=== PATIENT | female | born 1955 | race Caucasian/White ===

== ENCOUNTER 2016-08-14 18:26 | Emergency (ER) | payer OTHER ==
[2016-08-14] MEDS ORDERED: ASPIRIN 81 MG CHEW PO STA (19:54)
--- NOTE | 2016-08-14 19:58 | ED ---
General Adult HPI - General Chief complaint: Back Pain/Injury Stated complaint: back rib pain Time Seen by Provider: 08/14/16 19:47 Source: patient Mode of arrival: ambulatory Limitations: no limitations - History of Present Illness Initial comments: This 60-year-old white female presents with a complaint of some pain throughout her anterior and posterior chest as well as her bilateral ribs. She relates that it is been present for the last 2 weeks. It is constantly present but somewhat worse at times with certain movements and with deep inspiration. Seems better when she takes her Flushing. She denies any fevers. She has had occasional cough which is chronic for her. She does relate a history of some coronary artery disease with 50% stenosis on last heart catheterization. She had pneumonia approximately one year ago but this does not seem similar. She states that the pain is fairly severe in nature. She denies any other complaints or modifying factors. - Related Data Home Medications Medication Instructions Recorded Confirmed Aspirin 325 mg PO DAILY 03/31/15 08/14/16 Enalapril Maleate [Vasotec] 10 mg PO HS 03/31/15 08/14/16 Hydrocodone/Acetaminophen [[place] 1 tab PO Q6H PRN 03/31/15 08/14/16 10-325] Isosorbide Mononitrate ER [Imdur] 30 mg PO DAILY 03/31/15 08/14/16 Metoprolol Tartrate [Lopressor] 50 mg PO BID 03/31/15 08/14/16 Omeprazole [PriLOSEC] 20 mg PO BID 03/31/15 08/14/16 Simvastatin [Zocor] 40 mg PO HS 04/01/15 08/14/16 Furosemide [Lasix] 20 mg PO DAILY PRN 08/24/15 08/14/16 Multivitamins, Thera [Multivitamin 1 tab PO DAILY 08/24/15 08/14/16 (formulary)] Stool Softner 1 tab PO DAILY PRN 08/24/15 08/14/16 Allergies Allergy/AdvReac Type Severity Reaction Status Date / Time morphine Allergy Hypotension Verified 08/14/16 19:08 Review of Systems ROS Statement: Those systems with pertinent positive or pertinent negative responses have been documented in the HPI. ROS Other: All systems not noted in ROS Statement are negative. Past Medical History Past Medical History: Coronary Artery Disease (CAD), Cancer, Pneumonia Additional Past Medical History / Comment(s): Bennett [place]; Breast Cancer History of Any Multi-Drug Resistant Organisms: None Reported Past Surgical History: Section, Heart Catheterization Additional Past Surgical History / Comment(s): Lumpectomy, four heart catheterizations Past Anesthesia/Blood Transfusion Reactions: No Reported Reaction Past Psychological History: No Psychological Hx Reported Smoking Status: Former smoker Past Alcohol Use History: None Reported Past Drug Use History: None Reported - Past Family History Mother Family Medical History: Cancer Father Family Medical History: Diabetes Mellitus General Exam - General Exam Comments Initial Comments: GENERAL: The patient is well nourished and well hydrated. VITAL SIGNS: Heart rate, blood pressure, respiratory rate reviewed as recorded in nurse's notes. EYES: Pupils are round and reactive. Extraocular movements are intact. No conjunctival / lid redness or swelling. ENT: No external evidence of injury, swelling, or ecchymosis. Airway is patent. Throat is clear. NECK: Nontender. No swelling or evidence of injury. No subcutaneous emphysema. Trachea is midline. No thyroid mass. HEART: Regular rate and rhythm. Good peripheral pulses. LUNGS/CHEST: Breath sounds clear and equal bilaterally. No rales, rhonchi, or wheezes. No ecchymosis, subcutaneous emphysema. ABDOMEN: Abdomen soft without tenderness. No palpable masses or organomegaly. No peritoneal signs. No abdominal wall swelling or ecchymosis. EXTREMITIES: No extremity tenderness. Normal muscle tone and function. No thoracolumbar tenderness. NEUROLOGIC: Sensation is grossly intact. Cranial nerve exam reveals face is symmetrical, tongue is midline, speech is clear. SKIN: No abrasions or ecchymosis is noted. No induration or masses noted. PSYCHIATRIC: Alert and oriented. Appropriate behavior and judgment. Limitations: no limitations Course Vital Signs 08/14/16 08/14/16 18:32 21:31 Temperature 97.7 F Pulse Rate 69 57 L Respiratory 20 18 Rate Blood Pressure 148/68 154/67 O2 Sat by Pulse 98 98 Oximetry Medical Decision Making - Medical Decision Making The patient is seen and examined. All diagnostics are reviewed. She refuses any pain medications currently. The EKG shows a normal sinus rhythm at a rate of 60. There is no acute ST-T wave changes identified. The [place] interval is 140 , QRS duration is 88, and the QTc interval is 440. The d-dimer came back elevated and therefore computed tomography scan of the thorax was done and this does not show any evidence of pulmonary embolism. The remainder of labs are all essentially within normal limits. The exact cause of her symptomatology is not definitively determined. Is felt as though her symptom complexes less likely cardiac but she still is offered admission to the hospital for further workup and treatment. She refuses. She does see Dr. Ly from cardiology and would prefer to follow up with him closely. The possibility of a rare disorder such as polymyalgia rheumatica certainly would be potentially possible. Risks and benefits of leaving without admission and further workup were discussed in detail and she still refuses to be admitted. She leaves in no identifiable distress. - Lab Data Result diagrams: 08/14/16 20:19 08/14/16 20:19 Lab Results 08/14/16 08/14/16 08/14/16 Range/Units 20:19 20:19 20:19 WBC 8.9 (3.8-10.6) k/uL RBC 5.07 (3.80-5.40) m/uL Hgb 13.9 (11.4-16.0) gm/dL Hct 42.1 (34.0-46.0) % MCV 83.1 (80.0-100.0) fL MCH 27.3 (25.0-35.0) pg MCHC 32.9 (31.0-37.0) g/dL RDW 15.5 (11.5-15.5) % Plt Count 230 (150-450) k/uL Neutrophils % 70 % Lymphocytes % 19 % Monocytes % 6 % Eosinophils % 2 % Basophils % 1 % Neutrophils # 6.2 (1.3-7.7) k/uL Lymphocytes # 1.7 (1.0-4.8) k/uL Monocytes # 0.6 (0-1.0) k/uL Eosinophils # 0.2 (0-0.7) k/uL Basophils # 0.1 (0-0.2) k/uL PT (9.0-12.0) sec INR (<1.1) APTT (22.0-30.0) sec D-Dimer (<0.60) mg/L FEU Sodium 141 (137-145) mmol/L Potassium 4.0 (3.5-5.1) mmol/L Chloride 107 (98-107) mmol/L Carbon Dioxide 23 (22-30) mmol/L Anion Gap 11 mmol/L BUN 20 H (7-17) mg/dL Creatinine 0.69 (0.52-1.04) mg/dL Est GFR (MDRD) Af Amer >60 (>60 ml/min/1.73 sqM) Est GFR (MDRD) Non-Af >60 (>60 ml/min/1.73 sqM) Glucose 95 (74-99) mg/dL Calcium 9.4 (8.4-10.2) mg/dL Magnesium 1.9 (1.6-2.3) mg/dL Total Bilirubin 1.3 (0.2-1.3) mg/dL AST 27 (14-36) U/L ALT 39 (9-52) U/L Alkaline Phosphatase 86 (38-126) U/L Total Creatine Kinase 77 (30-135) U/L CK-MB (CK-2) 0.4 (0.0-2.4) ng/mL CK-MB (CK-2) Rel Index 0.5 Troponin I <0.012 (0.000-0.034) ng/mL NT-Pro-B Natriuret Pep pg/mL Total Protein 7.6 (6.3-8.2) g/dL Albumin 4.1 (3.5-5.0) g/dL Urine Color Urine Appearance (Clear) Urine pH (5.0-8.0) Ur Specific [place] (1.001-1.035) Urine Protein (Negative) Urine Glucose (UA) (Negative) Urine Ketones (Negative) Urine Blood (Negative) Urine Nitrite (Negative) Urine Bilirubin (Negative) Urine Urobilinogen (<2.0) mg/dL Ur Leukocyte Esterase (Negative) Urine RBC (0-5) /hpf Urine WBC (0-5) /hpf Ur Squamous Epith Cells (0-4) /hpf Urine Bacteria (None) /hpf Urine Mucus (None) /hpf 08/14/16 08/14/16 08/14/16 Range/Units 20:19 20:19 20:19 WBC (3.8-10.6) k/uL RBC (3.80-5.40) m/uL Hgb (11.4-16.0) gm/dL Hct (34.0-46.0) % MCV (80.0-100.0) fL MCH (25.0-35.0) pg MCHC (31.0-37.0) g/dL RDW (11.5-15.5) % Plt Count (150-450) k/uL Neutrophils % % Lymphocytes % % Monocytes % % Eosinophils % % Basophils % % Neutrophils # (1.3-7.7) k/uL Lymphocytes # (1.0-4.8) k/uL Monocytes # (0-1.0) k/uL Eosinophils # (0-0.7) k/uL Basophils # (0-0.2) k/uL PT 10.5 (9.0-12.0) sec INR 1.0 (<1.1) APTT 22.6 (22.0-30.0) sec D-Dimer 0.79 H (<0.60) mg/L FEU Sodium (137-145) mmol/L Potassium (3.5-5.1) mmol/L Chloride (98-107) mmol/L Carbon Dioxide (22-30) mmol/L Anion Gap mmol/L BUN (7-17) mg/dL Creatinine (0.52-1.04) mg/dL Est GFR (MDRD) Af Amer (>60 ml/min/1.73 sqM) Est GFR (MDRD) Non-Af (>60 ml/min/1.73 sqM) Glucose (74-99) mg/dL Calcium (8.4-10.2) mg/dL Magnesium (1.6-2.3) mg/dL Total Bilirubin (0.2-1.3) mg/dL AST (14-36) U/L ALT (9-52) U/L Alkaline Phosphatase (38-126) U/L Total Creatine Kinase (30-135) U/L CK-MB (CK-2) (0.0-2.4) ng/mL CK-MB (CK-2) Rel Index Troponin I (0.000-0.034) ng/mL NT-Pro-B Natriuret Pep 192 pg/mL Total Protein (6.3-8.2) g/dL Albumin (3.5-5.0) g/dL Urine Color Yellow Urine Appearance Cloudy H (Clear) Urine pH 6.0 (5.0-8.0) Ur Specific [place] 1.019 (1.001-1.035) Urine Protein Negative (Negative) Urine Glucose (UA) Negative (Negative) Urine Ketones Negative (Negative) Urine Blood Negative (Negative) Urine Nitrite Negative (Negative) Urine Bilirubin Negative (Negative) Urine Urobilinogen 3.0 (<2.0) mg/dL Ur Leukocyte Esterase Moderate H (Negative) Urine RBC 5 (0-5) /hpf Urine WBC 50 H (0-5) /hpf Ur Squamous Epith Cells 2 (0-4) /hpf Urine Bacteria Rare H (None) /hpf Urine Mucus Rare H (None) /hpf Disposition Clinical Impression: Chest pain, Chest wall pain Disposition: HOME SELF-CARE Condition: Good Instructions: Chest Pain (ED), Chest Wall Pain (ED) Additional Instructions: Please take her Flushing if needed for pain. He also may benefit from ibuprofen for pain and inflammation. Referrals: rTever Lindsay MD [Primary Care Provider] - 1-2 days Time of Disposition: 00:09
[2016-08-14 20:34] LABS: Basophils # (A) 0.1 k/uL (0-0.2); Basophils % (A) 1 %; CH 27.7; CHCM 33.5; Eosinophils # (A) 0.2 k/uL (0-0.7); Eosinophils % (A) 2 %; HCT 42.1 % (34.0-46.0); HDW 3.13; HGB 13.9 gm/dL (11.4-16.0); Luc # (Auto) 0.22; Luc % (Auto) 3; Lymphocytes # (A) 1.7 k/uL (1.0-4.8); Lymphocytes % (A) 19 %; MCH 27.3 pg (25.0-35.0); MCHC 32.9 g/dL (31.0-37.0); MCV 83.1 fL (80.0-100.0); Mean Platelet Volume 6.3; Monocytes # (A) 0.6 k/uL (0-1.0); Monocytes % (A) 6 %; Neutrophils # (A) 6.2 k/uL (1.3-7.7); Neutrophils % (A) 70 %; RBC 5.07 m/uL (3.80-5.40); RDW 15.5 % (11.5-15.5); WBC 8.9 k/uL (3.8-10.6); WBC (Perox) 8.77
--- NOTE | 2016-08-14 20:34 | XR ---
EXAMINATION TYPE: XR chest 2V DATE OF EXAM: 08/14/2016 8:24 PM COMPARISON: 04/05/2015 HISTORY: Pain, history of breast carcinoma TECHNIQUE: Frontal and lateral views of the chest are obtained. FINDINGS: EKG leads are noted. The lungs appear clear bilaterally. The pleural spaces are negative. There is no pneumothorax. The cardiac silhouette size is within normal limits. The left breast shadow is reduced in volume when compared to the right. The osseous structures are intact. IMPRESSION: NO ACUTE PROCESS.
[2016-08-14 20:38] LABS: Appearance,Urine Cloudy (Clear); Bacteria,Urine Rare /hpf; Bilirubin,Urine Negative (Negative); Glucose,Urine (UA) Negative (Negative); Ketones,Urine Negative (Negative); Leukocyte Esterase,Urine Moderate (Negative); Mucus,Urine Rare /hpf; Nitrite,Urine Negative (Negative); Particle Count 2017; Protein,Urine Negative (Negative); RBC,Urine 5 /hpf (0-5); Specific Gravity,Urine 1.019 (1.001-1.035); Squamous Epithelial Cell,Urine 2 /hpf (0-4); UA Billing (MACRO vs. MICRO) MICRO; WBC,Urine 50 /hpf (0-5)
[2016-08-14 20:45] LABS: ALT 39 U/L (9-52); AST 27 U/L (14-36); Alkaline Phosphatase 86 U/L (38-126); Anion Gap 11 mmol/L; Blood Urea Nitrogen 20 mg/dL (7-17); Calcium 9.4 mg/dL (8.4-10.2); Carbon Dioxide 23 mmol/L (22-30); Chloride 107 mmol/L (98-107); Glucose 95 mg/dL (74-99); Magnesium 1.9 mg/dL (1.6-2.3); Non-African American GFR(MDRD) >60 (>60 ml/min/1.73 sqM); Sodium 141 mmol/L (137-145); Total Bilirubin 1.3 mg/dL (0.2-1.3); Total Protein 7.6 g/dL (6.3-8.2)
[2016-08-14 20:48] LABS: Creatine Kinase 77 U/L (30-135)
[2016-08-14 20:56] LABS: Partial Thromboplastin Time 22.6 sec (22.0-30.0); Prothrombin Time 10.5 sec (9.0-12.0)
[2016-08-14 21:01] LABS: Creatine Kinase MB 0.4 ng/mL (0.0-2.4); Troponin I <0.012 ng/mL (0.000-0.034)
[2016-08-14 21:33] VITALS: RESP 18
[2016-08-14] MEDS ORDERED: RX INFO: IV CONTRAST WAS GIVEN 1 EACH MISC MISCELLANE PRN (21:59)
--- NOTE | 2016-08-14 23:28 | CT ---
EXAM: CT Angiography Chest With Intravenous Contrast. CLINICAL HISTORY: Reason: Pain TECHNIQUE: Axial computed tomographic angiography images of the chest with intravenous contrast using pulmonary embolism protocol. CTDI is 7.50, 120.20, 21.50 mGy and DLP is 1015.40 mGy-cm This CT exam was performed using one or more of the following dose reduction techniques: automated exposure control, adjustment of the mA and/or kV according to patient size, and/or use of iterative reconstruction technique. MIP reconstructed images were created and reviewed. COMPARISON: No relevant prior studies available. FINDINGS: Limitations: Timing of the IV contrast bolus. Pulmonary arteries: No central pulmonary embolus. Aorta: Atherosclerosis of the thoracic aorta and coronary arteries. No thoracic aortic aneurysm or dissection. Lungs: Unremarkable. No mass. No consolidation. Pleural space: Left pleural thickening. No pneumothorax or pleural effusion. Heart: See above. Bones/joints: Degenerative changes of the spine. No acute fracture. No dislocation. Soft tissues: Unremarkable. Lymph nodes: Unremarkable. No enlarged lymph nodes. Liver: Indeterminate small foci of hypoattenuation in the liver measuring up to 2 cm. Gallbladder and bile ducts: The gallbladder is surgically absent. Other findings: Mild left greater than right subpleural densities are compatible with scar. IMPRESSION: No central pulmonary embolus.
[2016-08-15 00:57] VITALS: BP 156/70; PULSE 67; TEMP 97.5
== END 2016-08-15 00:56 | disposition home or self-care (01) ==
LOC: EC 18:26
DX: R07.89 Other chest pain (principal); I25.10 Atherosclerotic heart disease of native coronary artery without angina pectoris; Z85.3 Personal history of malignant neoplasm of breast; Z88.5 Allergy status to narcotic agent; Z87.891 Personal history of nicotine dependence; Z79.82 Long term (current) use of aspirin; Z79.899 Other long term (current) drug therapy
CPT/HCPCS: 99284; 96365; 36415; 93005; 85379; 83880; 80053; 82550; 82553; 83735; 84484; 85025; 85610; 85730; 81001; 87040; 87086; 71020; 71275; Q9967; J0696; 87077; 87186

== ENCOUNTER → 2016-09-28 | Outpatient (CLI) | payer OTHER ==
--- NOTE | 2016-09-28 08:52 | CT ---
EXAMINATION TYPE: CT sinus wo con DATE OF EXAM: 09/28/2016 COMPARISON: NONE HISTORY: Pilar Granulomatosis CT DLP: 605 mGycm. Automated Exposure Control for Dose Reduction was Utilized. TECHNIQUE: CT scan of the sinuses is performed without contrast, axial images are obtained, coronal r eformatted images are also reviewed. FINDINGS: Patchy dependent suspicious opacification inferior left maxillary sinus is present. Remaind er paranasal sinuses are clear. The ostiomeatal complex is patent bilaterally on the coronal images. Nasal septum is deviated to left of midline. No suspicious polyposis is evident. Visualized portion of mastoid air cells show no abnormal opacification. The globes are intact bilate rally. Visualized portion of brain parenchyma shows age-related cerebral atrophy. Hyperostosis front joanna is seen. IMPRESSION: Acute left maxillary sinus disease.
--- NOTE | 2016-09-28 09:06 | CT ---
EXAMINATION TYPE: CT chest wo con DATE OF EXAM: 09/28/2016 COMPARISON: CTA chest August 14, 2016. HISTORY: Pilar granulomatosis CT DLP: 777 mGycm. Automated Exposure Control for Dose Reduction was Utilized. TECHNIQUE: CT scan of the thorax is performed without IV contrast. FINDINGS: LUNGS: There is persistent reticulation and subpleural fibrosis in the left midlung laterally. Additi onal linear scarring centrally left lower lobe is present. No concerning parenchymal nodule or mass i s seen bilaterally. There is no pleural effusion or pneumothorax seen bilaterally. The tracheobron chial tree is patent. MEDIASTINUM: Lack of IV contrast is noted to limit evaluation for mediastinal and especially hilar ad enopathy. There are no definitive greater than 1 cm hilar or mediastinal lymph nodes. No cardiomega ly or pericardial effusion is seen. Mild biatrial dilatation is redemonstrated. Coronary artery calci fication is present which is noted marker for coronary artery disease. There is mild atherosclerotic change in the thoracic aorta. OTHER: There is stable 1.5 cm low dense lesion posterior right hepatic dome felt to reflect simple c yst. Cholecystectomy clips are redemonstrated. Moderate multilevel spurring in the spine is redemonst rated. IMPRESSION: Some left mid lung scarring redemonstrated. No acute pulmonary process. No significant ch alexandre from prior exam.
== END | disposition home or self-care (01) ==
LOC: RADCTMAIN 07:27
PROVIDERS: ATTEND Internal Medicine Rheumatology
DX: J98.4 Other disorders of lung (principal); J01.00 Acute maxillary sinusitis, unspecified
CPT/HCPCS: 70486; 71250

== ENCOUNTER 2017-02-04 10:00 | Emergency (ER) | payer OTHER ==
[2017-02-04 10:12] VITALS: RESP 18
[2017-02-04] MEDS ORDERED: IPRATROPIUM-ALBUTEROL 3 ML NEB INHALATION STA (10:44)
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
--- NOTE | 2017-02-04 11:13 | XR ---
EXAMINATION TYPE: XR chest 2V DATE OF EXAM: 02/04/2017 HISTORY: cough. REFERENCE: Previous study dated 08/14/2016. FINDINGS: The lungs are overinflated. The heart is mildly prominent. The lungs are clear. Pleural [place] are clear. IMPRESSION: 1. COPD. 2. MILD CARDIOMEGALY.
[2017-02-04] MEDS ORDERED: predniSONE 50 MG TAB PO STA (11:50)
[2017-02-04] MEDS ORDERED: cefTRIAXone 250 MG VIAL IM STA (11:50)
[2017-02-04 12:38] VITALS: BP 143/79; PULSE 81; TEMP 98.2
== END 2017-02-04 12:37 | disposition home or self-care (01) ==
LOC: EC 10:00
DX: J40 Bronchitis, not specified as acute or chronic (principal); I25.10 Atherosclerotic heart disease of native coronary artery without angina pectoris; Z85.3 Personal history of malignant neoplasm of breast; Z87.891 Personal history of nicotine dependence; Z79.82 Long term (current) use of aspirin; Z79.899 Other long term (current) drug therapy; Z88.5 Allergy status to narcotic agent
CPT/HCPCS: 99283 ×2; 96372 ×2; 94640; 71020; J0696; J7512

== ENCOUNTER 2017-06-22 10:32 | Emergency (ER) | payer OTHER ==
--- NOTE | 2017-06-22 11:34 | XR ---
EXAMINATION TYPE: XR chest 2V DATE OF EXAM: 06/22/2017 COMPARISON: 02/04/2017 TECHNIQUE: PA and lateral views submitted. HISTORY: Cough FINDINGS: The lungs are clear and there is no pneumothorax, pleural effusion, or focal pneumonia. Hyperinflat ion suggests COPD. Biapical pleural thickening. No overt failure. Hypertrophic and degenerative gil e of the spine. Atherosclerotic change of the aorta. IMPRESSION: 1. No acute process. Correlate for COPD.
[2017-06-22 12:17] LABS: Basophils # (A) 0.1 k/uL (0-0.2); Basophils % (A) 1 %; Eosinophils # (A) 0.3 k/uL (0-0.7); Eosinophils % (A) 2 %; HCT 44.9 % (34.0-46.0); HGB 14.6 gm/dL (11.4-16.0); Hypochromasia Slight; Lymphocytes # (A) 1.7 k/uL (1.0-4.8); Lymphocytes % (A) 16 %; MCH 26.9 pg (25.0-35.0); MCHC 32.6 g/dL (31.0-37.0); MCV 82.4 fL (80.0-100.0); Mean Platelet Volume 6.5; Monocytes # (A) 0.7 k/uL (0-1.0); Monocytes % (A) 7 %; Neutrophils # (A) 7.7 k/uL (1.3-7.7); Neutrophils % (A) 73 %; Platelet Count 325 k/uL (150-450); RBC 5.45 m/uL (3.80-5.40); RDW 15.9 % (11.5-15.5); WBC 10.6 k/uL (3.8-10.6)
[2017-06-22 12:37] LABS: Anion Gap 9 mmol/L; Blood Urea Nitrogen 21 mg/dL (7-17); Calcium 9.4 mg/dL (8.4-10.2); Carbon Dioxide 27 mmol/L (22-30); Chloride 105 mmol/L (98-107); Glucose 138 mg/dL (74-99); Potassium 4.5 mmol/L (3.5-5.1); Sodium 141 mmol/L (137-145)
[2017-06-22] MEDS ORDERED: IPRATROPIUM-ALBUTEROL 3 ML NEB INHALATION STA (12:44)
[2017-06-22] MEDS ORDERED: methylPREDNISolone SOD SUCCI 125 MG/2 ML VIAL IV STA (12:44)
[2017-06-22] MEDS ORDERED: SODIUM CHLORIDE 0.9% 1,000 ML IV ONE (12:45)
[2017-06-22 13:23] VITALS: RESP 16
[2017-06-22 13:49] LABS: ALT 35 U/L (9-52); AST 28 U/L (14-36); Alkaline Phosphatase 103 U/L (38-126); Anion Gap 11 mmol/L; Blood Urea Nitrogen 22 mg/dL (7-17); Calcium 9.7 mg/dL (8.4-10.2); Carbon Dioxide 25 mmol/L (22-30); Chloride 106 mmol/L (98-107); Glucose 137 mg/dL (74-99); Potassium 4.3 mmol/L (3.5-5.1); Sodium 142 mmol/L (137-145); Total Bilirubin 1.7 mg/dL (0.2-1.3); Total Protein 7.4 g/dL (6.3-8.2)
[2017-06-22 13:58] LABS: Appearance,Urine Cloudy (Clear); Bilirubin,Urine Negative (Negative); Blood,Urine Negative (Negative); Color,Urine Yellow; Glucose,Urine (UA) Negative (Negative); Hyaline Casts,Urine 2 /lpf (0-2); Ketones,Urine Negative (Negative); Leukocyte Esterase,Urine Moderate (Negative); Mucus,Urine Few /hpf; PH, Urine 5.5 (5.0-8.0); Protein,Urine 1+ (Negative); RBC,Urine 6 /hpf (0-5); Specific Gravity,Urine 1.015 (1.001-1.035); Squamous Epithelial Cell,Urine 1 /hpf (0-4); Urobilinogen,Urine <2.0 mg/dL (<2.0); WBC,Urine 112 /hpf (0-5)
[2017-06-22 14:00] LABS: D-Dimer 0.78 mg/L FEU (<0.60)
[2017-06-22 14:04] LABS: INR 1.1 (<1.2); Prothrombin Time 10.3 sec (9.0-12.0)
[2017-06-22] MEDS ORDERED: cefTRIAXone IN SWFI 1,000 MG/10 ML SYRINGE IVP STA (14:21)
[2017-06-22] MEDS ORDERED: RX INFO: IV CONTRAST WAS GIVEN 1 EACH MISC MISCELLANE PRN (14:21)
[2017-06-22] MEDS ORDERED: LEVOFLOXACIN 750MG-D5W PMX 750 MG in DEXTROSE/WATER 1 150ML.BAG IVPB STA (14:22)
--- NOTE | 2017-06-22 14:23 | ED ---
URI HPI - General Chief Complaint: Upper Respiratory Infection Stated Complaint: Cough & chills Time Seen by Provider: 06/22/17 12:13 Source: patient, RN notes reviewed, old records reviewed Mode of arrival: ambulatory Limitations: no limitations - History of Present Illness Initial Comments: This patient is 61-year-old female presents the chief complaint of cough and congestion, sore throat and right-sided back pain. She's been having upper a story symptoms for over a month. She's been on 2 rounds of azithromycin, amoxicillin, and steroids. She was recently started on cefuroxime by her PCP. She reports that yesterday she had an episode of severe frequent C with urination. Denies any abdominal pain but does complain of right-sided back pain. Patient states that she feels like she is wheezing and short of breath more at night. She's had a use inhalers in the past. - Related Data Home Medications Medication Instructions Recorded Confirmed Aspirin 325 mg PO DAILY 03/31/15 06/22/17 Enalapril Maleate [Vasotec] 10 mg PO HS 03/31/15 06/22/17 Hydrocodone/Acetaminophen [[place] 1 tab PO Q6H PRN 03/31/15 06/22/17 10-325] Isosorbide Mononitrate ER [Imdur] 30 mg PO DAILY 03/31/15 06/22/17 Metoprolol Tartrate [Lopressor] 50 mg PO BID 03/31/15 06/22/17 Simvastatin [Zocor] 40 mg PO HS 04/01/15 06/22/17 Furosemide [Lasix] 20 mg PO DAILY PRN 08/24/15 06/22/17 [place] 1 tab PO DAILY PRN 08/24/15 06/22/17 ALPRAZolam [Xanax] 0.5 mg PO BID PRN 06/22/17 06/22/17 Previous Rx's Medication Instructions Recorded Albuterol Inhaler [Ventolin Hfa 1 - 2 puff INHALATION Q6HR PRN #1 06/22/17 Inhaler] inhaler Levofloxacin [Levaquin] 750 mg PO DAILY #7 tab 06/22/17 predniSONE 50 mg PO DAILY #5 tablet 06/22/17 Allergies Allergy/AdvReac Type Severity Reaction Status Date / Time morphine Allergy Hypotension Verified 06/22/17 16:18 Review of Systems ROS Statement: Those systems with pertinent positive or pertinent negative responses have been documented in the HPI. ROS Other: All systems not noted in ROS Statement are negative. Past Medical History Past Medical History: Coronary Artery Disease (CAD), Cancer, Pneumonia Additional Past Medical History / Comment(s): Bennett [place]; Breast Cancer History of Any Multi-Drug Resistant Organisms: None Reported Past Surgical History: Section, Heart Catheterization Additional Past Surgical History / Comment(s): Lumpectomy, four heart catheterizations Past Anesthesia/Blood Transfusion Reactions: No Reported Reaction Past Psychological History: No Psychological Hx Reported Smoking Status: Former smoker Past Alcohol Use History: None Reported Past Drug Use History: None Reported - Past Family History Mother Family Medical History: Cancer Father Family Medical History: Diabetes Mellitus General Exam - General Exam Comments Initial Comments: Pleasant 61 year old female, no acute distress. Limitations: no limitations General appearance: alert, in no apparent distress Head exam: Present: atraumatic, normocephalic, normal inspection Eye exam: Present: normal appearance, PERRL, EOMI. Absent: scleral icterus, conjunctival injection, periorbital swelling ENT exam: Present: normal exam, mucous membranes moist Neck exam: Present: normal inspection. Absent: tenderness, meningismus, lymphadenopathy Respiratory exam: Present: wheezes (minor wheezing ). Absent: normal lung sounds bilaterally, respiratory distress, rales, rhonchi, stridor Cardiovascular Exam: Present: regular rate, normal rhythm, normal heart sounds. Absent: systolic murmur, diastolic murmur, rubs, gallop, clicks GI/Abdominal exam: Present: soft, normal bowel sounds. Absent: distended, tenderness, guarding, rebound, rigid Neurological exam: Present: alert, oriented X3, CN II-XII intact Psychiatric exam: Present: normal affect, normal mood Skin exam: Present: warm, dry, intact, normal color. Absent: rash Course Vital Signs 06/22/17 06/22/17 06/22/17 10:43 12:53 13:20 Temperature 97.5 F L Pulse Rate 77 76 77 Respiratory 18 16 Rate Blood Pressure 122/78 124/64 O2 Sat by Pulse 97 94 L Oximetry 06/22/17 06/22/17 15:29 16:48 Temperature 98 F Pulse Rate 76 70 Respiratory 16 16 Rate Blood Pressure 152/66 130/78 O2 Sat by Pulse 95 98 Oximetry Medical Decision Making - Medical Decision Making This is a 61-year-old female presents emergency department today complaining of upper respiratory congestion and cough and shortness of breath. Patient says exertion evidence of COPD. She also complains of right-sided back pain, progressive urination. Patient's urinalysis positive for infection with over 182 white blood cells. Urine culture be obtained. Started patient on Levaquin. She was on Ceftin earlier for upper respiratory infection by her PCP. Discussed discogenic Ceftin and will switch patient to Levaquin. Also starting her on some steroids for COPD exacerbation and inhalers. Patient is history plan will comply. Return parameters were discussed. - Lab Data Result diagrams: 06/22/17 12:05 06/22/17 13:18 Lab Results 06/22/17 06/22/17 06/22/17 Range/Units 12:05 12:05 13:18 WBC 10.6 (3.8-10.6) k/uL RBC 5.45 H (3.80-5.40) m/uL Hgb 14.6 (11.4-16.0) gm/dL Hct 44.9 (34.0-46.0) % MCV 82.4 (80.0-100.0) fL MCH 26.9 (25.0-35.0) pg MCHC 32.6 (31.0-37.0) g/dL RDW 15.9 H (11.5-15.5) % Plt Count 325 (150-450) k/uL Neutrophils % 73 % Lymphocytes % 16 % Monocytes % 7 % Eosinophils % 2 % Basophils % 1 % Neutrophils # 7.7 (1.3-7.7) k/uL Lymphocytes # 1.7 (1.0-4.8) k/uL Monocytes # 0.7 (0-1.0) k/uL Eosinophils # 0.3 (0-0.7) k/uL Basophils # 0.1 (0-0.2) k/uL Hypochromasia Slight PT (9.0-12.0) sec INR (<1.2) APTT (22.0-30.0) sec D-Dimer (<0.60) mg/L FEU Sodium 141 (137-145) mmol/L Potassium 4.5 (3.5-5.1) mmol/L Chloride 105 (98-107) mmol/L Carbon Dioxide 27 (22-30) mmol/L Anion Gap 9 mmol/L BUN 21 H (7-17) mg/dL Creatinine 0.79 (0.52-1.04) mg/dL Est GFR (CKD-EPI)AfAm >90 (>60 ml/min/1.73 sqM) Est GFR (CKD-EPI)NonAf 81 (>60 ml/min/1.73 sqM) Glucose 138 H (74-99) mg/dL Calcium 9.4 (8.4-10.2) mg/dL Total Bilirubin (0.2-1.3) mg/dL AST (14-36) U/L ALT (9-52) U/L Alkaline Phosphatase (38-126) U/L Troponin I (0.000-0.034) ng/mL Total Protein (6.3-8.2) g/dL Albumin (3.5-5.0) g/dL Urine Color Yellow Urine Appearance Cloudy H (Clear) Urine pH 5.5 (5.0-8.0) Ur Specific [place] 1.015 (1.001-1.035) Urine Protein 1+ H (Negative) Urine Glucose (UA) Negative (Negative) Urine Ketones Negative (Negative) Urine Blood Negative (Negative) Urine Nitrite Negative (Negative) Urine Bilirubin Negative (Negative) Urine Urobilinogen <2.0 (<2.0) mg/dL Ur Leukocyte Esterase Moderate H (Negative) Urine RBC 6 H (0-5) /hpf Urine WBC 112 H (0-5) /hpf Ur Squamous Epith Cells 1 (0-4) /hpf Hyaline Casts 2 (0-2) /lpf Urine Mucus Few H (None) /hpf 06/22/17 06/22/17 06/22/17 Range/Units 13:18 13:18 13:18 WBC (3.8-10.6) k/uL RBC (3.80-5.40) m/uL Hgb (11.4-16.0) gm/dL Hct (34.0-46.0) % MCV (80.0-100.0) fL MCH (25.0-35.0) pg MCHC (31.0-37.0) g/dL RDW (11.5-15.5) % Plt Count (150-450) k/uL Neutrophils % % Lymphocytes % % Monocytes % % Eosinophils % % Basophils % % Neutrophils # (1.3-7.7) k/uL Lymphocytes # (1.0-4.8) k/uL Monocytes # (0-1.0) k/uL Eosinophils # (0-0.7) k/uL Basophils # (0-0.2) k/uL Hypochromasia PT 10.3 (9.0-12.0) sec INR 1.1 (<1.2) APTT 21.0 L (22.0-30.0) sec D-Dimer 0.78 H (<0.60) mg/L FEU Sodium 142 (137-145) mmol/L Potassium 4.3 (3.5-5.1) mmol/L Chloride 106 (98-107) mmol/L Carbon Dioxide 25 (22-30) mmol/L Anion Gap 11 mmol/L BUN 22 H (7-17) mg/dL Creatinine 0.80 (0.52-1.04) mg/dL Est GFR (CKD-EPI)AfAm >90 (>60 ml/min/1.73 sqM) Est GFR (CKD-EPI)NonAf 79 (>60 ml/min/1.73 sqM) Glucose 137 H (74-99) mg/dL Calcium 9.7 (8.4-10.2) mg/dL Total Bilirubin 1.7 H (0.2-1.3) mg/dL AST 28 (14-36) U/L ALT 35 (9-52) U/L Alkaline Phosphatase 103 (38-126) U/L Troponin I <0.012 (0.000-0.034) ng/mL Total Protein 7.4 (6.3-8.2) g/dL Albumin 4.0 (3.5-5.0) g/dL Urine Color Urine Appearance (Clear) Urine pH (5.0-8.0) Ur Specific [place] (1.001-1.035) Urine Protein (Negative) Urine Glucose (UA) (Negative) Urine Ketones (Negative) Urine Blood (Negative) Urine Nitrite (Negative) Urine Bilirubin (Negative) Urine Urobilinogen (<2.0) mg/dL Ur Leukocyte Esterase (Negative) Urine RBC (0-5) /hpf Urine WBC (0-5) /hpf Ur Squamous Epith Cells (0-4) /hpf Hyaline Casts (0-2) /lpf Urine Mucus (None) /hpf 06/22/17 14:22 EKG shows normal sinus rhythm, ventricular rate of 79 bpm. DE interval 140 ms. QRS ration 80 ms. QT QTc is 412/472 ms. - Radiology Data Radiology results: report reviewed Chest x-ray shows evidence of COPD changes. CT ESCOBAR chest shows no evidence of PE. No pneumonias. Disposition Clinical Impression: UTI (urinary tract infection), COPD (chronic obstructive pulmonary disease) Disposition: HOME SELF-CARE Condition: Good Instructions: Urinary Tract Infection in Women (ED), Upper Respiratory Infection (ED) Additional Instructions: Patient advised to follow-up with primary care provider within the next 2-3 days. Patient should return to emergency department if any alarming signs or symptoms occur. Use the new antibiotic and steroid prescription. Patient should also use the inhaler as directed. Discontinue Ceftin. Return to the emergency department if any alarming signs or symptoms occur. Prescriptions: Albuterol Inhaler [Ventolin Hfa Inhaler] 1 - 2 puff INHALATION Q6HR PRN #1 inhaler PRN Reason: Shortness Of Breath Levofloxacin [Levaquin] 750 mg PO DAILY #7 tab predniSONE 50 mg PO DAILY #5 tablet Referrals: Jean Uriarte MD [Primary Care Provider] - 1-2 days Time of Disposition: 16:10
--- NOTE | 2017-06-22 15:37 | CT ---
EXAMINATION TYPE: CT chest angio for PE DATE OF EXAM: 06/22/2017 COMPARISON: 09/28/2016 HISTORY: Difficulty breathing X [address] DLP: 1298 mGycm Automated exposure control for dose reduction was used. CONTRAST: CT Chest for pulmonary embolism performed with with IV Contrast, patient injected with 100 mL of Omni paque 350. FINDINGS: LUNGS: There is persistent reticulation and subpleural fibrosis in the left midlung laterally. Additi onal linear scarring centrally left lower lobe is present. No concerning parenchymal nodule or mass i s seen bilaterally. There is no pleural effusion or pneumothorax seen bilaterally. The tracheobronchi al tree is patent. MEDIASTINUM: There is satisfactory enhancement of the pulmonary artery and its branches, there is no CT evidence for pulmonary embolism. There are no greater than 1 cm hilar or mediastinal lymph nodes. No pericardial effusion is seen. The heart is prominent in size particularly the atrium. Atherosc lerotic change of the aorta. No evidence of aneurysm. Coronary artery calcification noted. OTHER: There is gallbladder surgery seen. Hypodensities in the dome of the liver are indeterminate. Hypertrophic change of the spine noted. IMPRESSION: No CT evidence of pulmonary embolism see above.
[2017-06-22 16:49] VITALS: BP 130/78; PULSE 70; TEMP 98
== END 2017-06-22 16:45 | disposition home or self-care (01) ==
LOC: EC 10:32
DX: J44.9 Chronic obstructive pulmonary disease, unspecified (principal); N39.0 Urinary tract infection, site not specified; I25.10 Atherosclerotic heart disease of native coronary artery without angina pectoris; Z87.891 Personal history of nicotine dependence; Z79.82 Long term (current) use of aspirin; Z79.899 Other long term (current) drug therapy; Z88.5 Allergy status to narcotic agent; Z85.3 Personal history of malignant neoplasm of breast; Z98.890 Other specified postprocedural states
CPT/HCPCS: 36415; 94640; 93005; 85379; 80053; 80048; 84484; 85025; 85610; 85730; 81001; 87040; 87086; 71046; 71275; 99284; 96365; 96375; 96361; J2930; Q9967; J1956

== ENCOUNTER 2018-04-18 02:53 | Observation (INO) | payer OTHER ==
[2018-04-18 03:32] LABS: Basophils % (A) 0 %; Eosinophils # (A) 0.2 k/uL (0-0.7); Eosinophils % (A) 2 %; HCT 42.1 % (34.0-46.0); HGB 13.3 gm/dL (11.4-16.0); Lymphocytes # (A) 1.1 k/uL (1.0-4.8); Lymphocytes % (A) 10 %; MCH 25.8 pg (25.0-35.0); MCHC 31.7 g/dL (31.0-37.0); MCV 81.3 fL (80.0-100.0); Mean Platelet Volume 6.2; Monocytes # (A) 0.4 k/uL (0-1.0); Monocytes % (A) 4 %; Neutrophils # (A) 8.9 k/uL (1.3-7.7); Neutrophils % (A) 82 %; Platelet Count 219 k/uL (150-450); RBC 5.18 m/uL (3.80-5.40); RDW 14.2 % (11.5-15.5); WBC 10.8 k/uL (3.8-10.6)
[2018-04-18] MEDS ORDERED: ASPIRIN 325 MG TAB PO STA (03:39)
[2018-04-18] MEDS ORDERED: SODIUM CHLORIDE 0.9% 1,000 ML IV ONE (03:39)
[2018-04-18 03:42] LABS: INR 0.9 (<1.2); Partial Thromboplastin Time 23.6 sec (22.0-30.0); Prothrombin Time 9.8 sec (9.0-12.0)
--- NOTE | 2018-04-18 03:42 | XR ---
EXAMINATION TYPE: XR chest 2V DATE OF EXAM: 04/18/2018 COMPARISON: 06/22/2017 HISTORY: Chest pain TECHNIQUE: Frontal and lateral views of the chest are obtained. FINDINGS: There is no heart failure nor confluent pneumonic infiltrate. Costophrenic angles are lindsey r. Thoracic aorta is atheromatous. There are chest leads. There is spurring in the thoracic spine. Th ere is left mastectomy. IMPRESSION: No active cardiopulmonary disease. Mild pulmonary fibrosis. No change.
[2018-04-18 03:43] LABS: ALT 31 U/L (9-52); AST 23 U/L (14-36); Albumin 4.1 g/dL (3.5-5.0); Alkaline Phosphatase 94 U/L (38-126); Anion Gap 11 mmol/L; Blood Urea Nitrogen 18 mg/dL (7-17); Calcium 9.3 mg/dL (8.4-10.2); Carbon Dioxide 23 mmol/L (22-30); Chloride 108 mmol/L (98-107); Glucose 148 mg/dL (74-99); Magnesium 1.8 mg/dL (1.6-2.3); Potassium 3.9 mmol/L (3.5-5.1); Sodium 142 mmol/L (137-145); Total Bilirubin 0.9 mg/dL (0.2-1.3); Total Protein 7.7 g/dL (6.3-8.2)
[2018-04-18 03:57] LABS: Creatine Kinase 72 U/L (30-135)
[2018-04-18 04:08] LABS: Creatine Kinase MB 0.4 ng/mL (0.0-2.4); Troponin I <0.012 ng/mL (0.000-0.034)
--- NOTE | 2018-04-18 04:17 | ED ---
Chest Pain HPI - General Source: patient, RN notes reviewed, old records reviewed Mode of arrival: ambulatory Limitations: no limitations <Iqra Miles - Last Filed: 04/18/18 04:38> <Maria Ines Prather - Last Filed: 04/19/18 21:32> - General Chief Complaint: Chest Pain Stated Complaint: chest pain,SOB Time Seen by Provider: 04/18/18 03:02 - History of Present Illness Initial Comments: Patient is a 62-year-old male who presents emergency Department today with complaints of chest pain starting yesterday. She reports that she's also had some episodes of lightheadedness. Patient reports that she sitting on the couch , felt dizzy and lightheaded when she stood up. She reports she is diaphoretic at that time. Patient states he's had a dull aching chest pain since that time. Patient states that she's also had some increased dyspnea on exertion. She's had previous stents in the past. Her shell molding roller blast operator is Dr. Ly. Patient states she didn't have a stress test done at Dr. Ly's office earlier this year. Patient states that she has history of breast cancer and recent mastectomy in January. She denies any associated back pain. (Iqra Miles) - Related Data Home Medications Medication Instructions Recorded Confirmed Enalapril Maleate [Vasotec] 10 mg PO HS 03/31/15 04/18/18 Hydrocodone/Acetaminophen [[place] 1 tab PO Q4H PRN 03/31/15 04/18/18 10-325] Isosorbide Mononitrate ER [Imdur] 30 mg PO DAILY 03/31/15 04/18/18 Metoprolol Tartrate [Lopressor] 50 mg PO BID 03/31/15 04/18/18 Simvastatin [Zocor] 40 mg PO HS 04/01/15 04/18/18 Furosemide [Lasix] 40 mg PO DAILY 08/24/15 04/18/18 ALPRAZolam [Xanax] 0.5 mg PO BID PRN 06/22/17 04/18/18 Anastrozole [Arimidex] 1 mg PO DAILY 04/18/18 04/18/18 Aspirin EC [Ecotrin Low Dose] 81 mg PO DAILY 04/18/18 04/18/18 Omeprazole 20 mg PO DAILY 04/18/18 04/18/18 Allergies Allergy/AdvReac Type Severity Reaction Status Date / Time morphine Allergy Hypotension Verified 04/18/18 07:53 Review of Systems ROS Other: All systems not noted in ROS Statement are negative. <JdIqra - Last Filed: 04/18/18 04:38> ROS Other: All systems not noted in ROS Statement are negative. <Maria Ines Prather - Last Filed: 04/19/18 21:32> ROS Statement: Those systems with pertinent positive or pertinent negative responses have been documented in the HPI. EKG Findings - EKG Comments: EKG Findings:: EKG performed at 312 shows sinus rhythm, incomplete right bundle range block. Borderline EKG. Ventricular rate of 83 bpm. Intervals 150 ms. QS congregational 92 Jolanta's seconds. QT QTc is 380/446 most seconds. <JdIqra - Last Filed: 04/18/18 04:38> Past Medical History Past Medical History: Coronary Artery Disease (CAD), Cancer, Pneumonia Additional Past Medical History / Comment(s): Bennett [place]; Breast Cancer History of Any Multi-Drug Resistant Organisms: None Reported Past Surgical History: Section, Heart Catheterization Additional Past Surgical History / Comment(s): Lumpectomy, four heart catheterizations. left mastectomy. Past Anesthesia/Blood Transfusion Reactions: No Reported Reaction Past Psychological History: No Psychological Hx Reported Smoking Status: Former smoker Past Alcohol Use History: None Reported Past Drug Use History: None Reported - Past Family History Mother Family Medical History: Cancer Father Family Medical History: Diabetes Mellitus <JdIqra - Last Filed: 04/18/18 04:38> General Exam Limitations: no limitations General appearance: alert, in no apparent distress Head exam: Present: atraumatic, normocephalic, normal inspection Eye exam: Present: normal appearance, PERRL, EOMI. Absent: scleral icterus, conjunctival injection, periorbital swelling ENT exam: Present: normal exam, mucous membranes moist Neck exam: Present: normal inspection. Absent: tenderness, meningismus, lymphadenopathy Respiratory exam: Present: normal lung sounds bilaterally. Absent: respiratory distress, wheezes, rales, rhonchi, stridor Cardiovascular Exam: Present: regular rate, normal rhythm, normal heart sounds. Absent: systolic murmur, diastolic murmur, rubs, gallop, clicks GI/Abdominal exam: Present: soft, normal bowel sounds. Absent: distended, tenderness, guarding, rebound, rigid Extremities exam: Present: normal inspection, full ROM, normal capillary refill. Absent: tenderness, pedal edema, joint swelling, calf tenderness Back exam: Present: normal inspection Neurological exam: Present: alert, oriented X3, CN II-XII intact Psychiatric exam: Present: normal affect, normal mood Skin exam: Present: warm, dry, intact, normal color. Absent: rash <Iqra Miles - Last Filed: 04/18/18 04:38> <Maria Ines Prather - Last Filed: 04/19/18 21:32> - General Exam Comments Initial Comments: Pleasant 62-year-old female. Somewhat anxious. (Iqra Miles) Vital Signs 04/18/18 04/18/18 04/18/18 02:54 04:10 04:47 Temperature 98.1 F Pulse Rate 86 73 Pulse Rate [ 87 [place] ] Respiratory 20 19 Rate Blood Pressure 187/94 132/69 O2 Sat by Pulse 97 96 Oximetry 04/18/18 04/18/18 04/18/18 05:57 11:00 13:00 Temperature Pulse Rate 77 73 Pulse Rate [ [place] ] Respiratory 17 22 14 Rate Blood Pressure 132/69 148/72 O2 Sat by Pulse 95 96 Oximetry Chest Pain MDM <Iqra Miles - Last Filed: 04/18/18 04:38> <Maria Ines Prather - Last Filed: 04/19/18 21:32> - MDM 62-year-old female with history of coronary disease, hypertension diabetes presents referred today for the onset of chest pain yesterday. She has multiple concerning aspects of her history including diaphoresis, near syncopal episodes, and dyspnea on exertion. Patient was started on heparin. Patient EKG shows no significant changes at this time. She is given aspirin dose. His this time we will keep the Patient for observation and serial cardiac enzymes. Consult to patient's shell molding roller blast operator Dr. Ly. (Iqra Miles) I personally saw and examined the patient. I reviewed and agree with the mid- level provider findings including all diagnostic interpretations and treatment plans as written unless otherwise stated. I discussed patient care with the admitting team. Admission orders and consult cardiology were placed. (Maria Ines Prather) Disposition Time of Disposition: 04:41 <Iqra Miles - Last Filed: 04/18/18 04:38> <Maria Ines Prather - Last Filed: 04/19/18 21:32> Clinical Impression: Unstable angina, Near syncope Disposition: ADMITTED IP TO THIS HOSP Condition: Good
[2018-04-18] MEDS: SODIUM CHLORIDE 0.9% 1,000 ML IV SCH ×2 (04:29→20:33)
[2018-04-18] MEDS ORDERED: NITROGLYCERIN SL TABS 0.4 MG TAB SUBLINGUAL PRN (04:41)
[2018-04-18] MEDS ORDERED: HEPARIN SODIUM,PORCINE 5,000 UNIT/ML 1 ML VIAL IV ONE (04:41)
[2018-04-18] MEDS: HEPARIN SOD,PORK IN 0.45% NACL 25,000 UNIT in 0.45% NACL 1 250ML.BAG IV SCH ×2 (05:36→13:09)
[2018-04-18 10:21] LABS: Creatine Kinase 63 U/L (30-135)
[2018-04-18 10:34] LABS: Creatine Kinase MB 0.3 ng/mL (0.0-2.4); Troponin I <0.012 ng/mL (0.000-0.034)
--- NOTE | 2018-04-18 11:22 | US ---
EXAMINATION TYPE: US venous Doppler duplex LE DATE OF EXAM: 04/18/2018 11:07 AM COMPARISON: NONE CLINICAL HISTORY: leg swelling shortness of breath. Large body habitus at HT 6'0, WT 300lbs. Patient denies leg pain. SIDE PERFORMED: Bilateral TECHNIQUE: The lower extremity deep venous system is examined utilizing real time linear array sonog chelly with graded compression, Doppler sonography and color-flow sonography. VESSELS IMAGED: Common Femoral Vein Deep Femoral Vein Greater Saphenous Vein * Femoral Vein Popliteal Vein Small Saphenous Vein * Proximal Calf Veins (* superficial vessels) Right Leg: Negative for DVT. Right ankle edema channels are noted. Left Leg: Negative for DVT IMPRESSION: No evidence for DVT at this time.
[2018-04-18] MEDS: ISOSORBIDE MONONITRATE ER 30 MG TAB.ER.24H PO SCH (11:50)
[2018-04-18] MEDS: METOPROLOL TARTRATE 50 MG TAB PO SCH ×2 (11:50→20:26)
[2018-04-18] MEDS: FUROSEMIDE 40 MG TAB PO SCH (11:51)
--- NOTE | 2018-04-18 12:41 | P.CRDCN ---
History of Present Illness History of present illness: This is a pleasant 62-year-old female past medical history significant for coronary artery disease with a known 50% blockage of the circumflex artery as well as a 70% blockage of the diagonal artery which is a small nondominant vessel. She also has hypertension, dyslipidemia and breast cancer status post mastectomy in January 2018. She follows with Dr. Ly in the office. We have been asked to see her in consultation for syncopal episode. She states 2 days ago while she was cleaning she became acutely dizzy and fell backwards into the couch. She believes that she had positive loss of consciousness however this was an unwitnessed event. When she came to she was extremely diaphoretic and short of breath. Since that time she has been increasingly dyspneic on exertion. Yesterday she started feeling a pleuritic pain in her chest every time she tried taking a deep breath. She recently underwent a left mastectomy in January of this year secondary to breast cancer. She states she is not planning to undergo chemotherapy per her oncologist. At the time my exam she is seen resting comfortably in bed in no acute distress. She continues to complain of pleuritic pain every time she takes a deep breath. She also describes mild shortness of breath. She denies any ongoing symptoms of dizziness and she has no palpitations, nausea, vomiting or diaphoresis. EKG reveals sinus mechanism with incomplete right bundle branch block pattern. Chest x-ray reveals mild pulmonary fibrosis with no changes noted from previous study. No acute cardiopulmonary process noted. Costophrenic angles are clear. Laboratory data reviewed, WBC 10.8, hemoglobin 13.3, platelets 219, sodium 142, potassium 3.9, creatinine 0.62, magnesium 1.8, cardiac enzymes negative 2, NT proBNP 157 and d-dimer 1.07. Bilateral venous duplexes were requested and obtained and are negative for DVT bilaterally. Current cardiac medications include enalapril 10 mg daily, Lasix 40 mg daily, Imdur 30 mg daily, aspirin 81 mg daily, Lopressor 50 mg twice a day and simvastatin 40 mg daily. She recently underwent a Lexiscan stress test in the office in December 2017 which was negative for reversible cardiac ischemia. Most recent echocardiogram obtained in the office December 2017 revealed preserved left ventricular systolic function with ejection fraction 55%, mild concentric left ventricular hypertrophy noted. At the time of my exam: CONSTITUTIONAL: Denies fever. Denies chills. EYES: Denies blurred vision. Denies vision changes. Denies eye pain. EARS, NOSE, MOUTH & THROAT: Denies headache. Denies sore throat. Denies ear pain. CARDIOVASCULAR: Complains of pleuritic chest pain. Complains of shortness of breath. Denies orthopnea. Denies PND. Denies palpitations. RESPIRATORY: Denies cough. GASTROINTESTINAL: Denies abdominal pain. Denies diarrhea. Denies constipation. Denies nausea. Denies vomiting. MUSCULOSKELETAL: Denies myalgias. INTEGUMENTARY: Denies pruitis. Denies rash. NEUROLOGIC: Denies numbness. Denies tingling. Denies weakness. PSYCHIATRIC: Denies anxiety. Denies depression. ENDOCRINE: Denies fatigue. Denies weight change. Denies polydipsia. Denies polyurina. GENITOURINARY: Denies burning, hematuria or urgency with micturation. HEMATOLOGIC: Denies history of anemia. Denies bleeding. Blood pressure 132/69 heart rate 73 afebrile maintaining oxygen saturation on nasal cannula GENERAL: This is a 62-year-old female in no apparent distress at the time of my examination. Obese. HEENT: Head is atraumatic, normocephalic. Pupils are equal, round. Sclerae anicteric. Conjunctivae are clear. Mucous membranes of the mouth are moist. Neck is supple. There is no jugular venous distention. No carotid bruit is heard. LUNGS: Clear to auscultation no wheezes, rales or rhonchi. No chest wall tenderness is noted on palpation or with deep breathing. HEART: Regular rate and rhythm without murmurs, rubs or gallops. S1 and S2 heard. ABDOMEN: Soft, nontender. Bowel sounds are heard. No organomegaly noted. EXTREMITIES: Trace bilateral lower extremity edema right greater than left, no calf tenderness noted. VASCULAR: Radial and dorsalis pedis pulses palpated, no evidence of clubbing. NEUROLOGIC: Patient is awake, alert and oriented x3. ASSESSMENT Pleuritic chest pain Exertional shortness of breath History of coronary artery disease on maximum medical therapy Hypertension Dyslipidemia Breast cancer with recent mastectomy January 2018 PLAN D-dimer, NTproBNP and bilateral venous duplexes have been requested and reviewed. Obtain stat computed tomography scan of the chest to rule out pulmonary embolism. Continue to obtain serial cardiac enzymes to rule out an acute coronary event. Further recommendations to follow. Thank you kindly for this consultation. Nurse Practitioner note has been reviewed, I agree with a documented findings and plan of care. Patient was seen and examined. Past Medical History Past Medical History: Coronary Artery Disease (CAD), Cancer, Pneumonia Additional Past Medical History / Comment(s): [place]; Breast Cancer History of Any Multi-Drug Resistant Organisms: None Reported Past Surgical History: Section, Heart Catheterization Additional Past Surgical History / Comment(s): Lumpectomy, four heart catheterizations. left mastectomy. Past Anesthesia/Blood Transfusion Reactions: No Reported Reaction Past Psychological History: No Psychological Hx Reported Smoking Status: Former smoker Past Alcohol Use History: None Reported Past Drug Use History: None Reported - Past Family History Mother Family Medical History: Cancer Father Family Medical History: Diabetes Mellitus Medications and Allergies Home Medications Medication Instructions Recorded Confirmed Type Enalapril Maleate [Vasotec] 10 mg PO HS 03/31/15 04/18/18 History Hydrocodone/Acetaminophen [[place] 1 tab PO Q4H PRN 03/31/15 04/18/18 History 10-325] Isosorbide Mononitrate ER [Imdur] 30 mg PO DAILY 03/31/15 04/18/18 History Metoprolol Tartrate [Lopressor] 50 mg PO BID 03/31/15 04/18/18 History Simvastatin [Zocor] 40 mg PO HS 04/01/15 04/18/18 History Furosemide [Lasix] 40 mg PO DAILY 08/24/15 04/18/18 History ALPRAZolam [Xanax] 0.5 mg PO BID PRN 06/22/17 04/18/18 History Anastrozole [Arimidex] 1 mg PO DAILY 04/18/18 04/18/18 History Aspirin EC [Ecotrin Low Dose] 81 mg PO DAILY 04/18/18 04/18/18 History Omeprazole 20 mg PO DAILY 04/18/18 04/18/18 History Allergies Allergy/AdvReac Type Severity Reaction Status Date / Time morphine Allergy Hypotension Verified 04/18/18 07:53 Physical Exam Vitals: Vital Signs Temp Pulse Pulse Resp BP Pulse Ox 04/18/18 05:57 17 04/18/18 04:47 73 19 132/69 96 04/18/18 04:10 87 04/18/18 02:54 98.1 F 86 20 187/94 97 Intake and Output 04/17/18 04/18/18 04/18/18 22:59 06:59 14:59 Other: Weight 136.078 kg Results 04/18/18 03:22 04/18/18 03:22 Cardiac Enzymes 04/18/18 04/18/18 04/18/18 Range/Units 03:22 03:22 09:22 AST 23 (14-36) U/L CK-MB (CK-2) 0.4 0.3 (0.0-2.4) ng/mL Troponin I <0.012 <0.012 (0.000-0.034) ng/mL Coagulation 04/18/18 Range/Units 03:22 PT 9.8 (9.0-12.0) sec APTT 23.6 (22.0-30.0) sec CBC 04/18/18 Range/Units 03:22 WBC 10.8 H (3.8-10.6) k/uL RBC 5.18 (3.80-5.40) m/uL Hgb 13.3 (11.4-16.0) gm/dL Hct 42.1 (34.0-46.0) % Plt Count 219 (150-450) k/uL Comprehensive Metabolic Panel 04/18/18 Range/Units 03:22 Sodium 142 (137-145) mmol/L Potassium 3.9 (3.5-5.1) mmol/L Chloride 108 H (98-107) mmol/L Carbon Dioxide 23 (22-30) mmol/L BUN 18 H (7-17) mg/dL Creatinine 0.62 (0.52-1.04) mg/dL Glucose 148 H (74-99) mg/dL Calcium 9.3 (8.4-10.2) mg/dL AST 23 (14-36) U/L ALT 31 (9-52) U/L Alkaline Phosphatase 94 (38-126) U/L Total Protein 7.7 (6.3-8.2) g/dL Albumin 4.1 (3.5-5.0) g/dL Current Medications Generic Name Dose Route Start Last Admin Trade Name Freq PRN Reason Stop Dose Admin Aspirin 81 mg 04/19/18 09:00 Aspirin PO DAILY [place] Atorvastatin Calcium 20 mg 04/18/18 21:00 Lipitor PO HS [place] Furosemide 40 mg 04/18/18 10:00 04/18/18 11:51 Lasix PO 40 mg DAILY [place] Administration Sodium Chloride 1,000 mls @ 100 mls/hr 04/18/18 03:45 04/18/18 04:29 Saline 0.9% IV 100 mls/hr .Q10H [place] Administration Heparin Sodium/Sodium Chloride 250 mls @ 9.52 mls/hr 04/18/18 04:45 04/18/18 05:36 25,000 unit/ Sodium Chloride IV 7 units/kg/hr .Q24H [place] 9.52 mls/hr Administration Protocol 7 UNITS/KG/HR Isosorbide Mononitrate 30 mg 04/18/18 10:00 04/18/18 11:50 Imdur PO 30 mg DAILY [place] Administration Metoprolol Tartrate 50 mg 04/18/18 10:00 04/18/18 11:50 Lopressor PO 50 mg BID [place] Administration Nitroglycerin 0.4 mg 04/18/18 04:41 Nitrostat SUBLINGUAL Q5M PRN Chest Pain Intake and Output 04/17/18 04/18/18 04/18/18 22:59 06:59 14:59 Other: Weight 136.078 kg 04/18/18 03:22 04/18/18 03:22
[2018-04-18] MEDS ORDERED: HEPARIN SODIUM,PORCINE 5,000 UNIT/ML 1 ML VIAL IV STA (13:11)
--- NOTE | 2018-04-18 13:12 | CT ---
EXAMINATION TYPE: CT angio chest DATE OF EXAM: 04/18/2018 COMPARISON: 09/28/2016 HISTORY: Difficulty breathing CT DLP: 523.6 mGycm CONTRAST: CT chest with contrast and 3D reconstruction with MIP imaging is performed with IV Contrast, patient injected with 100 mL of Isovue 370. Contrast-enhanced CT of the chest was performed through the course of the pulmonary arteries with rose g and mediastinal window settings submitted. 3D reconstruction with MIP imaging was also performed. PULMONARY ARTERIES: The pulmonary arteries and their major tributaries are patent. I do not see jhoana dence for sizable filling defect to suggest pulmonary embolic process. LUNGS: Scattered groundglass infiltrates noted which may reflect acute inflammatory process. Correlat e clinically. No evidence for atelectasis. No pulmonary nodule or mass is detected. No pleural eff usion. MEDIASTINUM: Thoracic aorta is of normal caliber,however, evaluation is limited given timing of the contrast bolus. If there is concern for thoracic aortic pathology consider ANTONIO. Correlate clinicall y . The heart is not enlarged. No evidence for mediastinal mass. No mediastinal lymph nodes greater than 1cm. HILAR STRUCTURES: No evidence for mass. No hilar lymph nodes greater than 1 cm. UPPER ABDOMEN: No significant abnormality is seen. IMPRESSION: 1. No evidence for Pulmonary embolism at this time.
[2018-04-18 14:00] VITALS: BMI 40.6
[2018-04-18 15:44] LABS: Creatine Kinase 58 U/L (30-135)
[2018-04-18 15:57] LABS: Creatine Kinase MB 0.3 ng/mL (0.0-2.4); Troponin I <0.012 ng/mL (0.000-0.034)
[2018-04-18] MEDS ORDERED: HYDROcodone/APAP 10-325MG 1 EACH TAB PO PRN (16:20)
[2018-04-18] MEDS ORDERED: ALPRAZolam 0.5 MG TAB PO PRN (16:20)
[2018-04-18] MEDS: ACETAMINOPHEN TAB 325 MG TAB PO PRN (20:33)
[2018-04-18] MEDS ORDERED: ATORVASTATIN 20 MG TAB PO SCH (21:00)
[2018-04-18] MEDS ORDERED: ANASTROZOLE 1 MG TAB PO SCH (21:00)
--- NOTE | 2018-04-18 22:05 | P.HPIM ---
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 doppler was negative for DVT. pt currently denies chest pain , no dyspnea, no dizziness. Review of Systems CONSTITUTIONAL: No fever, no malaise, no fatigue. HEENT: No recent visual problems or hearing problems. Denied any sore throat. CARDIOVASCULAR: No orthopnea, PND, no palpitations, no syncope. PULMONARY: No shortness of breath, no cough, no hemoptysis. GASTROINTESTINAL: No diarrhea, no nausea, no vomiting, no abdominal pain. Normoactive bowel sounds. NEUROLOGICAL: No headaches, no weakness, no numbness. HEMATOLOGICAL: Denies any bleeding or petechiae. GENITOURINARY: Denies any burning micturition, frequency, or urgency. MUSCULOSKELETAL/RHEUMATOLOGICAL: Denies any joint pain, swelling, or any muscle pain. ENDOCRINE: Denies any polyuria or polydipsia. Past Medical History Past Medical History: Coronary Artery Disease (CAD), Cancer, Pneumonia Additional Past Medical History / Comment(s): [place]; Breast Cancer History of Any Multi-Drug Resistant Organisms: None Reported Past Surgical History: Section, Heart Catheterization Additional Past Surgical History / Comment(s): left breast Lumpectomy, four heart catheterizations- no stents . left mastectomy. kidney surgery for rivera ureter. Past Anesthesia/Blood Transfusion Reactions: No Reported Reaction Past Psychological History: Anxiety Smoking Status: Former smoker Past Alcohol Use History: None Reported Past Drug Use History: None Reported - Past Family History Mother Family Medical History: Cancer Father Family Medical History: Diabetes Mellitus Medications and Allergies Home Medications Medication Instructions Recorded Confirmed Type RX: Enalapril Maleate [Vasotec] 10 mg PO HS 03/31/15 04/18/18 History RX: Hydrocodone/Acetaminophen 1 tab PO Q4H PRN 03/31/15 04/18/18 History [[employer] 10-325] RX: Isosorbide Mononitrate ER 30 mg PO DAILY 03/31/15 04/18/18 History [Imdur] RX: Metoprolol Tartrate [Lopressor] 50 mg PO BID 03/31/15 04/18/18 History RX: Simvastatin [Zocor] 40 mg PO HS 04/01/15 04/18/18 History RX: Furosemide [Lasix] 40 mg PO DAILY 08/24/15 04/18/18 History ALPRAZolam [Xanax] 0.5 mg PO BID PRN 06/22/17 04/18/18 History Anastrozole [Arimidex] 1 mg PO DAILY 04/18/18 04/18/18 History Aspirin EC [Ecotrin Low Dose] 81 mg PO DAILY 04/18/18 04/18/18 History RX: Omeprazole 20 mg PO DAILY 04/18/18 04/18/18 History Allergies Allergy/AdvReac Type Severity Reaction Status Date / Time morphine Allergy Hypotension Verified 04/18/18 07:53 Physical Exam Vitals: Vital Signs Temp Pulse Pulse Pulse Resp BP BP 04/18/18 20:00 16 04/18/18 19:20 98.2 F 76 16 166/75 04/18/18 16:00 87 69 18 04/18/18 15:49 98.1 F 69 18 133/69 04/18/18 14:10 87 67 18 04/18/18 13:40 98.2 F 67 18 146/77 04/18/18 13:00 73 14 148/72 04/18/18 11:00 77 22 132/69 04/18/18 05:57 17 04/18/18 04:47 73 19 132/69 04/18/18 04:10 87 04/18/18 02:54 98.1 F 86 20 187/94 Pulse Ox 04/18/18 20:00 04/18/18 19:20 96 04/18/18 16:00 04/18/18 15:49 97 04/18/18 14:10 04/18/18 13:40 95 04/18/18 13:00 96 04/18/18 11:00 95 04/18/18 05:57 04/18/18 04:47 96 04/18/18 04:10 04/18/18 02:54 97 Intake and Output 04/18/18 04/18/18 04/18/18 06:59 14:59 22:59 Intake Total 71.876 200 Balance 71.876 200 Intake: Intake, IV Titration 71.876 Amount Heparin Sod,Pork in 0.45% 71.876 NaCl 25,000 unit In 0.45 % NaCl 1 250ml.bag @ 7 UNITS/KG/HR 9.52 mls/hr IV .Q24H [place] Rx#: [id number] Oral 200 Other: Voiding Method Toilet Toilet # Voids 2 Weight 136.078 kg 136.078 kg GENERAL: The patient is alert and oriented x3, not in any acute distress. Well developed, well nourished. HEENT: Pupils are round and equally reacting to light. EOMI. No scleral icterus. No conjunctival pallor. Normocephalic, atraumatic. No pharyngeal erythema. No thyromegaly. CARDIOVASCULAR: S1 and S2 present. No murmurs, rubs, or gallops. PULMONARY: Chest is clear to auscultation, no wheezing or crackles. ABDOMEN: Soft, nontender, nondistended, normoactive bowel sounds. No palpable organomegaly. MUSCULOSKELETAL: No joint swelling or deformity. EXTREMITIES: No cyanosis, clubbing, or pedal edema. NEUROLOGICAL: Gross neurological examination did not reveal any focal deficits. SKIN: No rashes. Results CBC & Chem 7: 04/18/18 03:22 04/18/18 03:22 Labs: Abnormal Lab Results - Last 24 Hours (Table) 04/18/18 04/18/18 04/18/18 Range/Units 03:22 03:22 09:28 WBC 10.8 H (3.8-10.6) k/uL Neutrophils # 8.9 H (1.3-7.7) k/uL D-Dimer 1.07 H (<0.60) mg/L FEU Chloride 108 H (98-107) mmol/L BUN 18 H (7-17) mg/dL Glucose 148 H (74-99) mg/dL Thrombosis Risk Factor Assmnt - Choose All That Apply Any of the Below Risk Factors Present?: Yes Each Factor Represents 1 point: Obesity (BMI >25) Other Risk Factors: Yes Each Risk Factor Represents 2 Points: Age 61-74 years Thrombosis Risk Factor Assessment Total Risk Factor Score: 3 Thrombosis Risk Factor Assessment Level: Moderate Risk Assessment and Plan Assessment: syncope History of coronary artery disease History of breast cancer 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 cardiology consult . continue monitoring Labs and medication were reviewed.. Continue same treatment. Continue with symptomatic treatment. Resume home medication. Monitor lytes and vitals. DVT and GI prophylaxis. Further recommendations of the clinical course of the patient DVT prophylaxis: Subcutaneous heparin GI Prophylaxis: Pepcid PT/OT: Pending Prognosis is guarded
[2018-04-19] MEDS: SODIUM CHLORIDE 0.9% 1,000 ML IV SCH (02:00)
[2018-04-19] MEDS ORDERED: PANTOPRAZOLE 40 MG TABLET PO SCH (07:30)
[2018-04-19 07:42] LABS: Basophils % (A) 1 %; Eosinophils # (A) 0.2 k/uL (0-0.7); Eosinophils % (A) 3 %; HCT 41.2 % (34.0-46.0); HGB 12.9 gm/dL (11.4-16.0); Hypochromasia Slight; Lymphocytes # (A) 1.1 k/uL (1.0-4.8); Lymphocytes % (A) 20 %; MCH 25.9 pg (25.0-35.0); MCHC 31.4 g/dL (31.0-37.0); MCV 82.7 fL (80.0-100.0); Mean Platelet Volume 6.5; Monocytes # (A) 0.3 k/uL (0-1.0); Monocytes % (A) 6 %; Neutrophils % (A) 70 %; Platelet Count 184 k/uL (150-450); RBC 4.99 m/uL (3.80-5.40); RDW 14.5 % (11.5-15.5); WBC 5.7 k/uL (3.8-10.6)
[2018-04-19 07:49] LABS: Cholesterol 92 mg/dL (<200); HDL Cholesterol 42 mg/dL (40-60); LDL Cholesterol,Calculated 40 mg/dL (0-99); Triglycerides 51 mg/dL (<150)
[2018-04-19] MEDS ORDERED: ASPIRIN 325 MG TAB PO SCH (09:00)
[2018-04-19] MEDS ORDERED: ASPIRIN 81 MG PO SCH (09:00)
[2018-04-19] MEDS ORDERED: ANASTROZOLE 1 MG TAB PO SCH (09:00)
[2018-04-19] MEDS: FUROSEMIDE 40 MG TAB PO SCH (11:14)
[2018-04-19] MEDS: METOPROLOL TARTRATE 50 MG TAB PO SCH (11:14)
[2018-04-19] MEDS: ACETAMINOPHEN TAB 325 MG TAB PO PRN (11:14)
[2018-04-19] MEDS: ISOSORBIDE MONONITRATE ER 30 MG TAB.ER.24H PO SCH (11:15)
[2018-04-19 11:42] VITALS: BP 179/79; PULSE 68; RESP 18; TEMP 97.9
[2018-04-19] MEDS ORDERED: LISINOPRIL 10 MG TAB PO SCH (11:45)
--- NOTE | 2018-04-19 11:50 | P.PN ---
Subjective This is a pleasant 62-year-old female past medical history significant for coronary artery disease with a known 50% blockage of the circumflex artery as well as a 70% blockage of the diagonal artery which is a small nondominant vessel. She also has hypertension, dyslipidemia and breast cancer status post mastectomy in January 2018. She follows with Dr. Ly in the office. We have been asked to see her in consultation for syncopal episode. D-dimer was elevated yesterday and CT angio was obtained. No evidence of PE. Bilateral venous duplex negative for DVT. Laboratory data reviewed, WBC 5.7, hgb 12.9, plt 184, cardiac enzymes negative x3, LDL 40, HL 42. She states she has been up and ambulating without dizziness, chest pain or shortness of breath. She states last night while laying in bed she did feel mildly anxious. GENERAL: This is a 62-year-old female in no apparent distress at the time of my examination. Obese. HEENT: Head is atraumatic, normocephalic. Pupils are equal, round. Sclerae anicteric. Conjunctivae are clear. Mucous membranes of the mouth are moist. Neck is supple. There is no jugular venous distention. No carotid bruit is heard. LUNGS: Clear to auscultation no wheezes, rales or rhonchi. No chest wall tenderness is noted on palpation or with deep breathing. HEART: Regular rate and rhythm without murmurs, rubs or gallops. S1 and S2 heard. EXTREMITIES: Trace bilateral lower extremity edema right greater than left, no calf tenderness noted. ASSESSMENT Pleuritic chest pain Exertional shortness of breath History of coronary artery disease on maximum medical therapy Hypertension Dyslipidemia Breast cancer with recent mastectomy January 2018 PLAN Stable from a cardiac perspective. Follow up with Dr. Ly in 2 weeks. Nurse Practitioner note has been reviewed, I agree with a documented findings and plan of care. Patient was seen and examined. Objective - Vital Signs Vital signs: Vital Signs Temp 97.9 F 04/19/18 11:40 Pulse 68 04/19/18 11:40 Resp 18 04/19/18 11:40 BP 179/79 04/19/18 11:40 Pulse Ox 96 04/19/18 11:40 Intake & Output 04/18/18 04/19/18 04/19/18 18:59 06:59 18:59 Intake Total 271.876 400 Balance 271.876 400 Weight 136.078 kg Intake: IV 400 Sodium Chloride 0.9% 1, 400 000 ml @ 100 mls/hr IV . Q10H [place] Rx#:[id number] Intake, IV Titration 71.876 Amount Heparin Sod,Pork in 0.45% 71.876 NaCl 25,000 unit In 0.45 % NaCl 1 250ml.bag @ 7 UNITS/KG/HR 9.52 mls/hr IV .Q24H [place] Rx#: [id number] Oral 200 Other: Voiding Method Toilet Toilet Toilet # Voids 2 1 - Labs CBC & Chem 7: 04/19/18 07:07 04/18/18 03:22
--- NOTE | 2018-04-28 09:40 | P.DS ---
Providers Date of admission: 04/18/18 04:36 Attending physician: Liss Joaquin Consults: 04/18/18 04:41 Consult Physician Urgent Consulting Provider: Ashwini Ly Consult Reason/Comments: unstable angina Do you want consulting provider notified?: Yes, Notify in am [facility] Course: Diagnoses: syncope mild leukocytosis , reactive. resolved. History of coronary artery disease History of breast cancer History of Gullian Geddes syndrome hospital course: this is a pleasant 62 yo F with pmh of coronary artery disease , Gullian Geddes syndrome, breast cancer , who presents with syncope, pt felt some lightheadedness and then passed out for unkown period but pt suspects it was for few seconds, pt woke up and was fully awake as per pt however she felt some chest discomfort , no tongue biting , no urine or bowel incontinance , no post- syncope confusion . on admission vitals were stable , mild leukocytosis at 10.8K came back to normal , mildly elevated DDimer, CT angio of the chest: no pulmonary embolism, no mass or nodule. doppler was negative for DVT. pt currently denies chest pain , no dyspnea, no dizziness. she is been stable while monitored. pt returned to baseline. she is been evaluated and cleared by cardiology for discharge. Pt was instructed about the problems and management plan and Pt verbalized understanding and acceptance Pt is found stable and can be discharged to the community but needs follow up as outpt. pt was instructed to follow up with pcp and manager of human resources and she verbalized understanding and acceptance. Discharge exam Gen.: Patient alert awake and oriented X 3, NOT IN DISTRESS CVS: s1-s2, RRR, no murmur CHEST:bilateral CTA, no wheezing or crepitation Abdomen: Soft, no tenderness, no distention, positive bowel sounds Extremities: No leg edema or induration time spent : more than 35 min Patient Condition at Discharge: Good Plan - Discharge Summary Discharge Rx Participant: No New Discharge Prescriptions: Continue Hydrocodone/Acetaminophen [[place] 10-325] 1 tab PO Q4H PRN PRN Reason: Pain Enalapril Maleate [Vasotec] 10 mg PO HS Metoprolol Tartrate [Lopressor] 50 mg PO BID Isosorbide Mononitrate ER [Imdur] 30 mg PO DAILY Simvastatin [Zocor] 40 mg PO HS ALPRAZolam [Xanax] 0.5 mg PO BID PRN PRN Reason: Anxiety Aspirin EC [Ecotrin Low Dose] 81 mg PO DAILY Anastrozole [Arimidex] 1 mg PO DAILY Omeprazole 20 mg PO DAILY No Action Cefuroxime Axetil [Ceftin] 500 mg PO BID 10 Days #20 tab Discharge Medication List Enalapril Maleate [Vasotec] 10 mg PO HS 03/31/15 [History] Hydrocodone/Acetaminophen [[place] 10-325] 1 tab PO Q4H PRN 03/31/15 [History] Isosorbide Mononitrate ER [Imdur] 30 mg PO DAILY 03/31/15 [History] Metoprolol Tartrate [Lopressor] 50 mg PO BID 03/31/15 [History] Simvastatin [Zocor] 40 mg PO HS 04/01/15 [History] ALPRAZolam [Xanax] 0.5 mg PO BID PRN 06/22/17 [History] Anastrozole [Arimidex] 1 mg PO DAILY 04/18/18 [History] Aspirin EC [Ecotrin Low Dose] 81 mg PO DAILY 04/18/18 [History] Omeprazole 20 mg PO DAILY 04/18/18 [History] Cefuroxime Axetil [Ceftin] 500 mg PO BID 10 Days #20 tab 04/24/18 [Rx] Follow up Appointment(s)/Referral(s): Ashwini Ly MD [STAFF PHYSICIAN] - 2 Weeks Jean Uriarte MD [Primary Care Provider] - 1-2 days Patient Instructions/Handouts: Chest Pain (ED) Activity/Diet/Wound Care/Special Instructions: cardiac diet activity is limited till you see your doctor Discharge Disposition: HOME SELF-CARE
== END 2018-04-19 14:10 | disposition home or self-care (01) ==
LOC: EC 02:53 → 1SOBS 04:36
PROVIDERS: ADMIT Hospitalist; ATTEND Hospitalist
DX: R07.81 Pleurodynia (principal); R55 Syncope and collapse; E66.9 Obesity, unspecified; Z68.41 Body mass index [BMI] 40.0-44.9, adult; I11.9 Hypertensive heart disease without heart failure; J84.10 Pulmonary fibrosis, unspecified; E78.5 Hyperlipidemia, unspecified; G61.0 Guillain-Barre syndrome; F41.9 Anxiety disorder, unspecified; I45.19 Other right bundle-branch block; I25.10 Atherosclerotic heart disease of native coronary artery without angina pectoris; Z88.5 Allergy status to narcotic agent; Z79.811 Long term (current) use of aromatase inhibitors; Z79.82 Long term (current) use of aspirin; Z79.899 Other long term (current) drug therapy; Z83.3 Family history of diabetes mellitus; Z85.3 Personal history of malignant neoplasm of breast; Z87.891 Personal history of nicotine dependence; Z90.12 Acquired absence of left breast and nipple
CPT/HCPCS: 96376; 96361; 96365; 96366; 99285; 36415; 93005; 85379; 83880; 80061; 80053; 82550; 82553; 83735; 84484; 85025 ×2; 85610; 85730; 71046; 93970; 71275; G0378 ×2; J1644 ×2; S0170; Q9967

== ENCOUNTER 2018-04-21 12:58 | Inpatient (IN) | payer OTHER ==
[2018-04-21] MEDS ORDERED: SODIUM CHLORIDE 0.9% 1,000 ML IV STA (13:56)
[2018-04-21] MEDS ORDERED: SODIUM CHLORIDE 0.9% 500 ML 500 ML IV STA (13:56)
[2018-04-21] MEDS ORDERED: IBUPROFEN IV 800 MG in SODIUM CHLORIDE 0.9% 250 ML IV ONE (13:57)
[2018-04-21 14:33] LABS: Basophils % (A) 0 %; Eosinophils # (A) 0.1 k/uL (0-0.7); Eosinophils % (A) 1 %; HCT 42.2 % (34.0-46.0); HGB 13.7 gm/dL (11.4-16.0); Lymphocytes # (A) 0.4 k/uL (1.0-4.8); Lymphocytes % (A) 3 %; MCH 26.1 pg (25.0-35.0); MCHC 32.4 g/dL (31.0-37.0); MCV 80.7 fL (80.0-100.0); Mean Platelet Volume 6.8; Monocytes # (A) 0.6 k/uL (0-1.0); Monocytes % (A) 5 %; Neutrophils # (A) 12.9 k/uL (1.3-7.7); Neutrophils % (A) 91 %; Platelet Count 189 k/uL (150-450); RBC 5.23 m/uL (3.80-5.40); RDW 14.9 % (11.5-15.5); WBC 14.2 k/uL (3.8-10.6)
[2018-04-21 14:38] LABS: Appearance,Urine Turbid (Clear); Bilirubin,Urine Negative (Negative); Blood,Urine Moderate (Negative); Color,Urine Yellow; Glucose,Urine (UA) Negative (Negative); Ketones,Urine 1+ (Negative); Leukocyte Esterase,Urine Large (Negative); Mucus,Urine Rare /hpf; Nitrite,Urine Positive (Negative); PH, Urine 5.5 (5.0-8.0); Protein,Urine 2+ (Negative); RBC,Urine 6 /hpf (0-5); Specific Gravity,Urine 1.014 (1.001-1.035); Squamous Epithelial Cell,Urine 1 /hpf (0-4); Urobilinogen,Urine <2.0 mg/dL (<2.0); WBC,Urine >182 /hpf (0-5)
[2018-04-21 14:44] LABS: ALT 29 U/L (9-52); AST 25 U/L (14-36); Albumin 3.9 g/dL (3.5-5.0); Alkaline Phosphatase 86 U/L (38-126); Anion Gap 13 mmol/L; Blood Urea Nitrogen 20 mg/dL (7-17); Calcium 9.4 mg/dL (8.4-10.2); Carbon Dioxide 21 mmol/L (22-30); Chloride 106 mmol/L (98-107); Glucose 145 mg/dL (74-99); Potassium 3.8 mmol/L (3.5-5.1); Sodium 140 mmol/L (137-145); Total Bilirubin 2.2 mg/dL (0.2-1.3); Total Protein 7.6 g/dL (6.3-8.2)
[2018-04-21] MEDS ORDERED: ONDANSETRON 4 MG/2 ML VIAL IVP STA (14:50)
--- NOTE | 2018-04-21 15:07 | ED ---
Fever HPI - General Chief Complaint: Fever Stated Complaint: vomiting/fever Time Seen by Provider: 04/21/18 13:52 Source: patient, RN notes reviewed Mode of arrival: wheelchair Limitations: no limitations - History of Present Illness Initial Comments: 62-year-old female presents emergency Department chief complaint fever, flank pain, nausea vomiting. Patient states that symptoms started yesterday worsened today. Patient states that she started vomiting today. Patient states she had the chills to the point where she cannot stop shaking. Patient states she was inpatient recently for dizziness and was discharged. Patient states that she has no current chest pain, cough, shortness breath, headache. She states she still has some intermittent dizziness. Patient denies any diarrhea or constipation. She does complain of slight lower abdominal pain. - Related Data Home Medications Medication Instructions Recorded Confirmed Enalapril Maleate [Vasotec] 10 mg PO HS 03/31/15 04/21/18 Hydrocodone/Acetaminophen [[place] 1 tab PO Q4H PRN 03/31/15 04/21/18 10-325] Isosorbide Mononitrate ER [Imdur] 30 mg PO DAILY 03/31/15 04/21/18 Metoprolol Tartrate [Lopressor] 50 mg PO BID 03/31/15 04/21/18 Simvastatin [Zocor] 40 mg PO HS 04/01/15 04/21/18 Furosemide [Lasix] 40 mg PO DAILY 08/24/15 04/21/18 ALPRAZolam [Xanax] 0.5 mg PO BID PRN 06/22/17 04/21/18 Anastrozole [Arimidex] 1 mg PO DAILY 04/18/18 04/21/18 Aspirin EC [Ecotrin Low Dose] 81 mg PO DAILY 04/18/18 04/21/18 Omeprazole 20 mg PO DAILY 04/18/18 04/21/18 Allergies Allergy/AdvReac Type Severity Reaction Status Date / Time morphine Allergy Hypotension Verified 04/21/18 15:07 Review of Systems ROS Statement: Those systems with pertinent positive or pertinent negative responses have been documented in the HPI. ROS Other: All systems not noted in ROS Statement are negative. Past Medical History Past Medical History: Coronary Artery Disease (CAD), Cancer, Pneumonia Additional Past Medical History / Comment(s): [facility] [place]; Breast Cancer History of Any Multi-Drug Resistant Organisms: None Reported Past Surgical History: Section, Heart Catheterization Additional Past Surgical History / Comment(s): left breast Lumpectomy, four heart catheterizations- no stents . left mastectomy. kidney surgery for rivera ureter. Past Anesthesia/Blood Transfusion Reactions: No Reported Reaction Past Psychological History: Anxiety Smoking Status: Former smoker Past Alcohol Use History: None Reported Past Drug Use History: None Reported - Past Family History Mother Family Medical History: Cancer Father Family Medical History: Diabetes Mellitus General Exam Limitations: no limitations General appearance: alert, in no apparent distress Head exam: Present: atraumatic, normocephalic, normal inspection Eye exam: Present: normal appearance, PERRL, EOMI. Absent: scleral icterus, conjunctival injection, periorbital swelling ENT exam: Present: normal exam, normal oropharynx, mucous membranes moist Neck exam: Present: normal inspection. Absent: tenderness, meningismus, lymphadenopathy Respiratory exam: Present: normal lung sounds bilaterally. Absent: respiratory distress, wheezes, rales, rhonchi, stridor Cardiovascular Exam: Present: normal rhythm, tachycardia, normal heart sounds. Absent: systolic murmur, diastolic murmur, rubs, gallop, clicks GI/Abdominal exam: Present: soft, tenderness (Mild suprapubic), normal bowel sounds. Absent: distended, guarding, rebound, rigid Back exam: Present: CVA tenderness (L). Absent: CVA tenderness (R) Neurological exam: Present: alert, oriented X3, CN II-XII intact Skin exam: Present: warm, dry, intact, normal color. Absent: rash Course Vital Signs 04/21/18 13:11 Temperature 101.5 F H Pulse Rate 105 H Respiratory 18 Rate Blood Pressure 144/76 O2 Sat by Pulse 97 Oximetry Medical Decision Making - Medical Decision Making 62-year-old female presented for vomiting, flank pain and fever. Patient's found to have pyelonephritis. She is febrile, lucid and has evidence of urinary tract infection. Patient was started on Rocephin 1 g. Urine culture, blood culture were obtained - Lab Data Result diagrams: 04/21/18 14:15 04/21/18 14:15 Lab Results 04/21/18 04/21/18 04/21/18 Range/Units 14:15 14:15 14:15 WBC 14.2 H (3.8-10.6) k/uL RBC 5.23 (3.80-5.40) m/uL Hgb 13.7 (11.4-16.0) gm/dL Hct 42.2 (34.0-46.0) % MCV 80.7 (80.0-100.0) fL MCH 26.1 (25.0-35.0) pg MCHC 32.4 (31.0-37.0) g/dL RDW 14.9 (11.5-15.5) % Plt Count 189 (150-450) k/uL Neutrophils % 91 % Lymphocytes % 3 % Monocytes % 5 % Eosinophils % 1 % Basophils % 0 % Neutrophils # 12.9 H (1.3-7.7) k/uL Lymphocytes # 0.4 L (1.0-4.8) k/uL Monocytes # 0.6 (0-1.0) k/uL Eosinophils # 0.1 (0-0.7) k/uL Basophils # 0.0 (0-0.2) k/uL Sodium 140 (137-145) mmol/L Potassium 3.8 (3.5-5.1) mmol/L Chloride 106 (98-107) mmol/L Carbon Dioxide 21 L (22-30) mmol/L Anion Gap 13 mmol/L BUN 20 H (7-17) mg/dL Creatinine 0.78 (0.52-1.04) mg/dL Est GFR (CKD-EPI)AfAm >90 (>60 ml/min/1.73 sqM) Est GFR (CKD-EPI)NonAf 81 (>60 ml/min/1.73 sqM) Glucose 145 H (74-99) mg/dL Plasma Lactic Acid [place] 1.0 (0.7-2.0) mmol/L Calcium 9.4 (8.4-10.2) mg/dL Total Bilirubin 2.2 H (0.2-1.3) mg/dL AST 25 (14-36) U/L ALT 29 (9-52) U/L Alkaline Phosphatase 86 (38-126) U/L Total Protein 7.6 (6.3-8.2) g/dL Albumin 3.9 (3.5-5.0) g/dL Urine Color Urine Appearance (Clear) Urine pH (5.0-8.0) Ur Specific [place] (1.001-1.035) Urine Protein (Negative) Urine Glucose (UA) (Negative) Urine Ketones (Negative) Urine Blood (Negative) Urine Nitrite (Negative) Urine Bilirubin (Negative) Urine Urobilinogen (<2.0) mg/dL Ur Leukocyte Esterase (Negative) Urine RBC (0-5) /hpf Urine WBC (0-5) /hpf Urine WBC Clumps (None) /hpf Ur Squamous Epith Cells (0-4) /hpf Urine Mucus (None) /hpf Influenza Type A RNA (Not Detectd) Influenza Type B (PCR) (Not Detectd) 04/21/18 04/21/18 Range/Units 14:15 14:44 WBC (3.8-10.6) k/uL RBC (3.80-5.40) m/uL Hgb (11.4-16.0) gm/dL Hct (34.0-46.0) % MCV (80.0-100.0) fL MCH (25.0-35.0) pg MCHC (31.0-37.0) g/dL RDW (11.5-15.5) % Plt Count (150-450) k/uL Neutrophils % % Lymphocytes % % Monocytes % % Eosinophils % % Basophils % % Neutrophils # (1.3-7.7) k/uL Lymphocytes # (1.0-4.8) k/uL Monocytes # (0-1.0) k/uL Eosinophils # (0-0.7) k/uL Basophils # (0-0.2) k/uL Sodium (137-145) mmol/L Potassium (3.5-5.1) mmol/L Chloride (98-107) mmol/L Carbon Dioxide (22-30) mmol/L Anion Gap mmol/L BUN (7-17) mg/dL Creatinine (0.52-1.04) mg/dL Est GFR (CKD-EPI)AfAm (>60 ml/min/1.73 sqM) Est GFR (CKD-EPI)NonAf (>60 ml/min/1.73 sqM) Glucose (74-99) mg/dL Plasma Lactic Acid [place] (0.7-2.0) mmol/L Calcium (8.4-10.2) mg/dL Total Bilirubin (0.2-1.3) mg/dL AST (14-36) U/L ALT (9-52) U/L Alkaline Phosphatase (38-126) U/L Total Protein (6.3-8.2) g/dL Albumin (3.5-5.0) g/dL Urine Color Yellow Urine Appearance Turbid H (Clear) Urine pH 5.5 (5.0-8.0) Ur Specific [place] 1.014 (1.001-1.035) Urine Protein 2+ H (Negative) Urine Glucose (UA) Negative (Negative) Urine Ketones 1+ H (Negative) Urine Blood Moderate H (Negative) Urine Nitrite Positive H (Negative) Urine Bilirubin Negative (Negative) Urine Urobilinogen <2.0 (<2.0) mg/dL Ur Leukocyte Esterase Large H (Negative) Urine RBC 6 H (0-5) /hpf Urine WBC >182 H (0-5) /hpf Urine WBC Clumps Many H (None) /hpf Ur Squamous Epith Cells 1 (0-4) /hpf Urine Mucus Rare H (None) /hpf Influenza Type A RNA Not Detected (Not Detectd) Influenza Type B (PCR) Not Detected (Not Detectd) Disposition Clinical Impression: Pyelonephritis Disposition: ADMITTED IP TO THIS [facility] Condition: Fair Referrals: Jean Uriarte MD [Primary Care Provider] - 1-2 days
--- NOTE | 2018-04-21 15:16 | XR ---
EXAMINATION TYPE: XR chest 2V DATE OF EXAM: 04/21/2018 COMPARISON: 04/18/2018 HISTORY: Fever and dizziness TECHNIQUE: Frontal and lateral views of the chest are obtained. FINDINGS: Heart is normal. There is slight coarsening of the lung markings. There is no pleural effu alie. There is spurring in the thoracic spine. Lungs are clear of consolidation. IMPRESSION: Minimal pulmonary fibrosis. No acute lung disease. No change.
[2018-04-21] MEDS ORDERED: ONDANSETRON 4 MG/2 ML VIAL IVP PRN (15:42)
[2018-04-21] MEDS ORDERED: HYDROcodone/APAP 5-325MG 1 EACH TAB PO PRN (15:42)
[2018-04-21] MEDS ORDERED: NALOXONE 0.4 MG/ML 1 ML VIAL IV PRN (15:42)
[2018-04-21] MEDS: ACETAMINOPHEN TAB 325 MG TAB PO PRN (16:23)
[2018-04-21] MEDS: PANTOPRAZOLE 40 MG/10 ML VIAL IVP SCH (21:05)
[2018-04-21] MEDS: ALPRAZolam 0.5 MG TAB PO PRN (21:06)
[2018-04-21] MEDS: METOPROLOL TARTRATE 50 MG TAB PO SCH (21:06)
[2018-04-21] MEDS: LISINOPRIL 20 MG TAB PO SCH (21:06)
[2018-04-21] MEDS: ATORVASTATIN 20 MG TAB PO SCH (21:06)
[2018-04-21] MEDS ORDERED: HYDROcodone/APAP 10-325MG 1 EACH TAB PO PRN (22:21)
--- NOTE | 2018-04-21 23:52 | HP ---
HISTORY AND PHYSICAL DATE OF SERVICE: 04/21/2018 CHIEF COMPLAINTS: Fever, vomiting and as well as back flank pain. HISTORY OF PRESENT ILLNESS: This 62-year-old woman with a past medical history of multiple medical problems including history of CAD, history of cancer, pneumonia, breast cancer, history of cardiac catheterization, and lumpectomy, anxiety being followed by Dr. Uriarte in the outpatient setting was complaining of fever for the last few days. Patient also had flank pain which is mostly felt on the right side and also nausea and vomiting also. The patient came to [facility] and admitted further recommendations to follow. The UA showed evidence of UTI. The patient's white count is also elevated. Patient admitted with suspicion of sepsis at this time. There is no history of fever, rigors. No history of headache, loss of consciousness or seizures. PAST MEDICAL HISTORY: History of CAD, history of pneumonia, history of [place], history of breast cancer. MEDICATIONS: Prior to admission home medications are: 1. Zocor 40 mg daily. 2. Omeprazole 20 mg daily. 3. Lopressor 50 mg b.i.d. 4. Imdur 30 mg. 5. Boissevain 10 mg q.4h p.r.n. 6. Lasix 40 mg b.i.d. 7. Vasotec 10 mg q.h.s. 8. Ecotrin 81 mg daily. 9. Arimidex 1 mg daily. 10.Xanax 0.5 mg b.i.d. p.r.n. ALLERGIES: MORPHINE. FAMILY HISTORY: History of cancer in the family. SOCIAL HISTORY: Previous history of smoking. No history of alcohol intake. REVIEW OF SYSTEMS: ENT: No diminished vision. No diminished hearing. CARDIOVASCULAR: No angina or palpitations. RESPIRATORY: As mentioned earlier. GI no nausea or vomiting. no dysuria. CENTRAL NERVOUS SYSTEM: No numbness or weakness. ALLERGY/IMMUNOLOGY: No asthma or hayfever. MUSCULOSKELETAL: As mentioned earlier. HEMATOLOGY/ONCOLOGY: No history of anemia. ENDOCRINE: No history of diabetes or hypothyroidism. CONSTITUTIONAL: As mentioned earlier. Dermatology: Negative. Rheumatology: Negative. Psychiatry: As mentioned earlier. PHYSICAL EXAMINATION: GENERAL: Alert and oriented x3. Pulse is 93. Blood pressure is 120/62, respirations 16, temperature 98.4, T-max 101.5, pulse ox 97% on room air. HEENT: Conjunctivae normal. NECK is no jugular venous distention. CARDIOVASCULAR: S1, S2 muffled. RESPIRATORY: Breath sounds diminished in the bases. No rhonchi. No crackles. ABDOMEN: Soft. Mild diffuse tenderness present. Otherwise, the tenderness in the right lower area also present. LEGS: No edema. No swelling. NERVOUS SYSTEM: Higher functions as mentioned earlier. Moves all four extremities. No focal motor or sensory deficits. Lymphatics: No lymph nodes palpable in the neck, axillae or groin. SKIN: No ulcer, rash, no bleeding. LABS: WBC 14.3, hemoglobin 13.7, sodium 140. Potassium 3.8. UA noted. ASSESSMENT: 1. Acute pyelonephritis with possibly sepsis present on admission. 2. Increased WBC. 3. Acute gastritis. 4. Coronary artery disease. 5. History of pneumonia. 6. History of Guillain [place]. 7. History of breast cancer. 8. History of anxiety. 9. History of nicotine dependence. RECOMMENDATIONS AND DISCUSSION: In this 62-year-old woman who presented with multiple complex medical issues, we will monitor the patient closely. Continue the current medications, management and symptomatic treatment. We will initiate broad-spectrum IV antibiotics. Rocephin has been initiated. I would also recommend cultures. Resume the home medications. DVT prophylaxis. We will follow the patient closely and a copy of dictation being forwarded to Dr. Uriarte who is the primary physician. See orders for details. MMODL / IJN: [id number] / MTDD
[2018-04-22] MEDS: ACETAMINOPHEN TAB 325 MG TAB PO PRN ×4 (01:40→20:59)
[2018-04-22] MEDS: IBUPROFEN 400 MG TAB PO PRN ×3 (03:57→16:50)
[2018-04-22] MEDS: SODIUM CHLORIDE 0.9% 1,000 ML IV SCH ×3 (06:18→16:43)
[2018-04-22] MEDS ORDERED: FUROSEMIDE 40 MG TAB PO SCH (09:00)
[2018-04-22] MEDS ORDERED: NON-FORMULARY DRUG (Omeprazole [Omeprazole] 20 MG) PO SCH (09:00)
--- NOTE | 2018-04-22 09:07 | US ---
EXAMINATION TYPE: US kidneys/renal and bladder DATE OF EXAM: 04/22/2018 COMPARISON: CT 06/04/2013 CLINICAL HISTORY: pyelonephritis. Hx kidney infection. Fever. EXAM MEASUREMENTS: Right Kidney: 12.8 x 6.0 x 5.3 cm Left Kidney: 13.3 x 4.5 x 5.5 cm Right Kidney: Medial anechoic lesion seen at hilum - 3.3 x 1.8 cm Left Kidney: No hydronephrosis or masses seen Bladder: Mildly distended. Wnl as visualized. Bilateral Jets seen not seen There is no evidence for hydronephrosis at this point in time in the left kidney. Prominent extrarena l pelvis right kidney redemonstrated without calyceal dilatation. No nephrolithiasis is seen. No ma sses are identified. The urinary bladder is anechoic. Bilateral ureteral jets are not seen. IMPRESSION: Extrarenal pelvis right kidney redemonstrated. No hydronephrosis is noted bilaterally.
[2018-04-22 09:11] LABS: Basophils % (A) 0 %; Eosinophils # (A) 0.3 k/uL (0-0.7); Eosinophils % (A) 2 %; HCT 39.6 % (34.0-46.0); HGB 12.8 gm/dL (11.4-16.0); Lymphocytes # (A) 1.2 k/uL (1.0-4.8); Lymphocytes % (A) 10 %; MCH 26.1 pg (25.0-35.0); MCHC 32.2 g/dL (31.0-37.0); Mean Platelet Volume 7.2; Monocytes # (A) 0.4 k/uL (0-1.0); Monocytes % (A) 3 %; Neutrophils # (A) 10.6 k/uL (1.3-7.7); Neutrophils % (A) 83 %; Platelet Count 191 k/uL (150-450); RBC 4.89 m/uL (3.80-5.40); RDW 15.1 % (11.5-15.5); WBC 12.7 k/uL (3.8-10.6)
[2018-04-22] MEDS: ASPIRIN 81 MG PO SCH (09:25)
[2018-04-22] MEDS: HEPARIN SODIUM,PORCINE 5,000 UNIT/ML 1 ML VIAL SQ SCH ×2 (09:26→20:57)
[2018-04-22] MEDS: PANTOPRAZOLE 40 MG/10 ML VIAL IVP SCH ×2 (09:26→20:57)
[2018-04-22] MEDS: METOPROLOL TARTRATE 50 MG TAB PO SCH ×2 (09:29→20:59)
[2018-04-22] MEDS: ISOSORBIDE MONONITRATE ER 30 MG TAB.ER.24H PO SCH (09:29)
[2018-04-22] MEDS: ANASTROZOLE 1 MG TAB PO SCH (09:29)
[2018-04-22 09:59] LABS: Calcium 9.1 mg/dL (8.4-10.2)
[2018-04-22 10:12] LABS: Potassium 3.8 mmol/L (3.5-5.1)
[2018-04-22 14:10] VITALS: BMI 40.1
[2018-04-22] MEDS: cefTRIAXone 2,000 MG in SODIUM CHLORIDE 0.9% 100 ML IVPB SCH (14:53)
--- NOTE | 2018-04-22 16:05 | P.PN ---
Subjective 62-year-old pleasant female came in with sepsis and bacteremia secondary to urinary tract infection and pyelonephritis. patient has gram-negative bacilli in the blood. Patient is on Rocephin 2 g which will be continued. Patient was febrile earlier today morning. Patient is bit better today. Still bit lethargic. Constitutional: As mentioned above Cardio vascular: denied any chest pain, palpitations Gastrointestinal denied any nausea vomiting improved flank pain Pulmonary: Denied any shortness of breath cough Neurologic denied any new focal deficits All inpatient medications were reviewed and appropriate changes in these medications as dictated in the interval history and assessment and plan. Objective - Vital Signs Vital signs: Vital Signs Temp 97.7 F 04/22/18 13:22 Pulse 67 04/22/18 13:22 Resp 16 04/22/18 13:22 BP 100/57 04/22/18 13:22 Pulse Ox 98 04/22/18 13:22 Intake & Output 04/21/18 04/22/18 04/22/18 18:59 06:59 18:59 Intake Total 1300 Output Total 850 350 Balance 450 -350 Weight 134.263 kg 134.263 kg Intake: Oral 1300 Output: Urine 850 350 Other: Voiding Method Toilet Toilet Toilet # Voids 2 - Exam PHYSICAL EXAMINATION: GENERAL: The patient is alert and oriented x3, not in any acute distress. Well developed, well nourished. HEENT: Pupils are round and equally reacting to light. EOMI. No scleral icterus. No conjunctival pallor. Normocephalic, atraumatic. No pharyngeal erythema. No thyromegaly. CARDIOVASCULAR: S1 and S2 present. No murmurs, rubs, or gallops. PULMONARY: Chest is clear to auscultation, no wheezing or crackles. ABDOMEN: Soft, nontender, nondistended, normoactive bowel sounds. No palpable organomegaly. MUSCULOSKELETAL: No joint swelling or deformity. EXTREMITIES: No cyanosis, clubbing, or pedal edema. NEUROLOGICAL: Gross neurological examination did not reveal any focal deficits. SKIN: No rashes. - Labs CBC & Chem 7: 04/22/18 08:53 04/22/18 08:53 Labs: Abnormal Lab Results - Last 24 Hours (Table) 04/22/18 04/22/18 Range/Units 08:53 08:53 WBC 12.7 H (3.8-10.6) k/uL Neutrophils # 10.6 H (1.3-7.7) k/uL Chloride 108 H (98-107) mmol/L Carbon Dioxide 20 L (22-30) mmol/L BUN 23 H (7-17) mg/dL Glucose 158 H (74-99) mg/dL Microbiology - Last 24 Hours (Table) 04/21/18 14:15 Blood Culture Gram Stain - Preliminary Blood Blood Culture - Preliminary Gram Neg Bacilli 04/21/18 14:15 Blood Culture - Final Blood 04/21/18 14:15 Urine Culture - Preliminary Urine,Voided Assessment and Plan Plan: -Acute urinary tract infection sepsis secondary to that with along with bacteremia and pyelonephritis: Continue with Rocephin awaiting urine cultures. Repeat blood cultures will be obtained for today and tomorrow morning -Coronary artery disease -History of breast cancer patient is on hormone therapy at this time which will be continued -Anxiety disorder -Nicotine dependence: Counseling was provided -Gastroesophageal reflux disease -Patient will need pharmacologic DVT and GI prophylaxis
[2018-04-22] MEDS ORDERED: SODIUM CHLORIDE 0.9% 1,000 ML IV ONE (16:35)
[2018-04-22] MEDS: ATORVASTATIN 20 MG TAB PO SCH (20:59)
[2018-04-22] MEDS: LISINOPRIL 20 MG TAB PO SCH (20:59)
[2018-04-22] MEDS: ALPRAZolam 0.5 MG TAB PO PRN (21:16)
[2018-04-22] MEDS: TEMAZEPAM 15 MG CAP PO PRN (21:19)
[2018-04-23] MEDS: SODIUM CHLORIDE 0.9% 1,000 ML IV SCH ×3 (03:19→20:52)
[2018-04-23] MEDS: IBUPROFEN 400 MG TAB PO PRN (03:21)
[2018-04-23] MEDS: PANTOPRAZOLE 40 MG/10 ML VIAL IVP SCH (09:14)
[2018-04-23] MEDS: cefTRIAXone 2,000 MG in SODIUM CHLORIDE 0.9% 100 ML IVPB SCH (09:14)
[2018-04-23] MEDS: HEPARIN SODIUM,PORCINE 5,000 UNIT/ML 1 ML VIAL SQ SCH ×2 (09:14→20:43)
[2018-04-23] MEDS: ASPIRIN 81 MG PO SCH (09:15)
[2018-04-23] MEDS: ANASTROZOLE 1 MG TAB PO SCH (09:15)
[2018-04-23] MEDS: ACETAMINOPHEN TAB 325 MG TAB PO PRN ×2 (09:15→20:43)
[2018-04-23] MEDS: ISOSORBIDE MONONITRATE ER 30 MG TAB.ER.24H PO SCH (09:15)
[2018-04-23] MEDS: METOPROLOL TARTRATE 50 MG TAB PO SCH ×2 (09:16→22:59)
[2018-04-23 09:24] LABS: Basophils % (A) 0 %; Eosinophils # (A) 0.1 k/uL (0-0.7); Eosinophils % (A) 4 %; HCT 34.7 % (34.0-46.0); Hypochromasia Slight; Lymphocytes # (A) 0.4 k/uL (1.0-4.8); Lymphocytes % (A) 10 %; MCH 26.3 pg (25.0-35.0); MCHC 31.8 g/dL (31.0-37.0); MCV 82.5 fL (80.0-100.0); Mean Platelet Volume 7.1; Monocytes # (A) 0.2 k/uL (0-1.0); Monocytes % (A) 6 %; Neutrophils % (A) 77 %; Platelet Count 127 k/uL (150-450); RBC 4.21 m/uL (3.80-5.40); RDW 15.1 % (11.5-15.5); WBC 3.9 k/uL (3.8-10.6)
[2018-04-23 09:33] LABS: Anion Gap 6 mmol/L; Blood Urea Nitrogen 17 mg/dL (7-17); Calcium 8.4 mg/dL (8.4-10.2); Carbon Dioxide 21 mmol/L (22-30); Chloride 113 mmol/L (98-107); Glucose 133 mg/dL (74-99); Potassium 3.7 mmol/L (3.5-5.1); Sodium 140 mmol/L (137-145)
--- NOTE | 2018-04-23 17:10 | P.PN ---
Subjective 62-year-old pleasant female came in with sepsis and bacteremia secondary to urinary tract infection and pyelonephritis. patient has gram-negative bacilli in the blood. Patient is on Rocephin 2 g which will be continued. Patient was febrile earlier today morning. Patient is bit better today. Still bit lethargic. 04/23/2018 Patient looks much better there is significant improvement in her leukocytosis patient has a E. coli in the blood cultures and urine cultures also showing gram -negative bacilli E. coli is pansensitive. I'm waiting blood cultures from yesterday but they're negative by tomorrow patient will be discharged on ciprofloxacin for 10 more days comparing total 14 day therapy for bacteremia Constitutional: As mentioned above Cardio vascular: denied any chest pain, palpitations Gastrointestinal denied any nausea vomiting improved flank pain Pulmonary: Denied any shortness of breath cough Neurologic denied any new focal deficits All inpatient medications were reviewed and appropriate changes in these medications as dictated in the interval history and assessment and plan. Objective - Vital Signs Vital signs: Vital Signs Temp 98.4 F 04/23/18 15:21 Pulse 74 04/23/18 15:21 Resp 14 04/23/18 15:21 BP 113/70 04/23/18 15:21 Pulse Ox 96 04/23/18 15:21 Intake & Output 04/22/18 04/23/18 04/23/18 18:59 06:59 18:59 Intake Total 300 Output Total 350 900 Balance -350 -600 Weight 134.263 kg Intake: Oral 300 Output: Urine 350 900 Other: Voiding Method Toilet Toilet # Voids 2 4 - Exam PHYSICAL EXAMINATION: GENERAL: The patient is alert and oriented x3, not in any acute distress. Well developed, well nourished. HEENT: Pupils are round and equally reacting to light. EOMI. No scleral icterus. No conjunctival pallor. Normocephalic, atraumatic. No pharyngeal erythema. No thyromegaly. CARDIOVASCULAR: S1 and S2 present. No murmurs, rubs, or gallops. PULMONARY: Chest is clear to auscultation, no wheezing or crackles. ABDOMEN: Soft, nontender, nondistended, normoactive bowel sounds. No palpable organomegaly. MUSCULOSKELETAL: No joint swelling or deformity. EXTREMITIES: No cyanosis, clubbing, or pedal edema. NEUROLOGICAL: Gross neurological examination did not reveal any focal deficits. SKIN: No rashes. - Labs CBC & Chem 7: 04/23/18 08:48 04/23/18 08:48 Labs: Abnormal Lab Results - Last 24 Hours (Table) 04/23/18 04/23/18 Range/Units 08:48 08:48 Hgb 11.0 L (11.4-16.0) gm/dL Plt Count 127 L (150-450) k/uL Lymphocytes # 0.4 L (1.0-4.8) k/uL Chloride 113 H (98-107) mmol/L Carbon Dioxide 21 L (22-30) mmol/L Glucose 133 H (74-99) mg/dL Microbiology - Last 24 Hours (Table) 04/22/18 14:35 Blood Culture - Preliminary Blood No Growth after 24 hours 04/21/18 14:15 Blood Culture Gram Stain - Final Blood Blood Culture - Final Escherichia coli 04/21/18 14:15 Urine Culture - Preliminary Urine,Voided Gram Neg Bacilli Assessment and Plan Plan: -Acute urinary tract infection sepsis secondary to that with along with bacteremia and pyelonephritis: Continue with Rocephin urine culture showing gram -negative bacilli blood cultures are positive for pansensitive E. coli. Awaiting blood cultures from yesterday with a negative by tomorrow patient will be discharged on oral antibiotics -Coronary artery disease -History of breast cancer patient is on hormone therapy at this time which will be continued -Anxiety disorder -Nicotine dependence: Counseling was provided -Gastroesophageal reflux disease -Patient will need pharmacologic DVT and GI prophylaxis
[2018-04-23] MEDS: PANTOPRAZOLE 40 MG TABLET PO SCH (17:12)
[2018-04-23] MEDS: TEMAZEPAM 15 MG CAP PO PRN (20:43)
[2018-04-23] MEDS: ATORVASTATIN 20 MG TAB PO SCH (20:43)
[2018-04-23] MEDS: LISINOPRIL 20 MG TAB PO SCH (20:43)
[2018-04-24] MEDS ORDERED: ALPRAZolam 0.5 MG TAB ONE (03:40)
[2018-04-24] MEDS: SODIUM CHLORIDE 0.9% 1,000 ML IV SCH (05:18)
[2018-04-24 06:20] LABS: HCT 36.8 % (34.0-46.0); HGB 11.7 gm/dL (11.4-16.0); Hypochromasia Slight; MCH 26.5 pg (25.0-35.0); MCHC 31.8 g/dL (31.0-37.0); MCV 83.3 fL (80.0-100.0); Mean Platelet Volume 6.9; Platelet Count 157 k/uL (150-450); RBC 4.42 m/uL (3.80-5.40); RDW 15.1 % (11.5-15.5)
[2018-04-24] MEDS: PANTOPRAZOLE 40 MG TABLET PO SCH (06:34)
[2018-04-24 06:35] LABS: Anion Gap 7 mmol/L; Blood Urea Nitrogen 12 mg/dL (7-17); Calcium 8.8 mg/dL (8.4-10.2); Carbon Dioxide 24 mmol/L (22-30); Chloride 110 mmol/L (98-107); Glucose 95 mg/dL (74-99); Potassium 3.6 mmol/L (3.5-5.1); Sodium 141 mmol/L (137-145)
[2018-04-24] MEDS: ANASTROZOLE 1 MG TAB PO SCH (08:48)
[2018-04-24] MEDS: ASPIRIN 81 MG PO SCH (08:49)
[2018-04-24] MEDS: cefTRIAXone 2,000 MG in SODIUM CHLORIDE 0.9% 100 ML IVPB SCH (08:49)
[2018-04-24] MEDS: METOPROLOL TARTRATE 50 MG TAB PO SCH (08:49)
[2018-04-24] MEDS: ISOSORBIDE MONONITRATE ER 30 MG TAB.ER.24H PO SCH (08:49)
[2018-04-24] MEDS: HEPARIN SODIUM,PORCINE 5,000 UNIT/ML 1 ML VIAL SQ SCH (08:49)
[2018-04-24 10:07] LABS: Neutrophils % (M) 70 %; Nucleated Red Blood Cells 0 /100 WBC (0-0); Total Cells Counted 100
[2018-04-24 10:08] LABS: Poikilocytosis (M) Present
[2018-04-24 14:12] LABS: HCT 32.2 % (34.0-46.0); HGB 10.4 gm/dL (11.4-16.0); MCH 26.4 pg (25.0-35.0); MCHC 32.3 g/dL (31.0-37.0); MCV 81.7 fL (80.0-100.0); Mean Platelet Volume 6.9; Platelet Count 169 k/uL (150-450); RBC 3.95 m/uL (3.80-5.40); RDW 14.8 % (11.5-15.5); WBC 4.7 k/uL (3.8-10.6)
[2018-04-24 14:56] LABS: Eosinophils # (M) 0.09 k/uL (0-0.7); Lymphocytes # (M) 0.82 k/uL (1.0-4.8); Monocytes # (M) 0.39 k/uL (0-1.0); Neutrophils # (M) 3.01 k/uL (1.3-7.7); WBC 4.3 k/uL (3.8-10.6)
--- NOTE | 2018-04-24 16:31 | P.DS ---
Providers Date of admission: 04/21/18 15:39 Attending physician: Liss Joaquin Consults: 04/24/18 13:18 Consult Physician Routine Consulting Provider: Steve Adkins Reason/Comments: uti bacteremia Do you want consulting provider notified?: Yes [facility] Course: 62-year-old pleasant female came in with sepsis and bacteremia secondary to urinary tract infection and pyelonephritis. patient has gram-negative bacilli in the blood. Patient is on Rocephin 2 g which will be continued. Patient was febrile earlier today morning. Patient is bit better today. Still bit lethargic. 04/23/2018 Patient looks much better there is significant improvement in her leukocytosis patient has a E. coli in the blood cultures and urine cultures also showing gram -negative bacilli E. coli is pansensitive. I'm waiting blood cultures from yesterday but they're negative by tomorrow patient will be discharged on ciprofloxacin for 10 more days comparing total 14 day therapy for bacteremia 04/24/2017 Patient repeat blood cultures are negative and patient is clinically doing well patient will be discharged on 10 more days of Ceftin as she didn't tolerate ciprofloxacin very well in the past. Patient has pansensitive E. coli patient will follow with the primary care physician about a week. Patient received 4 days of antibiotic here. PHYSICAL EXAMINATION: GENERAL: The patient is alert and oriented x3, not in any acute distress. Well developed, well nourished. HEENT: Pupils are round and equally reacting to light. EOMI. No scleral icterus. No conjunctival pallor. Normocephalic, atraumatic. No pharyngeal erythema. No thyromegaly. CARDIOVASCULAR: S1 and S2 present. No murmurs, rubs, or gallops. PULMONARY: Chest is clear to auscultation, no wheezing or crackles. ABDOMEN: Soft, nontender, nondistended, normoactive bowel sounds. No palpable organomegaly. MUSCULOSKELETAL: No joint swelling or deformity. EXTREMITIES: No cyanosis, clubbing, or pedal edema. NEUROLOGICAL: Gross neurological examination did not reveal any focal deficits. SKIN: No rashes. Assessment and Plan Plan: -Acute urinary tract infection sepsis secondary to that with along with bacteremia and pyelonephritis: -Coronary artery disease -History of breast cancer patient is on hormone therapy at this time which will be continued -Anxiety disorder -Nicotine dependence: Counseling was provided -Gastroesophageal reflux disease Patient Condition at Discharge: Fair Plan - Discharge Summary New Discharge Prescriptions: New Cefuroxime Axetil [Ceftin] 500 mg PO BID 10 Days #20 tab Continue Hydrocodone/Acetaminophen [[place] 10-325] 1 tab PO Q4H PRN PRN Reason: Pain Enalapril Maleate [Vasotec] 10 mg PO HS Metoprolol Tartrate [Lopressor] 50 mg PO BID Isosorbide Mononitrate ER [Imdur] 30 mg PO DAILY Simvastatin [Zocor] 40 mg PO HS ALPRAZolam [Xanax] 0.5 mg PO BID PRN PRN Reason: Anxiety Aspirin EC [Ecotrin Low Dose] 81 mg PO DAILY Anastrozole [Arimidex] 1 mg PO DAILY Omeprazole 20 mg PO DAILY Discontinued Furosemide [Lasix] 40 mg PO DAILY Discharge Medication List Enalapril Maleate [Vasotec] 10 mg PO HS 03/31/15 [History] Hydrocodone/Acetaminophen [[place] 10-325] 1 tab PO Q4H PRN 03/31/15 [History] Isosorbide Mononitrate ER [Imdur] 30 mg PO DAILY 03/31/15 [History] Metoprolol Tartrate [Lopressor] 50 mg PO BID 03/31/15 [History] Simvastatin [Zocor] 40 mg PO HS 04/01/15 [History] ALPRAZolam [Xanax] 0.5 mg PO BID PRN 06/22/17 [History] Anastrozole [Arimidex] 1 mg PO DAILY 04/18/18 [History] Aspirin EC [Ecotrin Low Dose] 81 mg PO DAILY 04/18/18 [History] Omeprazole 20 mg PO DAILY 04/18/18 [History] Cefuroxime Axetil [Ceftin] 500 mg PO BID 10 Days #20 tab 04/24/18 [Rx] Follow up Appointment(s)/Referral(s): Jean Uriarte MD [Primary Care Provider] - 3 Days Discharge Disposition: HOME SELF-CARE
[2018-04-24 16:49] VITALS: BP 136/76; PULSE 73; RESP 18; TEMP 98.1
== END 2018-04-24 17:04 | disposition home or self-care (01) | DRG 872 ==
LOC: EC 12:58 → 6PED 15:39
PROVIDERS: ADMIT Hospitalist; ATTEND Hospitalist
DX: A41.51 Sepsis due to Escherichia coli [E. coli] (principal); N10 Acute pyelonephritis; Z71.6 Tobacco abuse counseling; F17.210 Nicotine dependence, cigarettes, uncomplicated; F41.9 Anxiety disorder, unspecified; I25.10 Atherosclerotic heart disease of native coronary artery without angina pectoris; K21.9 Gastro-esophageal reflux disease without esophagitis; K29.00 Acute gastritis without bleeding; Z79.82 Long term (current) use of aspirin; Z80.9 Family history of malignant neoplasm, unspecified; Z83.3 Family history of diabetes mellitus; Z85.3 Personal history of malignant neoplasm of breast; Z87.01 Personal history of pneumonia (recurrent); Z79.890 Hormone replacement therapy; Z79.899 Other long term (current) drug therapy; Z86.69 Personal history of other diseases of the nervous system and sense organs
CPT/HCPCS: 36415; 71046; 76770; 80048; 80053; 81001; 83605; 85025; 85027; 87040; 87077; 87086; 87186; 87502; 96365; 96367; 96375; 99284

== ENCOUNTER → 2019-07-25 | Outpatient (CLI) | payer MEDICARE, OTHER ==
--- NOTE | 2019-07-25 10:35 | US ---
EXAMINATION TYPE: US venous doppler duplex UE LT DATE OF EXAM: 07/25/2019 COMPARISON: NONE CLINICAL HISTORY: M79.622 pain in LT upper limb, R22.32 swelling. SIDE PERFORMED: Left Arm: Negative for DVT Left forearm edema. Grayscale, color doppler, spectral doppler imaging performed of the deep veins of the left upper extr emity. There is normal flow, compressibility and vascular waveforms. IMPRESSION: No ultrasound evidence for acute deep or superficial venous thrombosis in the left upper extremity. Fairly severe diffuse subcutaneous edema noted left forearm level towards end of study. Preliminary results given to Maryanne at 10:22 immediately following exam.
== END | disposition home or self-care (01) ==
LOC: RADUSWWP 09:37
PROVIDERS: ATTEND Internal Medicine Hematology & Oncology
DX: R60.0 Localized edema (principal); M79.622 Pain in left upper arm; Z88.5 Allergy status to narcotic agent

== ENCOUNTER 2021-09-15 20:15 | Emergency (ER) | payer MEDICARE, OTHER ==
[2021-09-15 20:21] VITALS: RESP 18; TEMP 97.7
[2021-09-15] MEDS ORDERED: ORPHENADRINE 30 MG/ML 2 ML VIAL IM STA (22:32)
[2021-09-15] MEDS ORDERED: KETOROLAC 15 MG/ML 1 ML VIAL IM STA (22:33)
--- NOTE | 2021-09-15 23:05 | XR ---
EXAMINATION TYPE: XR lumbar spine 2 or 3V DATE OF EXAM: 09/15/2021 COMPARISON: NONE HISTORY: Back pain TECHNIQUE: 3 views FINDINGS: Lumbar vertebrae have normal alignment. Posterior elements are intact. Disc spaces are fair ly normal. No compression fracture. Abdominal aorta is atheromatous. There is mild spurring of the en dplates. IMPRESSION: Negative lumbar spine exam. No fracture.
--- NOTE | 2021-09-15 23:36 | ED ---
General Adult HPI - General Chief complaint: Abdominal Pain Stated complaint: Back pain Time Seen by Provider: 09/15/21 22:15 Source: patient Mode of arrival: ambulatory Limitations: no limitations - History of Present Illness -: days(s) Location: back Radiation: non-radiation Quality: aching Consistency: constant Improves with: none Worsens with: movement Associated Symptoms: denies other symptoms - Related Data Home Medications Medication Instructions Recorded Confirmed Enalapril Maleate [Vasotec] 10 mg PO HS 03/31/15 04/21/18 Hydrocodone/Acetaminophen [[place] 1 tab PO Q4H PRN 03/31/15 04/21/18 10-325] Isosorbide Mononitrate ER [Imdur] 30 mg PO DAILY 03/31/15 04/21/18 Metoprolol Tartrate [Lopressor] 50 mg PO BID 03/31/15 04/21/18 Simvastatin [Zocor] 40 mg PO HS 04/01/15 04/21/18 ALPRAZolam [Xanax] 0.5 mg PO BID PRN 06/22/17 04/21/18 Anastrozole [Arimidex] 1 mg PO DAILY 04/18/18 04/21/18 Aspirin EC [Ecotrin Low Dose] 81 mg PO DAILY 04/18/18 04/21/18 Omeprazole 20 mg PO DAILY 04/18/18 04/21/18 Previous Rx's Medication Instructions Recorded cefUROXime axetiL [Ceftin] 500 mg PO BID 10 Days #20 tab 04/24/18 methocarbamoL [Robaxin-750] 750 mg PO TID PRN #30 tablet 09/15/21 HYDROcodone/APAP 5-325MG [[place] 1 tab PO Q4HR PRN 3 Days #18 tab 09/16/21 5-325] Sulfamethox-Tmp 800-160Mg [Bactrim 1 each PO Q12HR #6 tab 09/16/21 Ds] Allergies Allergy/AdvReac Type Severity Reaction Status Date / Time morphine Allergy Hypotension Verified 04/21/18 17:02 Review of Systems ROS Statement: Those systems with pertinent positive or pertinent negative responses have been documented in the HPI. ROS Other: All systems not noted in ROS Statement are negative. Constitutional: Denies: fever, chills, weakness Respiratory: Denies: cough, dyspnea Cardiovascular: Denies: chest pain, palpitations, edema Gastrointestinal: Denies: abdominal pain, nausea, vomiting, diarrhea Genitourinary: Denies: dysuria, hematuria Musculoskeletal: Reports: back pain Skin: Denies: rash Neurological: Denies: headache, weakness, numbness, paresthesias Past Medical History Past Medical History: Coronary Artery Disease (CAD), Cancer, Pneumonia Additional Past Medical History / Comment(s): [place]; Breast Cancer History of Any Multi-Drug Resistant Organisms: None Reported Past Surgical History: Section, Heart Catheterization Additional Past Surgical History / Comment(s): left breast Lumpectomy, four heart catheterizations- no stents . left mastectomy. kidney surgery for rivera ureter. Past Anesthesia/Blood Transfusion Reactions: No Reported Reaction Past Psychological History: Anxiety Smoking Status: Never smoker Past Alcohol Use History: None Reported Past Drug Use History: None Reported - Past Family History Mother Family Medical History: Cancer Father Family Medical History: Diabetes Mellitus General Exam Limitations: no limitations General appearance: alert, in no apparent distress Head exam: Present: atraumatic, normocephalic Eye exam: Present: normal appearance. Absent: scleral icterus, conjunctival injection ENT exam: Present: normal oropharynx Neck exam: Present: normal inspection, full ROM. Absent: meningismus Respiratory exam: Present: normal lung sounds bilaterally. Absent: respiratory distress, wheezes, rales, rhonchi, stridor Cardiovascular Exam: Present: regular rate, normal rhythm, normal heart sounds. Absent: systolic murmur, diastolic murmur, rubs, gallop GI/Abdominal exam: Present: soft. Absent: distended, tenderness, guarding, rebound, rigid, mass Extremities exam: Present: normal inspection, normal capillary refill. Absent: pedal edema, calf tenderness Back exam: Present: normal inspection, muscle spasm, paraspinal tenderness. Absent: CVA tenderness (R), CVA tenderness (L), vertebral tenderness Neurological exam: Present: alert Skin exam: Present: warm, dry, intact, normal color. Absent: rash Course Vital Signs 09/15/21 09/16/21 20:19 02:36 Temperature 97.7 F Pulse Rate 70 61 Respiratory 18 18 Rate Blood Pressure 160/68 121/57 O2 Sat by Pulse 98 95 Oximetry Medical Decision Making - Lab Data Result diagrams: 09/15/21 23:56 09/15/21 23:56 Lab Results 09/15/21 09/15/21 09/16/21 Range/Units 23:56 23:56 00:49 WBC 7.6 (3.8-10.6) k/uL RBC 4.92 (3.80-5.40) m/uL Hgb 13.5 (11.4-16.0) gm/dL Hct 42.3 (34.0-46.0) % MCV 86.0 (80.0-100.0) fL MCH 27.4 (25.0-35.0) pg MCHC 31.8 (31.0-37.0) g/dL RDW 15.3 (11.5-15.5) % Plt Count 187 (150-450) k/uL MPV 7.1 Neutrophils % 64 % Lymphocytes % 25 % Monocytes % 6 % Eosinophils % 2 % Basophils % 1 % Neutrophils # 4.9 (1.3-7.7) k/uL Lymphocytes # 1.9 (1.0-4.8) k/uL Monocytes # 0.4 (0-1.0) k/uL Eosinophils # 0.2 (0-0.7) k/uL Basophils # 0.1 (0-0.2) k/uL Sodium 137 (137-145) mmol/L Potassium 3.9 (3.5-5.1) mmol/L Chloride 104 (98-107) mmol/L Carbon Dioxide 27 (22-30) mmol/L Anion Gap 6 mmol/L BUN 23 H (7-17) mg/dL Creatinine 0.93 (0.52-1.04) mg/dL Est GFR (CKD-EPI)AfAm 74 (>60 ml/min/1.73 sqM) Est GFR (CKD-EPI)NonAf 64 (>60 ml/min/1.73 sqM) Glucose 183 H (74-99) mg/dL Calcium 9.3 (8.4-10.2) mg/dL Total Bilirubin 1.7 H (0.2-1.3) mg/dL AST 26 (14-36) U/L ALT 25 (4-34) U/L Alkaline Phosphatase 105 (38-126) U/L Total Protein 7.0 (6.3-8.2) g/dL Albumin 3.9 (3.5-5.0) g/dL Amylase 64 (30-110) U/L Lipase 204 (23-300) U/L Urine Color Yellow Urine Appearance Cloudy H (Clear) Urine pH 5.5 (5.0-8.0) Ur Specific [place] 1.030 (1.001-1.035) Urine Protein 1+ H (Negative) Urine Glucose (UA) 1+ H (Negative) Urine Ketones Negative (Negative) Urine Blood Negative (Negative) Urine Nitrite Negative (Negative) Urine Bilirubin 1+ H (Negative) Urine Urobilinogen 4.0 (<2.0) mg/dL Ur Leukocyte Esterase Large H (Negative) Urine RBC 2 (0-5) /hpf Urine WBC 27 H (0-5) /hpf Ur Squamous Epith Cells 4 (0-4) /hpf Urine Bacteria Many H (None) /hpf Hyaline Casts 2 (0-2) /lpf Urine Mucus Many H (None) /hpf Disposition Clinical Impression: Back pain Disposition: HOME SELF-CARE Condition: Good Instructions (If sedation given, give patient instructions): Low Back Strain (ED) Prescriptions: Sulfamethox-Tmp 800-160Mg [Bactrim Ds] 1 each PO Q12HR #6 tab HYDROcodone/APAP 5-325MG [[place] 5-325] 1 tab PO Q4HR PRN 3 Days #18 tab PRN Reason: Pain methocarbamoL [Robaxin-750] 750 mg PO TID PRN #30 tablet PRN Reason: pain Is patient prescribed a controlled substance at d/c from ED?: No Referrals: Jean Uriarte MD [Primary Care Provider] - 1-2 days
[2021-09-15] MEDS ORDERED: HYDROcodone/APAP 5-325MG 1 EACH TAB PO STA (23:44)
[2021-09-16 00:05] LABS: Basophils # (A) 0.1 k/uL (0-0.2); Basophils % (A) 1 %; Eosinophils # (A) 0.2 k/uL (0-0.7); Eosinophils % (A) 2 %; HCT 42.3 % (34.0-46.0); HGB 13.5 gm/dL (11.4-16.0); Lymphocytes # (A) 1.9 k/uL (1.0-4.8); Lymphocytes % (A) 25 %; MCH 27.4 pg (25.0-35.0); MCHC 31.8 g/dL (31.0-37.0); Mean Platelet Volume 7.1; Monocytes # (A) 0.4 k/uL (0-1.0); Monocytes % (A) 6 %; Neutrophils # (A) 4.9 k/uL (1.3-7.7); Neutrophils % (A) 64 %; Platelet Count 187 k/uL (150-450); RBC 4.92 m/uL (3.80-5.40); RDW 15.3 % (11.5-15.5); WBC 7.6 k/uL (3.8-10.6)
[2021-09-16 00:33] LABS: Albumin 3.9 g/dL (3.5-5.0); Calcium 9.3 mg/dL (8.4-10.2); Potassium 3.9 mmol/L (3.5-5.1); Total Bilirubin 1.7 mg/dL (0.2-1.3)
--- NOTE | 2021-09-16 00:46 | CT ---
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 worsening lower abdominal pain also . prior on PACS CT DLP: 1835.9 mGycm Automated exposure control for dose reduction was used. there is subsegmental atelectasis at the lung bases. Heart size is normal. No pericardial effusion. There are small cysts in the superior right lobe of the liver. No pleural effusion. Spleen is intact. Stomach is intact. There is no pancreatic mass. There are clips from cholecystectomy. The bile ducts are not dilated. There is no adrenal mass. Kidneys have normal size. No hydronephrosis. Ureters are not dilated. Bladd er distends smoothly. There is no inguinal hernia. No free fluid in the pelvis. Uterus is anteverted. Appendix not seen. The lumbar vertebrae have normal alignment. There is T12 depression of the superior endplate 15%. Abd ominal aorta is atheromatous. The bony pelvis appears intact. There is severe narrowing of the right hip joint space with spur formation. There is mild osteoarthritis in the left hip. There is no mesenteric edema. No ascites or free air. No bowel obstruction. Appendix not clearly seen . No sign of thickened appendix. IMPRESSION: There is T12 compression fracture which could be an acute fracture and is unchanged compared to old e xam. There is clearing of the bilateral hydronephrosis compared to old exam. There is moderately severe osteoarthritis in the right hip joint that has progressed compared to old exam.
[2021-09-16 01:27] LABS: Appearance,Urine Cloudy (Clear); Bacteria,Urine Many /hpf; Bilirubin,Urine 1+ (Negative); Blood,Urine Negative (Negative); Color,Urine Yellow; Glucose,Urine (UA) 1+ (Negative); Hyaline Casts,Urine 2 /lpf (0-2); Ketones,Urine Negative (Negative); Leukocyte Esterase,Urine Large (Negative); Mucus,Urine Many /hpf; Nitrite,Urine Negative (Negative); PH, Urine 5.5 (5.0-8.0); Protein,Urine 1+ (Negative); RBC,Urine 2 /hpf (0-5); Squamous Epithelial Cell,Urine 4 /hpf (0-4); WBC,Urine 27 /hpf (0-5)
[2021-09-16] MEDS ORDERED: SULFAMETHOX-TMP 800-160MG 1 EACH TAB PO STA (01:58)
[2021-09-16] MEDS ORDERED: HYDROmorphone 0.5 MG/0.5 ML SYRINGE IVP STA (02:12)
[2021-09-16 02:38] VITALS: BP 121/57; PULSE 61
== END 2021-09-16 02:56 | disposition home or self-care (01) ==
LOC: EC 20:15
DX: M54.9 Dorsalgia, unspecified (principal); I25.10 Atherosclerotic heart disease of native coronary artery without angina pectoris; F41.9 Anxiety disorder, unspecified; Z79.82 Long term (current) use of aspirin; Z79.899 Other long term (current) drug therapy
CPT/HCPCS: 36415; 80053; 82150; 83690; 85025; 81001; 87086; 87077; 87186; 72100; 74176; 99284; 96374; 96372 ×2; J2360; J1885; J1170

== ENCOUNTER 2021-11-21 18:07 | Emergency (ER) | payer MEDICARE, OTHER ==
[2021-11-21 18:16] VITALS: BP 155/86; PULSE 91; RESP 20; TEMP 98.1
--- NOTE | 2021-11-21 20:57 | ED ---
Abdominal Pain HPI - General Chief Complaint: Abdominal Pain Stated Complaint: rt side pain Time Seen by Provider: 11/21/21 20:51 Source: patient, RN notes reviewed Mode of arrival: ambulatory Limitations: no limitations - History of Present Illness Initial Comments: This is a pleasant 66-year-old female who presents to emergency department with right-sided abdominal pain which is present for over 2 months. Patient has been evaluated several times for this. Patient getting a sharp pain which seems to come around the right side and is located in the right mid abdomen. Patient recently saw her regular physician and has outpatient x-rays ordered. Patient has had other workups ordered, to include here. Patient already has had a computed tomography scan. She actually states that she fractured her back about the same time of the abdominal pain starting. Patient states the pain has been there since. Patient saw her regular physician. There was discussion of ordering an MRI. Patient has no changes to diet. No vomiting. No changes in bowel movements. No fever. No respiratory symptoms. No headache, no fever or chills, no changes in vision or hearing, no sore throat or difficulty with speech, no neck pain, no chest pain or shortness of breath, no nausea or vomiting, no changes in urination or bowel movements, no numbness or tingling, no extremity pain, no skin rashes or lesions. Past medical, surgical, social, and family history reviewed. - Related Data Home Medications Medication Instructions Recorded Confirmed Enalapril Maleate [Vasotec] 10 mg PO HS 03/31/15 04/21/18 Hydrocodone/Acetaminophen [[place] 1 tab PO Q4H PRN 03/31/15 04/21/18 10-325] Isosorbide Mononitrate ER [Imdur] 30 mg PO DAILY 03/31/15 04/21/18 Metoprolol Tartrate [Lopressor] 50 mg PO BID 03/31/15 04/21/18 Simvastatin [Zocor] 40 mg PO HS 04/01/15 04/21/18 ALPRAZolam [Xanax] 0.5 mg PO BID PRN 06/22/17 04/21/18 Anastrozole [Arimidex] 1 mg PO DAILY 04/18/18 04/21/18 Aspirin EC [Ecotrin Low Dose] 81 mg PO DAILY 04/18/18 04/21/18 Omeprazole 20 mg PO DAILY 04/18/18 04/21/18 Previous Rx's Medication Instructions Recorded cefUROXime axetiL [Ceftin] 500 mg PO BID 10 Days #20 tab 04/24/18 methocarbamoL [Robaxin-750] 750 mg PO TID PRN #30 tablet 09/15/21 HYDROcodone/APAP 5-325MG [[place] 1 tab PO Q4HR PRN 3 Days #18 tab 09/16/21 5-325] Sulfamethox-Tmp 800-160Mg [Bactrim 1 each PO Q12HR #6 tab 09/16/21 Ds] Cefdinir [Omnicef] 300 mg PO BID #14 capsule 11/21/21 Lidocaine 5% Patch [Lidoderm] 1 patch TOPICAL DAILY #9 patch 11/21/21 Allergies Allergy/AdvReac Type Severity Reaction Status Date / Time morphine Allergy Hypotension Verified 11/21/21 18:16 Review of Systems ROS Statement: Those systems with pertinent positive or pertinent negative responses have been documented in the HPI. ROS Other: All systems not noted in ROS Statement are negative. Past Medical History Past Medical History: Coronary Artery Disease (CAD), Cancer, Pneumonia Additional Past Medical History / Comment(s): Bennett [place]; Breast Cancer History of Any Multi-Drug Resistant Organisms: None Reported Date of last positivie culture/infection: 09/16/21 ESBL E.coli MDRO Source:: Urine Past Surgical History: Section, Heart Catheterization Additional Past Surgical History / Comment(s): left breast Lumpectomy, four heart catheterizations- no stents . left mastectomy. kidney surgery for rivera ureter. Past Anesthesia/Blood Transfusion Reactions: No Reported Reaction Past Psychological History: Anxiety Smoking Status: Never smoker Past Alcohol Use History: None Reported Past Drug Use History: None Reported - Past Family History Mother Family Medical History: Cancer Father Family Medical History: Diabetes Mellitus General Exam - General Exam Comments Initial Comments: And does not appear to be ill or toxic. Vital signs reviewed. Cranial nerves I I through XII grossly intact Limitations: no limitations General appearance: alert, in no apparent distress Head exam: Present: atraumatic, normocephalic, normal inspection Eye exam: Present: normal appearance, PERRL, EOMI. Absent: scleral icterus, conjunctival injection, periorbital swelling ENT exam: Present: normal exam, mucous membranes moist Neck exam: Present: normal inspection. Absent: tenderness, meningismus, lymphadenopathy Respiratory exam: Present: normal lung sounds bilaterally. Absent: respiratory distress, wheezes, rales, rhonchi, stridor Cardiovascular Exam: Present: regular rate, normal rhythm, normal heart sounds. Absent: systolic murmur, diastolic murmur, rubs, gallop, clicks GI/Abdominal exam: Present: soft, normal bowel sounds. Absent: distended, tenderness, guarding, rebound, rigid Extremities exam: Present: normal inspection, full ROM, normal capillary refill. Absent: tenderness, pedal edema, joint swelling, calf tenderness Back exam: Present: normal inspection Neurological exam: Present: alert, oriented X3, CN II-XII intact Psychiatric exam: Present: normal affect, normal mood Skin exam: Present: warm, dry, intact, normal color. Absent: rash Course Vital Signs 11/21/21 18:14 Temperature 98.1 F Pulse Rate 91 Respiratory 20 Rate Blood Pressure 155/86 O2 Sat by Pulse 96 Oximetry Medical Decision Making - Medical Decision Making Patient presents with what is starting to be chronic abdominal pain. Over 2 months. Has had several workups. Does not appear to be consistent with any other acute pathology. patient has no chest pain or shortness of breath. 6 with cardiopulmonary disease. Patient does have evidence of a urinary tract infection with white blood cell count of 27 in the urine, 2 red cells, many bacteria. We'll treat with antibiotics. I'm going to obtain a computed tomography scan, noncontrast to ensure that there is no renal stone involvement. Omnicef ordered. Evidence of renal stone or acute pathology on CT scan. We'll treat the patient's urinary tract infection. Other imaging was nondiagnostic for the patient's pain as well. I suspect the patient has thoracic radiculopathy related to the previous compression fracture. Patient can follow up with her regular physician. All questions answered. Treatment plan discussed. Patient was told to return to the ER for any signs or symptoms worsen. Told to return immediately if any other problems arise. All questions answered. Treatment plan discussed. Patient in agreement Every effort has been made to ensure accuracy of this dictation. However, due to the limitations of electronic medical records and dictation devices, errors in charting still occur. Reading Interventionist Dr. Dumont - Radiology Data Radiology results: report reviewed, image reviewed Patient did have a T12 compression fracture noted on the computed tomography scan from 09/16/2021. No acute findings on imaging today. Disposition Clinical Impression: Urinary tract infection, Right flank pain Narrative: Essentially chronic right flank pain Disposition: HOME SELF-CARE Condition: Good Instructions (If sedation given, give patient instructions): Urinary Tract Infection in Women (ED), Flank Pain (ED) Additional Instructions: Take antibiotics as directed. Follow-up with your regular physician. Follow-up with your regular physician as directed. Return to the ER immediately if any symptoms worsen, new symptoms arise, or any other problems develop. Prescriptions: Lidocaine 5% Patch [Lidoderm] 1 patch TOPICAL DAILY #9 patch Cefdinir [Omnicef] 300 mg PO BID #14 capsule Is patient prescribed a controlled substance at d/c from ED?: No Referrals: Jean Uriarte MD [Primary Care Provider] - 1-2 days Time of Disposition: 23:27
--- NOTE | 2021-11-21 21:46 | XR ---
EXAMINATION TYPE: XR thoracic spine 2V DATE OF EXAM: 11/21/2021 9:34 PM INDICATION: Patient age:Female; 66 years old; Reason for study: Right back and right flank pain; COMPARISON: None TECHNIQUE: 3 views of the thoracic spine in Frontal, lateral, swimmer's projections. FINDINGS: No evidence of acute fracture. Vertebral body heights are maintained. Multilevel degenerative changes of visualized spine with disc space narrowing, endplate sclerosis, and osteophytosis. There is chiki l alignment of the thoracic vertebral bodies. Atherosclerotic calcification of the aorta. Cholecystec axel clips in the right upper quadrant. IMPRESSION: No acute osseous pathology. [id number] degenerative disc disease.
--- NOTE | 2021-11-21 21:50 | XR ---
EXAMINATION TYPE: XR lumbar spine 2 or 3V DATE OF EXAM: 11/21/2021 CLINICAL HISTORY: pain TECHNIQUE: Three views of the lumbar spine are submitted. COMPARISON: CT abdomen pelvis 09/16/2021, lumbar spine radiograph 09/15/2021. FINDINGS: There are 5 lumbar type vertebral bodies identified. The lumbar spine shows satisfactory alignment w ithout evidence of acute fracture or dislocation. Vertebral body heights are within normal limits. Mi ld spurring of the endplates. The overlying soft tissue appears unremarkable. Vascular sclerosis. Cho lecystectomy clips right upper quadrant. IMPRESSION: No acute fracture or dislocation is seen in the lumbar spine.
--- NOTE | 2021-11-21 21:53 | XR ---
EXAMINATION TYPE: XR abdomen acute w cxr DATE OF EXAM: 11/21/2021 9:34 PM INDICATION: Patient age:Female; 66 years old; Reason for study: Right-sided abdominal pain; COMPARISON: Chest radiograph 04/21/2018, CT abdomen pelvis 09/16/2021. TECHNIQUE: Two radiographic views of the abdomen and an a chest radiograph were obtained. FINDINGS CHEST: Lungs/Pleura: The lungs are clear. There is no evidence of pleural effusion, focal consolidation or p neumothorax. Hyperinflation with flattening of the diaphragms. Mediastinum: Unremarkable. Vasculature: Atherosclerotic calcification of the aorta. Heart: Normal in size. Musculoskeletal: The osseous structures are intact. Other findings: No significant. FINDINGS ABDOMEN: Bowel gas pattern: Normal without dilated loops of small or large bowel. Fecal material and gas are d emonstrated throughout the colon and rectum. Musculoskeletal: Moderate osteoarthritic changes of both hips. Other: Cholecystectomy clips right upper quadrant. No abnormal calcifications. IMPRESSION: 1. No radiographic evidence for acute abdominal process. 2. No acute cardiopulmonary process. 3. COPD changes.
--- NOTE | 2021-11-21 22:36 | CT ---
EXAMINATION TYPE: CT abdomen pelvis wo con DATE OF EXAM: 11/21/2021 COMPARISON: 09/16/2021 HISTORY: RT SIDE/ FLANK PAIN CT DLP: 1783.4 mGycm Automated exposure control for dose reduction was used. Images obtained from the diaphragm to the floor the pelvis with no contrast. The lung bases are clear of infiltrate. No pleural effusion. There is minimal scarring and subsegment al atelectasis at the lung bases. There are clips from cholecystectomy. Heart size is normal. No gifty cardial effusion. Liver spleen and stomach pancreas appear intact. The bile ducts are not dilated. There is no adrenal mass. Kidneys have normal size and contour. No hydronephrosis. Ureters are not dilated. There is no r etroperitoneal adenopathy. Bladder distends smoothly. There is no inguinal hernia. No free fluid in the pelvis. Uterus is anteve rted. No evidence of a pelvic mass. The lumbar vertebrae appear intact. There is T12 mild compression deformity 15% that appears old. The bony pelvis is intact. The hip joints are intact. There is hypertrophic osteoarthritis in both hip j oints. There is no evidence of thickened appendix. There is no mesenteric edema. No ascites or free a ir. No bowel obstruction. IMPRESSION: No acute abnormality in the abdomen and pelvis. No significant change compared to old exam. No eviden ce of right-sided renal stone or obstruction.
[2021-11-21] MEDS ORDERED: CEFDINIR 300 MG CAP PO STA (23:20)
[2021-11-21] MEDS ORDERED: HYDROcodone/APAP 5-325MG 1 EACH TAB PO STA (23:28)
[2021-11-21 23:37] LABS: Basophils # (A) 0.1 k/uL (0-0.2); Basophils % (A) 1 %; Eosinophils # (A) 0.2 k/uL (0-0.7); Eosinophils % (A) 2 %; HCT 44.8 % (34.0-46.0); HGB 14.9 gm/dL (11.4-16.0); Lymphocytes # (A) 2.2 k/uL (1.0-4.8); Lymphocytes % (A) 24 %; MCH 29.3 pg (25.0-35.0); MCHC 33.2 g/dL (31.0-37.0); MCV 88.1 fL (80.0-100.0); Mean Platelet Volume 6.8; Monocytes # (A) 0.6 k/uL (0-1.0); Monocytes % (A) 7 %; Neutrophils # (A) 6.1 k/uL (1.3-7.7); Neutrophils % (A) 65 %; Platelet Count 248 k/uL (150-450); RBC 5.08 m/uL (3.80-5.40); RDW 14.7 % (11.5-15.5); WBC 9.4 k/uL (3.8-10.6)
[2021-11-21 23:47] LABS: Albumin 4.5 g/dL (3.5-5.0); Calcium 10.2 mg/dL (8.4-10.2); Potassium 3.8 mmol/L (3.5-5.1); Total Bilirubin 1.7 mg/dL (0.2-1.3); Total Protein 8.4 g/dL (6.3-8.2)
== END 2021-11-21 23:32 | disposition home or self-care (01) ==
LOC: EC 18:07
DX: N39.0 Urinary tract infection, site not specified (principal); I25.10 Atherosclerotic heart disease of native coronary artery without angina pectoris; Z88.5 Allergy status to narcotic agent; Z79.82 Long term (current) use of aspirin; Z79.899 Other long term (current) drug therapy
CPT/HCPCS: 36415; 72070; 72100; 74022; 74176; 80053; 85025; 99284

== ENCOUNTER → 2021-11-24 | Outpatient (CLI) | payer MEDICARE, OTHER ==
--- NOTE | 2021-11-25 00:37 | MR ---
EXAMINATION TYPE: MR thoracic spine wo/w con DATE OF EXAM: 11/24/2021 COMPARISON: HISTORY: Breast cancer, mid and right side back pain. CONTRAST: Standard multiplanar, multisequence MRI departmental protocol images were obtained without contrast a nd with 13 mL intravenous Gadavist gadolinium contrast. The thoracic vertebra have normal alignment. Disc spaces are fairly normal. There is slight anterior wedging of T7. There is mild loss of height of T10. There is depression of the superior endplate of T 12 vertebra up to 25%. No significant edema. No pathologic enhancement. There is no thoracic paraspin al mass. Thoracic spinal cord has normal signal pattern. No edema. No evidence of thoracic spinal gian nosis. The posterior elements appear intact. IMPRESSION: There is some mild loss of height of T7 and T10 of 5%. There is more noticeable compression deformity of T12 vertebra 25% without edema and likely an old compression fracture. No evidence of metastatic disease. No spinal stenosis.
== END | disposition home or self-care (01) ==
LOC: RADMRIMAIN 13:21
PROVIDERS: ATTEND Internal Medicine Hematology & Oncology
DX: C50.812 Malignant neoplasm of overlapping sites of left female breast (principal)
CPT/HCPCS: 72157; A9585

== ENCOUNTER 2022-01-01 20:52 | Inpatient (IN) | payer MEDICARE, OTHER ==
[2022-01-01] MEDS ORDERED: SODIUM CHLORIDE 0.9% 1,000 ML IV STA (21:16)
[2022-01-01] MEDS ORDERED: DILTIAZEM DRIP BOLUS FROM BAG 1 MG SOLN IV ONE (21:21)
[2022-01-01] MEDS ORDERED: DILTIAZEM 5 MG/ML 5 ML VIAL IVP STA ×2 (21:29→23:15)
[2022-01-01] MEDS ORDERED: niCARdipine 20 MG in SODIUM CHLORIDE 0.9% 192 ML IV SCH (21:45)
[2022-01-01 22:08] LABS: Basophils % (A) 1 %; Eosinophils # (A) 0.2 k/uL (0-0.7); Eosinophils % (A) 2 %; HCT 45.9 % (34.0-46.0); Lymphocytes # (A) 1.4 k/uL (1.0-4.8); Lymphocytes % (A) 19 %; MCH 29.1 pg (25.0-35.0); MCHC 32.6 g/dL (31.0-37.0); MCV 89.3 fL (80.0-100.0); Mean Platelet Volume 7.1; Monocytes # (A) 0.5 k/uL (0-1.0); Monocytes % (A) 7 %; Neutrophils # (A) 5.2 k/uL (1.3-7.7); Neutrophils % (A) 69 %; Platelet Count 238 k/uL (150-450); RBC 5.14 m/uL (3.80-5.40); RDW 14.6 % (11.5-15.5); WBC 7.5 k/uL (3.8-10.6)
[2022-01-01 22:13] LABS: Partial Thromboplastin Time 24.6 sec (22.0-30.0); Prothrombin Time 10.9 sec (9.0-12.0)
[2022-01-01 22:20] LABS: Albumin 4.4 g/dL (3.5-5.0); Calcium 9.8 mg/dL (8.4-10.2); Magnesium 1.5 mg/dL (1.6-2.3); Potassium 4.1 mmol/L (3.5-5.1); Total Bilirubin 1.3 mg/dL (0.2-1.3); Total Protein 7.8 g/dL (6.3-8.2)
--- NOTE | 2022-01-01 22:33 | XR ---
EXAMINATION TYPE: XR chest 2V DATE OF EXAM: 01/01/2022 COMPARISON: 04/21/2018 HISTORY: Difficulty breathing TECHNIQUE: 2 views FINDINGS: Heart is normal. Lungs are clear of infiltrate. No heart failure. There are no hilar masses . Thoracic aorta is atheromatous. There are chest leads. Bony thorax is intact. IMPRESSION: No active cardiopulmonary disease. Normal heart. No change
--- NOTE | 2022-01-02 00:17 | ED ---
Chest Pain HPI - General Chief Complaint: Chest Pain Stated Complaint: chest pain, sob Time Seen by Provider: 01/01/22 21:03 Source: patient Mode of arrival: ambulatory Limitations: no limitations - History of Present Illness Initial Comments: Patient is a 66-year-old female presenting with chief complaint of shortness of breath. Symptoms started yesterday, this is also accompanied by intermittent sharp left-sided chest pain. Patient notes palpitations, she feels like her heart rate is racing and jumping around. Patient had one episode of atrial f ibrillation less than 2 months ago while hospitalized at [facility], her plush brusher started her on eliquis, and to her knowledge she has not had any other episodes of A. fib. Patient states she has not taken her metoprolol the last 3 days because she ran out. She denies any fever, chills, nausea, vomiting, abdominal pain, diarrhea, hematochezia, melena, dysuria, hematuria, urgency, frequency. - Related Data Home Medications Medication Instructions Recorded Confirmed Enalapril Maleate [Vasotec] 10 mg PO HS 03/31/15 04/21/18 Hydrocodone/Acetaminophen [[place] 1 tab PO Q4H PRN 03/31/15 04/21/18 10-325] Isosorbide Mononitrate ER [Imdur] 30 mg PO DAILY 03/31/15 04/21/18 Metoprolol Tartrate [Lopressor] 50 mg PO BID 03/31/15 04/21/18 Simvastatin [Zocor] 40 mg PO HS 04/01/15 04/21/18 ALPRAZolam [Xanax] 0.5 mg PO BID PRN 06/22/17 04/21/18 Anastrozole [Arimidex] 1 mg PO DAILY 04/18/18 04/21/18 Aspirin EC [Ecotrin Low Dose] 81 mg PO DAILY 04/18/18 04/21/18 Omeprazole 20 mg PO DAILY 04/18/18 04/21/18 Previous Rx's Medication Instructions Recorded cefUROXime axetiL [Ceftin] 500 mg PO BID 10 Days #20 tab 04/24/18 methocarbamoL [Robaxin-750] 750 mg PO TID PRN #30 tablet 09/15/21 HYDROcodone/APAP 5-325MG [[place] 1 tab PO Q4HR PRN 3 Days #18 tab 09/16/21 5-325] Sulfamethox-Tmp 800-160Mg [Bactrim 1 each PO Q12HR #6 tab 09/16/21 Ds] Cefdinir [Omnicef] 300 mg PO BID #14 capsule 11/21/21 Lidocaine 5% Patch [Lidoderm] 1 patch TOPICAL DAILY #9 patch 11/21/21 Allergies Allergy/AdvReac Type Severity Reaction Status Date / Time morphine Allergy Hypotension Verified 01/01/22 21:01 Review of Systems ROS Statement: Those systems with pertinent positive or pertinent negative responses have been documented in the HPI. ROS Other: All systems not noted in ROS Statement are negative. EKG Findings - EKG Comments: EKG Findings:: A. fib with RVR rate of 163. QRS duration 93. QT/QTc to 75/365. Past Medical History Past Medical History: Coronary Artery Disease (CAD), Cancer, Pneumonia Additional Past Medical History / Comment(s): [facility] [place]; Breast Cancer History of Any Multi-Drug Resistant Organisms: None Reported Date of last positivie culture/infection: 09/16/21 ESBL E.coli MDRO Source:: Urine Past Surgical History: Section, Heart Catheterization Additional Past Surgical History / Comment(s): left breast Lumpectomy, four heart catheterizations- no stents . left mastectomy. kidney surgery for rivera ureter. Past Anesthesia/Blood Transfusion Reactions: No Reported Reaction Past Psychological History: Anxiety Smoking Status: Never smoker Past Alcohol Use History: None Reported Past Drug Use History: None Reported - Past Family History Mother Family Medical History: Cancer Father Family Medical History: Diabetes Mellitus General Exam Limitations: no limitations General appearance: alert, in no apparent distress Head exam: Present: atraumatic, normocephalic, normal inspection Eye exam: Present: normal appearance, EOMI. Absent: scleral icterus, periorbital swelling Neck exam: Present: normal inspection Respiratory exam: Present: normal lung sounds bilaterally. Absent: respiratory distress, wheezes, rales, rhonchi, stridor Cardiovascular Exam: Present: tachycardia, irregular rhythm, normal heart sounds. Absent: systolic murmur, diastolic murmur, rubs, gallop, clicks Neurological exam: Present: alert, oriented X3, CN II-XII intact Psychiatric exam: Present: normal affect, normal mood Skin exam: Present: warm, dry, intact, normal color. Absent: rash Course Vital Signs 01/01/22 01/01/22 20:58 23:45 Temperature 98.4 F Pulse Rate 96 146 H Respiratory 20 18 Rate Blood Pressure 148/83 149/59 O2 Sat by Pulse 98 96 Oximetry Chest Pain MDM - MDM Patient is a 66-year-old female presenting with chief complaint of shortness of breath or chest pain. She admits to palpitations, this is has been ongoing for the last day. Examination patient is tachycardic and heart rate sounds are regular on auscultation. EKG shows A. fib with RVR rate of 163. Patient is given 20 mg Cardizem bolus and Cardizem drip started at 5 mg per hour, this was then increased to 10 mg per hour. CBC shows no leukocytosis or anemia. Lactic acid is 2.9, likely related to hydration status. Magnesium is 1.5. Troponin is less than 0.012. BNP 138. Chest x-ray shows no acute process. Patient is given another 20 mg Cardizem bolus. Rate is sustained in the 70s and blood pressure remained stable. I spoke with Dr. Waddell who agreed to admit the patient. I discussed these findings and the plan with the patient, she was agreeable. I discussed this case with my attending Dr. Mcnulty. Urine and Covid/flu tests are pending at this time. Critical Care Time Critical Care Time: Yes Total Critical Care Time: 35 Disposition Clinical Impression: Atrial fibrillation with RVR Disposition: ADMITTED IP TO THIS HOSP Condition: Serious Referrals: Jean Uriarte MD [Primary Care Provider] - 1-2 days Time of Disposition: 00:47
[2022-01-02] MEDS: DILTIAZEM 125 MG in SODIUM CHLORIDE 0.9% 100 ML IV SCH ×3 (00:37→23:01)
[2022-01-02] MEDS ORDERED: NALOXONE 0.4 MG/ML 1 ML VIAL IV PRN (00:47)
[2022-01-02] MEDS: SODIUM CHLORIDE 0.9% 1,000 ML IV SCH ×3 (03:00→17:13)
[2022-01-02] MEDS ORDERED: Magnesium Replacement Protocol 1 EACH MISC MISCELLANE PRN (08:01)
[2022-01-02 09:11] LABS: Appearance,Urine Clear (Clear); Bacteria,Urine Many /hpf; Bilirubin,Urine Negative (Negative); Blood,Urine Negative (Negative); Color,Urine Yellow; Glucose,Urine (UA) 2+ (Negative); Ketones,Urine Trace (Negative); Leukocyte Esterase,Urine Small (Negative); Mucus,Urine Rare /hpf; Nitrite,Urine Positive (Negative); Protein,Urine Negative (Negative); RBC,Urine 1 /hpf (0-5); Specific Gravity,Urine 1.011 (1.001-1.035); Squamous Epithelial Cell,Urine <1 /hpf (0-4); Urobilinogen,Urine <2.0 mg/dL (<2.0); WBC,Urine 9 /hpf (0-5)
[2022-01-02] MEDS: MAGNESIUM SULFATE-D5W PMX 1 GM in DEXTROSE/WATER 1 100ML.BAG IVPB SCH ×2 (10:19→12:45)
[2022-01-02] MEDS: METOPROLOL TARTRATE 50 MG TAB PO SCH ×2 (10:19→21:56)
[2022-01-02] MEDS: APIXABAN 5 MG TAB PO SCH ×2 (10:19→21:56)
[2022-01-02] MEDS: ISOSORBIDE MONONITRATE ER 30 MG TAB.ER.24H PO SCH (10:19)
[2022-01-02 11:54] LABS: Glucose,Whole Blood 190 mg/dL (70-110)
[2022-01-02] MEDS ORDERED: CYCLOBENZAPRINE 5 MG TAB PO STA (12:02)
--- NOTE | 2022-01-02 12:06 | P.HPIM ---
History of Present Illness 66-year-old the female came in with compensative shortness of breath and left- sided chest pain palpitations. Patient is found to be in atrial fibrillation with rapid ventricular rate. Patient missed 3 doses of metoprolol. Patient anti-coagulation. Patient denied any history of congestive heart failure. Patient will urine showed some matted but doesn't have any symptoms of UTI patient does have chronic low back pain with the some parasternal stiffness which is not pyelonephritis. Patient still on Cardizem with heart rate of 129 in atrial fibrillation. REVIEW OF SYSTEMS: CONSTITUTIONAL: No fever, no malaise, no fatigue. HEENT: No recent visual problems or hearing problems. Denied any sore throat. CARDIOVASCULAR: no syncope. PULMONARY: No shortness of breath, no cough, no hemoptysis. GASTROINTESTINAL: No diarrhea, no nausea, no vomiting, no abdominal pain. NEUROLOGICAL: No headaches, no weakness, no numbness. HEMATOLOGICAL: Denies any bleeding or petechiae. GENITOURINARY: Denies any burning micturition, frequency, or urgency. MUSCULOSKELETAL/RHEUMATOLOGICAL: Denies any joint pain, swelling, or any muscle pain. ENDOCRINE: Denies any polyuria or polydipsia. The rest of the 14-point review of systems is negative. PHYSICAL EXAMINATION: GENERAL: The patient is alert and oriented x3, not in any acute distress. Well developed, well nourished. HEENT: Pupils are round and equally reacting to light. EOMI. No scleral icterus. No conjunctival pallor. Normocephalic, atraumatic. No pharyngeal erythema. No thyromegaly. CARDIOVASCULAR: S1 and S2 present. No murmurs, rubs, or gallops tachycardic ir regularly irregular rhythm. PULMONARY: Chest is clear to auscultation, no wheezing or crackles. ABDOMEN: Soft, nontender, nondistended, normoactive bowel sounds. No palpable organomegaly. MUSCULOSKELETAL: No joint swelling or deformity. EXTREMITIES: No cyanosis, clubbing, or pedal edema. NEUROLOGICAL: Gross neurological examination did not reveal any focal deficits. SKIN: No rashes. Assessment and plan -Atrial fibrillation with rapid ventricular rate secondary to Mr. metoprolol doses patient will resumed on metoprolol and been off Cardizem. Patient is on a course which will be continued -Asymptomatic bacteriuria will not require any antibiotics -Lactic acidosis: Secondary to intravascular depletion patient received IV fluids with with resolution of lactic acidosis -hypomagnesemia magnesium was replaced we'll repeat magnesium tomorrow -Coronary artery disease -Obesity chronic low back pain -Diabetes mellitus -depression -hyperlipidemia DVT prophylaxis: On anti-correlation as mentioned above Past Medical History Past Medical History: Atrial Fibrillation, Coronary Artery Disease (CAD), Cancer, Pneumonia Additional Past Medical History / Comment(s): [facility] [place]; Breast Cancer History of Any Multi-Drug Resistant Organisms: None Reported Date of last positivie culture/infection: 09/16/21 ESBL E.coli MDRO Source:: Urine Past Surgical History: Section, Heart Catheterization Additional Past Surgical History / Comment(s): left breast Lumpectomy, four heart catheterizations- no stents . left mastectomy. kidney surgery for rivera ureter. Past Anesthesia/Blood Transfusion Reactions: No Reported Reaction Past Psychological History: Anxiety Smoking Status: Never smoker Past Alcohol Use History: None Reported Past Drug Use History: None Reported Additional Drug Use History / Comment(s): QUIT SMOKING 10 TO 12 YEARS AGO - Past Family History Mother Family Medical History: Cancer Father Family Medical History: Diabetes Mellitus Medications and Allergies Home Medications Medication Instructions Recorded Confirmed Type Enalapril Maleate [Vasotec] 10 mg PO HS 03/31/15 01/02/22 History Hydrocodone/Acetaminophen [[place] 1 tab PO Q4H PRN 03/31/15 01/02/22 History 10-325] Isosorbide Mononitrate ER [Imdur] 30 mg PO DAILY 03/31/15 01/02/22 History Metoprolol Tartrate [Lopressor] 50 mg PO BID 03/31/15 01/02/22 History Simvastatin [Zocor] 40 mg PO HS 04/01/15 01/02/22 History ALPRAZolam [Xanax] 0.5 mg PO BID PRN 06/22/17 01/02/22 History Anastrozole [Arimidex] 1 mg PO DAILY 04/18/18 01/02/22 History Aspirin EC [Ecotrin Low Dose] 81 mg PO DAILY 04/18/18 01/02/22 History Omeprazole 20 mg PO DAILY 04/18/18 01/02/22 History Apixaban [Eliquis] 5 mg PO BID 01/02/22 01/02/22 History Cholecalciferol [Vitamin D3 (25 50 mcg PO DAILY 01/02/22 01/02/22 History Mcg = 1000 Iu)] Cyclobenzaprine [Flexeril] 5 mg PO TID 01/02/22 01/02/22 History DULoxetine HCL [Cymbalta] 30 mg PO DAILY 01/02/22 01/02/22 History DULoxetine HCL [Cymbalta] 60 mg PO DAILY 01/02/22 01/02/22 History Fluticasone Nasal [place] [Flonase 1 - 2 spray EA NOSTRIL DAILY PRN 01/02/2201/02 History Nasal [place]] Latanoprost/Pf [Latanoprost 0.005% 1 drop RIGHT EYE HS 01/02/22 01/02/22 History Eye Drop] Meloxicam [Mobic] 15 mg PO DAILY 01/02/22 01/02/22 History glipiZIDE [glipiZIDE ER] 2.5 mg PO DAILY 01/02/22 01/02/22 History Allergies Allergy/AdvReac Type Severity Reaction Status Date / Time morphine AdvReac Hypotension Verified 01/02/22 07:38 Physical Exam Vitals: Vital Signs Temp Pulse Pulse Resp BP BP Pulse Ox 01/02/22 08:00 98.0 F 129 H 18 142/66 95 01/02/22 02:48 98 F 84 18 138/76 95 01/02/22 02:26 89 15 157/100 98 01/02/22 02:00 18 01/02/22 01:09 88 15 124/86 98 01/01/22 23:45 146 H 18 149/59 96 01/01/22 20:58 98.4 F 96 20 148/83 98 Intake and Output 01/01/22 01/02/22 01/02/22 22:59 06:59 14:59 Intake Total 60 Output Total 300 Balance 60 -300 Intake: Intake, IV Titration 60 Amount niCARdipine 20 mg In 60 Sodium Chloride 0.9% 192 ml @ 10 MG/HR 100 mls/hr IV .Q2H REPLACED BY [facility] Rx#:[id number] Output: Urine 300 Other: Voiding Method Toilet Toilet # Voids 2 1 Weight 138.346 kg 138.346 kg Results CBC & Chem 7: 01/01/22 21:46 01/01/22 21:46 Labs: Abnormal Lab Results - Last 24 Hours (Table) 01/01/22 01/01/22 01/01/22 Range/Units 08:51 21:46 21:46 Carbon Dioxide 18 L (22-30) mmol/L Glucose 213 H (74-99) mg/dL POC Glucose (mg/dL) (70-110) mg/dL Plasma Lactic Acid [place] 2.9 H* (0.7-2.0) mmol/L Magnesium 1.5 L (1.6-2.3) mg/dL Alkaline Phosphatase 139 H (38-126) U/L Urine Glucose (UA) 2+ H (Negative) Urine Ketones Trace H (Negative) Urine Nitrite Positive H (Negative) Ur Leukocyte Esterase Small H (Negative) Urine WBC 9 H (0-5) /hpf Urine Bacteria Many H (None) /hpf Urine Mucus Rare H (None) /hpf 01/02/22 01/02/22 01/02/22 Range/Units 00:44 04:32 07:13 Carbon Dioxide (22-30) mmol/L Glucose (74-99) mg/dL POC Glucose (mg/dL) (70-110) mg/dL Plasma Lactic Acid [place] 2.3 H* 3.6 H* 2.8 H* (0.7-2.0) mmol/L Magnesium (1.6-2.3) mg/dL Alkaline Phosphatase (38-126) U/L Urine Glucose (UA) (Negative) Urine Ketones (Negative) Urine Nitrite (Negative) Ur Leukocyte Esterase (Negative) Urine WBC (0-5) /hpf Urine Bacteria (None) /hpf Urine Mucus (None) /hpf 01/02/22 Range/Units 11:53 Carbon Dioxide (22-30) mmol/L Glucose (74-99) mg/dL POC Glucose (mg/dL) 190 H (70-110) mg/dL Plasma Lactic Acid [place] (0.7-2.0) mmol/L Magnesium (1.6-2.3) mg/dL Alkaline Phosphatase (38-126) U/L Urine Glucose (UA) (Negative) Urine Ketones (Negative) Urine Nitrite (Negative) Ur Leukocyte Esterase (Negative) Urine WBC (0-5) /hpf Urine Bacteria (None) /hpf Urine Mucus (None) /hpf Thrombosis Risk Factor Assmnt - Choose All That Apply Any of the Below Risk Factors Present?: Yes Each Risk Factor Represents 2 Points: Age 61-74 years Thrombosis Risk Factor Assessment Total Risk Factor Score: 2 Thrombosis Risk Factor Assessment Level: Low Risk
[2022-01-02] MEDS ORDERED: DEXTROSE 50% SYRINGE 50 ML IVP PRN ×2 (12:40)
[2022-01-02] MEDS ORDERED: ALPRAZolam 0.5 MG TAB PO PRN (12:43)
[2022-01-02] MEDS ORDERED: FLUTICASONE 50MCG/SPRAY NASAL 16GM EA NOSTRIL PRN (12:43)
[2022-01-02] MEDS: INSULIN ASPART (NovoLOG) 100 UNIT/ML VIAL SQ SCH ×3 (12:45→21:50)
--- NOTE | 2022-01-02 13:19 | P.CRDCN ---
History of Present Illness Consult date: 01/02/22 History of present illness: HISTORY OF PRESENT ILLNESS: This is a 66-year-old female with a past medical history significant for non- critical coronary artery disease, hypertension, hyperlipidemia, and paroxysmal atrial fibrillation. Patient follows in the office with Dr. Ly. We have been asked to see the patient in consultation for atrial fibrillation with RVR. Patient examined at the bedside. Patient states over the past 2 days she has b een feeling generally unwell. She reports having shortness of breath, diarrhea, nausea, palpitations, and diaphoresis. The patient presented to the hospital for further evaluation. The patient was found to be in A. fib with RVR. The patient reports that she was recently admitted to [facility] and was diagnosed with atrial fibrillation at that time. Patient reports she has been compliant with her anticoagulation. She does report that she has not been taking her metoprolol for the past 3-4 days. The patient is currently on a Cardizem drip at 10 mg an hour. Telemetry reveals atrial fibrillation with heart rate between 120 and 140. * EKG reveals A. fib with RVR * Chest xray no active pulmonary disease. Normal heart. * Laboratory data: WBC 7.5. Hemoglobin 15.0. Platelet count 238. Sodium 138. Potassium 4.1. BUN 17. Creatinine 0.87. Troponin negative 3. ProBNP 138. * Current home cardiac medications include Eliquis 5mg BID, Vasotec 10 mg a night, Imdur 30 mg daily, aspirin 81 mg daily, metoprolol tartrate 50 mg twice a day, Zocor 40 mg at night REVIEW OF SYSTEMS: At the time of my exam: CONSTITUTIONAL: Denies fever or chills. HEENT: Denies blurred vision, vision changes, or eye pain. Denies hemoptysis CARDIOVASCULAR: Denies chest pain. Denies orthopnea. Denies PND. Denies palpitations RESPIRATORY: Denies shortness of breath. GASTROINTESTINAL: Denies abdominal pain. Denies nausea or vomiting. HEMATOLOGIC: Denies bleeding disorders. GENITOURINARY: Denies any blood in urine. SKIN: Denies pruitis. Denies rash. PHYSICAL EXAM: VITAL SIGNS: Reviewed. GENERAL: Well-developed in no acute distress. HEENT: Head is normocephalic. Pupils are equal, round. Sclerae anicteric. Mucous membranes of the mouth are moist. Neck supple. No JVD or thyromegaly LUNGS: Respirations even and unlabored. Lungs essentially clear to auscultation bilaterally. HEART: Tachycardic. Irregular rate and rhythm. S1 and S2 heard. ABDOMEN: Soft. Nondistended. Nontender. EXTREMITIES: Normal range of motion. No clubbing or cyanosis. Peripheral pulses intact. No lower extremity edema NEUROLOGIC: Awake and alert. Oriented x 3. ASSESSMENT: Paroxysmal atrial fibrillation with RVR Noncritical coronary artery disease Hypertension Hyperlipidemia Diabetes PLAN: Obtain records from [facility] including recent echocardiogram Resume home cardiac medications Continue IV Cardizem. Wean as heart rate able to tolerate Continue telemetry monitoring Consider outpatient ablation Further recommendations pending patient course Nurse practitioner note has been reviewed by physician. Signing provider agrees with the documented findings, assessment, and plan of care. Past Medical History Past Medical History: Atrial Fibrillation, Coronary Artery Disease (CAD), Cancer, Pneumonia Additional Past Medical History / Comment(s): Bennett Brimley; Breast Cancer History of Any Multi-Drug Resistant Organisms: None Reported Date of last positivie culture/infection: 09/16/21 ESBL E.coli MDRO Source:: Urine Past Surgical History: Section, Heart Catheterization Additional Past Surgical History / Comment(s): left breast Lumpectomy, four heart catheterizations- no stents . left mastectomy. kidney surgery for rivera ureter. Past Anesthesia/Blood Transfusion Reactions: No Reported Reaction Past Psychological History: Anxiety Smoking Status: Never smoker Past Alcohol Use History: None Reported Past Drug Use History: None Reported Additional Drug Use History / Comment(s): QUIT SMOKING 10 TO 12 YEARS AGO - Past Family History Mother Family Medical History: Cancer Father Family Medical History: Diabetes Mellitus Medications and Allergies Home Medications Medication Instructions Recorded Confirmed Type Enalapril Maleate [Vasotec] 10 mg PO HS 03/31/15 01/02/22 History Hydrocodone/Acetaminophen [[place] 1 tab PO Q4H PRN 03/31/15 01/02/22 History 10-325] Isosorbide Mononitrate ER [Imdur] 30 mg PO DAILY 03/31/15 01/02/22 History Metoprolol Tartrate [Lopressor] 50 mg PO BID 03/31/15 01/02/22 History Simvastatin [Zocor] 40 mg PO HS 04/01/15 01/02/22 History ALPRAZolam [Xanax] 0.5 mg PO BID PRN 06/22/17 01/02/22 History Anastrozole [Arimidex] 1 mg PO DAILY 04/18/18 01/02/22 History Aspirin EC [Ecotrin Low Dose] 81 mg PO DAILY 04/18/18 01/02/22 History Omeprazole 20 mg PO DAILY 04/18/18 01/02/22 History Apixaban [Eliquis] 5 mg PO BID 01/02/22 01/02/22 History Cholecalciferol [Vitamin D3 (25 50 mcg PO DAILY 01/02/22 01/02/22 History Mcg = 1000 Iu)] Cyclobenzaprine [Flexeril] 5 mg PO TID 01/02/22 01/02/22 History DULoxetine HCL [Cymbalta] 30 mg PO DAILY 01/02/22 01/02/22 History DULoxetine HCL [Cymbalta] 60 mg PO DAILY 01/02/22 01/02/22 History Fluticasone Nasal [place] [Flonase 1 - 2 spray EA NOSTRIL DAILY PRN 01/02/22 01/02/22 History Nasal [place]] Latanoprost/Pf [Latanoprost 0.005% 1 drop RIGHT EYE HS 01/02/22 01/02/22 History Eye Drop] Meloxicam [Mobic] 15 mg PO DAILY 01/02/22 01/02/22 History glipiZIDE [glipiZIDE ER] 2.5 mg PO DAILY 01/02/22 01/02/22 History Allergies Allergy/AdvReac Type Severity Reaction Status Date / Time morphine AdvReac Hypotension Verified 01/02/22 07:38 Physical Exam Vitals: Vital Signs Temp Pulse Pulse Resp BP BP Pulse Ox 01/02/22 08:00 98.0 F 129 H 18 142/66 95 01/02/22 02:48 98 F 84 18 138/76 95 01/02/22 02:26 89 15 157/100 98 01/02/22 02:00 18 01/02/22 01:09 88 15 124/86 98 01/01/22 23:45 146 H 18 149/59 96 01/01/22 20:58 98.4 F 96 20 148/83 98 Intake and Output 0901/02/22 01/02/22 22:59 06:59 14:59 Intake Total 60 Output Total 300 Balance 60 -300 Intake: Intake, IV Titration 60 Amount niCARdipine 20 mg In 60 Sodium Chloride 0.9% 192 ml @ 10 MG/HR 100 mls/hr IV .Q2H [facility] Rx#:[id number] Output: Urine 300 Other: Voiding Method Toilet Toilet # Voids 2 1 Weight 138.346 kg 138.346 kg Results 01/01/22 21:46 01/01/22 21:46 Cardiac Enzymes 01/01/22 01/01/22 01/02/22 Range/Units 21:46 21:46 04:32 AST 34 (14-36) U/L Troponin I <0.012 <0.012 (0.000-0.034) ng/mL 01/02/22 Range/Units 07:08 AST (14-36) U/L Troponin I 0.013 (0.000-0.034) ng/mL Coagulation 01/01/22 Range/Units 21:46 PT 10.9 (9.0-12.0) sec APTT 24.6 (22.0-30.0) sec CBC 01/01/22 Range/Units 21:46 WBC 7.5 (3.8-10.6) k/uL RBC 5.14 (3.80-5.40) m/uL Hgb 15.0 (11.4-16.0) gm/dL Hct 45.9 (34.0-46.0) % Plt Count 238 (150-450) k/uL Comprehensive Metabolic Panel 01/01/22 Range/Units 21:46 Sodium 138 (137-145) mmol/L Potassium 4.1 (3.5-5.1) mmol/L Chloride 104 (98-107) mmol/L Carbon Dioxide 18 L (22-30) mmol/L BUN 17 (7-17) mg/dL Creatinine 0.87 (0.52-1.04) mg/dL Glucose 213 H (74-99) mg/dL Calcium 9.8 (8.4-10.2) mg/dL AST 34 (14-36) U/L ALT 32 (4-34) U/L Alkaline Phosphatase 139 H (38-126) U/L Total Protein 7.8 (6.3-8.2) g/dL Albumin 4.4 (3.5-5.0) g/dL Current Medications Generic Name Dose Route Start Last Admin Trade Name Freq PRN Reason Stop Dose Admin Hydrocodone Bitart/Acetaminophen 1 each 01/02/22 12:43 Hydrocodone/Apap 10-325mg 1 Each Tab PO Q4H PRN Pain Alprazolam 0.5 mg 01/02/22 12:43 Alprazolam 0.5 Mg Tab PO BID PRN Anxiety Anastrozole 1 mg 01/03/22 09:00 Anastrozole 1 Mg Tab PO DAILY [facility] Apixaban 5 mg 01/02/22 09:30 01/02/22 10:19 Apixaban 5 Mg Tab PO 5 mg BID [facility] Administration Protocol Aspirin 81 mg 01/03/22 09:00 Aspirin 81 Mg PO DAILY [facility] Atorvastatin Calcium 20 mg 01/02/22 21:00 Atorvastatin 20 Mg Tab PO HS [facility] Cyclobenzaprine HCl 5 mg 01/02/22 16:00 Cyclobenzaprine 5 Mg Tab PO TID [facility] Dextrose/Water 25 ml 01/02/22 12:40 Dextrose 50% Syringe 50 Ml IVP PER PROTOCOL PRN Hypoglycemia Protocol Dextrose/Water 50 ml 01/02/22 12:40 Dextrose 50% Syringe 50 Ml IVP PER PROTOCOL PRN Hypoglycemia Protocol Duloxetine HCl 30 mg 01/03/22 09:00 Duloxetine Hcl 30 Mg Capsule. PO DAILY [facility] Duloxetine HCl 60 mg 01/03/22 09:00 Duloxetine Hcl 60 Mg Capsule. PO DAILY [facility] Fluticasone Propionate 1 spray 01/02/22 12:43 Fluticasone 50mcg/[place] Nasal 16gm EA NOSTRIL DAILY PRN Congestion Diltiazem HCl 125 mg/ Sodium 125 mls @ 10 mls/hr 01/01/22 23:30 01/02/22 12:31 Chloride IV Not Given .[id number] [place] 10 MG/HR Sodium Chloride 1,000 mls @ 130 mls/hr 01/02/22 01:00 01/02/22 11:11 Saline 0.9% IV Not Given .[id number] [facility] Insulin Aspart 0 unit 01/02/22 12:40 01/02/22 12:45 Insulin Aspart (Novolog) 100 Unit/Ml Vial SQ 2 unit ACHS [facility] Administration Protocol Insulin Aspart 0 unit 01/02/22 17:30 Insulin Aspart (Novolog) 100 Unit/Ml Vial SQ ACHS [facility] Protocol Isosorbide Mononitrate 30 mg 01/02/22 09:30 01/02/22 10:19 Isosorbide Mononitrate Er 30 Mg Tab.Er.24h PO 30 mg DAILY [place] Administration Latanoprost 1 drops 01/02/22 21:00 Latanoprost 0.005% Ophth Drops 2.5 Ml Btl RIGHT EYE HS [place] Lisinopril 20 mg 01/02/22 21:00 Lisinopril 20 Mg Tab PO HS [place] Meloxicam 15 mg 01/03/22 09:00 Meloxicam 7.5 Mg Tab PO DAILY [place] Metoprolol Tartrate 50 mg 01/02/22 09:30 01/02/22 10:19 Metoprolol Tartrate 50 Mg Tab PO 50 mg BID [place] Administration Miscellaneous Information 1 each 01/02/22 08:01 Magnesium Replacement Protocol 1 Each Misc MISCELLANE DAILY PRN Per Protocol Protocol Naloxone HCl 0.2 mg 01/02/22 00:47 Naloxone 0.4 Mg/Ml 1 Ml Vial IV Q2M PRN Opioid Reversal Pantoprazole Sodium 40 mg 01/02/22 12:45 Pantoprazole 40 Mg Tablet PO DAILY [facility] Intake and Output 01/01/22 01/02/22 01/02/22 22:59 06:59 14:59 Intake Total 60 Output Total 300 Balance 60 -300 Intake: Intake, IV Titration 60 Amount niCARdipine 20 mg In 60 Sodium Chloride 0.9% 192 ml @ 10 MG/HR 100 mls/hr IV .Q2H [facility] Rx#:[id number] Output: Urine 300 Other: Voiding Method Toilet Toilet # Voids 2 1 Weight 138.346 kg 138.346 kg 01/01/22 21:46 01/01/22 21:46
[2022-01-02] MEDS: CYCLOBENZAPRINE 5 MG TAB PO SCH ×2 (15:05→21:57)
[2022-01-02] MEDS: HYDROcodone/APAP 10-325MG 1 EACH TAB PO PRN (15:13)
[2022-01-02] MEDS: PANTOPRAZOLE 40 MG TABLET PO SCH (15:14)
[2022-01-02 16:50] LABS: Glucose,Whole Blood 159 mg/dL (70-110)
[2022-01-02] MEDS ORDERED: INSULIN ASPART (NovoLOG) 100 UNIT/ML VIAL SQ SCH (17:30)
[2022-01-02 20:16] LABS: Glucose,Whole Blood 145 mg/dL (70-110)
[2022-01-02] MEDS ORDERED: LATANOPROST 0.005% OPHTH DROPS 2.5 ML BTL RIGHT EYE SCH (21:00)
[2022-01-02] MEDS ORDERED: lisinopriL 20 MG TAB PO SCH (21:00)
[2022-01-02] MEDS ORDERED: ATORVASTATIN 20 MG TAB PO SCH (21:00)
[2022-01-03] MEDS: SODIUM CHLORIDE 0.9% 1,000 ML IV SCH (03:35)
[2022-01-03 06:43] LABS: Glucose,Whole Blood 166 mg/dL (70-110)
[2022-01-03] MEDS: INSULIN ASPART (NovoLOG) 100 UNIT/ML VIAL SQ SCH ×2 (07:00→12:08)
[2022-01-03] MEDS ORDERED: DULoxetine HCL 30 MG CAPSULE.DR PO SCH (09:00)
[2022-01-03] MEDS ORDERED: ANASTROZOLE 1 MG TAB PO SCH (09:00)
[2022-01-03] MEDS ORDERED: DULoxetine HCL 60 MG CAPSULE.DR PO SCH (09:00)
[2022-01-03] MEDS ORDERED: MELOXICAM 7.5 MG TAB PO SCH (09:00)
[2022-01-03] MEDS ORDERED: ASPIRIN 81 MG PO SCH (09:00)
[2022-01-03] MEDS: APIXABAN 5 MG TAB PO SCH (09:06)
[2022-01-03] MEDS: CYCLOBENZAPRINE 5 MG TAB PO SCH (09:06)
[2022-01-03] MEDS: METOPROLOL TARTRATE 50 MG TAB PO SCH (09:06)
[2022-01-03] MEDS: ISOSORBIDE MONONITRATE ER 30 MG TAB.ER.24H PO SCH (09:06)
[2022-01-03] MEDS: PANTOPRAZOLE 40 MG TABLET PO SCH (09:06)
[2022-01-03] MEDS: HYDROcodone/APAP 10-325MG 1 EACH TAB PO PRN (09:08)
[2022-01-03 09:22] LABS: Basophils % (A) 0 %; Eosinophils # (A) 0.1 k/uL (0-0.7); Eosinophils % (A) 3 %; HCT 39.7 % (34.0-46.0); HGB 12.4 gm/dL (11.4-16.0); Hypochromasia Slight; Lymphocytes # (A) 1.5 k/uL (1.0-4.8); Lymphocytes % (A) 30 %; MCHC 31.3 g/dL (31.0-37.0); MCV 89.5 fL (80.0-100.0); Mean Platelet Volume 7.2; Monocytes # (A) 0.3 k/uL (0-1.0); Monocytes % (A) 6 %; Neutrophils # (A) 2.9 k/uL (1.3-7.7); Neutrophils % (A) 59 %; Platelet Count 191 k/uL (150-450); RBC 4.44 m/uL (3.80-5.40); RDW 14.4 % (11.5-15.5); WBC 4.9 k/uL (3.8-10.6)
[2022-01-03 09:34] LABS: ALT 27 U/L (4-34); AST 33 U/L (14-36); African American GFR (CKD) >90 (>60 ml/min/1.73 sqM); Albumin 3.4 g/dL (3.5-5.0); Alkaline Phosphatase 103 U/L (38-126); Anion Gap 8 mmol/L; Blood Urea Nitrogen 12 mg/dL (7-17); Calcium 7.9 mg/dL (8.4-10.2); Carbon Dioxide 24 mmol/L (22-30); Chloride 108 mmol/L (98-107); Glucose 155 mg/dL (74-99); Magnesium 1.8 mg/dL (1.6-2.3); Non-African American GFR(CKD) >90 (>60 ml/min/1.73 sqM); Potassium 4.3 mmol/L (3.5-5.1); Sodium 140 mmol/L (137-145); Total Bilirubin 1.1 mg/dL (0.2-1.3); Total Protein 6.3 g/dL (6.3-8.2)
[2022-01-03 11:28] VITALS: BP 136/80; PULSE 74; RESP 19; TEMP 97.8
[2022-01-03 11:50] LABS: Glucose,Whole Blood 157 mg/dL (70-110)
[2022-01-03] MEDS: MAGNESIUM SULFATE-D5W PMX 1 GM in DEXTROSE/WATER 1 100ML.BAG IVPB SCH (12:04)
--- NOTE | 2022-01-03 12:36 | P.PN ---
Subjective Progress Note Date: 01/03/22 HISTORY OF PRESENT ILLNESS: This is a 66-year-old female with a past medical history significant for non- critical coronary artery disease, hypertension, hyperlipidemia, and paroxysmal atrial fibrillation. Patient follows in the office with Dr. Ly. We have been asked to see the patient in consultation for atrial fibrillation with RVR. Patient examined at the bedside. Patient states over the past 2 days she has been feeling generally unwell. She reports having shortness of breath, diarrhea, nausea, palpitations, and diaphoresis. The patient presented to the hospital for further evaluation. The patient was found to be in A. fib with RVR. The patient reports that she was recently admitted to [facility] and was diagnosed with atrial fibrillation at that time. Patient reports she has been compliant with her anticoagulation. She does report that she has not been taking her metoprolol for the past 3-4 days. The patient is currently on a Cardizem drip at 10 mg an hour. Telemetry reveals atrial fibrillation with heart rate between 120 and 140. * EKG reveals A. fib with RVR * Chest xray no active pulmonary disease. Normal heart. * Laboratory data: WBC 7.5. Hemoglobin 15.0. Platelet count 238. Sodium 138. Potassium 4.1. BUN 17. Creatinine 0.87. Troponin negative 3. ProBNP 138. * Current home cardiac medications include Eliquis 5mg BID, Vasotec 10 mg a night, Imdur 30 mg daily, aspirin 81 mg daily, metoprolol tartrate 50 mg twice a day, Zocor 40 mg at night 01/03/2022 Patient examined this morning at the bedside. Patient denies chest pain or pressure. She denies shortness of breath. Patient converted to sinus mechanism yesterday and is maintaining sinus mechanism this morning. Patient's vital signs are stable. Records obtained from [facility] revealed that the patient had an echocardiogram completed in October 2021 revealing normal LV systolic function. PHYSICAL EXAM: VITAL SIGNS: Reviewed. GENERAL: Well-developed in no acute distress. HEENT: Head is normocephalic. Pupils are equal, round. Sclerae anicteric. Mucous membranes of the mouth are moist. Neck supple. No JVD or thyromegaly LUNGS: Respirations even and unlabored. Lungs essentially clear to auscultation bilaterally. HEART: Regular rate and rhythm. S1 and S2 heard. ABDOMEN: Soft. Nondistended. Nontender. EXTREMITIES: Normal range of motion. No clubbing or cyanosis. Peripheral pulses intact. No lower extremity edema NEUROLOGIC: Awake and alert. Oriented x 3. ASSESSMENT: Paroxysmal atrial fibrillation with RVR Noncritical coronary artery disease Hypertension Hyperlipidemia Diabetes PLAN: Continue current cardiac medications Consider outpatient ablation Patient is currently stable for discharge from a cardiac standpoint Further recommendations pending patient course Nurse practitioner note has been reviewed by physician. Signing provider agrees with the documented findings, assessment, and plan of care. Objective - Vital Signs Vital signs: Vital Signs Temp 97.8 F 01/03/22 11:27 Pulse 74 01/03/22 11:27 Resp 19 01/03/22 11:27 BP 136/80 01/03/22 11:27 Pulse Ox 95 01/03/22 11:27 FiO2 Intake & Output 01/02/22 01/03/22 01/03/22 18:59 06:59 18:59 Intake Total 665 0 Output Total 300 Balance 365 0 Intake: Intake, IV Titration 125 0 Amount Diltiazem 125 mg In 125 Sodium Chloride 0.9% 100 ml @ 10 MG/HR 10 mls/hr IV .[id number] [place] Rx#: [id number] Sodium Chloride 0.9% 1, 0 000 ml @ 75 mls/hr IV . [id number] [place] Rx#:[id number] Oral 540 Output: Urine 300 Other: Voiding Method Toilet Toilet Toilet # Voids 1 - Labs CBC & Chem 7: 01/03/22 07:52 01/03/22 07:52 Labs: Abnormal Lab Results - Last 24 Hours (Table) 01/02/22 01/02/22 01/03/22 Range/Units 16:48 20:15 06:42 Chloride (98-107) mmol/L Glucose (74-99) mg/dL POC Glucose (mg/dL) 159 H 145 H 166 H (70-110) mg/dL Calcium (8.4-10.2) mg/dL Albumin (3.5-5.0) g/dL 01/03/22 01/03/22 Range/Units 07:52 11:48 Chloride 108 H (98-107) mmol/L Glucose 155 H (74-99) mg/dL POC Glucose (mg/dL) 157 H (70-110) mg/dL Calcium 7.9 L (8.4-10.2) mg/dL Albumin 3.4 L (3.5-5.0) g/dL
--- NOTE | 2022-01-05 09:42 | P.DS ---
Providers Date of admission: 01/01/22 23:25 Attending physician: Rosenda Penaloza Consults: 01/02/22 00:47 Consult Physician Urgent Consulting Provider: [facility] Consult Reason/Comments: a fib rvr Do you want consulting provider notified?: Yes Primary care physician: Jean Uriarte [facility] Course: Diagnosis Paroxysmal atrial fibrillation with RVR Noncritical coronary artery disease Hypertension Hyperlipidemia Diabetes History breast cancer with left mastectomy History recent ESBL UTI in September 2021 Discharge Disposition Patient is stable for discharge. Converted to sinus rhythm rate controlled. Resumed on home metoprolol and eliquis. Cardiology has cleared patient. Hospital Course 66-year-old the female came in with compensative shortness of breath and left- sided chest pain palpitations. Patient is found to be in atrial fibrillation with rapid ventricular rate. Patient missed 3 doses of metoprolol. Patient is on anti-coagulation with eliquis. Patient denied any history of congestive heart failure. Patient will urine showed some nitrates but doesn't have any symptoms of UTI patient does have chronic low back pain with the some parasternal stiffness which is not pyelonephritis. Patients heart rate was in the 120s and she was started on IV cardizem and cardiology was consulted. Chest xray negative, troponin negative, covid/influenza negative. Patient was monitored on cardizem gtt and had converted to sinus rhythm resumed on home medications and cleared for discharge by cardiology. 01/03/2022 Patient is evaluated today sitting up at bedside. No acute events overnight. No chest pain no shortness of breath. No dizziness or lightheadedness. Denies dysuria, no urgency no frequency, no suprapubic pain or pressure. Maintaining sinus mechanism. Her lungs are clear S1 S2 auscultated regular rate and rhythm. Cleared by cardiology today. Blood pressure 136/80, afebrile, heart rate 95. Blood count unremarkable. Sodium 140, potassium 4.3, BUN 12, creatinine 0.63, blood glucose 150, magnesium 1.8. Alk phos 103. Follow up with Dr IMANI Ly as previously scheduled. Please see medication reconciliation for a list of current medication. Thank you for allowing us to participate in the care of this patient. The impression and plan of care has been dictated by Yasmeen Tejada, Nurse Practitioner as directed. Dr. Ca MD I have performed a history and physical examination and medical decision making of this patient, discussed the same with the dictator, and agree with the dictators assessment and plan as written, documented as a scribe. Based on total visit time, I have performed more than 50% of this visit. Patient Condition at Discharge: Stable Plan - Discharge Summary New Discharge Prescriptions: New Aspirin 81 mg PO DAILY tab Continue Hydrocodone/Acetaminophen [[place] 10-325] 1 tab PO Q4H PRN PRN Reason: Pain Enalapril Maleate [Vasotec] 10 mg PO HS Metoprolol Tartrate [Lopressor] 50 mg PO BID Isosorbide Mononitrate ER [Imdur] 30 mg PO DAILY Simvastatin [Zocor] 40 mg PO HS ALPRAZolam [Xanax] 0.5 mg PO BID PRN PRN Reason: Anxiety Anastrozole [Arimidex] 1 mg PO DAILY Omeprazole 20 mg PO DAILY glipiZIDE [glipiZIDE ER] 2.5 mg PO DAILY Meloxicam [Mobic] 15 mg PO DAILY Cholecalciferol [Vitamin D3 (25 Mcg = 1000 Iu)] 50 mcg PO DAILY DULoxetine HCL [Cymbalta] 60 mg PO DAILY DULoxetine HCL [Cymbalta] 30 mg PO DAILY Cyclobenzaprine [Flexeril] 5 mg PO TID Latanoprost/Pf [Latanoprost 0.005% Eye Drop] 1 drop RIGHT EYE HS Fluticasone Nasal [place] [Flonase Nasal [place]] 1 - 2 spray EA NOSTRIL DAILY PRN PRN Reason: Congestion Apixaban [Eliquis] 5 mg PO BID Discontinued Aspirin EC [Ecotrin Low Dose] 81 mg PO DAILY Discharge Medication List Enalapril Maleate [Vasotec] 10 mg PO HS 03/31/15 [History] Hydrocodone/Acetaminophen [[place] 10-325] 1 tab PO Q4H PRN 03/31/15 [History] Isosorbide Mononitrate ER [Imdur] 30 mg PO DAILY 03/31/15 [History] Metoprolol Tartrate [Lopressor] 50 mg PO BID 03/31/15 [History] Simvastatin [Zocor] 40 mg PO HS 04/01/15 [History] ALPRAZolam [Xanax] 0.5 mg PO BID PRN 06/22/17 [History] Anastrozole [Arimidex] 1 mg PO DAILY 04/18/18 [History] Omeprazole 20 mg PO DAILY 04/18/18 [History] Apixaban [Eliquis] 5 mg PO BID 01/02/22 [History] Cholecalciferol [Vitamin D3 (25 Mcg = 1000 Iu)] 50 mcg PO DAILY 01/02/22 [History] Cyclobenzaprine [Flexeril] 5 mg PO TID 01/02/22 [History] DULoxetine HCL [Cymbalta] 30 mg PO DAILY 01/02/22 [History] DULoxetine HCL [Cymbalta] 60 mg PO DAILY 01/02/22 [History] Fluticasone Nasal [place] [Flonase Nasal [place]] 1 - 2 spray EA NOSTRIL DAILY PRN 01/02/22 [History] Latanoprost/Pf [Latanoprost 0.005% Eye Drop] 1 drop RIGHT EYE HS 01/02/22 [History] Meloxicam [Mobic] 15 mg PO DAILY 01/02/22 [History] glipiZIDE [glipiZIDE ER] 2.5 mg PO DAILY 01/02/22 [History] Aspirin 81 mg PO DAILY tab 01/03/22 [Rx] Follow up Appointment(s)/Referral(s): Ashwini Ly MD [STAFF PHYSICIAN] - 1 Week (Appt 01/05 2:45pm) Jean Uriarte MD [Primary Care Provider] - 1-2 days (Office closed) Activity/Diet/Wound Care/Special Instructions: Follow up with cardiology as previously scheduled Continue taking metoprolol as prescribed Discharge Disposition: HOME SELF-CARE
== END 2022-01-03 13:12 | disposition home or self-care (01) | DRG 309 ==
LOC: EC 20:52 → 3SCARD 23:25
PROVIDERS: ADMIT Internal Medicine; ATTEND Internal Medicine
DX: I48.0 Paroxysmal atrial fibrillation (principal); E87.2 Acidosis; Z68.41 Body mass index [BMI] 40.0-44.9, adult; E11.9 Type 2 diabetes mellitus without complications; Z20.822 Contact with and (suspected) exposure to COVID-19; Z28.310 Unvaccinated for COVID-19; E83.42 Hypomagnesemia; E66.9 Obesity, unspecified; I25.10 Atherosclerotic heart disease of native coronary artery without angina pectoris; I10 Essential (primary) hypertension; E78.5 Hyperlipidemia, unspecified; E86.9 Volume depletion, unspecified; G89.29 Other chronic pain; M54.50 Low back pain, unspecified; F41.9 Anxiety disorder, unspecified; F32.A Depression, unspecified; R82.71 Bacteriuria; Z79.811 Long term (current) use of aromatase inhibitors; Z79.01 Long term (current) use of anticoagulants; Z79.82 Long term (current) use of aspirin; Z79.84 Long term (current) use of oral hypoglycemic drugs; Z79.1 Long term (current) use of non-steroidal anti-inflammatories (NSAID); Z87.891 Personal history of nicotine dependence; Z79.899 Other long term (current) drug therapy; Z85.3 Personal history of malignant neoplasm of breast; Z87.440 Personal history of urinary (tract) infections; Z88.5 Allergy status to narcotic agent
CPT/HCPCS: 36415; 71046; 80053; 81001; 83605; 83735; 83880; 84484; 85025; 85610; 85730; 87502; 87635; 93005; 96365; 96366; 96367; 96375; 99291

== ENCOUNTER 2022-02-28 06:08 | Day surgery (SDC) | payer MEDICARE, OTHER ==
[2022-02-23 11:22] VITALS: BMI 39.5
[~2022-02-28 06:08] MED LIST: LACTATED RINGERS 1,000 ML IV SCH
[2022-02-28 07:05] VITALS: TEMP 97
[2022-02-28 07:12] LABS: Glucose,Whole Blood 189 mg/dL (70-110)
[2022-02-28] MEDS ORDERED: methylPREDNISolone ACETATE 40 MG/ML 1 ML VIAL ONE ×2 (07:14→07:34)
[2022-02-28] MEDS ORDERED: IOPAMIDOL M200 10 ML VIAL ONE (07:14)
--- NOTE | 2022-02-28 07:27 | P.PCN ---
Date of Procedure: 02/28/22 Description of Procedure: PREOPERATIVE DIAGNOSIS: Thoracic compression fracture POSTOPERATIVE DIAGNOSIS: Same PROCEDURE 1. Thoracic epidural steroid injection under fluoroscopic guidance at the T12- L1 level. Imaging: Fluoroscopy was used, images where saved to the medical record ANESTHESIA: Medication Administered by: Nurse Sedation Type: Moderate sedation Sedation Supervision start time: 715 Sedation Supervision end time: 726 EBL: Minimal PROCEDURE INDICATION: Patient has low back pain and mid back pain that has been resistant to conservative treatment. PROCEDURE DESCRIPTION / TECHNIQUE: The patient was seen and identified in the preoperative area. Risks, benefits, complications including but not limited to infections ,bleeding ,allergic reaction to the medications, nerve damage and incomplete pain relief , as well as alternatives to the procedure were discussed with the patient. The patient agreed to proceed with the procedure and signed the consent. IV was started, and vital signs were stable. Patient was taken to the OR and time out was completed. The patient was placed in the prone position on procedure table and a pillow was placed under the abdomen to reduce lumbar lordosis. The 6 area was prepped and draped in the usual sterile fashion. Vitals were closely monitored during the procedure. Using anterior-posterior fluoroscopy, the T12-L1 interlaminar space was identified and the skin over this site was marked and then infiltrated with 1% lidocaine subcutaneously. Subsequently, a 20-gauge Tuohy epidural needle was inserted and advanced toward the epidural space using the Loss of resistance technique and guided by AP and lateral fluoroscopy. The correct needle position in the epidural space was verified with the injection of 1 mL of Omnipaque 180 contrast to observe an acceptable epidurogram, after negative aspiration for blood and CSF and in the absence of paresthesias. Again after negative aspiration, a 3 ml mixture containing 40mg of depomedrol and 2 ml of preservative free Normal Saline was injected and a washout of epidurogram was seen. Needle was withdrawn intact, skin was cleansed, and bandages were applied. COMPLICATIONS: None DISPOSITION / PLANS: The patient was placed in a supine position and transferred to the recovery area in a stable condition for observation. There was no evidence of lower extremity motor or sensory deficit after the procedure. Patient was discharged from the recovery room after meeting discharge criteria. Home discharge instructions were given to the patient by the staff. The patient was reexamined prior to discharge. The patient will follow up as directed.
[2022-02-28] MEDS ORDERED: IV FLUID CONTINUATION 1,000 ML IV ONE (07:28)
[2022-02-28 07:31] VITALS: RESP 16
[2022-02-28] MEDS ORDERED: MIDAZOLAM 2 MG/2 ML VIAL ONE (07:34)
[2022-02-28] MEDS ORDERED: ROPIVACAINE 5 MG/ML 20 ML AMPULE ONE (07:34)
[2022-02-28] MEDS ORDERED: fentaNYL (PF) 50 MCG/ML 2 ML AMP ONE (07:34)
[2022-02-28 07:49] VITALS: BP 127/60; PULSE 73
--- NOTE | 2022-02-28 08:42 | FL ---
EXAMINATION TYPE: FL guided pain mgmt statistic DATE OF EXAM: 02/28/2022 CLINICAL HISTORY: Mid back pain. TECHNIQUE: Fluoroscopy. COMPARISON: None. FINDINGS: Fluoroscopic guidance was provided during pain relief procedure performed by Dr. Mera . A total of 4 seconds of fluoroscopic time was utilized during the procedure and 1 spot images are a cquired. Single image acquired shows needle localization at unknown level in the thoracic spine. IMPRESSION: As Above.
== END 2022-02-28 07:55 | disposition home or self-care (01) ==
LOC: ORPAIN 06:08
PROVIDERS: ATTEND Hospitalist
DX: M48.54XA Collapsed vertebra, not elsewhere classified, thoracic region, initial encounter for fracture (principal); Z88.5 Allergy status to narcotic agent
CPT/HCPCS: 62321; 99152; J2250; J1030; J3010; Q9966; J2795

== ENCOUNTER → 2022-03-22 | Outpatient (CLI) | payer MEDICARE, OTHER ==
[2022-03-22 10:40] VITALS: BP 129/62; PULSE 75; RESP 18; TEMP 98.4
--- NOTE | 2022-03-22 14:25 | P.PAINPG ---
Objective - Vital Signs Vital signs: Vital Signs Temp 98.4 F 03/22/22 10:37 Pulse 75 03/22/22 10:37 Resp 18 03/22/22 10:37 BP 129/62 03/22/22 10:37 Pulse Ox 94 L 03/22/22 10:37 FiO2 PQRS Measure Charge Sheet Mode of Arrival: Ambulatory Comment: A 66 yr old female with a brother at side with a history of severe and chronic low back pain secondary to lumbar DDD and spondylosis with facet arthropathy without myelopathy presents today for evaluation s/p SONNY T12-L1. Pt states she experienced 50 % pain relief x 3 days s/p procedure. Pain level is currently at 7/10 in intensity, constant, localized in the R lumbar spine, stab/ burn in character w shooting towards R ribs. Pain is provoked by weight bearing activity. Pain is alleviated with chiropractic treatments in September 2021, home exercise, heat, medications ([place], Flexeril), topicals, repositioning and rest. Interventional pain procedures completed include SONNY T12-L1 x1 Patient is currently on [place], Flexeril from Dr Uriarte Patient denies any side effects of the medication(s), denies excessive drowsiness or sleepiness, denies suicidal ideation and reports that the current pain medication is helping to control the pain and improve activities of daily living. Patient denies any motor or sensory deficits. Patient denies any fever or night sweats, denies any change in the bowel movements or urination. Physical Examination: -Constitutional: Cooperative. Not in acute distress . - Neurologic: Cranial nerve II to XII intact. No focal neurological deficits. - Psychatric: Alert & oriented x 3. Matching mood & appropriate affect. Judgment and insight intact. - Musculoskeletal: Cervical spine: Muscle bulk/ tone/ strength in the bilateral upper extremities normal Vertebral body tenderness to palpation over Spurling test positive Distraction test positive Facet loading test positive Thoracic spine Muscle bulk / tone/ strength in the bilateral paraspinal muscles normal Vertebral body tender to palpation over Facet loading test positive Lumbar spine: Motor bulk/ tone/ strength lower extremities , thigh and legs : 5/5 Deep tendon reflexes : Normal Knee Jerk. Normal Ankle Jerk . Vertebral body tenderness to palpation over Lumbar Facet Loading Test positive TTP over R L1-L2, L2-L3 facets Straight Leg Raise: positive at 30 degrees right side/ left side Gaenslen's Test positive Sacral spine : Severe tenderness over the Sacroiliac joint: right side / left side Range of motion: Flexion of the lumbar spine <60 degrees Range of motion: Extension of the lumbar spine <20 degrees Gaenslen's Test positive Erum test: positive right side / left side Thigh Thrust Test Sacral Thrust Test Assessment and plan: Chronic low back pain secondary to lumbar degenerative disc disease, spondylosis with facet arthropathy without myelopathy Recommendation of R facet block of the medial branches L1-L2, L2-L3 #1. May need a series of injections, up until RFA, for optimal pain relief. Risks, benefits of procedure discussed and pt verbalized understanding. Admits to anticoagulant use or medical history of diabetes. Protocol for discontinuation/ continuation of medications gifty procedure discussed. Fill for diclofenac gel BID prn pain Disp 1 tube w 1 RF. Use, side effects and adverse reaction discussed and patient acknowledged understanding. All patient questions answered I have spent less than 30 minutes on patient care today. Dr Chung was available by phone for the evaluation of this patient. The time was used to review the medical records including relevant urine studies and Prescription history (MAPs), review of the available imaging, evaluation and examination of the patient, coordination of care with the medical staff and if applicable referring physicians, as well as creation of the medical record - Pain Location Back Non-Pharmacological Interventions: Chiropractic Treatment, Heat, Home Exercise, Inactivity, Position/Reposition, Stretching Pharmacological Interventions: Epidural, PRN Medication, Topical Medication PQRS Narrative: Smoking Status Former smoker Blood Pressure 129/62 Pain Intensity [Back] 7 Scale Used Numeric (1 - 10) Hx Alcohol Use (MH) No Home Medications: Ambulatory Orders Enalapril Maleate [Vasotec] 10 mg PO HS 03/31/15 Hydrocodone/Acetaminophen [[place] 10-325] 1 tab PO Q4H PRN 03/31/15 Isosorbide Mononitrate ER [Imdur] 30 mg PO DAILY 03/31/15 Metoprolol Tartrate [Lopressor] 50 mg PO BID 03/31/15 Simvastatin [Zocor] 40 mg PO HS 04/01/15 ALPRAZolam [Xanax] 0.5 mg PO BID PRN 06/22/17 Anastrozole [Arimidex] 1 mg PO DAILY 04/18/18 Omeprazole 20 mg PO DAILY 04/18/18 Apixaban [Eliquis] 5 mg PO BID 01/02/22 Cholecalciferol [Vitamin D3 (25 Mcg = 1000 Iu)] 50 mcg PO DAILY 01/02/22 DULoxetine HCL [Cymbalta] 30 mg PO DAILY 01/02/22 DULoxetine HCL [Cymbalta] 60 mg PO DAILY 01/02/22 Fluticasone Nasal [place] [Flonase Nasal [place]] 1 - 2 spray EA NOSTRIL DAILY PRN 01/02/22 Latanoprost/Pf [Latanoprost 0.005% Eye Drop] 1 drop RIGHT EYE HS 01/02/22 glipiZIDE [glipiZIDE ER] 2.5 mg PO DAILY 01/02/22 Diclofenac Sodium Gel [Voltaren Gel] 100 gm TOPICAL BID PRN 30 Days #1 kit 03/22/22 Controlled Substance Measures - Controlled Substance Measures Is patient prescribed a controlled substance at discharge?: No
== END ==
LOC: PNWHC3 10:22
PROVIDERS: ATTEND Specialist
DX: M47.816 Spondylosis without myelopathy or radiculopathy, lumbar region (principal); M51.36 Other intervertebral disc degeneration, lumbar region; G89.29 Other chronic pain; E11.9 Type 2 diabetes mellitus without complications; Z79.84 Long term (current) use of oral hypoglycemic drugs; Z88.5 Allergy status to narcotic agent; Z87.891 Personal history of nicotine dependence
CPT/HCPCS: 99211

== ENCOUNTER 2022-04-09 08:52 | Inpatient (IN) | payer MEDICARE, OTHER ==
[2022-04-09] MEDS ORDERED: SODIUM CHLORIDE 0.9% 500 ML 500 ML IV ONE (09:23)
[2022-04-09] MEDS ORDERED: SODIUM CHLORIDE 0.9% 500 ML 500 ML IV STA (09:23)
[2022-04-09] MEDS ORDERED: DILTIAZEM 125 MG in SODIUM CHLORIDE 0.9% 100 ML IV SCH (09:30)
--- NOTE | 2022-04-09 09:30 | ED ---
General Adult HPI - General Chief complaint: Arrhythmia/Palpitations Stated complaint: AFib Time Seen by Provider: 04/09/22 09:10 Source: patient, RN notes reviewed, old records reviewed Mode of arrival: ambulatory Limitations: no limitations - History of Present Illness Initial comments: This a 66-year-old female presents emergency Department stating she has a history of atrial fibrillation and she is on eliquis. Patient comes in today stating that last 3 days she hasn't felt good and yesterday she had diarrhea. Patient states she woke up this morning felt extremely nauseated but didn't vomit and then felt her heart racing. At this point time he felt like atrial fibrillation she decided come to the hospital. Patient denies any chest pain. Patient denies shortness of breath or difficulty breathing. Patient denies any fever chills or cough. Patient denies abdominal pain. Patient denies headache patient denies lightheadedness or dizziness. Patient denies any swelling to legs or calf tenderness. - Related Data Home Medications Medication Instructions Recorded Confirmed Enalapril Maleate [Vasotec] 10 mg PO HS 03/31/15 03/22/22 Hydrocodone/Acetaminophen [[place] 1 tab PO Q4H PRN 03/31/15 03/22/22 10-325] Isosorbide Mononitrate ER [Imdur] 30 mg PO DAILY 03/31/15 03/22/22 Metoprolol Tartrate [Lopressor] 50 mg PO BID 03/31/15 03/22/22 Simvastatin [Zocor] 40 mg PO HS 04/01/15 03/22/22 ALPRAZolam [Xanax] 0.5 mg PO BID PRN 06/22/17 03/22/22 Anastrozole [Arimidex] 1 mg PO DAILY 04/18/18 03/22/22 Omeprazole 20 mg PO DAILY 04/18/18 03/22/22 Apixaban [Eliquis] 5 mg PO BID 01/02/22 03/22/22 Cholecalciferol [Vitamin D3 (25 50 mcg PO DAILY 01/02/22 03/22/22 Mcg = 1000 Iu)] DULoxetine HCL [Cymbalta] 30 mg PO DAILY 01/02/22 03/22/22 DULoxetine HCL [Cymbalta] 60 mg PO DAILY 01/02/22 03/22/22 Fluticasone Nasal [place] [Flonase 1 - 2 spray EA NOSTRIL DAILY PRN 01/02/2211/04 Nasal [place]] Latanoprost/Pf [Latanoprost 0.005% 1 drop RIGHT EYE HS 01/02/22 03/22/22 Eye Drop] Previous Rx's Medication Instructions Recorded Diclofenac Sodium Gel [Voltaren 100 gm TOPICAL BID PRN 30 Days #1 03/22/22 Gel] kit Allergies Allergy/AdvReac Type Severity Reaction Status Date / Time morphine AdvReac Hypotension Verified 04/09/22 09:11 Review of Systems ROS Statement: Those systems with pertinent positive or pertinent negative responses have been documented in the HPI. ROS Other: All systems not noted in ROS Statement are negative. Past Medical History Past Medical History: Atrial Fibrillation, Coronary Artery Disease (CAD), Cancer, Diabetes Mellitus, GERD/Reflux, Hyperlipidemia, Hypertension, Osteoarthritis (OA), Pneumonia, Sleep Apnea/CPAP/BIPAP Additional Past Medical History / Comment(s): [facility] [place]; Breast Cancer, hx migraines, no cpap used, "fx back 4 months ago" History of Any Multi-Drug Resistant Organisms: None Reported Date of last positivie culture/infection: 09/16/21 ESBL E.coli MDRO Source:: Urine Past Surgical History: Breast Surgery, Section, Cholecystectomy, Heart Catheterization Additional Past Surgical History / Comment(s): left breast Lumpectomy, four heart catheterizations- no stents . left mastectomy. kidney surgery for blocked ureter. thien cataracts Past Anesthesia/Blood Transfusion Reactions: No Reported Reaction Past Psychological History: Anxiety, Depression Smoking Status: Former smoker Past Alcohol Use History: None Reported Past Drug Use History: None Reported - Past Family History Mother Family Medical History: Cancer Father Family Medical History: Diabetes Mellitus General Exam - General Exam Comments Initial Comments: GENERAL: Patient is well-developed and well-nourished. Patient is nontoxic and well- hydrated and is in mild distress. ENT: Neck is soft and supple. No significant lymphadenopathy is noted. Oropharynx is clear. Moist mucous membranes. Neck has full range of motion without eliciting any pain. EYES: The sclera were anicteric and conjunctiva were pink and moist. Extraocular movements were intact and pupils were equal round and reactive to light. Eyelids were unremarkable. PULMONARY: Unlabored respirations. Good breath sounds bilaterally. No audible rales rhon chi or wheezing was noted. CARDIOVASCULAR: There is a regular rate and rhythm without any murmurs gallops or rubs. ABDOMEN: Soft and nontender with normal bowel sounds. SKIN: Skin is clear with no lesions or rashes and otherwise unremarkable. NEUROLOGIC: Patient is alert and oriented x3. Cranial nerves II through XII are grossly intact. Motor and sensory are also intact. Normal speech, volume and content. Symmetrical smile. MUSCULOSKELETAL: Normal extremities with adequate strength and full range of motion. LYMPHATICS: No significant lymphadenopathy is noted PSYCHIATRIC: Normal psychiatric evaluation. Limitations: no limitations Course Vital Signs 04/09/22 04/09/22 04/09/22 09:09 10:00 10:30 Temperature 98.7 F Pulse Rate 122 H 130 H 132 H Respiratory 22 18 18 Rate Blood Pressure 93/64 104/93 101/69 O2 Sat by Pulse 96 95 Oximetry 04/09/22 04/09/22 11:00 11:30 Temperature Pulse Rate 140 H 99 Respiratory 18 19 Rate Blood Pressure 145/89 140/81 O2 Sat by Pulse 96 99 Oximetry Medical Decision Making - Medical Decision Making EKG was interpreted by me. EKG showed atrial fibrillation with rapid ventricular response at 140 bpm QRS is 92 QT interval 284 QTC is 366 per patient's EKG shows no ST segment elevation. Was pt. sent in by a medical professional or institution? @ -None Did you speak to anyone other than the patient for history? @ -EMS Did you review nursing and triage notes? @ -Agreed with the nursing notes and triage notes Were old charts reviewed? @ -I reviewed old EKGs on this patient. Differential Diagnosis? @ -Differential Dyspnea: Coronary syndrome, arrhythmia, tamponade, asthma, COPD, pulmonary embolism, pneumonia, pneumothorax, pulmonary effusion, anaphylaxis, diabetic ketoacidosis, flailed chest, pulmonary contusion, diaphragmatic rupture, anemia, neuromuscular, this is not meant to be an all-inclusive list. EKG interpreted by me (3pts min.)? @ -As above X-rays interpreted by me (1pt min.)? @ -Chest x-ray showed no acute abnormality CT interpreted by me (1pt min.)? @ -None U/S interpreted by me (1pt. min.)? @ -None What testing was considered but not performed? (CT, X-rays, U/S, labs)? Why? @Considered CAT scan of the chest but since the patient had a reason for the rapid heart rate at this time it was not done. What meds were considered but not given? Why? @ -Consider d-dimer but again patient had atrial fibrillation and that was thought to be the cause of the shortness of breath. Did you discuss the management of the patient with other professionals? @ -I discussed this patient with the [facility] hospitalist and they agreed to admit the patient. Did you reconcile home meds? @ -None Was smoking cessation discussed for >3mins.? @ -None Was critical care preformed (if so, how long)? @ -None Were there social determinants of health that impacted care today? How? (Homelessness, low income, unemployed, alcoholism, drug addiction, transportati on, low edu. Level, literacy, decrease access to med. care, long-term, rehab)? @ -None Was there de-escalation of care discussed even if they declined? (Discuss DNR or withdrawal of care, Hospice)? @ -None What co-morbidities impacted this encounter? (DM, HTN, Smoking, COPD, CAD, Cancer, CVA, Hep., AIDS, mental health diagnosis, sleep apnea, morbid obesity)? @ -Hypertension patient was on high blood pressure medications which lowered the patient's blood pressure which made giving Cardizem a little more risky because of the potential of hypotension. Was patient admitted / discharged? @ -Patient was admitted Undiagnosed new problem with uncertain prognosis? @ -None Drug Therapy requiring intensive monitoring for toxicity (Heparin, Nitro, Insulin, Cardizem)? @ -Cardizem concerned about hypotension Were any procedures done? @ -None Diagnosis/symptom? @ -A. fib with rapid ventricular response Acute, or Chronic, or Acute on Chronic? @ -Acute Uncomplicated (without systemic symptoms) or Complicated (systemic symptoms)? @ -Complicated Side effects of treatment? @ -Hypotension secondary to Cardizem Exacerbation, Progression, or Severe Exacerbation] @ -Progression Poses a threat to life or bodily function? @ -But does pose a threat to life which is poor cardiac output which affects all organ systems. Critical care was done on this patient patient was started on Cardizem patient is oriented was no blood thinners need to be given. Diagnosis/symptom? @ -New onset diabetes Acute, or Chronic, or Acute on Chronic? @ -Acute Uncomplicated (without systemic symptoms) or Complicated (systemic symptoms)? @ -Compensated Side effects of treatment? @ -Hypoglycemia secondary to insulin Exacerbation, Progression, or Severe Exacerbation] @ -No Poses a threat to life or bodily function? @ -Yes hyperglycemic in lead 2 diabetic ketoacidosis which can lead to severe dehydration and progressed to . - Lab Data Result diagrams: 04/09/22 09:24 04/09/22 09:24 Lab Results 04/09/22 04/09/22 04/09/22 Range/Units 09:24 09:24 09:24 WBC 7.2 (3.8-10.6) k/uL RBC 5.02 (3.80-5.40) m/uL Hgb 13.5 (11.4-16.0) gm/dL Hct 43.0 (34.0-46.0) % MCV 85.5 (80.0-100.0) fL MCH 26.8 (25.0-35.0) pg MCHC 31.4 (31.0-37.0) g/dL RDW 14.2 (11.5-15.5) % Plt Count 239 (150-450) k/uL MPV 7.8 Neutrophils % 74 % Lymphocytes % 15 % Monocytes % 6 % Eosinophils % 3 % Basophils % 1 % Neutrophils # 5.3 (1.3-7.7) k/uL Lymphocytes # 1.1 (1.0-4.8) k/uL Monocytes # 0.4 (0-1.0) k/uL Eosinophils # 0.2 (0-0.7) k/uL Basophils # 0.1 (0-0.2) k/uL Hypochromasia Moderate PT 10.8 (9.0-12.0) sec INR 1.0 (<1.2) APTT 23.9 (22.0-30.0) sec Sodium 135 L (137-145) mmol/L Potassium 4.2 (3.5-5.1) mmol/L Chloride 103 (98-107) mmol/L Carbon Dioxide 22 (22-30) mmol/L Anion Gap 10 mmol/L BUN 17 (7-17) mg/dL Creatinine 0.76 (0.52-1.04) mg/dL Est GFR (CKD-EPI)AfAm >90 (>60 ml/min/1.73 sqM) Est GFR (CKD-EPI)NonAf 81 (>60 ml/min/1.73 sqM) Glucose 529 H* (74-99) mg/dL Calcium 9.4 (8.4-10.2) mg/dL Magnesium 1.6 (1.6-2.3) mg/dL Total Bilirubin 1.2 (0.2-1.3) mg/dL AST 36 (14-36) U/L ALT 36 H (4-34) U/L Alkaline Phosphatase 88 (38-126) U/L Troponin I (0.000-0.034) ng/mL Total Protein 7.3 (6.3-8.2) g/dL Albumin 3.9 (3.5-5.0) g/dL TSH 5.100 H (0.465-4.680) mIU/L Acetone, Qual (Negative) 04/09/22 04/09/22 Range/Units 09:24 09:24 WBC (3.8-10.6) k/uL RBC (3.80-5.40) m/uL Hgb (11.4-16.0) gm/dL Hct (34.0-46.0) % MCV (80.0-100.0) fL MCH (25.0-35.0) pg MCHC (31.0-37.0) g/dL RDW (11.5-15.5) % Plt Count (150-450) k/uL MPV Neutrophils % % Lymphocytes % % Monocytes % % Eosinophils % % Basophils % % Neutrophils # (1.3-7.7) k/uL Lymphocytes # (1.0-4.8) k/uL Monocytes # (0-1.0) k/uL Eosinophils # (0-0.7) k/uL Basophils # (0-0.2) k/uL Hypochromasia PT (9.0-12.0) sec INR (<1.2) APTT (22.0-30.0) sec Sodium (137-145) mmol/L Potassium (3.5-5.1) mmol/L Chloride (98-107) mmol/L Carbon Dioxide (22-30) mmol/L Anion Gap mmol/L BUN (7-17) mg/dL Creatinine (0.52-1.04) mg/dL Est GFR (CKD-EPI)AfAm (>60 ml/min/1.73 sqM) Est GFR (CKD-EPI)NonAf (>60 ml/min/1.73 sqM) Glucose (74-99) mg/dL Calcium (8.4-10.2) mg/dL Magnesium (1.6-2.3) mg/dL Total Bilirubin (0.2-1.3) mg/dL AST (14-36) U/L ALT (4-34) U/L Alkaline Phosphatase (38-126) U/L Troponin I <0.012 (0.000-0.034) ng/mL Total Protein (6.3-8.2) g/dL Albumin (3.5-5.0) g/dL TSH (0.465-4.680) mIU/L Acetone, Qual Negative (Negative) Critical Care Time Critical Care Time: Yes Total Critical Care Time: 35 Disposition Clinical Impression: Atrial fibrillation with rapid ventricular response, New onset type 2 diabetes mellitus Disposition: ADMITTED IP TO THIS HOSP Referrals: Jean Uriarte MD [Primary Care Provider] - 1-2 days Time of Disposition: 11:34
[2022-04-09 09:42] LABS: Basophils # (A) 0.1 k/uL (0-0.2); Basophils % (A) 1 %; Eosinophils # (A) 0.2 k/uL (0-0.7); Eosinophils % (A) 3 %; HGB 13.5 gm/dL (11.4-16.0); Hypochromasia Moderate; Lymphocytes # (A) 1.1 k/uL (1.0-4.8); Lymphocytes % (A) 15 %; MCH 26.8 pg (25.0-35.0); MCHC 31.4 g/dL (31.0-37.0); MCV 85.5 fL (80.0-100.0); Mean Platelet Volume 7.8; Monocytes # (A) 0.4 k/uL (0-1.0); Monocytes % (A) 6 %; Neutrophils # (A) 5.3 k/uL (1.3-7.7); Neutrophils % (A) 74 %; Platelet Count 239 k/uL (150-450); RBC 5.02 m/uL (3.80-5.40); RDW 14.2 % (11.5-15.5); WBC 7.2 k/uL (3.8-10.6)
[2022-04-09 09:52] LABS: Partial Thromboplastin Time 23.9 sec (22.0-30.0); Prothrombin Time 10.8 sec (9.0-12.0)
--- NOTE | 2022-04-09 09:56 | XR ---
EXAMINATION TYPE: XR chest 2V DATE OF EXAM: 04/09/2022 COMPARISON: 01/02/2020 60 HISTORY: 66-year-old female dysrhythmia TECHNIQUE: AP and lateral views FINDINGS: The heart is upper limits of normal in size. Hyperinflation. Similar interstitial prominence. The scl erotic arch calcifications. Limited by portable technique and large body habitus casting hazy periphe ral lower lung densities. No laney consolidation or pleural effusion seen. IMPRESSION: COPD and chronic changes. Limited by portable technique and large body habitus. No definite acute pro cess.
[2022-04-09 09:57] LABS: ALT 36 U/L (4-34); AST 36 U/L (14-36); African American GFR (CKD) >90 (>60 ml/min/1.73 sqM); Albumin 3.9 g/dL (3.5-5.0); Alkaline Phosphatase 88 U/L (38-126); Anion Gap 10 mmol/L; Blood Urea Nitrogen 17 mg/dL (7-17); Calcium 9.4 mg/dL (8.4-10.2); Carbon Dioxide 22 mmol/L (22-30); Chloride 103 mmol/L (98-107); Magnesium 1.6 mg/dL (1.6-2.3); Non-African American GFR(CKD) 81 (>60 ml/min/1.73 sqM); Potassium 4.2 mmol/L (3.5-5.1); Sodium 135 mmol/L (137-145); Total Bilirubin 1.2 mg/dL (0.2-1.3); Total Protein 7.3 g/dL (6.3-8.2)
[2022-04-09 10:11] LABS: Glucose 529 mg/dL (74-99)
[2022-04-09] MEDS ORDERED: NITROGLYCERIN SL TABS 0.4 MG TAB SUBLINGUAL PRN (11:34)
[2022-04-09] MEDS ORDERED: DEXTROSE 50% SYRINGE 50 ML IVP PRN ×2 (11:41)
[2022-04-09 13:47] LABS: Glucose,Whole Blood 332 mg/dL (70-110)
[2022-04-09] MEDS ORDERED: ALPRAZolam 0.5 MG TAB PO PRN (13:57)
[2022-04-09] MEDS ORDERED: FLUTICASONE 50MCG/SPRAY NASAL 16GM EA NOSTRIL PRN (13:57)
[2022-04-09] MEDS ORDERED: HYDROcodone/APAP 10-325MG 1 EACH TAB PO PRN (13:57)
[2022-04-09] MEDS ORDERED: FUROSEMIDE 40 MG TAB PO PRN (13:57)
[2022-04-09] MEDS: INSULIN ASPART (NovoLOG) 100 UNIT/ML VIAL SQ SCH ×5 (13:58→20:31)
[2022-04-09] MEDS: APIXABAN 5 MG TAB PO SCH ×2 (13:58→20:06)
[2022-04-09] MEDS: FLECAINIDE 50 MG TAB PO SCH ×2 (13:58→20:06)
[2022-04-09 14:51] LABS: Glucose,Whole Blood 319 mg/dL (70-110)
[2022-04-09 17:42] LABS: Glucose,Whole Blood 141 mg/dL (70-110)
[2022-04-09] MEDS: LATANOPROST 0.005% OPHTH DROPS 2.5 ML BTL RIGHT EYE SCH (20:10)
[2022-04-09] MEDS: ATORVASTATIN 20 MG TAB PO SCH (20:10)
[2022-04-09 20:21] LABS: Glucose,Whole Blood 242 mg/dL (70-110)
[2022-04-09] MEDS ORDERED: METOPROLOL TARTRATE 50 MG TAB PO SCH (21:00)
[2022-04-09] MEDS ORDERED: ENALAPRIL MALEATE 10 MG PO SCH (21:00)
--- NOTE | 2022-04-09 23:13 | CONS ---
CONSULTATION CHIEF COMPLAINT: Palpitations. HISTORY OF PRESENT ILLNESS: Suzi is a 66-year-old lady with history of paroxysmal atrial fibrillation, who follows with Dr. Denise Ly in my office, has had 3 episodes of atrial fibrillation this year, has mild nonobstructive coronary artery disease and apparently has normal LV function. She does not have any history of congestive heart failure or coronary artery disease. She developed sustained palpitations this morning, made her feel uncomfortable, came to the ER, where she was found to be in atrial fibrillation with rapid ventricular rate. The symptoms have been going on and off for the last 3 days, and she has had episodes of diarrhea. She is currently on intravenous Cardizem, whose dose of being increased to better control the heart rate and she is also on Eliquis at home at 5 mg b.i.d. I am going to try her on flecainide to see if we can keep her in sinus rhythm. I will obtain a 2D echo on her tomorrow to evaluate LV function. PAST MEDICAL HISTORY: Significant for paroxysmal atrial fibrillation, dyslipidemia, hypertension. MEDICATIONS: Medications at home included, 1. Vasotec. 2. Cymbalta. 3. Eliquis. 4. Arimidex. 5. Xanax. 6. Omeprazole. 7. Lopressor. 8. Zocor. ALLERGIES: To morphine. FAMILY HISTORY: Negative for premature coronary artery disease. SOCIAL HISTORY: Negative for smoking, EtOH abuse or drug abuse. REVIEW OF SYSTEMS: HEENT: Unremarkable. CARDIAC: As described above. RESPIRATORY: As described above. GI: Negative. GENITOURINARY: Negative. ALLERGY/IMMUNOLOGY: Negative. SKIN: Negative. MUSCULOSKELETAL: Negative. ENDOCRINE: Negative. HEMATOLOGICAL: Negative. PHYSICAL EXAMINATION: GENERAL: She is comfortable at rest. VITAL SIGNS: Stable. There is no jugular venous distention. Carotid upstroke is normal. There is no bruit. CHEST: Exam reveals good air entry bilaterally. HEART: Exam reveals first and second heart sounds. No gallop. Irregular rhythm. No murmur. ABDOMEN: Soft. EXTREMITIES: Examination of the extremities did not reveal any edema. Peripheral pulses are felt. LABORATORY DATA: Labs showed a hemoglobin of 15.5, platelet count is 230. Blood sugar is elevated. Troponins are negative. TSH is 5.1. ASSESSMENT: Paroxysmal atrial fibrillation with rapid ventricular rate. PLAN: Please continue the Eliquis, start her on Cardizem, start her on flecainide and check an echocardiogram in the morning. MMODL / IJN: [id number] /
--- NOTE | 2022-04-09 23:21 | P.HPIM ---
History of Present Illness H&P Date: 04/09/22 Chief Complaint: heart racing Ms. Mora is a 66-year-old female with a past medical history of atrial fibrillation, coronary artery disease, type 2 diabetes mellitus, GERD, hypertension, hyperlipidemia, sleep apnea, breast cancer status post left mastectomy coming into the hospital with a chief complaint of palpitations. Patient states that for the past couple of days she has been having a feeling that her heart rate is high on and off but last night she felt that her heart was racing which made her come to the hospital. Patient denied having any chest pain or difficulty in breathing. She mentions that she has been having lower abdominal discomfort with increased frequency of urination along with burning sensation. She also mentions about being recently diagnosed with diabetes and that she was started on glipizide. Patient denied having any fevers chills or rigors. She denied having any abdominal pain nausea vomiting or diarrhea. There was no loss of consciousness blurring of vision or weakness in her extremities. She also mentions that she has history of atrial fibrillation and she is on anticoagulation with Eliquis. Patient denies having any recent travel or lower extremity swelling. At the time of admission patient's vital signs temperature of 98.7 heart rate 122 respiratory 22 blood pressure 93/64 saturating at 96% on room air. Her labs showed white count of 7.2 hemoglobin 13.5 platelets of 239. Sodium 135 potassium 4.2 chloride 103 bicarb 22 BUN 17 creatinine 0.76. Patient's blood sugar was 529. Troponin less than 0.012 TSH 5.1. Patient had a chest x-ray showing COPD changes. She also had an EKG showing atrial fibrillation with rate around 120s. Patient is admitted for further management Review of Systems REVIEW OF SYSTEMS: PSYCH: No anxiety or depression NEURO:No c/o weakness of the extremties, No facial droop, No speech abnormalities. HEMATOLOGIC: No history of easy bleeding and bruising . No recent infections . RESPIRATORY: No cough, No SOB, No chest discomfort. IMMUNE: No infections INTEGUMENT: no rashes OPHTHALMOLOGIC: No blurry vision and no eye discharge : as per HPI CARDIAC: No chest pain or shortness of breath MUSCULOSKELETAL : No Aches or pains in the joints or muscles. GI: No abdominal pain, Nausea or vomiting. No constipation or diarrhea. Past Medical History Past Medical History: Atrial Fibrillation, Coronary Artery Disease (CAD), Cancer, Diabetes Mellitus, GERD/Reflux, Hyperlipidemia, Hypertension, Osteoarthritis (OA), Pneumonia, Sleep Apnea/CPAP/BIPAP Additional Past Medical History / Comment(s): [facility] [place]; Breast Cancer, hx migraines, no cpap used, "fx back 4 months ago" History of Any Multi-Drug Resistant Organisms: None Reported Date of last positivie culture/infection: 09/16/21 ESBL E.coli MDRO Source:: Urine Past Surgical History: Breast Surgery, Section, Cholecystectomy, Heart Catheterization Additional Past Surgical History / Comment(s): left breast Lumpectomy, four heart catheterizations- no stents . left mastectomy. kidney surgery for blocked ureter. thien cataracts Past Anesthesia/Blood Transfusion Reactions: No Reported Reaction Past Psychological History: Anxiety, Depression Smoking Status: Former smoker Past Alcohol Use History: None Reported Past Drug Use History: None Reported - Past Family History Mother Family Medical History: Cancer Father Family Medical History: Diabetes Mellitus Medications and Allergies Home Medications Medication Instructions Recorded Confirmed Type Enalapril Maleate [Vasotec] 10 mg PO HS 03/31/15 04/09/22 History Hydrocodone/Acetaminophen [[place] 1 tab PO Q4H PRN 03/31/15 04/09/22 History 10-325] Isosorbide Mononitrate ER [Imdur] 30 mg PO DAILY 03/31/15 04/09/22 History Metoprolol Tartrate [Lopressor] 50 mg PO BID 03/31/15 04/09/22 History Simvastatin [Zocor] 40 mg PO HS 04/01/15 04/09/22 History ALPRAZolam [Xanax] 0.5 mg PO BID PRN 06/22/17 04/09/22 History Anastrozole [Arimidex] 1 mg PO DAILY 04/18/18 04/09/22 History Omeprazole 20 mg PO DAILY 04/18/18 04/09/22 History Apixaban [Eliquis] 5 mg PO BID 01/02/22 04/09/22 History Cholecalciferol [Vitamin D3 (25 50 mcg PO DAILY 01/02/22 04/09/22 History Mcg = 1000 Iu)] DULoxetine HCL [Cymbalta] 60 mg PO DAILY 01/02/22 04/09/22 History Fluticasone Nasal [place] [Flonase 1 spray EA NOSTRIL DAILY PRN 01/02/22 04/09/22 History Nasal [place]] Latanoprost/Pf [Latanoprost 0.005% 1 drop RIGHT EYE HS 01/02/22 04/09/22 History Eye Drop] Diclofenac Sodium Gel [Voltaren 100 gm TOPICAL BID PRN 30 Days #1 03/22/22 Rx Gel] kit Furosemide [Lasix] 40 mg PO DAILY PRN 04/09/22 04/09/22 History Meloxicam [Mobic] 15 mg PO DAILY 04/09/22 04/09/22 History Allergies Allergy/AdvReac Type Severity Reaction Status Date / Time morphine AdvReac Hypotension Verified 04/09/22 12:57 Physical Exam Vitals: Vital Signs Temp Pulse Resp BP Pulse Ox 04/09/22 13:00 124 H 19 117/74 04/09/22 12:30 142 H 18 96 04/09/22 12:00 130 H 16 124/91 04/09/22 11:30 99 19 140/81 99 04/09/22 11:00 140 H 18 145/89 96 04/09/22 10:30 132 H 18 101/69 04/09/22 10:00 130 H 18 104/93 95 04/09/22 09:09 98.7 F 122 H 22 93/64 96 Intake and Output 04/08/22 04/09/22 04/09/22 22:59 06:59 14:59 Intake Total 9.667 Balance 9.667 Intake: Intake, IV Titration 9.667 Amount Diltiazem 125 mg In 9.667 Sodium Chloride 0.9% 100 ml @ 5 MG/HR 5 mls/hr IV .Q24H [facility] Rx#:[id number] Other: Weight 138.346 kg PHYSICAL EXAM GEN. APPEARANCE: alert, in no apparent distress HEAD EXAM: atraumatic, normocephalic, normal inspection EYE EXAM: normal appearance, PERRL, EOMI. ENT EXAM: normal exam, mucous membranes moist RESPIRATORY EXAM: normal lung sounds bilaterally. No wheeze or crackles Left mastectomy CARDIOVASCULAR EXAM: Heart sounds s1 and s2 heard GI/ABDOMINAL EXAM: soft, normal bowel sounds. Mild tenderness in the supra pubic area EXTREMITIES EXAM: No edema NEUROLOGICAL EXAM: alert, oriented X3, PSYCHIATRIC EXAM: normal affect, normal mood Results CBC & Chem 7: 04/09/22 09:24 04/09/22 09:24 Labs: Abnormal Lab Results - Last 24 Hours (Table) 04/09/22 04/09/22 Range/Units 09:24 13:45 Sodium 135 L (137-145) mmol/L Glucose 529 H* (74-99) mg/dL POC Glucose (mg/dL) 332 H (70-110) mg/dL ALT 36 H (4-34) U/L TSH 5.100 H (0.465-4.680) mIU/L Assessment and Plan Assessment: ASSESSMENT A. fib with RVR Hyperglycemia in the setting of newly diagnosed diabetes mellitus Pseudohyponatremia History of atrial fibrillation on anticoagulation with Eliquis GERD Hypertension Hyperlipidemia Obstructive sleep apnea History of breast cancer status post left mastectomy Morbid obesity with BMI 41.4 Former smoker History of anxiety with depression PLAN: Patient has history of atrial fibrillation and is on anticoagulation with Eliquis which will be continued. As her rate is poorly controlled she has been started on flecainide by cardiology Dr. Noe. Patient has been restarted on home medications. As the patient complains of UTI-like symptoms urine analysis is ordered. As the patient has hyperglycemia in the setting of newly diagnosed diabetes, we will start her on insulin and titrate depending upon her blood g lucose levels. Further recommendations depending on the progress of the patient. The treatment plan was discussed in detail with the patient at bedside
[2022-04-10 06:11] LABS: Glucose,Whole Blood 250 mg/dL (70-110)
[2022-04-10 06:27] LABS: Basophils % (A) 1 %; Eosinophils # (A) 0.2 k/uL (0-0.7); Eosinophils % (A) 4 %; HCT 36.2 % (34.0-46.0); HGB 11.6 gm/dL (11.4-16.0); Hypochromasia Moderate; Lymphocytes # (A) 1.5 k/uL (1.0-4.8); Lymphocytes % (A) 33 %; MCH 27.4 pg (25.0-35.0); MCHC 31.9 g/dL (31.0-37.0); MCV 85.8 fL (80.0-100.0); Mean Platelet Volume 7.7; Monocytes # (A) 0.4 k/uL (0-1.0); Monocytes % (A) 8 %; Neutrophils # (A) 2.4 k/uL (1.3-7.7); Neutrophils % (A) 52 %; Platelet Count 150 k/uL (150-450); RBC 4.22 m/uL (3.80-5.40); RDW 14.3 % (11.5-15.5); WBC 4.5 k/uL (3.8-10.6)
[2022-04-10 07:13] LABS: African American GFR (CKD) >90 (>60 ml/min/1.73 sqM); Anion Gap 8 mmol/L; Blood Urea Nitrogen 19 mg/dL (7-17); Calcium 8.7 mg/dL (8.4-10.2); Carbon Dioxide 21 mmol/L (22-30); Chloride 106 mmol/L (98-107); Glucose 265 mg/dL (74-99); Non-African American GFR(CKD) >90 (>60 ml/min/1.73 sqM); Potassium 3.3 mmol/L (3.5-5.1); Sodium 135 mmol/L (137-145)
[2022-04-10] MEDS ORDERED: ISOSORBIDE MONONITRATE ER 30 MG TAB.ER.24H PO SCH (09:00)
[2022-04-10] MEDS ORDERED: APIXABAN 5 MG TAB PO SCH (09:00)
[2022-04-10] MEDS: PANTOPRAZOLE 40 MG TABLET PO SCH (09:09)
[2022-04-10] MEDS: FLECAINIDE 50 MG TAB PO SCH ×2 (09:09→20:43)
[2022-04-10] MEDS: ANASTROZOLE 1 MG TAB PO SCH (09:09)
[2022-04-10] MEDS: DULoxetine HCL 60 MG CAPSULE.DR PO SCH (09:09)
[2022-04-10] MEDS: APIXABAN 5 MG TAB PO SCH ×2 (09:09→20:43)
[2022-04-10] MEDS: INSULIN ASPART (NovoLOG) 100 UNIT/ML VIAL SQ SCH ×7 (09:09→20:42)
[2022-04-10] MEDS: ASPIRIN 325 MG TAB PO SCH (09:10)
[2022-04-10 11:50] LABS: Glucose,Whole Blood 231 mg/dL (70-110)
[2022-04-10] MEDS ORDERED: POTASSIUM CHLORIDE ER 20 MEQ TAB.ER PO STA (12:02)
--- NOTE | 2022-04-10 12:03 | P.PN ---
Subjective Progress Note Date: 04/10/22 HISTORY OF PRESENT ILLNESS This is a 66-year-old female with past history of paroxysmal atrial fibrillation follows with Dr. Ly in the office. Patient has had 3 episodes of atrial fibrillation this year, history of mild nonobstructive coronary artery disease with normal LV function. No history of heart failure. Patient developed palpitations that made her feel uncomfortable and came into the ER to be evaluated found to be in atrial fibrillation with RVR. Symptoms have been going on and off for the past 3 days. She also had episode of diarrhea. She was started on a Cardizem drip in the emergency center which was increased for better rate control. Patient is normally on eliquis 5 mg twice daily at home. 04/10 Patient was started on flecainide 50 mg twice daily yesterday and she has sub sequently converted to a sinus rhythm. Rate is in the 80s, blood pressure 139/67. She denies having any palpitations but felt a little lightheadedness when she got up to the bathroom. No chest pain or shortness of breath. Sodium 135, potassium 3.3, BUN 19 and creatinine 0.64. Echocardiogram is pending. PHYSICAL EXAMINATION Gen: This is a morbidly obese 66-year-old female. She is resting in bed and appears to be comfortable and in no acute distress. VS: reviewed HEENT: Head is atraumatic, normocephalic. Pupils equal, round. Sclerae is anicteric. NECK: Supple. No JVD. No lymphadenopathy. No thyromegaly. LUNGS: Clear to auscultation. No wheezes or rhonchi. No intercostal r etractions. HEART: Regular rate and rhythm. No murmur. ABDOMEN: Soft. Bowel sounds are present. No masses. No tenderness. EXTREMITIES: No pedal edema. No calf tenderness. NEUROLOGICAL: Patient is awake, alert and oriented x3. ASSESSMENT Paroxysmal atrial fibrillation presenting with RVR, converted to sinus rhythm Mild obstructive coronary artery disease PLAN Continue patient on flecainide 50 mg twice daily Resume Lopressor 50 mg twice daily Continue patient on eliquis 5 mg twice daily Obtain 2-D echocardiogram and Doppler study to assess cardiac structure and function Further recommendations to follow based upon clinical course Nurse practitioner note has been reviewed, I agree with documented findings and plan of care. Patient was seen and examined. Objective - Vital Signs Vital signs: Vital Signs Temp 98.1 F 04/09/22 20:00 Pulse 83 04/10/22 04:00 Resp 16 04/10/22 04:00 BP 139/67 04/10/22 04:00 Pulse Ox 93 L 04/10/22 04:00 FiO2 Intake & Output 04/09/22 04/10/22 04/10/22 18:59 06:59 18:59 Intake Total 9.667 1345 Balance 9.667 1345 Weight 138.346 kg 138.346 kg Intake: Intake, IV Titration 9.667 Amount Diltiazem 125 mg In 9.667 Sodium Chloride 0.9% 100 ml @ 5 MG/HR 5 mls/hr IV .Q24H [facility] Rx#:[id number] Oral 1345 Other: Voiding Method Toilet # Voids 1 - Labs CBC & Chem 7: 04/10/22 05:55 04/10/22 05:55 Labs: Abnormal Lab Results - Last 24 Hours (Table) 04/09/22 04/09/22 04/09/22 Range/Units 09:24 13:45 14:49 Sodium 135 L (137-145) mmol/L Potassium (3.5-5.1) mmol/L Carbon Dioxide (22-30) mmol/L BUN (7-17) mg/dL Glucose 529 H* (74-99) mg/dL POC Glucose (mg/dL) 332 H 319 H (70-110) mg/dL ALT 36 H (4-34) U/L TSH 5.100 H (0.465-4.680) mIU/L 04/09/22 04/09/22 04/10/22 Range/Units 17:41 20:19 05:55 Sodium 135 L (137-145) mmol/L Potassium 3.3 L (3.5-5.1) mmol/L Carbon Dioxide 21 L (22-30) mmol/L BUN 19 H (7-17) mg/dL Glucose 265 H (74-99) mg/dL POC Glucose (mg/dL) 141 H 242 H (70-110) mg/dL ALT (4-34) U/L TSH (0.465-4.680) mIU/L 04/10/22 Range/Units 06:10 Sodium (137-145) mmol/L Potassium (3.5-5.1) mmol/L Carbon Dioxide (22-30) mmol/L BUN (7-17) mg/dL Glucose (74-99) mg/dL POC Glucose (mg/dL) 250 H (70-110) mg/dL ALT (4-34) U/L TSH (0.465-4.680) mIU/L
[2022-04-10] MEDS: METOPROLOL TARTRATE 50 MG TAB PO SCH ×2 (12:30→20:43)
[2022-04-10] MEDS ORDERED: INSULIN DETEMIR (LEVEMIR) 100 UNIT/ML SYR SQ SCH ×2 (13:00→21:00)
[2022-04-10 14:07] LABS: Chol/HDL Ratio 2.13 Ratio; LDL Cholesterol,Calculated 23.9 mg/dL (0.0-131.0); VLDL Calculation 15.68 mg/dL (5.00-40.00)
[2022-04-10 14:34] LABS: Glucose,Whole Blood 63 mg/dL (70-110)
[2022-04-10 15:03] LABS: Glucose,Whole Blood 89 mg/dL (70-110)
[2022-04-10 16:25] LABS: Glucose,Whole Blood 175 mg/dL (70-110)
--- NOTE | 2022-04-10 20:01 | P.PN ---
Subjective Progress Note Date: 04/10/22 Principal diagnosis: A fib with RVR Ms. Mora is a 66-year-old female with a past medical history of atrial fibrillation, coronary artery disease, type 2 diabetes mellitus, GERD, hypertension, hyperlipidemia, sleep apnea, breast cancer status post left mastectomy coming into the hospital with a chief complaint of palpitations. She is currently being treated for A. fib with RVR and also for hyperglycemia in the setting of newly diagnosed diabetes mellitus. Today the patient is lying comfortably in bed appears to be no acute distress. She states that her lower abdominal pain improved a lot compared to yesterday. She denies having any burning sensation while urinating. Patient denies having any chest pain or palpitations. She denied having any cough or difficulty in breathing. No abdominal pain nausea vomiting or diarrhea. Patient's vitals reviewed from this morning temperature of 97.9 heart rate 83 respiratory rate 18 blood pressure 127/72 saturating at 97% on room air. Patient's labs have been reviewed white count of 4.5 hemoglobin 11.6 platelets of 150. Sodium 135, potassium 3.3, chloride 106, bicarb 21, BUN 19, creatinine 0.64.Patient's blood sugars have been running on the higher side between 300s to 400s. Objective - Vital Signs Vital signs: Vital Signs Temp 97.9 F 04/10/22 08:00 Pulse 83 04/10/22 08:00 Resp 18 04/10/22 08:00 BP 127/72 04/10/22 08:00 Pulse Ox 97 04/10/22 08:00 FiO2 Intake & Output 04/09/22 04/10/22 04/10/22 18:59 06:59 18:59 Intake Total 9.667 1345 Balance 9.667 1345 Weight 138.346 kg 138.346 kg Intake: Intake, IV Titration 9.667 Amount Diltiazem 125 mg In 9.667 Sodium Chloride 0.9% 100 ml @ 5 MG/HR 5 mls/hr IV .Q24H [facility] Rx#:[id number] Oral 1345 Other: Voiding Method Toilet # Voids 1 - Exam PHYSICAL EXAM GEN. APPEARANCE: alert, in no apparent distress EYE EXAM: normal appearance, PERRL, EOMI. ENT EXAM: normal exam, mucous membranes moist RESPIRATORY EXAM: normal lung sounds bilaterally. No wheeze or crackles Left mastectomy CARDIOVASCULAR EXAM: Heart sounds s1 and s2 heard GI/ABDOMINAL EXAM: soft, normal bowel sounds. NOn - tender and non -distended EXTREMITIES EXAM: No edema NEUROLOGICAL EXAM: alert, oriented X3, PSYCHIATRIC EXAM: normal affect, normal mood - Labs CBC & Chem 7: 04/10/22 05:55 04/10/22 05:55 Labs: Abnormal Lab Results - Last 24 Hours (Table) 04/09/22 04/09/22 04/09/22 Range/Units 13:45 14:49 15:16 Sodium (137-145) mmol/L Potassium (3.5-5.1) mmol/L Carbon Dioxide (22-30) mmol/L BUN (7-17) mg/dL Glucose (74-99) mg/dL POC Glucose (mg/dL) 332 H 319 H (70-110) mg/dL Hemoglobin A1c 10.7 H (0.0-6.0) % 04/09/22 04/09/22 04/10/22 Range/Units 17:41 20:19 05:55 Sodium 135 L (137-145) mmol/L Potassium 3.3 L (3.5-5.1) mmol/L Carbon Dioxide 21 L (22-30) mmol/L BUN 19 H (7-17) mg/dL Glucose 265 H (74-99) mg/dL POC Glucose (mg/dL) 141 H 242 H (70-110) mg/dL Hemoglobin A1c (0.0-6.0) % 04/10/22 04/10/22 Range/Units 06:10 11:49 Sodium (137-145) mmol/L Potassium (3.5-5.1) mmol/L Carbon Dioxide (22-30) mmol/L BUN (7-17) mg/dL Glucose (74-99) mg/dL POC Glucose (mg/dL) 250 H 231 H (70-110) mg/dL Hemoglobin A1c (0.0-6.0) % Assessment and Plan Assessment: ASSESSMENT A. fib with RVR - converted to Sinus rhythm Hyperglycemia in the setting of newly diagnosed diabetes mellitus Pseudohyponatremia - resolved History of atrial fibrillation on anticoagulation with Eliquis GERD Hypertension Hyperlipidemia Obstructive sleep apnea History of breast cancer status post left mastectomy Morbid obesity with BMI 41.4 Former smoker History of anxiety with depression PLAN: Patient's paroxysmal atrial fibrillation converted to sinus rhythm -to be cont inued on flecainide and Lopressor has been restarted Continue anticoagulation with Eliquis Patient's hemoglobin A1c came back at 10.7 As patient's blood sugars have been running high we will start the patient on 15 units of Lantus along with sliding scale of insulin along with blood glucose monitoring every 8 hours 2D echo pending Patient's son and [id number] at bedside-discussed the treatment plan in detail with them Further recommendations depending on the progress of the patient
[2022-04-10 20:04] LABS: Glucose,Whole Blood 243 mg/dL (70-110)
[2022-04-10] MEDS: ATORVASTATIN 20 MG TAB PO SCH (20:43)
[2022-04-10] MEDS: LATANOPROST 0.005% OPHTH DROPS 2.5 ML BTL RIGHT EYE SCH (22:38)
[2022-04-11 06:00] LABS: Glucose,Whole Blood 204 mg/dL (70-110)
[2022-04-11] MEDS: PANTOPRAZOLE 40 MG TABLET PO SCH (06:41)
[2022-04-11] MEDS: INSULIN ASPART (NovoLOG) 100 UNIT/ML VIAL SQ SCH ×4 (06:41→12:25)
[2022-04-11 07:07] LABS: Basophils % (A) 1 %; Eosinophils # (A) 0.2 k/uL (0-0.7); Eosinophils % (A) 3 %; HCT 39.8 % (34.0-46.0); HGB 12.5 gm/dL (11.4-16.0); Hypochromasia Moderate; Lymphocytes # (A) 1.3 k/uL (1.0-4.8); Lymphocytes % (A) 25 %; MCH 26.8 pg (25.0-35.0); MCHC 31.4 g/dL (31.0-37.0); MCV 85.4 fL (80.0-100.0); Mean Platelet Volume 7.8; Monocytes # (A) 0.3 k/uL (0-1.0); Monocytes % (A) 6 %; Neutrophils # (A) 3.2 k/uL (1.3-7.7); Neutrophils % (A) 62 %; Platelet Count 181 k/uL (150-450); RBC 4.66 m/uL (3.80-5.40); RDW 14.3 % (11.5-15.5); WBC 5.2 k/uL (3.8-10.6)
[2022-04-11 07:27] LABS: African American GFR (CKD) >90 (>60 ml/min/1.73 sqM); Anion Gap 8 mmol/L; Blood Urea Nitrogen 15 mg/dL (7-17); Calcium 8.9 mg/dL (8.4-10.2); Carbon Dioxide 25 mmol/L (22-30); Chloride 105 mmol/L (98-107); Glucose 225 mg/dL (74-99); Non-African American GFR(CKD) >90 (>60 ml/min/1.73 sqM); Potassium 4.1 mmol/L (3.5-5.1); Sodium 138 mmol/L (137-145)
[2022-04-11] MEDS: DULoxetine HCL 60 MG CAPSULE.DR PO SCH (09:17)
[2022-04-11] MEDS: ASPIRIN 325 MG TAB PO SCH (09:18)
[2022-04-11] MEDS: FLECAINIDE 50 MG TAB PO SCH (09:18)
[2022-04-11] MEDS: ANASTROZOLE 1 MG TAB PO SCH (09:18)
[2022-04-11] MEDS: METOPROLOL TARTRATE 50 MG TAB PO SCH (09:18)
[2022-04-11] MEDS: APIXABAN 5 MG TAB PO SCH (09:18)
[2022-04-11 11:19] VITALS: BMI 41.3
--- NOTE | 2022-04-11 11:21 | CA ---
Transthoracic Echo Report Name: Suzi Mora Age: 66 Gender: F : 1955 Exam Date: 04/11/2022 09:33 Exam Location: [place] [facility] Ht (in): 72 Wt (lb): 105 Ordering Physician: Bobby Roldan MD ([id number]) Attending/Referring Phys: Yuli PATRICIO Mail Order Clerk Jeanette Mckeon RDCS Procedure CPT: Indications: a fib Cardiac Hx: Technical Quality: Fair Contrast 1: Total Dose (mL): Contrast 2: Total Dose (mL): MEASUREMENTS (Male / Female) Normal Values 2D ECHO LV Diastolic Diameter PLAX 5.0 cm 4.2 - 5.9 / 3.9 - 5.3 cm LV Systolic Diameter PLAX 2.8 cm IVS Diastolic Thickness 1.2 cm 0.6 - 1.0 / 0.6 - 0.9 cm LVPW Diastolic Thickness 1.0 cm 0.6 - 1.0 / 0.6 - 0.9 cm LV Relative Wall Thickness 0.4 RV Internal Dim ED PLAX 4.1 cm LA Volume 69.7 cm??? 18 - 58 / 22 - 52 cm??? M-MODE Aortic Root Diameter MM 3.0 cm LA Systolic Diameter MM 4.9 cm LA Ao Ratio MM 1.7 AV Cusp Separation MM 2.0 cm DOPPLER AV Peak Velocity 157.6 cm/s AV Peak Gradient 9.9 mmHg LVOT Peak Velocity 128.2 cm/s LVOT Peak Gradient 6.6 mmHg MV Area PHT 3.6 cm??? Mitral E Point Velocity 67.5 cm/s Mitral A Point Velocity 89.1 cm/s Mitral E to A Ratio 0.8 MV Deceleration Time 209.2 ms MV E' Velocity 6.4 cm/s Mitral E to MV E' Ratio 10.6 TR Peak Velocity 307.0 cm/s TR Peak Gradient 37.7 mmHg Right Ventricular Systolic Press 42.7 mmHg FINDINGS Left Ventricle Normal left ventricular systolic function with no obvious regional wall motion abnormalities. Left ventricular ejection fraction is estimated at 55- 60 %. Mild LVH Right Ventricle Mild right ventricular dilatation. Mild pulmonary hypertension. Right Atrium Mild right atrial dilatation.prominent chiari network in the right atrium (normal variant). Left Atrium Moderately increased left atrial volume. Mildly increased left atrial area. Mitral Valve Structurally normal mitral valve. Mild mitral regurgitation. Aortic Valve No aortic valve stenosis or regurgitation. Tricuspid Valve Mild tricuspid regurgitation.structurally normal tricuspid valve. Pulmonic Valve Structurally normal pulmonic valve. Pericardium No pericardial effusion. Aorta Normal size aortic root and proximal ascending aorta. CONCLUSIONS 1. Normal size and systolic function 2. Mild mitral and tricuspid regurgitation with mild pulmonary hypertension Previewed by: Dr. Gabriela Payton MD (Electronically Signed) Final Date: 11 April 2022 11:20
[2022-04-11 12:12] VITALS: BP 130/64; PULSE 61; RESP 19; TEMP 98.2
[2022-04-11 12:12] LABS: Glucose,Whole Blood 247 mg/dL (70-110)
--- NOTE | 2022-04-12 05:25 | PN ---
PROGRESS NOTE SUBJECTIVE: Mrs. Suzi Mora is a lady with a history of breast cancer. She has noncritical CAD, also recent onset atrial fibrillation for which she is on a beta-rivera and anticoagulation with Eliquis. However, she came to the hospital this time with elevated blood sugar. Her blood sugar control has been optimized. She is in sinus rhythm. I am recommending that we continue the flecainide that was already initiated by Dr. Roldan, flecainide and beta-rivera, discharged today, we will see her in the office in a couple of weeks. PHYSICAL EXAMINATION: VITALS: Stable. NECK: No JVD. HEART: S1, S2 heard normally, distantly, regular. No significant murmurs. LUNGS: Clear. ABDOMEN: Soft, nontender. LOWER EXTREMITIES: Reveal diminished pulses. CENTRAL NERVOUS SYSTEM: Grossly within normal limits. Plan for discharge today. MMODL / IJN: [id number] /
--- NOTE | 2022-04-13 14:05 | P.DS ---
Providers Date of admission: 04/09/22 11:34 Expected date of discharge: 04/11/22 Attending physician: Aleks Tineo Consults: 04/09/22 11:34 Consult Physician Urgent Consulting Provider: [facility] Consult Reason/Comments: A. fib with rapid ventricular response Do you want consulting provider notified?: Yes Primary care physician: [facility] Course: HPI - Ms. Mora is a 66-year-old female with a past medical history of atrial fibrillation, coronary artery disease, type 2 diabetes mellitus, GERD, hypertension, hyperlipidemia, sleep apnea, breast cancer status post left mastectomy coming into the hospital with a chief complaint of palpitations. Patient states that for the past couple of days she has been having a feeling that her heart rate is high on and off but last night she felt that her heart was racing which made her come to the hospital. Patient denied having any chest pain or difficulty in breathing. She mentions that she has been having lower abdominal discomfort with increased frequency of urination along with burning sensation. She also mentions about being recently diagnosed with diabetes and that she was started on glipizide. Patient denied having any fevers chills or rigors. She denied having any abdominal pain nausea vomiting or diarrhea. There was no loss of consciousness blurring of vision or weakness in her extremities. She also mentions that she has history of atrial fibrillation and she is on anticoagulation with Eliquis. Patient denies having any recent travel or lower extremity swelling. At the time of admission patient's vital signs temperature of 98.7 heart rate 122 respiratory 22 blood pressure 93/64 saturating at 96% on room air. Her labs showed white count of 7.2 hemoglobin 13.5 platelets of 239. Sodium 135 potassium 4.2 chloride 103 bicarb 22 BUN 17 creatinine 0.76. Patient's blood sugar was 529. Troponin less than 0.012 TSH 5.1. Patient had a chest x-ray showing COPD changes. She also had an EKG showing atrial fibrillation with rate around 120s. Patient is admitted for further management. Hospital course -during the hospital stay patient had antiarrhythmics changed by cardiology. She was started on flecainide by Dr. Noe and her heart rate was converted to sinus rhythm. Patient was also started on insulin due to hyperglycemia. Her blood sugars were under much better control with initiation of insulin. Patient also had an echocardiogram done during the hospital stay which showed ejection fraction of 55 to 60% with mildly increased left atrial area with mild pulmonary hypertension. Patient condition is back to her baseline and she is cleared by cardiology for discharge. So the patient is being discharged home in a stable condition. Patient's vitals at the time of discharge temperature 98.2, heart rate 60 in sinus rhythm, blood pressure 130 x 64 and saturating at 97% on room air. PHYSICAL EXAM GEN. APPEARANCE: alert, in no apparent distress EYE EXAM: normal appearance, PERRL, EOMI. ENT EXAM: normal exam, mucous membranes moist RESPIRATORY EXAM: normal lung sounds bilaterally. No wheeze or crackles Left mastectomy CARDIOVASCULAR EXAM: Heart sounds s1 and s2 heard GI/ABDOMINAL EXAM: soft, normal bowel sounds. NOn - tender and non -distended EXTREMITIES EXAM: No edema NEUROLOGICAL EXAM: alert, oriented X3, PSYCHIATRIC EXAM: normal affect, normal mood DISCHARGE DIAGNOSES A. fib with RVR - converted to Sinus rhythm Hyperglycemia in the setting of newly diagnosed diabetes mellitus Pseudohyponatremia - resolved History of atrial fibrillation on anticoagulation with Eliquis GERD Hypertension Hyperlipidemia Obstructive sleep apnea History of breast cancer status post left mastectomy Morbid obesity with BMI 41.4 Former smoker History of anxiety with depression. PLAN: Discussed with patient about the new antiarrhythmic she is on flecainide. Also she was given diabetic education by the nursing staff on taking her insulin and monitoring her blood sugars. Diabetic supplies have been sent to pharmacy. Patient is advised to follow-up with her primary care physician within 1 week. More than 35 minutes spent towards the discharge of the patient with more than 50% of the time taken to provide counseling to the patient. Plan - Discharge Summary Discharge Rx Participant: Yes New Discharge Prescriptions: New Flecainide [Tambocor] 50 mg PO Q12HR #60 tab INSULIN ASPART (NovoLOG) [NovoLOG (formulary)] 7 unit SQ AC-TID 30 Days #1 each INSULIN ASPART (NovoLOG) [NovoLOG (formulary)] See Protocol SQ ACHS 30 Days #1 each Insulin Detemir (Levemir) [Levemir] 21 unit SQ HS 30 Days #1 kit Continue Hydrocodone/Acetaminophen [[place] 10-325] 1 tab PO Q4H PRN PRN Reason: Pain Enalapril Maleate [Vasotec] 10 mg PO HS Metoprolol Tartrate [Lopressor] 50 mg PO BID Isosorbide Mononitrate ER [Imdur] 30 mg PO DAILY Simvastatin [Zocor] 40 mg PO HS ALPRAZolam [Xanax] 0.5 mg PO BID PRN PRN Reason: Anxiety Anastrozole [Arimidex] 1 mg PO DAILY Omeprazole 20 mg PO DAILY Cholecalciferol [Vitamin D3 (25 Mcg = 1000 Iu)] 50 mcg PO DAILY DULoxetine HCL [Cymbalta] 60 mg PO DAILY Diclofenac Sodium Gel [Voltaren Gel] 100 gm TOPICAL BID PRN 30 Days #1 kit PRN Reason: Pain Furosemide [Lasix] 40 mg PO DAILY PRN PRN Reason: Edema Latanoprost/Pf [Latanoprost 0.005% Eye Drop] 1 drop RIGHT EYE HS Fluticasone Nasal [place] [Flonase Nasal [place]] 1 spray EA NOSTRIL DAILY PRN PRN Reason: Congestion Apixaban [Eliquis] 5 mg PO BID Discontinued Meloxicam [Mobic] 15 mg PO DAILY Discharge Medication List Enalapril Maleate [Vasotec] 10 mg PO HS 03/31/15 [History] Hydrocodone/Acetaminophen [[place] 10-325] 1 tab PO Q4H PRN 03/31/15 [History] Isosorbide Mononitrate ER [Imdur] 30 mg PO DAILY 03/31/15 [History] Metoprolol Tartrate [Lopressor] 50 mg PO BID 03/31/15 [History] Simvastatin [Zocor] 40 mg PO HS 04/01/15 [History] ALPRAZolam [Xanax] 0.5 mg PO BID PRN 06/22/17 [History] Anastrozole [Arimidex] 1 mg PO DAILY 04/18/18 [History] Omeprazole 20 mg PO DAILY 04/18/18 [History] Apixaban [Eliquis] 5 mg PO BID 01/02/22 [History] Cholecalciferol [Vitamin D3 (25 Mcg = 1000 Iu)] 50 mcg PO DAILY 01/02/22 [History] DULoxetine HCL [Cymbalta] 60 mg PO DAILY 01/02/22 [History] Fluticasone Nasal [place] [Flonase Nasal [place]] 1 spray EA NOSTRIL DAILY PRN 01/02/22 [History] Latanoprost/Pf [Latanoprost 0.005% Eye Drop] 1 drop RIGHT EYE HS 01/02/22 [History] Diclofenac Sodium Gel [Voltaren Gel] 100 gm TOPICAL BID PRN 30 Days #1 kit 03/22/22 [Rx] Furosemide [Lasix] 40 mg PO DAILY PRN 04/09/22 [History] Flecainide [Tambocor] 50 mg PO Q12HR #60 tab 04/11/22 [Rx] INSULIN ASPART (NovoLOG) [NovoLOG (formulary)] 7 unit SQ AC-TID 30 Days #1 each 04/11/22 [Rx] INSULIN ASPART (NovoLOG) [NovoLOG (formulary)] See Protocol SQ ACHS 30 Days #1 each 04/11/22 [Rx] Insulin Detemir (Levemir) [Levemir] 21 unit SQ HS 30 Days #1 kit 04/11/22 [Rx] Follow up Appointment(s)/Referral(s): Jean Uriarte MD [Primary Care Provider] - 1-2 days (PLEASE CALL AND SCHEDULE AN APPOINTMENT.) Patient Instructions/Handouts: Flecainide (By mouth), Insulin Aspart, Recombinant (By injection), Insulin Detemir (By injection), Type 2 Diabetes in Adults: New Diagnosis (IP), How to Give an Insulin Injection (DC), Basic Carbohydrate Counting (DC) Activity/Diet/Wound Care/Special Instructions: Patient needs a glucometer at discharge to monitor her blood sugar due to insulin dependent diabetes mellitus. Needs to check her blood sugar before meals and at bedtime. Novolog dosing scale: Blood glucose 70- 150 : take 0 151- 200: take 2 units 201-250: take 4 units 251- 300: take 6 units 301-350: take 8 units 351-400: take 10 units Greater than 401: take 12 units and call your primary care provider Discharge Disposition: HOME SELF-CARE
== END 2022-04-11 15:00 | disposition home or self-care (01) | DRG 309 ==
LOC: EC 08:52 → 3SCARD 11:34
PROVIDERS: ADMIT Internal Medicine; ATTEND Internal Medicine
DX: I48.0 Paroxysmal atrial fibrillation (principal); G61.0 Guillain-Barre syndrome; Z68.41 Body mass index [BMI] 40.0-44.9, adult; E66.01 Morbid (severe) obesity due to excess calories; E78.5 Hyperlipidemia, unspecified; F32.A Depression, unspecified; F41.9 Anxiety disorder, unspecified; G47.33 Obstructive sleep apnea (adult) (pediatric); I10 Essential (primary) hypertension; I25.10 Atherosclerotic heart disease of native coronary artery without angina pectoris; J44.9 Chronic obstructive pulmonary disease, unspecified; M19.90 Unspecified osteoarthritis, unspecified site; E11.65 Type 2 diabetes mellitus with hyperglycemia; Z87.01 Personal history of pneumonia (recurrent); Z86.19 Personal history of other infectious and parasitic diseases; Z79.01 Long term (current) use of anticoagulants; Z79.1 Long term (current) use of non-steroidal anti-inflammatories (NSAID); Z79.811 Long term (current) use of aromatase inhibitors; Z79.899 Other long term (current) drug therapy; Z85.3 Personal history of malignant neoplasm of breast; Z90.12 Acquired absence of left breast and nipple; Z87.891 Personal history of nicotine dependence; Z88.6 Allergy status to analgesic agent
CPT/HCPCS: 36415; 71046; 80048; 80053; 80061; 82009; 83036; 83735; 84443; 84484; 85025; 85610; 85730; 93005; 93306; 96365; 96366; 99291

== ENCOUNTER → 2022-05-12 | Day surgery (SDC) | payer MEDICARE, OTHER ==
[2022-04-26 09:56] VITALS: BMI 41.2
[~2022-05-12] MED LIST changes: +IV FLUID CONTINUATION 500 ML IV ONE; +LIDOCAINE 1% (10MG/ML) FOR IV START INTRADERMA PRN; +MIDAZOLAM 2 MG/2 ML VIAL ONE; +ROPIVACAINE 5 MG/ML 20 ML AMPULE ONE; +fentaNYL (PF) 50 MCG/ML 2 ML AMP ONE; +methylPREDNISolone ACETATE 40 MG/ML 1 ML VIAL ONE
[2022-05-12 10:24] LABS: Glucose,Whole Blood 213 mg/dL (70-110)
[2022-05-12 10:25] VITALS: RESP 16; TEMP 97.3
--- NOTE | 2022-05-12 11:10 | P.PCN ---
Date of Procedure: 05/12/22 Procedure(s) Performed: PREOPERATIVE DIAGNOSIS : 1- Lumbar spondylosis with Facet Arthropathy without myelopathy . 2- Lumber degenerative disc disease POSTOPERATIVE DIAGNOSIS: 1- Lumbar spondylosis with Facet Arthropathy without myelopathy . 2- Lumber degenerative disc disease PROCEDURE: Diagnostic bilateral T12 , L1 , L2 medial branch block under fluoroscopy guidance(fluoroscopy images available in the radiology Department ) ( To target the facet joint between Bilateral L1-2 , L2-3 ) ANESTHESIA:, Monitored anesthesia care as per anesthesia department. EBL: Minimal COMPLICATION: None PROCEDURE INDICATION: Chronic low back pain secondary to Facet arthropathy unresponsive to conservative treatment. PROCEDURE DESCRIPTION: the patient was seen and identified in the preop holding area , risks and benefits and possible complications of the procedure and alternative were discussed with the patient, and the patient agreed to proceed with the procedure and signed the consent and vital signs monitored during the procedure and fluoroscopy was used to maximize the benefit and accuracy of the needle placement, and sedation was given to decrease patient anxiety, patient was taken to the procedure room and placed in prone position vital signs monitored in the back prepped with chlorhexidine X3 then under strict sterile technique using a right oblique fluoroscopy ,the junction of the transverse process and the superior articulating process of the right T12, L1 , and L2 vertebra which corresponding to the fluoroscopy image of the eye of the Paul dog on the block side for the medial branches and subsequently , after local infiltration of skin and subcu tissuies with Ropivacaine 0.5 % , one mL at each level ,then 22-gauge Quincke-type needles , 3 needle was used , each one of them placed at the junction of the base of the transverse process and the superior articular process at the appropriate level, and the needle was advanced until the periosteum contacted, needle placement confirmed with AP oblique and lateral view and after appropriate needle placement confirmed, and after negative aspiration for heme and CSF and there was no paresthesia 1-1/2 mL of Ropivacaine 0.5% mixed with 20 mg Depo-Medrol , then half mL injected at each level after negative aspiration the needle subsequently removed and the same procedure repeated for the left side at left side at T12, ,L1 and L2 levels. At the end of the procedure and the needles removed and a bandage applied after the skin was cleaned the cleaning solution patient taken to recovery room in stable condition and monitors in the recovery room for 20-30 minutes and discharged home in stable condition after discharge criteria met and patient will follow up with the pain clinic in 2-4 weeks note= she was scheduled to have diagnostic facet block at L1-2 or L2-3 on the right side only , in the preop holding area patient reported that her pain mostly on the right side and its radiated to the left side also for this reason it would be more beneficial to do the diagnostic block Bilaterally , the patient will follow up in the pain clinic in a few weeks for reevaluation
--- NOTE | 2022-05-12 11:32 | FL ---
EXAMINATION TYPE: FL guided pain mgmt statistic DATE OF EXAM: 05/12/2022 CLINICAL HISTORY: Facet block TECHNIQUE: Fluoroscopy. COMPARISON: None. FINDINGS: Fluoroscopic guidance was provided during procedure performed by Dr. Chung. A total of 24 seconds of fluoroscopic time was utilized during the procedure and 4 spot images was acquired. Pl ease see separate report for procedural details. IMPRESSION: As Above.
[2022-05-12 11:47] VITALS: BP 149/83; PULSE 68
== END ==
LOC: ORPAIN 09:51
PROVIDERS: ATTEND Specialist
DX: M47.816 Spondylosis without myelopathy or radiculopathy, lumbar region (principal); M51.36 Other intervertebral disc degeneration, lumbar region; G89.29 Other chronic pain; I25.10 Atherosclerotic heart disease of native coronary artery without angina pectoris; Z88.6 Allergy status to analgesic agent; I10 Essential (primary) hypertension; E78.5 Hyperlipidemia, unspecified; I48.91 Unspecified atrial fibrillation; G47.33 Obstructive sleep apnea (adult) (pediatric); E11.9 Type 2 diabetes mellitus without complications; Z79.4 Long term (current) use of insulin; Z79.84 Long term (current) use of oral hypoglycemic drugs; Z79.01 Long term (current) use of anticoagulants; Z79.891 Long term (current) use of opiate analgesic; Z79.899 Other long term (current) drug therapy; Z79.811 Long term (current) use of aromatase inhibitors
CPT/HCPCS: 64493; 64494 ×2; J2250; J1030; J3010; J2795

== ENCOUNTER 2022-07-14 09:34 | Day surgery (SDC) | payer MEDICARE, OTHER ==
[2022-06-19 16:21] VITALS: BMI 40.0
[~2022-07-14 09:34] MED LIST changes: -IV FLUID CONTINUATION 500 ML IV ONE; -LACTATED RINGERS 1,000 ML IV SCH; -MIDAZOLAM 2 MG/2 ML VIAL ONE; -ROPIVACAINE 5 MG/ML 20 ML AMPULE ONE; -fentaNYL (PF) 50 MCG/ML 2 ML AMP ONE; -methylPREDNISolone ACETATE 40 MG/ML 1 ML VIAL ONE
[2022-07-14 10:12] VITALS: TEMP 97.5
[2022-07-14] MEDS: LACTATED RINGERS 1,000 ML IV SCH ×2 (10:25→10:28)
[2022-07-14 10:26] LABS: Glucose,Whole Blood 150 mg/dL (70-110)
[2022-07-14] MEDS ORDERED: MIDAZOLAM 2 MG/2 ML VIAL ONE (10:30)
[2022-07-14] MEDS ORDERED: fentaNYL (PF) 50 MCG/ML 2 ML AMP ONE (10:30)
[2022-07-14] MEDS ORDERED: methylPREDNISolone ACETATE 40 MG/ML 1 ML VIAL ONE (10:50)
[2022-07-14] MEDS ORDERED: ROPIVACAINE 5 MG/ML 20 ML AMPULE ONE (10:50)
--- NOTE | 2022-07-14 10:50 | P.PCN ---
Date of Procedure: 07/14/22 Procedure(s) Performed: PREOPERATIVE DIAGNOSIS : 1- Lumbar spondylosis with Facet Arthropathy without myelopathy . 2- Lumber degenerative disc disease POSTOPERATIVE DIAGNOSIS: 1- Lumbar spondylosis with Facet Arthropathy without myelopathy . 2- Lumber degenerative disc disease PROCEDURE: Diagnostic bilateral T12 , L1 , L2 medial branch block under fluoroscopy guidance(fluoroscopy images available in the radiology Department ) ( To target the facet joint between Bilateral L1-2 , L2-3 )# 2nd ANESTHESIA:, Monitored anesthesia care as per anesthesia department. EBL: Minimal COMPLICATION: None PROCEDURE INDICATION: Chronic low back pain secondary to Facet arthropathy unresponsive to conservative treatment. PROCEDURE DESCRIPTION: the patient was seen and identified in the preop holding area , risks and benefits and possible complications of the procedure and alternative were discussed with the patient, and the patient agreed to proceed with the procedure and signed the consent and vital signs monitored during the procedure and fluoroscopy was used to maximize the benefit and accuracy of the needle placement, and sedation was given to decrease patient anxiety, patient was taken to the procedure room and placed in prone position vital signs monitored in the back prepped with chlorhexidine X3 then under strict sterile technique using a right oblique fluoroscopy ,the junction of the transverse process and the superior articulating process of the right T12, L1 , and L2 vertebra which corresponding to the fluoroscopy image of the eye of the Paul dog on the block side for the medial branches and subsequently , after local infiltration of skin and subcu tissuies with Ropivacaine 0.5 % , one mL at each level ,then 22-gauge 5 inches long Quincke-type needles , 3 needle was used , each one of them placed at the junction of the base of the transverse process and the superior articular process at the appropriate level, and the needle was advanced until the periosteum contacted, needle placement confirmed with AP oblique and lateral view and after appropriate needle placement confirmed, and after negative aspiration for heme and CSF and there was no paresthesia 1-1/2 mL of Ropivacaine 0.5% mixed with 20 mg Depo-Medrol , then half mL injected at each level after negative aspiration the needle subsequently removed and the same procedure repeated for the left side at left side at T12, ,L1 and L2 levels. At the end of the procedure and the needles removed and a bandage applied after the skin was cleaned the cleaning solution patient taken to recovery room in stable condition and monitors in the recovery room for 20-30 minutes and discharged home in stable condition after discharge criteria met and patient will follow up with the pain clinic in 2-4 weeks
[2022-07-14 10:58] VITALS: PULSE 71; RESP 14
[2022-07-14] MEDS ORDERED: IV FLUID CONTINUATION 1,000 ML IV ONE (11:03)
[2022-07-14 11:21] VITALS: BP 107/59
--- NOTE | 2022-07-14 12:04 | FL ---
Fluoroscopy History: Suhas Lumbar Facet suhas lumbar facet. dr. carroll. 27 sec fluoro time. 0.03632 DAP.
== END 2022-07-14 11:50 | disposition home or self-care (01) ==
LOC: ORPAIN 09:34
PROVIDERS: ATTEND Specialist
DX: M51.36 Other intervertebral disc degeneration, lumbar region (principal); M47.816 Spondylosis without myelopathy or radiculopathy, lumbar region; G89.29 Other chronic pain; I10 Essential (primary) hypertension; E78.5 Hyperlipidemia, unspecified; I25.10 Atherosclerotic heart disease of native coronary artery without angina pectoris; I49.9 Cardiac arrhythmia, unspecified; I48.91 Unspecified atrial fibrillation; G47.33 Obstructive sleep apnea (adult) (pediatric); E11.9 Type 2 diabetes mellitus without complications; Z88.6 Allergy status to analgesic agent; K21.9 Gastro-esophageal reflux disease without esophagitis; Z79.891 Long term (current) use of opiate analgesic; Z79.01 Long term (current) use of anticoagulants; Z79.899 Other long term (current) drug therapy
CPT/HCPCS: 64493; 64494 ×2; J2250; J1030; J3010; J2795

== ENCOUNTER → 2022-08-03 | Outpatient (CLI) | payer MEDICARE, OTHER ==
[2022-08-03 11:59] VITALS: BP 119/71; PULSE 65; RESP 20; TEMP 97.9
--- NOTE | 2022-08-03 14:31 | P.PAINPG ---
PQRS Measure Charge Sheet Comment: A 66 yr old female w at side with a history of severe and chronic LBP secondary to lumbar DDD and spondylosis with facet arthropathy without myelopathy presents today for evaluations/p BL facet block of hte medial branches L1-L2, L2-L3 #2. Pt states she experienced 80 % pain relief x 2 2ks s/p procedure. Pain level is provoked at 6/10 in intensity, constant, localized in the lumbar spine, stabbing in character w/o shooting pain. Pain is provoked by standing/ walking for periods of 20 min or more. Pain is alleviated with topicals, injections, heat, repositioning and rest. Interventional pain procedures completed include LESI, BL MBB L1-L3 x2 Patient is currently on topicals Patient denies any side effects of the medication(s), denies excessive drowsiness or sleepiness, denies suicidal ideation and reports that the current pain medication is helping to control the pain and improve activities of daily living. Patient denies any motor or sensory deficits. Patient denies any fever or night sweats, denies any change in the bowel movements or urination. Physical Examination: -Constitutional: Cooperative. Not in acute distress . - Neurologic: Cranial nerve II to XII intact. No focal neurological deficits. - Psychatric: Alert & oriented x 3. Matching mood & appropriate affect. Judgmen t and insight intact. - Musculoskeletal: Cervical spine: Muscle bulk/ tone/ strength in the bilateral upper extremities normal Vertebral body tenderness to palpation over Spurling test positive Distraction test positive Facet loading test positive TTP Thoracic spine Muscle bulk / tone/ strength in the bilateral paraspinal muscles normal Vertebral body tender to palpation over Facet loading test positive TTP Lumbar spine: Motor bulk/ tone/ strength lower extremities , thigh and legs : 5/5 Deep tendon reflexes : Normal Knee Jerk. Normal Ankle Jerk . Vertebral body tenderness to palpation over Lumbar Facet Loading Test positive TTP over BL L1-L2, L2-L3 facets Straight Leg Raise: positive at 30 degrees right side/ left side Gaenslen's Test positive Sacral spine : Severe tenderness over the Sacroiliac joint: right side / left side Range of motion: Flexion of the lumbar spine <60 degrees Range of motion: Extension of the lumbar spine <20 degrees Gaenslen's Test positive right side / left side Erum test: positive right side / left side Thigh Thrust Test positive right side / left side Sacral Thrust Test positive right side / left side Assessment and plan: Chronic LBP secondary to lumbar DDD, spondylosis with facet arthropathy without myelopathy Recommendation of BL RFA L1-L2, L2-L3. Pt experienced satisfactory pain relief w prior facet blocks of the medial branches. Risks, benefits of procedure discussed and pt verbalized understanding. Admits to anticoagulant use or medical history of diabetes. Protocol for discontinuation/ continuation of medications gifty procedure discussed. All questions answered. I have spent less than 30 minutes on patient care today. Dr Chung was available by phone for the evaluation of this patient. The time was used to review the medical records including relevant urine studies and Prescription history (MAPs), review of the available imaging, evaluation and examination of the patient, coordination of care with the medical staff and if applicable referring physicians, as well as creation of the medical record PQRS Narrative: Smoking Status Former smoker Hx Alcohol Use (MH) No Home Medications: Ambulatory Orders Enalapril Maleate [Vasotec] 10 mg PO HS 03/31/15 Hydrocodone/Acetaminophen [[place] 10-325] 1 tab PO Q4H PRN 03/31/15 Isosorbide Mononitrate ER [Imdur] 30 mg PO DAILY 03/31/15 Metoprolol Tartrate [Lopressor] 50 mg PO BID 03/31/15 Simvastatin [Zocor] 40 mg PO HS 04/01/15 ALPRAZolam [Xanax] 0.5 mg PO BID PRN 06/22/17 Anastrozole [Arimidex] 1 mg PO DAILY 04/18/18 Omeprazole 20 mg PO DAILY 04/18/18 Apixaban [Eliquis] 5 mg PO BID 01/02/22 Cholecalciferol [Vitamin D3 (25 Mcg = 1000 Iu)] 50 mcg PO DAILY 01/02/22 DULoxetine HCL [Cymbalta] 60 mg PO DAILY 01/02/22 Fluticasone Nasal [place] [Flonase Nasal [place]] 1 spray EA NOSTRIL DAILY PRN 01/02/22 Latanoprost/Pf [Latanoprost 0.005% Eye Drop] 1 drop RIGHT EYE HS 01/02/22 Diclofenac Sodium Gel [Voltaren Gel] 100 gm TOPICAL BID PRN 30 Days #1 kit 03/22/22 Furosemide [Lasix] 40 mg PO DAILY PRN 04/09/22 Flecainide [Tambocor] 50 mg PO Q12HR #60 tab 04/11/22 INSULIN ASPART (NovoLOG) [NovoLOG (formulary)] 7 unit SQ AC-TID 30 Days #1 each 04/11/22 INSULIN ASPART (NovoLOG) [NovoLOG (formulary)] See Protocol SQ ACHS 30 Days #1 each 04/11/22 Insulin Detemir (Levemir) [Levemir] 16 unit SQ HS 07/14/22 Controlled Substance Measures - Controlled Substance Measures Is patient prescribed a controlled substance at discharge?: No
== END ==
LOC: PNWHC3 10:41
PROVIDERS: ATTEND Specialist
DX: M51.36 Other intervertebral disc degeneration, lumbar region (principal); M47.816 Spondylosis without myelopathy or radiculopathy, lumbar region; G89.29 Other chronic pain; Z87.891 Personal history of nicotine dependence; Z88.5 Allergy status to narcotic agent
CPT/HCPCS: 99211

== ENCOUNTER 2022-09-08 06:48 | Day surgery (SDC) | payer MEDICARE, OTHER ==
[2022-09-06 15:47] VITALS: BMI 39.3
[2022-09-08] MEDS ORDERED: LACTATED RINGERS 1,000 ML IV SCH (07:10)
[2022-09-08] MEDS ORDERED: LIDOCAINE 1% (10MG/ML) FOR IV START INTRADERMA PRN (07:10)
[2022-09-08 07:43] VITALS: TEMP 97
[2022-09-08 07:43] LABS: Glucose,Whole Blood 145 mg/dL (70-110)
[2022-09-08] MEDS ORDERED: methylPREDNISolone ACETATE 40 MG/ML 1 ML VIAL ONE (08:17)
[2022-09-08] MEDS ORDERED: ROPIVACAINE 5 MG/ML 20 ML AMPULE ONE (08:17)
[2022-09-08] MEDS ORDERED: fentaNYL (PF) 50 MCG/ML 2 ML AMP ONE (08:17)
[2022-09-08] MEDS ORDERED: MIDAZOLAM 2 MG/2 ML VIAL ONE (08:17)
--- NOTE | 2022-09-08 08:51 | P.PCN ---
Date of Procedure: 09/08/22 Procedure(s) Performed: PREOPERATIVE DIAGNOSIS: 1-Lumbar Spondylosis with Facet Arthropathy without myelopathy. 2- Lumber degenerative disc disease. POSTOPERATIVE DIAGNOSIS: 1- Lumbar Spondylosis with Facet Arthropathy without myelopathy. 2- Lumber degenerative disc disease. PROCEDURES : Bilateral Radiofrequency thermocoagulation, L1 , L2 , and L3 medial branch, with fluoroscopic guidance (fluoroscopy images available in the radiology department) ( to denervate the facet joint at bilateral L1-2 ,and L2- 3 levels ). ANESTHESIA: Monitored anesthesia care as per anesthesia department . EBL: Minimal PROCEDURE INDICATION: The patient with low back pain secondary to lumbar facet arthropathy who had more than 50% relief of her pain with previous diagnostic lumbar medial branch block with bupivacaine. PROCEDURE DESCRIPTION / TECHNIQUE: The patient was seen and identified in the preoperative area. Risks, benefits, complications, including but not limited to risk of infection ,bleeding , allergic reactions to the medications and no complete pain releife , and alternatives were discussed with the patient, the patient agreed to proceed with the procedure and signed the consent. IV was started. Vital signs remained stable throughout the procedure. Patient was taken to the OR and time out was completed. The patient was placed in the prone position on the procedure table. The lumber area was prepped and draped in the usual sterile fashion. . Vital signs were closely monitored during the procedure .IV sedation was used during the procedure to decrease patients anxiety. Using AP and then oblique fluoroscopy, the ``eye of the Paul dog corresponding to the connection between the superior and transverse articular processes of right L1, L2, and L3 were identified, marked, and localized with 1% lidocaine. Subsequently, a [id number] radiofrequency cannula with a 10- mm active tip was advanced guided by fluoroscopy to each of the``eyes of the Paul dog at right L1, L2, and L3. Each site then underwent sensory testing at 50 Hz and 0 to 1 volt and motor testing at 2.5 Hz and 0 to 3 volt with local stimulation, but no radicular symptoms down the legs. Thereafter each sites underwent radiofrequency thermocoagulation at 80 degrees celsius for 90 seconds after injecting 0.5 ml of PF Ropivacaine 1ml, then after the thermocoagulation done , 1 ml of the block solution containing Depo-Medrol 20 mg and 3 ml of Ropivacaine 0.5% was injected at the right L1 , L2 , and L3 , levels after negative aspiration of CSF and blood and with no paresthesias. Cannulas were retracted while injecting lidocaine 1% until the needle is out. The same procedure was repeated at the level of Left L3, L4, and L5 levels. At the end of the procedure, the skin was cleansed and bandages were applied. COMPLICATIONS: No acute complications. DISPOSITION / PLANS: The patient was placed in a supine position and transferred to the recovery area in a stable condition for observation and was discharged from the recovery room after meeting discharge criteria. Home discharge instructions given to the patient by the staff. The patient was reexamined prior to discharge. The patient will schedule a follow up in the clin ic in 2-4 weeks.
[2022-09-08] MEDS ORDERED: IV FLUID CONTINUATION 750 ML IV ONE (08:52)
--- NOTE | 2022-09-08 08:55 | FL ---
EXAMINATION TYPE: FL guided pain mgmt statistic DATE OF EXAM: 09/08/2022 CLINICAL HISTORY: Low back pain. TECHNIQUE: Fluoroscopy. COMPARISON: None. FINDINGS: Fluoroscopic guidance was provided during pain relief procedure performed by Dr. Chung . A total of 28.0 seconds of fluoroscopic time was utilized during the procedure and 8 spot images a re acquired. Images acquired shows needle localization at multiple levels in the lumbar spine. IMPRESSION: As Above. Total DAP = 0.33484 mGy x m2
[2022-09-08 09:21] VITALS: BP 144/86; PULSE 77; RESP 20
== END 2022-09-08 09:21 | disposition home or self-care (01) ==
LOC: ORPAIN 06:48
PROVIDERS: ATTEND Specialist
DX: M51.36 Other intervertebral disc degeneration, lumbar region (principal); M47.816 Spondylosis without myelopathy or radiculopathy, lumbar region; I48.91 Unspecified atrial fibrillation; I10 Essential (primary) hypertension; I25.10 Atherosclerotic heart disease of native coronary artery without angina pectoris; E78.5 Hyperlipidemia, unspecified; F12.90 Cannabis use, unspecified, uncomplicated; Z79.01 Long term (current) use of anticoagulants; Z88.6 Allergy status to analgesic agent; Z87.891 Personal history of nicotine dependence; Z98.890 Other specified postprocedural states; Z79.899 Other long term (current) drug therapy
CPT/HCPCS: 64635; 64636 ×2; J2250; J1030; J3010; J2795

== ENCOUNTER 2022-10-16 09:58 | Inpatient (IN) | payer MEDICARE, OTHER ==
--- NOTE | 2022-10-16 10:45 | ED ---
General Adult HPI - General Source: patient, RN notes reviewed Mode of arrival: wheelchair Limitations: no limitations <Francia Whitman - Last Filed: 10/16/22 19:45> <Clotilde Foley - Last Filed: 10/18/22 08:57> - General Chief complaint: Dizziness Stated complaint: leg pain/weakness Time Seen by Provider: 10/16/22 10:14 - History of Present Illness Initial comments: 67-year-old female with past medical history significant for atrial fibrillation, hypertension, hyperlipidemia and obesity presents the emergency department with a chief complaint of generalized weaknes x a week and a half. She reports that both of her legs have had increased weakness. She describes accompanied symptoms of dizziness with change of position with a room is spinning. She has been taking her medications as prescribed. She does admit to taking Eliquis. She does admit to having some shortness of breath however she describes this is chronic in nature. (Francia Whitman) - Related Data Home Medications Medication Instructions Recorded Confirmed Enalapril Maleate [Vasotec] 10 mg PO HS 03/31/15 10/16/22 Hydrocodone/Acetaminophen [[place] 1 tab PO Q6H PRN 03/31/15 10/16/22 10-325] Isosorbide Mononitrate ER [Imdur] 30 mg PO DAILY 03/31/15 10/16/22 Metoprolol Tartrate [Lopressor] 50 mg PO BID 03/31/15 10/16/22 Simvastatin [Zocor] 40 mg PO HS 04/01/15 10/16/22 ALPRAZolam [Xanax] 0.5 mg PO BID PRN 06/22/17 10/16/22 Anastrozole [Arimidex] 1 mg PO DAILY 04/18/18 10/16/22 Omeprazole 20 mg PO DAILY 04/18/18 10/16/22 Apixaban [Eliquis] 5 mg PO BID 01/02/22 10/16/22 Cholecalciferol [Vitamin D3 (25 50 mcg PO DAILY 01/02/22 10/16/22 Mcg = 1000 Iu)] DULoxetine HCL [Cymbalta] 60 mg PO DAILY 01/02/22 10/16/22 Fluticasone Nasal [place] [Flonase 1 spr EA NOSTRIL DAILY PRN 01/02/22 10/16/22 Nasal [place]] Latanoprost/Pf [Latanoprost 0.005% 1 drop RIGHT EYE HS 01/02/22 10/16/22 Eye Drop] Furosemide [Lasix] 40 mg PO DAILY PRN 04/09/22 10/16/22 Insulin Detemir (Levemir) [Levemir] 21 unit SQ HS 07/14/22 10/16/22 Diclofenac Sodium Gel [Voltaren 1 applic TOPICAL BID PRN 09/06/22 10/16/22 Gel] Previous Rx's Medication Instructions Recorded Flecainide [Tambocor] 50 mg PO Q12HR #60 tab 04/11/22 Allergies Allergy/AdvReac Type Severity Reaction Status Date / Time morphine AdvReac Hypotension Verified 10/16/22 10:00 Review of Systems ROS Other: All systems not noted in ROS Statement are negative. <Francia Whitman - Last Filed: 10/16/22 19:45> ROS Other: All systems not noted in ROS Statement are negative. <Clotilde Foley - Last Filed: 10/18/22 08:57> ROS Statement: Those systems with pertinent positive or pertinent negative responses have been documented in the HPI. Past Medical History Past Medical History: Atrial Fibrillation, Coronary Artery Disease (CAD), Cancer, Diabetes Mellitus, GERD/Reflux, Hearing Disorder / Deafness, Hyperlipidemia, Hypertension, Osteoarthritis (OA), Pneumonia, Sleep Apnea/CPAP/BIPAP Additional Past Medical History / Comment(s): Bennett Cantrall; Breast Cancer, hx migraines, no cpap used, "fx back- SEPTEMBER 2021. Lower back pain, HARD OF HEARING, kidney stones History of Any Multi-Drug Resistant Organisms: None Reported Date of last positivie culture/infection: 09/16/21 ESBL E.coli MDRO Source:: Urine Past Surgical History: Breast Surgery, Section, Cholecystectomy, Heart Catheterization Additional Past Surgical History / Comment(s): left breast Lumpectomy, four heart catheterizations- no stents . left mastectomy. kidney surgery for blocked ureter. thien cataracts, PAIN CLINIC PROCEDURES Past Anesthesia/Blood Transfusion Reactions: No Reported Reaction Past Psychological History: Anxiety, Depression Smoking Status: Former smoker Past Alcohol Use History: None Reported Past Drug Use History: None Reported - Past Family History Mother Family Medical History: Cancer Father Family Medical History: Diabetes Mellitus <Francia Whitman - Last Filed: 10/16/22 19:45> General Exam Limitations: no limitations <Francia Whitman - Last Filed: 10/16/22 19:45> - General Exam Comments Initial Comments: General: Alert, in no acute distress Head: atraumatic normocephalic. Eyes PERRL, EOMI intact, mucous membranes moist Respiratory: Lungs clear to auscultation bilaterally Cardiovascular: Rate regular rate and rhythm Abdominal: Soft without guarding or rebound Extremities: Normal inspection with full range of motion and normal capillary refill Neuroogic: alert and oriented 3, CN II-XII intact, able to ambulate with steady gait Skin: warm dry and intact with normal color (Francia Whitman) Course <Francia Whitman - Last Filed: 10/16/22 19:45> Vital Signs 10/16/22 10/16/22 10/16/22 10:00 10:18 10:30 Temperature 98.9 F Pulse Rate 76 74 Respiratory 16 20 Rate Blood Pressure 95/63 125/63 125/63 O2 Sat by Pulse 94 L 92 L 94 L Oximetry 10/16/22 10/16/22 10/16/22 11:00 11:30 13:49 Temperature 99.1 F Pulse Rate 75 70 Respiratory 13 18 Rate Blood Pressure 96/80 117/78 100/57 O2 Sat by Pulse 94 L 93 L Oximetry 10/16/22 10/16/22 10/16/22 14:00 15:06 17:31 Temperature 98.9 F Pulse Rate 72 75 85 Respiratory 22 20 Rate Blood Pressure 100/57 117/76 123/65 O2 Sat by Pulse 91 L 93 L 94 L Oximetry - Reevaluation(s) Reevaluation #1: 10/16/22 12:[address] Guzman who agrees and accepts the patient for admission (Francia Whitman) EKG Findings - EKG Comments: EKG Findings:: I interpreted the following: EKG performed 10:44 rate 73 bpm normal sinus rhythm LA interval 170, QRS duration 113, QT/QTc 423/449 <Francia Whitman - Last Filed: 10/16/22 19:45> Medical Decision Making - Lab Data Result diagrams: 10/16/22 10:49 10/16/22 10:49 <Francia Whitman - Last Filed: 10/16/22 19:45> - Lab Data Result diagrams: 10/17/22 06:37 10/17/22 06:37 <AlainaClotilde Kaur - Last Filed: 10/18/22 08:57> - Medical Decision Making Was pt. sent in by a medical professional or institution (, [facility], [facility], urgent care, hospital, or residential...) When possible be specific @ -[No] Did you speak to anyone other than the patient for history (EMS, parent, family, police, friend...)? What history was obtained from this source @ -[No] Did you review nursing and triage notes (agree or disagree)? Why? @ -[I reviewed and agree with nursing and triage notes] Were old charts reviewed (outside hosp., previous admission, EMS record, old E KG, old radiological studies, urgent care reports/EKG's, residential records)? Report findings @ -[No old charts were reviewed] Differential Diagnosis (chest pain, altered mental status, abdominal pain women, abdominal pain men, vaginal bleeding, weakness, fever, dyspnea, syncope, headache, dizziness, GI bleed, back pain, seizure, CVA, palpatations, mental h ealth, musculoskeletal)? @ -[not applicable] EKG interpreted by me (3pts min.). @ -[As above] X-rays interpreted by me (1pt min.). @ -[None done] CT interpreted by me (1pt min.). @ -[None done] U/S interpreted by me (1pt. min.). @ -[None done] What testing was considered but not performed or refused? (CT, X-rays, U/S, labs)? Why? @ -[None] What meds were considered but not given or refused? Why? @ -[None] Did you discuss the management of the patient with other professionals (professionals i.e. DENIZ Paez, [facility], lab, RT, psych nurse, social work program coordinator, globe cleaner, teacher, systems support officer, spring encaser)? Give summary @ -[No] Was smoking cessation discussed for >3mins.? @ -[No] Was critical care preformed (if so, how long)? @ -[No] Were there social determinants of health that impacted care today? How? (Homelessness, low income, unemployed, alcoholism, drug addiction, transportation, low edu. Level, literacy, decrease access to med. care, [facility], rehab)? @ -[No] Was there de-escalation of care discussed even if they declined (Discuss DNR or withdrawal of care, Hospice)? DNR status @ -[No] What co-morbidities impacted this encounter? (DM, HTN, Smoking, COPD, CAD, Cancer, CVA, ARF, Chemo, Hep., AIDS, mental health diagnosis, sleep apnea, morb id obesity)? @ -[None] Was patient admitted / discharged? Hospital course, mention meds given and route, prescriptions, significant lab abnormalities, going to OR and other pertinent info. @ -Admission. This is a 67-year-old female who presents to the emergency department with generalized weakness. Patient had a thorough history and physical exam performed on the ED. Heart rate regular, lungs diminished in all cristina. Patient is hypoxic with oxygen saturation 92-94%. He should had lab work and imaging performed which revealed WBC 7.1, hemoglobin 12.6 sodium 133, potassium 2.9 UN 19, creatinine 0.90 initial troponin 0.012, BNP 2530 Covid influenza and RSV were negative. Chest x-ray reveals right upper lobe by basilar pneumonia. I discussed the results in detail with the patient verbalized understanding all questions were addressed. She is agreeable with the plan for admission. She'll be started on azithromycin and ceftriaxone. Case discussed with Dr. Guzman, who agrees and accepts the patient for admission. He said discussed with Dr. Foley, [facility] who agrees with plan of care Undiagnosed new problem with uncertain prognosis? @ -[No] Drug Therapy requiring intensive monitoring for toxicity (Heparin, Nitro, Insulin, Cardizem)? @ -[No] Were any procedures done? @ -[No] Diagnosis/symptom? @ -Generalized weakness - Community-acquired pneumonia - Hypoxia Acute, or Chronic, or Acute on Chronic? @ -Acute Uncomplicated (without systemic symptoms) or Complicated (systemic symptoms)? @ -Complicated Side effects of treatment? @ -[No] Exacerbation, Progression, or Severe Exacerbation? @ -[No] Poses a threat to life or bodily function? How? (Chest pain, [place], [place], pneumonia, PE, COPD, DKA, ARF, appy, cholecystitis, CVA, Diverticulitis, Homicidal, Suicidal, threat to staff... and all critical care pts) @ -high likelihood (Francia Whitman) - Lab Data Lab Results 10/16/22 10/16/22 10/16/22 Range/Units 10:49 10:49 10:49 WBC 7.1 (3.8-10.6) k/uL RBC 4.66 (3.80-5.40) m/uL Hgb 12.6 (11.4-16.0) gm/dL Hct 39.2 (34.0-46.0) % MCV 84.1 (80.0-100.0) fL MCH 27.1 (25.0-35.0) pg MCHC 32.2 (31.0-37.0) g/dL RDW 15.6 H (11.5-15.5) % Plt Count 186 (150-450) k/uL MPV 7.4 Neutrophils % 82 % Lymphocytes % 8 % Monocytes % 7 % Eosinophils % 1 % Basophils % 0 % Neutrophils # 5.9 (1.3-7.7) k/uL Lymphocytes # 0.6 L (1.0-4.8) k/uL Monocytes # 0.5 (0-1.0) k/uL Eosinophils # 0.1 (0-0.7) k/uL Basophils # 0.0 (0-0.2) k/uL PT 11.5 (9.0-12.0) sec INR 1.1 (<1.2) APTT 25.9 (22.0-30.0) sec Sodium (137-145) mmol/L Potassium (3.5-5.1) mmol/L Chloride (98-107) mmol/L Carbon Dioxide (22-30) mmol/L Anion Gap mmol/L BUN (7-17) mg/dL Creatinine (0.52-1.04) mg/dL Est GFR (CKD-EPI)AfAm (>60 ml/min/1.73 sqM) Est GFR (CKD-EPI)NonAf (>60 ml/min/1.73 sqM) Glucose (74-99) mg/dL Calcium (8.4-10.2) mg/dL Total Bilirubin (0.2-1.3) mg/dL AST (14-36) U/L ALT (4-34) U/L Alkaline Phosphatase (38-126) U/L Troponin I (0.000-0.034) ng/mL NT-Pro-B Natriuret Pep pg/mL Total Protein (6.3-8.2) g/dL Albumin (3.5-5.0) g/dL Urine Color Yellow Urine Appearance Cloudy H (Clear) Urine pH 5.5 (5.0-8.0) Ur Specific [place] 1.024 (1.001-1.035) Urine Protein 1+ H (Negative) Urine Glucose (UA) Negative (Negative) Urine Ketones Trace H (Negative) Urine Blood Trace H (Negative) Urine Nitrite Negative (Negative) Urine Bilirubin Negative (Negative) Urine Urobilinogen 3.0 (<2.0) mg/dL Ur Leukocyte Esterase Trace H (Negative) Urine RBC 3 (0-5) /hpf Urine WBC 5 (0-5) /hpf Ur Squamous Epith Cells 9 H (0-4) /hpf Urine Bacteria Rare H (None) /hpf Hyaline Casts 35 H (0-2) /lpf Urine Mucus Many H (None) /hpf Influenza Type A (PCR) (Not Detectd) Influenza Type B (PCR) (Not Detectd) Urine Legionella Ag (Negative) RSV (PCR) (Not Detectd) SARS-CoV-2 (PCR) (Not Detectd) 10/16/22 10/16/22 10/16/22 Range/Units 10:49 10:49 10:49 WBC (3.8-10.6) k/uL RBC (3.80-5.40) m/uL Hgb (11.4-16.0) gm/dL Hct (34.0-46.0) % MCV (80.0-100.0) fL MCH (25.0-35.0) pg MCHC (31.0-37.0) g/dL RDW (11.5-15.5) % Plt Count (150-450) k/uL MPV Neutrophils % % Lymphocytes % % Monocytes % % Eosinophils % % Basophils % % Neutrophils # (1.3-7.7) k/uL Lymphocytes # (1.0-4.8) k/uL Monocytes # (0-1.0) k/uL Eosinophils # (0-0.7) k/uL Basophils # (0-0.2) k/uL PT (9.0-12.0) sec INR (<1.2) APTT (22.0-30.0) sec Sodium 133 L (137-145) mmol/L Potassium 3.9 (3.5-5.1) mmol/L Chloride 98 (98-107) mmol/L Carbon Dioxide 25 (22-30) mmol/L Anion Gap 10 mmol/L BUN 19 H (7-17) mg/dL Creatinine 0.90 (0.52-1.04) mg/dL Est GFR (CKD-EPI)AfAm 76 (>60 ml/min/1.73 sqM) Est GFR (CKD-EPI)NonAf 66 (>60 ml/min/1.73 sqM) Glucose 171 H (74-99) mg/dL Calcium 8.8 (8.4-10.2) mg/dL Total Bilirubin 2.1 H (0.2-1.3) mg/dL AST 30 (14-36) U/L ALT 21 (4-34) U/L Alkaline Phosphatase 66 (38-126) U/L Troponin I <0.012 (0.000-0.034) ng/mL NT-Pro-B Natriuret Pep 2530 pg/mL Total Protein 7.1 (6.3-8.2) g/dL Albumin 3.7 (3.5-5.0) g/dL Urine Color Urine Appearance (Clear) Urine pH (5.0-8.0) Ur Specific [place] (1.001-1.035) Urine Protein (Negative) Urine Glucose (UA) (Negative) Urine Ketones (Negative) Urine Blood (Negative) Urine Nitrite (Negative) Urine Bilirubin (Negative) Urine Urobilinogen (<2.0) mg/dL Ur Leukocyte Esterase (Negative) Urine RBC (0-5) /hpf Urine WBC (0-5) /hpf Ur Squamous Epith Cells (0-4) /hpf Urine Bacteria (None) /hpf Hyaline Casts (0-2) /lpf Urine Mucus (None) /hpf Influenza Type A (PCR) Not Detected (Not Detectd) Influenza Type B (PCR) Not Detected (Not Detectd) Urine Legionella Ag (Negative) RSV (PCR) Not Detected (Not Detectd) SARS-CoV-2 (PCR) Not Detected (Not Detectd) 10/16/22 Range/Units 10:49 WBC (3.8-10.6) k/uL RBC (3.80-5.40) m/uL Hgb (11.4-16.0) gm/dL Hct (34.0-46.0) % MCV (80.0-100.0) fL MCH (25.0-35.0) pg MCHC (31.0-37.0) g/dL RDW (11.5-15.5) % Plt Count (150-450) k/uL MPV Neutrophils % % Lymphocytes % % Monocytes % % Eosinophils % % Basophils % % Neutrophils # (1.3-7.7) k/uL Lymphocytes # (1.0-4.8) k/uL Monocytes # (0-1.0) k/uL Eosinophils # (0-0.7) k/uL Basophils # (0-0.2) k/uL PT (9.0-12.0) sec INR (<1.2) APTT (22.0-30.0) sec Sodium (137-145) mmol/L Potassium (3.5-5.1) mmol/L Chloride (98-107) mmol/L Carbon Dioxide (22-30) mmol/L Anion Gap mmol/L BUN (7-17) mg/dL Creatinine (0.52-1.04) mg/dL Est GFR (CKD-EPI)AfAm (>60 ml/min/1.73 sqM) Est GFR (CKD-EPI)NonAf (>60 ml/min/1.73 sqM) Glucose (74-99) mg/dL Calcium (8.4-10.2) mg/dL Total Bilirubin (0.2-1.3) mg/dL AST (14-36) U/L ALT (4-34) U/L Alkaline Phosphatase (38-126) U/L Troponin I (0.000-0.034) ng/mL NT-Pro-B Natriuret Pep pg/mL Total Protein (6.3-8.2) g/dL Albumin (3.5-5.0) g/dL Urine Color Urine Appearance (Clear) Urine pH (5.0-8.0) Ur Specific [place] (1.001-1.035) Urine Protein (Negative) Urine Glucose (UA) (Negative) Urine Ketones (Negative) Urine Blood (Negative) Urine Nitrite (Negative) Urine Bilirubin (Negative) Urine Urobilinogen (<2.0) mg/dL Ur Leukocyte Esterase (Negative) Urine RBC (0-5) /hpf Urine WBC (0-5) /hpf Ur Squamous Epith Cells (0-4) /hpf Urine Bacteria (None) /hpf Hyaline Casts (0-2) /lpf Urine Mucus (None) /hpf Influenza Type A (PCR) (Not Detectd) Influenza Type B (PCR) (Not Detectd) Urine Legionella Ag Negative (Negative) RSV (PCR) (Not Detectd) SARS-CoV-2 (PCR) (Not Detectd) Disposition Is patient prescribed a controlled substance at d/c from ED?: No Time of Disposition: 12:15 <Francia Whitman - Last Filed: 10/16/22 19:45> <Clotilde Foley - Last Filed: 10/18/22 08:57> Clinical Impression: Weakness, Community acquired pneumonia, Hypoxia Disposition: ADMITTED IP TO THIS HOSP Condition: Fair
[2022-10-16 11:00] LABS: Basophils % (A) 0 %; Eosinophils # (A) 0.1 k/uL (0-0.7); Eosinophils % (A) 1 %; HCT 39.2 % (34.0-46.0); HGB 12.6 gm/dL (11.4-16.0); Lymphocytes # (A) 0.6 k/uL (1.0-4.8); Lymphocytes % (A) 8 %; MCH 27.1 pg (25.0-35.0); MCHC 32.2 g/dL (31.0-37.0); MCV 84.1 fL (80.0-100.0); Mean Platelet Volume 7.4; Monocytes # (A) 0.5 k/uL (0-1.0); Monocytes % (A) 7 %; Neutrophils # (A) 5.9 k/uL (1.3-7.7); Neutrophils % (A) 82 %; Platelet Count 186 k/uL (150-450); RBC 4.66 m/uL (3.80-5.40); RDW 15.6 % (11.5-15.5); WBC 7.1 k/uL (3.8-10.6)
--- NOTE | 2022-10-16 11:08 | CT ---
EXAMINATION TYPE: CT brain wo con DATE OF EXAM: 10/16/2022 COMPARISON: none HISTORY: Dizziness and weakness. CT DLP: 1231.[address] of the brain was performed. The ventricles, basal cisterns and sulci overlying the cerebral convexities demonstrate mild enlargem ent. There is no evidence for intracranial hemorrhage or sulcal effacement. There is decreased attenuation about the periventricular white matter and deep white matter of both c erebral hemispheres, compatible with chronic small vessel ischemia. Differential diagnosis does inclu de demyelination. No mass effects are seen.No midline shift. Osseous calvarium is intact. If symptoms persist consider MRI. IMPRESSION: 1. Age related atrophic and chronic small vessel ischemic change without acute intracranial process s een at this time.
[2022-10-16 11:11] LABS: ALT 21 U/L (4-34); AST 30 U/L (14-36); African American GFR (CKD) 76 (>60 ml/min/1.73 sqM); Albumin 3.7 g/dL (3.5-5.0); Alkaline Phosphatase 66 U/L (38-126); Anion Gap 10 mmol/L; Blood Urea Nitrogen 19 mg/dL (7-17); Calcium 8.8 mg/dL (8.4-10.2); Carbon Dioxide 25 mmol/L (22-30); Chloride 98 mmol/L (98-107); Glucose 171 mg/dL (74-99); Non-African American GFR(CKD) 66 (>60 ml/min/1.73 sqM); Potassium 3.9 mmol/L (3.5-5.1); Sodium 133 mmol/L (137-145); Total Bilirubin 2.1 mg/dL (0.2-1.3); Total Protein 7.1 g/dL (6.3-8.2)
[2022-10-16 11:12] LABS: INR 1.1 (<1.2); Partial Thromboplastin Time 25.9 sec (22.0-30.0); Prothrombin Time 11.5 sec (9.0-12.0)
[2022-10-16 11:19] LABS: NT-Pro-B-Type Natriuretic Pept 2530 pg/mL
--- NOTE | 2022-10-16 11:22 | XR ---
EXAMINATION TYPE: XR chest 2V DATE OF EXAM: 10/16/2022 COMPARISON: 04/09/2022 HISTORY: Shortness of breath TECHNIQUE: Frontal and lateral views of the chest are obtained. FINDINGS: Scattered senescent parenchymal changes noted. Hyperinflation compatible with COPD. Infiltrates right upper lobe and bibasilar regions. Correlate for pneumonia Heart size is stable. Mediastinal structures are stable and grossly unremarkable. No evidence for hilar prominence. Degenerative changes dorsal spine. IMPRESSION: 1. Infiltrates right upper lobe and bibasilar regions. Correlate for pneumonia
[2022-10-16] MEDS ORDERED: PNEUMONIA PROTOCOL UTILIZED 1 EACH MISC PO PRN (12:16)
[2022-10-16] MEDS ORDERED: AZITHROMYCIN 500 MG in SODIUM CHLORIDE 0.9% 250 ML IVPB STA (12:16)
[2022-10-16] MEDS ORDERED: ACETAMINOPHEN TAB 325 MG TAB PO PRN (12:19)
[2022-10-16] MEDS ORDERED: NALOXONE 0.4 MG/ML 1 ML VIAL IV PRN (12:19)
[2022-10-16] MEDS ORDERED: SODIUM CHLORIDE 0.9% 1,000 ML IV SCH (12:30)
[2022-10-16] MEDS ORDERED: DICLOFENAC SODIUM GEL 100 GM TUBE TOPICAL PRN (13:21)
[2022-10-16] MEDS ORDERED: ALPRAZolam 0.5 MG TAB PO PRN (13:21)
[2022-10-16] MEDS ORDERED: HYDROcodone/APAP 10-325MG 1 EACH TAB PO PRN (13:22)
[2022-10-16] MEDS ORDERED: FUROSEMIDE 40 MG TAB PO PRN (13:22)
[2022-10-16] MEDS: SODIUM CHLORIDE 0.9% 1,000 ML IV SCH (13:30)
[2022-10-16 17:50] LABS: Appearance,Urine Cloudy (Clear); Bacteria,Urine Rare /hpf; Bilirubin,Urine Negative (Negative); Blood,Urine Trace (Negative); Color,Urine Yellow; Glucose,Urine (UA) Negative (Negative); Hyaline Casts,Urine 35 /lpf (0-2); Ketones,Urine Trace (Negative); Leukocyte Esterase,Urine Trace (Negative); Mucus,Urine Many /hpf; Nitrite,Urine Negative (Negative); PH, Urine 5.5 (5.0-8.0); Protein,Urine 1+ (Negative); RBC,Urine 3 /hpf (0-5); Specific Gravity,Urine 1.024 (1.001-1.035); Squamous Epithelial Cell,Urine 9 /hpf (0-4); WBC,Urine 5 /hpf (0-5)
[2022-10-16 20:16] LABS: Glucose,Whole Blood 162 mg/dL (70-110)
[2022-10-16] MEDS: ATORVASTATIN 20 MG TAB PO SCH (21:39)
[2022-10-16] MEDS: LATANOPROST 0.005% OPHTH DROPS 2.5 ML BTL RIGHT EYE SCH (21:39)
[2022-10-16] MEDS: METOPROLOL TARTRATE 50 MG TAB PO SCH (21:39)
[2022-10-16] MEDS: FLECAINIDE 50 MG TAB PO SCH (21:39)
[2022-10-16] MEDS: APIXABAN 5 MG TAB PO SCH (21:39)
[2022-10-16] MEDS: lisinopriL 20 MG TAB PO SCH (21:39)
[2022-10-16] MEDS: INSULIN DETEMIR (LEVEMIR) 100 UNIT/ML SYR SQ SCH (21:46)
--- NOTE | 2022-10-16 22:45 | P.HPIM ---
History of Present Illness H&P Date: 10/16/22 Chief Complaint: Multiple neurological symptoms This is a pleasant 67-year-old patient who follows with Dr. Jean Uriarte. Patient has pus history of [place] a syndrome. Has neuropathy with weakness of lower extremity chronically. Waist down. Does normally walk slowly without any walking aids. About 10 days ago suddenly patient became dizzy. Slight decreased hearing. [place] she was getting a slightly confused. Increasing leg weakness. No change in bowel or urine patent. Also felt both him to be weak. Notice gradual weakening. Decided to come in. Patient has noticed getting a bit more short of breath with activity. No fever no chills. No diarrhea. No back pain. Review of systems: GEN.: Tired EYES: None HEENT: None NECK: None RESPIRATORY: As above CARDIOVASCULAR: No chest pain GASTROINTESTINAL: None GENITOURINARY: None MUSCULOSKELETAL: Joint pains LYMPHATICS: None HEMATOLOGICAL: None PSYCHIATRY: None NEUROLOGICAL: As above Past medical history to include: Atrial fibrillation, diabetes mellitus, GERD, hard of hearing, hypertension, hyperlipidemia, osteoarthritis, obstructive sleep apnea, GB syndrome, breast cancer treated, kidney stones, anxiety depression Social history: Lives alone. Smoked for 35 years. Stopped in 2007. 2 packs a day. No alcohol Physical examination: VITAL SIGNS: 99.1, 70, 18, 100/57, 93% room air GENERAL: BMI 39.3, laying but awake not in distress. EYES: Pupils equal. Conjunctiva normal. HEENT: External appearance of nose and ears normal, oral cavity grossly normal. NECK: JVD not raised; masses not palpable. HEART: First and second heart sounds are normal; no edema. LUNGS: Respiratory rate normal; decreased breath sounds. ABDOMEN: Soft, nontender, liver spleen not palpable, no masses palpable. PSYCH: Alert and oriented x3; mood and affect normal. MUSCULOSKELETAL:No Clubbing/cyanosis;muscles-grossly intact NEUROLOGICAL: [Cranial nerves grossly intact; no facial asymmetry, straight leg raising right leg about 20. Left leg about 60. Power in both the arms about 4/5. Decreased erecting engineer strength LYMPHATICS: No lymph nodes palpable in the axilla and neck INVESTIGATIONS, reviewed in the clinical context: White count 7.1 hemoglobin 12.6 platelets 186 sodium 133 potassium 3.9 creatinine 0.9 ProBNP 2530 troponin I less than 0.012 Influenza type A, diabetes, RSV, COVID-19: Not detected Chest x-ray film personally reviewed by me-some infiltrates CT brain: Age-related chronic changes. Assessment and plan: -Patient presents in 1 week of increased weakness in the upper extremity and lo wer extremity. No neck pain. Accompanied by some episodes of confusion. Dizziness. 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 Able to walk slowly. No fever no chills. Consults neurology. -Questionable pneumonia. Patient does have shortness of breath. No fever. No white count. Empirically give ceftriaxone. Check pro calcitonin. If negative will DC the same. -Obesity BMI 39.3 Weight loss measures -Hyperlipidemia Zocor 40 mg daily at bedtime -GERD Omeprazole 20 mg daily -Essential hypertension Lopressor 50 mg twice a day. Vasotec -Diabetes mellitus type 2, chronically on insulin Follow Accu-Cheks -Depression and anxiety Serax, Cymbalta -Paroxysmal atrial fibrillation Eliquis. Lopressor. Flecainide -Full code Discussed with patient. Consult neurology. Check pro calcitonin. Past Medical History Past Medical History: Atrial Fibrillation, Coronary Artery Disease (CAD), Cancer, Diabetes Mellitus, GERD/Reflux, Hearing Disorder / Deafness, Hyperlipidemia, Hypertension, Osteoarthritis (OA), Pneumonia, Sleep Apnea/CPAP/BIPAP Additional Past Medical History / Comment(s): Bennett Baxter; Breast Cancer, hx migraines, no cpap used, "fx back- SEPTEMBER 2021. Lower back pain, HARD OF HEARING, kidney stones History of Any Multi-Drug Resistant Organisms: None Reported Date of last positivie culture/infection: 09/16/21 ESBL E.coli MDRO Source:: Urine Past Surgical History: Breast Surgery, Section, Cholecystectomy, Heart Catheterization Additional Past Surgical History / Comment(s): left breast Lumpectomy, four heart catheterizations- no stents . left mastectomy. kidney surgery for blocked ureter. thien cataracts, PAIN CLINIC PROCEDURES Past Anesthesia/Blood Transfusion Reactions: No Reported Reaction Past Psychological History: Anxiety, Depression Smoking Status: Former smoker Past Alcohol Use History: None Reported Past Drug Use History: None Reported - Past Family History Mother Family Medical History: Cancer Father Family Medical History: Diabetes Mellitus Medications and Allergies Home Medications Medication Instructions Recorded Confirmed Type Enalapril Maleate [Vasotec] 10 mg PO HS 03/31/15 10/16/22 History Hydrocodone/Acetaminophen [[place] 1 tab PO Q6H PRN 03/31/15 10/16/22 History 10-325] Isosorbide Mononitrate ER [Imdur] 30 mg PO DAILY 03/31/15 10/16/22 History Metoprolol Tartrate [Lopressor] 50 mg PO BID 03/31/15 10/16/22 History Simvastatin [Zocor] 40 mg PO HS 04/01/15 10/16/22 History ALPRAZolam [Xanax] 0.5 mg PO BID PRN 06/22/17 10/16/22 History Anastrozole [Arimidex] 1 mg PO DAILY 04/18/18 10/16/22 History Omeprazole 20 mg PO DAILY 04/18/18 10/16/22 History Apixaban [Eliquis] 5 mg PO BID 01/02/22 10/16/22 History Cholecalciferol [Vitamin D3 (25 50 mcg PO DAILY 01/02/22 10/16/22 History Mcg = 1000 Iu)] DULoxetine HCL [Cymbalta] 60 mg PO DAILY 01/02/22 10/16/22 History Fluticasone Nasal [place] [Flonase 1 spr EA NOSTRIL DAILY PRN 01/02/22 10/16/22 History Nasal [place]] Latanoprost/Pf [Latanoprost 0.005% 1 drop RIGHT EYE HS 01/02/22 10/16/22 History Eye Drop] Furosemide [Lasix] 40 mg PO DAILY PRN 04/09/22 10/16/22 History Flecainide [Tambocor] 50 mg PO Q12HR #60 tab 04/11/22 10/16/22 Rx Insulin Detemir (Levemir) [Levemir] 21 unit SQ HS 07/14/22 10/16/22 History Diclofenac Sodium Gel [Voltaren 1 applic TOPICAL BID PRN 09/06/22 10/16/22 History Gel] Allergies Allergy/AdvReac Type Severity Reaction Status Date / Time morphine AdvReac Hypotension Verified 10/16/22 10:00 Physical Exam Vitals: Vital Signs Temp Pulse Resp BP Pulse Ox 10/16/22 11:30 75 13 117/78 94 L 10/16/22 11:00 96/80 10/16/22 10:30 125/63 94 L 10/16/22 10:18 74 20 125/63 92 L 10/16/22 10:00 98.9 F 76 16 95/63 94 L Intake and Output 10/15/22 10/16/22 10/16/22 22:59 06:59 14:59 Other: Weight 131.542 kg Results CBC & Chem 7: 10/16/22 10:49 10/16/22 10:49 Labs: Abnormal Lab Results - Last 24 Hours (Table) 10/16/22 10/16/22 Range/Units 10:49 10:49 RDW 15.6 H (11.5-15.5) % Lymphocytes # 0.6 L (1.0-4.8) k/uL Sodium 133 L (137-145) mmol/L BUN 19 H (7-17) mg/dL Glucose 171 H (74-99) mg/dL Total Bilirubin 2.1 H (0.2-1.3) mg/dL
[2022-10-17 06:25] LABS: Glucose,Whole Blood 121 mg/dL (70-110)
--- NOTE | 2022-10-17 08:00 | XR ---
EXAMINATION TYPE: XR chest 2V DATE OF EXAM: 10/17/2022 COMPARISON: 10/16/2022 INDICATION: Pneumonia TECHNIQUE: Frontal and lateral views of the chest are obtained. FINDINGS: The heart size is normal. The pulmonary vasculature is normal. There is improving patchy infiltrate in the left base. Persistent right upper lobe infiltrate is pres ent. Some mild infiltrates through the right posterior lower lobe.. IMPRESSION: 1. Right upper lobe and bibasilar infiltrates. Correlate for pneumonia.
[2022-10-17] MEDS: ANASTROZOLE 1 MG TAB PO SCH (08:17)
[2022-10-17] MEDS: CHOLECALCIFEROL 25 MCG (1000 IU) TABLET PO SCH (08:17)
[2022-10-17] MEDS: PANTOPRAZOLE 40 MG TABLET PO SCH (08:17)
[2022-10-17] MEDS: FLECAINIDE 50 MG TAB PO SCH ×2 (08:17→21:00)
[2022-10-17] MEDS: DULoxetine HCL 60 MG CAPSULE.DR PO SCH (08:17)
[2022-10-17] MEDS: APIXABAN 5 MG TAB PO SCH ×2 (08:17→21:00)
[2022-10-17] MEDS: METOPROLOL TARTRATE 50 MG TAB PO SCH ×2 (08:17→21:00)
[2022-10-17] MEDS ORDERED: ISOSORBIDE MONONITRATE ER 30 MG TAB.ER.24H PO SCH (09:00)
[2022-10-17] MEDS: AZITHROMYCIN 500 MG TAB PO SCH (09:57)
[2022-10-17 10:22] LABS: Calcium 9.8 mg/dL (8.7-10.3); Carbon Dioxide 23.4 mmol/L (21.6-31.8); Chloride 101 mmol/L (96-109); Glucose 119 mg/dL (70-110); Potassium 4.1 mmol/L (3.5-5.5); Sodium 140 mmol/L (135-145)
[2022-10-17 10:30] LABS: Basophils # (A) 0.03 X 10*3/uL (0.00-0.10); Basophils % (A) 0.4 %; Eosinophils % (A) 1.5 %; HCT 47.4 % (37.2-46.3); HGB 14.9 d/dL (12.0-15.0); Lymphocytes # (A) 1.36 X 10*3/uL (0.90-5.00); Lymphocytes % (A) 19.8 %; MCH 26.6 pg (27.0-32.0); MCHC 31.4 d/dL (32.0-37.0); MCV 84.5 FL (80.0-97.0); Mean Platelet Volume 10.5 FL (9.5-12.2); Monocytes # (A) 0.86 X 10*3/uL (0.20-1.00); Monocytes % (A) 12.5 %; NRBC Per 100 WBC 0 X 10*3/uL (0.00-0.01); Neutrophils # (A) 4.49 X 10*3/uL (1.80-7.70); Neutrophils % (A) 65.2 %; Platelet Count 226 X 10*3/uL (140-440); RBC 5.61 X 10*6/uL (4.10-5.20); RDW 15.2 % (11.5-14.5); WBC 6.88 X 10*3/uL (4.50-10.00)
[2022-10-17 11:50] LABS: Glucose,Whole Blood 135 mg/dL (70-110)
--- NOTE | 2022-10-17 12:58 | P.CNNES ---
History of Present Illness Consult date: 10/17/22 Requesting physician: Jose Guzman Reason for Consult: arm/leg weakness progressive History of Present Illness: This is a 67-year-old woman who presented emergency department because of generalized weakness for the past 1 week. She notified the ED team that the symptoms has been going on for the last 1 week and a half. She notify me she's been feeling dizzy during that duration, the dizziness is mostly with ambulat ion. As she did feel some nausea and the vomiting a few times initially that resolved. She feels the room is spinning. She denies any ringing in the ears. She denies any visual disturbance, focal weakness, numbness, difficulty swallowing or getting her words out. She does have history of atrial fibrillation and is on eliquis which she is compliant taking medications. She denies any history of stroke. Denies any history of fevers recently or diarrhea. She denies of any neck pain currently. Some other workup during his hospital visit consisted of: Pulse ox has been in the range of 91-[address] of the brain is reported as age-related atrophy and chronic small vessel ischemic change without acute intracranial process seen at this time. I personally reviewed the CT and agreed acute ischemia. There is no bleed. Chest x-ray is reported as infiltrated right upper lobe and basilar region. Correlate for pneumonia. Review of Systems Review of system: The 12 point system was reviewed and apparent positive and negative per HPI. Past Medical History Past Medical History: Atrial Fibrillation, Coronary Artery Disease (CAD), Cancer, Diabetes Mellitus, GERD/Reflux, Hearing Disorder / Deafness, Hyperlipidemia, Hypertension, Osteoarthritis (OA), Pneumonia, Sleep Apnea/CPAP/BIPAP Additional Past Medical History / Comment(s): [employer]; Breast Cancer, hx migraines, no cpap used, "fx back- SEPTEMBER 2021. Lower back pain, HARD OF HEARING, kidney stones History of Any Multi-Drug Resistant Organisms: None Reported Date of last positivie culture/infection: 09/16/21 ESBL E.coli MDRO Source:: Urine Past Surgical History: Breast Surgery, Section, Cholecystectomy, Heart Catheterization Additional Past Surgical History / Comment(s): left breast Lumpectomy, four heart catheterizations- no stents . left mastectomy. kidney surgery for blocked ureter. thien cataracts, PAIN CLINIC PROCEDURES Past Anesthesia/Blood Transfusion Reactions: No Reported Reaction Past Psychological History: Anxiety, Depression Smoking Status: Former smoker Past Alcohol Use History: None Reported Past Drug Use History: None Reported - Past Family History Mother Family Medical History: Cancer Father Family Medical History: Diabetes Mellitus Medications and Allergies Home Medications Medication Instructions Recorded Confirmed Type Enalapril Maleate [Vasotec] 10 mg PO HS 03/31/15 10/16/22 History Hydrocodone/Acetaminophen [[place] 1 tab PO Q6H PRN 03/31/15 10/16/22 History 10-325] Isosorbide Mononitrate ER [Imdur] 30 mg PO DAILY 03/31/15 10/16/22 History Metoprolol Tartrate [Lopressor] 50 mg PO BID 03/31/15 10/16/22 History Simvastatin [Zocor] 40 mg PO HS 04/01/15 10/16/22 History ALPRAZolam [Xanax] 0.5 mg PO BID PRN 06/22/17 10/16/22 History Anastrozole [Arimidex] 1 mg PO DAILY 04/18/18 10/16/22 History Omeprazole 20 mg PO DAILY 04/18/18 10/16/22 History Apixaban [Eliquis] 5 mg PO BID 01/02/22 10/16/22 History Cholecalciferol [Vitamin D3 (25 50 mcg PO DAILY 01/02/22 10/16/22 History Mcg = 1000 Iu)] DULoxetine HCL [Cymbalta] 60 mg PO DAILY 01/02/22 10/16/22 History Fluticasone Nasal [place] [Flonase 1 spr EA NOSTRIL DAILY PRN 01/02/22 10/16/22 History Nasal [place]] Latanoprost/Pf [Latanoprost 0.005% 1 drop RIGHT EYE HS 01/02/22 10/16/22 History Eye Drop] Furosemide [Lasix] 40 mg PO DAILY PRN 04/09/22 10/16/22 History Flecainide [Tambocor] 50 mg PO Q12HR #60 tab 04/11/22 10/16/22 Rx Insulin Detemir (Levemir) [Levemir] 21 unit SQ HS 07/14/22 10/16/22 History Diclofenac Sodium Gel [Voltaren 1 applic TOPICAL BID PRN 09/06/22 10/16/22 History Gel] Allergies Allergy/AdvReac Type Severity Reaction Status Date / Time morphine AdvReac Hypotension Verified 10/16/22 10:00 Physical Examination - Vital Signs Vital Signs: Vital Signs Temp Pulse Pulse Resp BP BP Pulse Ox 10/17/22 09:41 96 10/17/22 07:16 98.2 F 107 H 18 93/55 96 10/17/22 01:20 98.4 F 110 H 20 110/71 91 L 10/16/22 18:54 98 F 74 20 112/66 95 10/16/22 17:31 98.9 F 85 20 123/65 94 L 10/16/22 15:06 75 22 117/76 93 L 10/16/22 14:00 72 100/57 91 L 10/16/22 13:49 99.1 F 70 18 100/57 93 L Intake and Output 10/16/22 10/17/22 10/17/22 22:59 06:59 14:59 Other: Voiding Method Toilet # Voids 2 GENERAL: The patient is lying in bed and is not in acute distress. NEUROLOGICAL: Higher mental function: The patient is awake, alert, oriented to self, place and time. Patient is following commands. No aphasia and no neglect. Cranial nerves: The pupils are round, equal and reactive to light and accommodation. Visual cristina are full to confrontation throughout. Extraocular movement is intact no nystagmus is noted. Facial sensation is normal to touch throughout. The facial strength is normal throughout. Hearing is normal bilaterally to hand rub. Tongue is midline and moved [id number] without any d ifficulty. No dysarthria is noted. Shoulder shrug is normal bilaterally. Motor: Gait is felt dizzy upon getting up. But was able to walk without assistance or swaying towards one side or other. The strength is 5 over 5 throughout. Normal tone and bulk. Cerebellum: Normal finger to nose heel to parsons bilaterally. Sensation: Sensation is normal to touch throughout. Reflexes (right/left):2+ in brachioradialis bilaterally otherwise limited because of her obesity and 1+ thorughout. Plantars are mute bilaterally. Results - Laboratory Findings CBC and BMP: 10/17/22 06:37 10/17/22 06:37 Abnormal Lab Findings: Abnormal Labs 10/16/22 10/16/22 10/16/22 10:49 10:49 10:49 RBC Hct MCH MCHC RDW 15.6 H Lymphocytes # 0.6 L Sodium 133 L Anion Gap BUN 19 H Glucose 171 H POC Glucose (mg/dL) Total Bilirubin 2.1 H Procalcitonin Urine Appearance Cloudy H Urine Protein 1+ H Urine Ketones Trace H Urine Blood Trace H Ur Leukocyte Esterase Trace H Ur Squamous Epith Cells 9 H Urine Bacteria Rare H Hyaline Casts 35 H Urine Mucus Many H 10/16/22 10/17/22 10/17/22 20:14 06:18 06:37 RBC 5.61 H Hct 47.4 H MCH 26.6 L MCHC 31.4 L RDW 15.2 H Lymphocytes # Sodium Anion Gap BUN Glucose POC Glucose (mg/dL) 162 H 121 H Total Bilirubin Procalcitonin Urine Appearance Urine Protein Urine Ketones Urine Blood Ur Leukocyte Esterase Ur Squamous Epith Cells Urine Bacteria Hyaline Casts Urine Mucus 10/17/22 10/17/22 10/17/22 06:37 06:37 11:47 RBC Hct MCH MCHC RDW Lymphocytes # Sodium Anion Gap 15.60 H BUN Glucose 119 H POC Glucose (mg/dL) 135 H Total Bilirubin Procalcitonin 0.15 H Urine Appearance Urine Protein Urine Ketones Urine Blood Ur Leukocyte Esterase Ur Squamous Epith Cells Urine Bacteria Hyaline Casts Urine Mucus Assessment and Plan Assessment: Acute vertigo with position at with generalized weakness seems more peripheral vertigo. On examination no focal weakness Possible acute pneumonia History of GBS Atrial fibrillation on eliquis History of coronary artery disease Diabetes mellitus nex Hypertension Hyperlipidemia Sleep apnea Opiates to the Plan: I ordered MRI of the brain with and without to rule out any underlying stroke or any the central cause resulting in her dizziness which I feel unlikely. Ordered orthostatic vitals. For generalized weakness: Ordered TSH, vitamin B-12, folate. Ordered hemoglobin A1c. Consulted the PT and OT for the gait training We'll defer the rest of management to the primary The plan was discussed with the patient. Thank you consultation. Time with Patient: Greater than 30
[2022-10-17] MEDS: SODIUM CHLORIDE 0.9% 1,000 ML IV SCH (13:52)
[2022-10-17] MEDS ORDERED: LORazepam 2 MG/ML INJ IV PRN (15:38)
[2022-10-17 16:41] LABS: Glucose,Whole Blood 148 mg/dL (70-110)
[2022-10-17] MEDS: lisinopriL 20 MG TAB PO SCH (21:00)
[2022-10-17] MEDS: ATORVASTATIN 20 MG TAB PO SCH (21:00)
[2022-10-17] MEDS: INSULIN DETEMIR (LEVEMIR) 100 UNIT/ML SYR SQ SCH (21:01)
[2022-10-17] MEDS: LATANOPROST 0.005% OPHTH DROPS 2.5 ML BTL RIGHT EYE SCH (21:07)
--- NOTE | 2022-10-17 21:11 | P.PN ---
Progress Note - Text Progress Note Date: 10/17/22 Chief Complaint: Multiple neurological symptoms This is a pleasant 67-year-old patient who follows with Dr. Jean Uriarte. 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 Waist down. Does normally walk slowly without any walking aids. About 10 days ago suddenly patient became dizzy. Slight decreased hearing. [place] she was getting a slightly confused. Increasing leg weakness. No change in bowel or urine patent. Also felt both him to be weak. Notice gradual weakening. Decided to come in. Patient has noticed getting a bit more short of breath with activity. No fever no chills. No diarrhea. No back pain. October 17: On IV ceftriaxone for pneumonia. Did tolerate some diet. Seen by neurology. MRI ordered. Patient was tachycardic with standing up. Home dose of Lopressor was resumed. Some orthostasis. We'll order LELA stockings. Also Florinef. Active Medications Acetaminophen (Acetaminophen Tab 325 Mg Tab) 650 mg PO Q6HR PRN PRN Reason: Mild Pain or Fever > 100.5 Last Admin: 10/16/22 21:45 Dose: 650 mg Hydrocodone Bitart/Acetaminophen (Hydrocodone/Apap 10-325mg 1 Each Tab) 1 each PO Q6H PRN PRN Reason: Pain Alprazolam (Alprazolam 0.5 Mg Tab) 0.5 mg PO BID PRN PRN Reason: Anxiety Anastrozole (Anastrozole 1 Mg Tab) 1 mg PO DAILY [facility] Last Admin: 10/17/22 08:17 Dose: 1 mg Apixaban (Apixaban 5 Mg Tab) 5 mg PO BID [place]; Protocol Last Admin: 10/17/22 21:00 Dose: 5 mg Atorvastatin Calcium (Atorvastatin 20 Mg Tab) 20 mg PO HS [facility] Last Admin: 10/17/22 21:00 Dose: 20 mg Azithromycin (Azithromycin 500 Mg Tab) 500 mg PO DAILY [place]; Protocol Stop: 10/18/22 09:01 Last Admin: 10/17/22 09:57 Dose: 500 mg Cholecalciferol (Cholecalciferol 25 Mcg (1000 Iu) Tablet) 50 mcg PO DAILY [facility] Last Admin: 10/17/22 08:17 Dose: 50 mcg Diclofenac Sodium (Diclofenac Sodium Gel 100 Gm Tube) 2 gm TOPICAL BID PRN; Protocol PRN Reason: Pain Duloxetine HCl (Duloxetine Hcl 60 Mg Capsule.Dr) 60 mg PO DAILY [facility] Last Admin: 10/17/22 08:17 Dose: 60 mg Flecainide Acetate (Flecainide 50 Mg Tab) 50 mg PO Q12HR [facility] Last Admin: 10/17/22 21:00 Dose: 50 mg Furosemide (Furosemide 40 Mg Tab) 40 mg PO DAILY PRN PRN Reason: Edema Ceftriaxone Sodium 2 gm/ (Sodium Chloride) 50 mls @ 100 mls/hr IVPB Q24HR [facility]; Protocol Stop: 10/20/22 09:29 Last Admin: 10/17/22 08:16 Dose: 100 mls/hr Sodium Chloride (Saline 0.9%) 1,000 mls @ 20 mls/hr IV .Q24H [facility] Last Admin: 10/17/22 13:52 Dose: Not Given Insulin Detemir (Insulin Detemir (Levemir) 100 Unit/Ml Syr) 21 unit SQ HS [facility] Last Admin: 10/17/22 21:01 Dose: 21 unit Latanoprost (Latanoprost 0.005% Ophth Drops 2.5 Ml Btl) 1 drops RIGHT EYE [facility] Last Admin: 10/16/22 21:39 Dose: 1 drops Lisinopril (Lisinopril 20 Mg Tab) 20 mg PO HS [facility] Last Admin: 10/17/22 21:00 Dose: 20 mg Lorazepam (Lorazepam 2 Mg/Ml Inj) 1 mg IV ONCE PRN PRN Reason: Anxiety Metoprolol Tartrate (Metoprolol Tartrate 50 Mg Tab) 50 mg PO BID [facility] Last Admin: 10/17/22 21:00 Dose: 50 mg Miscellaneous Information (Pneumonia Protocol Utilized 1 Each Misc) 1 each PO ONCE PRN PRN Reason: Per Protocol Naloxone HCl (Naloxone 0.4 Mg/Ml 1 Ml Vial) 0.2 mg IV Q2M PRN PRN Reason: Opioid Reversal Pantoprazole Sodium (Pantoprazole 40 Mg Tablet) 40 mg PO DAILY [facility] Last Admin: 10/17/22 08:17 Dose: 40 mg Past medical history to include: Atrial fibrillation, diabetes mellitus, GERD, hard of hearing, hypertension, hyperlipidemia, osteoarthritis, obstructive sleep apnea, GB syndrome, breast cancer treated, kidney stones, anxiety depression Social history: Lives alone. Smoked for 35 years. Stopped in 2007. 2 packs a day. No alcohol Physical examination: VITAL SIGNS: 98.1, heart standing 142, laying down 1 or 2 blood pressure 115 systolic lying down, 82 standing up. GENERAL: BMI 39.3, laying but awake not in distress. EYES: Pupils equal. Conjunctiva normal. HEENT: External appearance of nose and ears normal, oral cavity grossly normal. NECK: JVD not raised; masses not palpable. HEART: First and second heart sounds are normal; no edema. LUNGS: Respiratory rate normal; decreased breath sounds. ABDOMEN: Soft, nontender, liver spleen not palpable, no masses palpable. PSYCH: Alert and oriented x3; mood and affect normal. MUSCULOSKELETAL:No Clubbing/cyanosis;muscles-grossly intact NEUROLOGICAL: [Cranial nerves grossly intact; no facial asymmetry, straight leg raising right leg about 20. Left leg about 60. Power in both the arms about 4/5. Decreased watch electrician strength INVESTIGATIONS, reviewed in the clinical context: October 17: White count 6.8 hemoglobin 14.9 platelets 226 potassium 4.1 creatinine 1.0 procalcitonin 0.15 White count 7.1 hemoglobin 12.6 platelets 186 sodium 133 potassium 3.9 creatinine 0.9 ProBNP 2530 troponin I less than 0.012 Influenza type A, diabetes, RSV, COVID-19: Not detected Chest x-ray film personally reviewed by me-some infiltrates CT brain: Age-related chronic changes. EKG tracing personally reviewed by me-normal sinus rhythm. Assessment and plan: -Patient presents in 1 week of increased weakness in the upper extremity and lower extremity. No neck pain. Accompanied by some episodes of confusion. Dizziness. 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 Able to walk slowly. No fever no chills. Consults neurology. -Probable pneumonia. IV ceftriaxone -Orthostatic, symptomatic Bilateral below-knee LELA stockings. Start Florinef 0.05 twice a day -Obesity BMI 39.3 Weight loss measures -Hyperlipidemia Zocor 40 mg daily at bedtime -GERD Omeprazole 20 mg daily -Essential hypertension Lopressor 50 mg twice a day. Vasotec -Diabetes mellitus type 2, chronically on insulin Follow Accu-Cheks -Depression and anxiety Serax, Cymbalta -Paroxysmal atrial fibrillation Eliquis. Lopressor. Flecainide -Full code LELA stockings. MRI of the brain per neurology. Vianneyinef added. Discussed
[2022-10-17 21:51] LABS: Glucose,Whole Blood 159 mg/dL (70-110)
[2022-10-17] MEDS: FLUDROCORTISONE 0.1 MG TAB PO SCH (21:51)
[2022-10-18 06:03] LABS: Glucose,Whole Blood 126 mg/dL (70-110)
[2022-10-18] MEDS: APIXABAN 5 MG TAB PO SCH ×2 (08:39→21:00)
[2022-10-18] MEDS: FLUDROCORTISONE 0.1 MG TAB PO SCH ×2 (08:40→21:01)
[2022-10-18] MEDS: DULoxetine HCL 60 MG CAPSULE.DR PO SCH (08:40)
[2022-10-18] MEDS: AZITHROMYCIN 500 MG TAB PO SCH (08:40)
[2022-10-18] MEDS: PANTOPRAZOLE 40 MG TABLET PO SCH (08:40)
[2022-10-18] MEDS: CHOLECALCIFEROL 25 MCG (1000 IU) TABLET PO SCH (08:41)
[2022-10-18] MEDS: ANASTROZOLE 1 MG TAB PO SCH (08:41)
[2022-10-18] MEDS: METOPROLOL TARTRATE 50 MG TAB PO SCH ×2 (08:41→23:09)
[2022-10-18] MEDS: FLECAINIDE 50 MG TAB PO SCH ×2 (08:41→21:01)
[2022-10-18 11:56] LABS: Glucose,Whole Blood 222 mg/dL (70-110)
[2022-10-18] MEDS: DILTIAZEM ORAL 30 MG TAB PO SCH ×3 (12:22→21:00)
[2022-10-18 14:35] VITALS: BMI 39.3
[2022-10-18 17:22] LABS: Glucose,Whole Blood 142 mg/dL (70-110)
--- NOTE | 2022-10-18 19:02 | P.PN ---
Subjective Progress Note Date: 10/18/22 The patient seen at bedside and she stated that that she's less dizzy today compared to yesterday. Her orthostatic vitals was positive yesterday and per nurse her cardiac medication was modified by primary team. Patient denies of any new neurological issues. Objective - Vital Signs Vital signs: Vital Signs Temp 98.3 F 10/18/22 15:14 Pulse 76 10/18/22 15:14 Resp 18 10/18/22 15:14 BP 114/58 10/18/22 15:14 Pulse Ox 96 10/18/22 15:14 FiO2 Intake & Output 10/17/22 10/18/22 10/18/22 18:59 06:59 18:59 Intake Total 1080 Balance 1080 Weight 131.542 kg Intake: Oral 1080 Other: Voiding Method Toilet Toilet # Voids 3 2 3 - Exam GENERAL: The patient is lying in bed and is not in acute distress. NEUROLOGICAL: Higher mental function: The patient is awake, alert, oriented to self, place and time. Patient is following commands. No aphasia and no neglect. Cranial nerves: The pupils are round, equal and reactive to light and accommodation. Visual cristina are full to confrontation throughout. Extraocular movement is intact no nystagmus is noted. Facial sensation is normal to touch throughout. The facial strength is normal throughout. Hearing is normal bilaterally to hand rub. Tongue is midline and moved [id number] without any difficulty. No dysarthria is noted. Shoulder shrug is normal bilaterally. Motor: The strength is 5 over 5 throughout. Normal tone and bulk. Cerebellum: Normal finger to nose heel to parsons bilaterally. Sensation: Sensation is normal to touch throughout. Reflexes (right/left):2+ in brachioradialis bilaterally otherwise limited because of her obesity and 1+ thorughout. Plantars are mute bilaterally. Some other workup during his hospital visit consisted of: Orthostatic vitals is supine is 111/73 with a heart rate of 121, sitting is 115/61 with a heart rate of 102 and standing is 82/62 with a heart rate of 142. Orthostatic is positive. Vitamin B12 is 693 Folate is more than 20 TSH is 6.35 and the free T4 is 1.28 Hemoglobin A1c is 7.4. CT of the brain is reported as age-related atrophy and chronic small vessel ischemic change without acute intracranial process seen at this time. I personally reviewed the CT and agreed acute ischemia. There is no bleed. Chest x-ray is reported as infiltrated right upper lobe and basilar region. Correlate for pneumonia. - Labs CBC & Chem 7: 10/17/22 06:37 10/17/22 06:37 Labs: Abnormal Lab Results - Last 24 Hours (Table) 10/17/22 10/17/22 10/17/22 Range/Units 06:37 06:37 21:49 POC Glucose (mg/dL) 159 H (70-110) mg/dL Hemoglobin A1c 7.4 H (<=6.0) % TSH 6.350 H (0.350-5.500) UIU/ML 10/18/22 10/18/22 10/18/22 Range/Units 06:02 11:54 17:19 POC Glucose (mg/dL) 126 H 222 H 142 H (70-110) mg/dL Hemoglobin A1c (<=6.0) % TSH (0.350-5.500) UIU/ML Microbiology - Last 24 Hours (Table) 10/16/22 13:32 Blood Culture - Preliminary Blood 10/16/22 13:05 Blood Culture - Preliminary Blood Assessment and Plan Assessment: Acute vertigo with position at with generalized weakness due to orthostatic hypotension. On examination no focal weakness Positive orthostatic hypotension. Possible acute pneumonia History of GBS Atrial fibrillation on eliquis History of coronary artery disease Diabetes mellitus nex Hypertension Hyperlipidemia Sleep apnea Opiates to the Plan: Pending MRI of the brain Regarding the positive orthostatic vitals: cardiac medication was modified by the primary team. Recommend repeat orthostatic vitals. And if it continues to be positive considered the compression stocking and salt tablets midrange or Florinef. We'll defer the management to the primary team. PT and OT for the gait training We'll defer the rest of management to the primary The plan was discussed with the patient and her nurse. Time with Patient: Less than 30
[2022-10-18 20:35] LABS: Glucose,Whole Blood 190 mg/dL (70-110)
--- NOTE | 2022-10-18 20:59 | P.PN ---
Progress Note - Text Progress Note Date: 10/18/22 Chief Complaint: Multiple neurological symptoms This is a pleasant 67-year-old patient who follows with Dr. Jean Uriarte. 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 Waist down. Does normally walk slowly without any walking aids. About 10 days ago suddenly patient became dizzy. Slight decreased hearing. [place] she was getting a slightly confused. Increasing leg weakness. No change in bowel or urine patent. Also felt both him to be weak. Notice gradual weakening. Decided to come in. Patient has noticed getting a bit more short of breath with activity. No fever no chills. No diarrhea. No back pain. October 17: On IV ceftriaxone for pneumonia. Did tolerate some diet. Seen by neurology. MRI ordered. Patient was tachycardic with standing up. Home dose of Lopressor was resumed. Some orthostasis. We'll order LELA stockings. Also Florinef. October 18: Patient feels a bit better. Atrial fibrillation uncontrolled overnight. Cardizem 30 mg by mouth 3 times a day added. Cardiology consulted. Oral intake better. MRI brain pending. Active Medications Acetaminophen (Acetaminophen Tab 325 Mg Tab) 650 mg PO Q6HR PRN PRN Reason: Mild Pain or Fever > 100.5 Last Admin: 10/16/22 21:45 Dose: 650 mg Hydrocodone Bitart/Acetaminophen (Hydrocodone/Apap 10-325mg 1 Each Tab) 1 each PO Q6H PRN PRN Reason: Pain Alprazolam (Alprazolam 0.5 Mg Tab) 0.5 mg PO BID PRN PRN Reason: Anxiety Anastrozole (Anastrozole 1 Mg Tab) 1 mg PO DAILY [facility] Last Admin: 10/18/22 08:41 Dose: 1 mg Apixaban (Apixaban 5 Mg Tab) 5 mg PO BID [facility]; Protocol Last Admin: 10/18/22 08:39 Dose: 5 mg Atorvastatin Calcium (Atorvastatin 20 Mg Tab) 20 mg PO HS [facility] Last Admin: 10/17/22 21:00 Dose: 20 mg Cholecalciferol (Cholecalciferol 25 Mcg (1000 Iu) Tablet) 50 mcg PO DAILY [facility] Last Admin: 10/18/22 08:41 Dose: 50 mcg Diclofenac Sodium (Diclofenac Sodium Gel 100 Gm Tube) 2 gm TOPICAL BID PRN; Protocol PRN Reason: Pain Diltiazem HCl (Diltiazem Oral 30 Mg Tab) 30 mg PO TID [facility] Last Admin: 10/18/22 16:44 Dose: 30 mg Duloxetine HCl (Duloxetine Hcl 60 Mg Capsule.Dr) 60 mg PO DAILY [facility] Last Admin: 10/18/22 08:40 Dose: 60 mg Flecainide Acetate (Flecainide 50 Mg Tab) 50 mg PO Q12HR [facility] Last Admin: 10/18/22 08:41 Dose: 50 mg Fludrocortisone Acetate (Fludrocortisone 0.1 Mg Tab) 0.05 mg PO BID [facility] Last Admin: 10/18/22 08:40 Dose: 0.05 mg Furosemide (Furosemide 40 Mg Tab) 40 mg PO DAILY PRN PRN Reason: Edema Ceftriaxone Sodium 2 gm/ (Sodium Chloride) 50 mls @ 100 mls/hr IVPB Q24HR [facility]; Protocol Stop: 10/20/22 09:29 Last Admin: 10/18/22 08:41 Dose: 100 mls/hr Sodium Chloride (Saline 0.9%) 1,000 mls @ 20 mls/hr IV .Q24H [facility] Last Admin: 10/17/22 13:52 Dose: Not Given Insulin Detemir (Insulin Detemir (Levemir) 100 Unit/Ml Syr) 21 unit SQ HS [facility] Last Admin: 10/17/22 21:01 Dose: 21 unit Latanoprost (Latanoprost 0.005% Ophth Drops 2.5 Ml Btl) 1 drops RIGHT EYE HS [facility] Last Admin: 10/17/22 21:07 Dose: 1 drops Lisinopril (Lisinopril 20 Mg Tab) 20 mg PO HS [facility] Last Admin: 10/17/22 21:00 Dose: 20 mg Lorazepam (Lorazepam 2 Mg/Ml Inj) 1 mg IV ONCE PRN PRN Reason: Anxiety Metoprolol Tartrate (Metoprolol Tartrate 50 Mg Tab) 50 mg PO BID [facility] Last Admin: 10/18/22 08:41 Dose: 50 mg Miscellaneous Information (Pneumonia Protocol Utilized 1 Each Misc) 1 each PO ONCE PRN PRN Reason: Per Protocol Naloxone HCl (Naloxone 0.4 Mg/Ml 1 Ml Vial) 0.2 mg IV Q2M PRN PRN Reason: Opioid Reversal Pantoprazole Sodium (Pantoprazole 40 Mg Tablet) 40 mg PO DAILY [facility] Last Admin: 10/18/22 08:40 Dose: 40 mg Past medical history to include: Atrial fibrillation, diabetes mellitus, GERD, hard of hearing, hypertension, hyperlipidemia, osteoarthritis, obstructive sleep apnea, GB syndrome, breast cancer treated, kidney stones, anxiety depression Social history: Lives alone. Smoked for 35 years. Stopped in 2007. 2 packs a day. No alcohol Physical examination: VITAL SIGNS: 98.3, 76, 18, 11/58, 96% room air GENERAL: BMI 39.3, laying in bed comfortable EYES: Pupils equal. Conjunctiva normal. HEENT: External appearance of nose and ears normal, oral cavity grossly normal. NECK: JVD not raised; masses not palpable. HEART: Heart sounds irregular; no edema. LUNGS: Respiratory rate normal; decreased breath sounds. ABDOMEN: Soft, nontender, liver spleen not palpable, no masses palpable. PSYCH: Alert and oriented x3; mood and affect normal. MUSCULOSKELETAL:No Clubbing/cyanosis;muscles-grossly intact NEUROLOGICAL: [Cranial nerves grossly intact; no facial asymmetry, straight leg raising right leg about 20. Left leg about 60. Power in both the arms about 4/5. Decreased health consultant strength INVESTIGATIONS, reviewed in the clinical context: October 17: White count 6.8 hemoglobin 14.9 platelets 226 potassium 4.1 creatinine 1.0 procalcitonin 0.15 White count 7.1 hemoglobin 12.6 platelets 186 sodium 133 potassium 3.9 creatinine 0.9 ProBNP 2530 troponin I less than 0.012 Influenza type A, diabetes, RSV, COVID-19: Not detected Chest x-ray film personally reviewed by me-some infiltrates CT brain: Age-related chronic changes. EKG tracing personally reviewed by me-normal sinus rhythm. Assessment and plan: -Patient presents in 1 week of increased weakness in the upper extremity and lower extremity. No neck pain. Accompanied by some episodes of confusion. Dizziness. 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 Able to walk slowly. No fever no chills. Neurology following. MRI brain ordered. -Probable pneumonia. IV ceftriaxone -Paroxysmal atrial fibrillation with rapid ventricular rate.: Uncontrolled Patient is already on Lopressor 50 mg twice a day, flecainide 50 mg every 12, eliquis. Cardizem 30 mg 3 times a day added. Cardiology consulted. -Orthostatic, symptomatic Bilateral below-knee LELA stockings. Florinef 0.05 twice a day -Obesity BMI 39.3 Weight loss measures -Hyperlipidemia Zocor 40 mg daily at bedtime -GERD Omeprazole 20 mg daily -Essential hypertension Lopressor 50 mg twice a day. Vasotec -Diabetes mellitus type 2, chronically on insulin Follow Accu-Cheks -Depression and anxiety Serax, Cymbalta -Paroxysmal atrial fibrillation Eliquis. Lopressor. Flecainide -Full code Cardizem 30 mg 3 times a day added for uncontrolled A. fib. Cartilage E consulted. IV ceftriaxone to continue. MRI of the brain pending.
[2022-10-18] MEDS: LATANOPROST 0.005% OPHTH DROPS 2.5 ML BTL RIGHT EYE SCH (21:01)
[2022-10-18] MEDS: ATORVASTATIN 20 MG TAB PO SCH (21:01)
[2022-10-18] MEDS: lisinopriL 20 MG TAB PO SCH (21:01)
[2022-10-18] MEDS: INSULIN DETEMIR (LEVEMIR) 100 UNIT/ML SYR SQ SCH (21:01)
[2022-10-18] MEDS: SODIUM CHLORIDE 0.9% 1,000 ML IV SCH (22:12)
[2022-10-19 06:01] LABS: Glucose,Whole Blood 192 mg/dL (70-110)
[2022-10-19] MEDS: FLECAINIDE 50 MG TAB PO SCH ×2 (06:34→21:22)
[2022-10-19] MEDS: DILTIAZEM ORAL 30 MG TAB PO SCH ×3 (06:34→21:22)
[2022-10-19] MEDS: METOPROLOL TARTRATE 50 MG TAB PO SCH ×2 (06:34→21:22)
[2022-10-19] MEDS ORDERED: FLECAINIDE 50 MG TAB PO STA (09:03)
[2022-10-19] MEDS ORDERED: LORazepam 2 MG/ML INJ IV PRN (11:00)
--- NOTE | 2022-10-19 11:19 | MR ---
EXAMINATION TYPE: MR brain wo/w con DATE OF EXAM: 10/19/2022 11:05 AM CLINICAL INDICATION:Female, 67 years old with history of dizziness; Dizziness COMPARISON: CT brain 10/16/2022 TECHNIQUE: Multi planar, multi sequence imaging was performed through the brain including: T1, T2, In version recovery, susceptibility weighted imaging and gradient echo imaging and Diffusion weighted im aging. The patient was then given intravenous contrast and multi planar, T1 fat-saturation images wer e obtained. IV Contrast: 13 cc Gadavist FINDINGS: The patton-white junctions, ventricular system, basal cisterns appear unremarkable. Diffusion-weighted imaging shows no evidence of restricted diffusion to suggest acute/subacute infarct. Intracranial art erial flow voids are maintained. Midline structures show no abnormality. Few scattered foci of high T 2 signal intensity are seen within the periventricular white matter. The susceptibility weighted imag es do not reveal any evidence for micro-hemorrhage. After administration of gadolinium, no abnormal e nhancement is seen. The bone marrow signal is within normal limits. Paranasal sinuses and mastoid air cells: No significant paranasal sinus disease. Visualized orbits: Bilateral aphakia IMPRESSION: 1. No evidence of intracranial mass, acute/subacute infarct, or abnormal enhancement. 2. Minimal Nonspecific white matter changes, likely related to small vessel ischemic disease
[2022-10-19 11:39] LABS: Glucose,Whole Blood 157 mg/dL (70-110)
--- NOTE | 2022-10-19 11:41 | P.CRDCN ---
History of Present Illness History of present illness: HISTORY OF PRESENT ILLNESS: This is a 67-year-old female with a past medical history significant for coronary artery disease, paroxysmal atrial fibrillation, hypertension, hyperlipidemia, left-sided breast cancer with previous surgery, and morbid obesity. Patient follows in the office with Dr. Ly. We have been asked to see the patient in consultation for atrial flutter. Patient examined at the bedside. Patient presented to the hospital with a chief complaint of weakness. The patient's initial EKG revealed sinus mechanism. However repeat EKG reveals atrial fibrillation with uncontrolled rates. Patient was started on oral Cardizem per internal medicine. She has also been hypotensive in the hospital and she was started on Florinef. Patient remains in atrial fibrillation with controlled ventricular rates this morning. She denies chest pain or pressure. She denies shortness of breath. * EKG reveals atrial fibrillation with RVR * Chest xray right upper lobe and bibasilar infiltrates. Correlate for pneumonia. * Laboratory data: WBC 6.8. Hemoglobin 14.9. Platelet count 226. Sodium 140. Potassium 4.1. BUN 18. Creatinine 1.0. TSH 6.350. Free T4 1.28. Cortisol 15. * Current home cardiac medications include Imdur 30 mg daily, Lasix 40 mg daily as needed, Flecainide 50 mg every 12 hours, enalapril 10 mg at night, Eliquis 5mg BID * Most recent echocardiogram obtained in March 2022 REVIEW OF SYSTEMS: At the time of my exam: CONSTITUTIONAL: Denies fever or chills. HEENT: Denies blurred vision, vision changes, or eye pain. Denies hemoptysis CARDIOVASCULAR: Denies chest pain. Denies orthopnea. Denies PND. Denies palpitations RESPIRATORY: Denies shortness of breath. GASTROINTESTINAL: Denies abdominal pain. Denies nausea or vomiting. HEMATOLOGIC: Denies bleeding disorders. GENITOURINARY: Denies any blood in urine. SKIN: Denies pruitis. Denies rash. PHYSICAL EXAM: VITAL SIGNS: Reviewed. GENERAL: Well-developed in no acute distress. HEENT: Head is normocephalic. Pupils are equal, round. Sclerae anicteric. Mucous membranes of the mouth are moist. Neck supple. No JVD or thyromegaly LUNGS: Respirations even and unlabored. Lungs essentially clear to auscultation bilaterally. HEART: Irregular rate and rhythm. S1 and S2 heard. ABDOMEN: Soft. Nondistended. Nontender. EXTREMITIES: Normal range of motion. No clubbing or cyanosis. Peripheral pulses intact. No lower extremity edema NEUROLOGIC: Awake and alert. Oriented x 3. ASSESSMENT: Generalized weakness Possible pneumonia Paroxysmal atrial fibrillation with RVR, currently rate controlled Hypotension History of hypertension Nonobstructive coronary artery disease Hyperlipidemia PLAN: 2-D echo ordered. Await results Decrease Lisinopril to 10mg. Hold for SBP less than 100 Discontinue Florinef Increase Flecainide to 100 mg every 12 hours Continue Cardizem. If patient converts to sinus mechanism, discontinue Cardizem Continue metoprolol Further recommendations pending patient course Nurse practitioner note has been reviewed by physician. Signing provider agrees with the documented findings, assessment, and plan of care. Past Medical History Past Medical History: Atrial Fibrillation, Coronary Artery Disease (CAD), Cancer, Diabetes Mellitus, GERD/Reflux, Hearing Disorder / Deafness, Hyperlipi demia, Hypertension, Osteoarthritis (OA), Pneumonia, Sleep Apnea/CPAP/BIPAP Additional Past Medical History / Comment(s): [facility]; Breast Cancer, hx migraines, no cpap used, "fx back- SEPTEMBER 2021. Lower back pain, HARD OF HEARING, kidney stones History of Any Multi-Drug Resistant Organisms: ESBL Date of last positivie culture/infection: 09/16/21 ESBL E.coli MDRO Source:: Urine Past Surgical History: Breast Surgery, Section, Cholecystectomy, Heart Catheterization Additional Past Surgical History / Comment(s): left breast Lumpectomy, four heart catheterizations- no stents . left mastectomy. kidney surgery for blocked ureter. thien cataracts, PAIN CLINIC PROCEDURES Past Anesthesia/Blood Transfusion Reactions: No Reported Reaction Past Psychological History: Anxiety, Depression Smoking Status: Former smoker Past Alcohol Use History: None Reported Past Drug Use History: None Reported - Past Family History Mother Family Medical History: Cancer Father Family Medical History: Diabetes Mellitus Medications and Allergies Home Medications Medication Instructions Recorded Confirmed Type Enalapril Maleate [Vasotec] 10 mg PO HS 03/31/15 10/16/22 History Hydrocodone/Acetaminophen [[place] 1 tab PO Q6H PRN 03/31/15 10/16/22 History 10-325] Isosorbide Mononitrate ER [Imdur] 30 mg PO DAILY 03/31/15 10/16/22 History Metoprolol Tartrate [Lopressor] 50 mg PO BID 03/31/15 10/16/22 History Simvastatin [Zocor] 40 mg PO HS 04/01/15 10/16/22 History ALPRAZolam [Xanax] 0.5 mg PO BID PRN 06/22/17 10/16/22 History Anastrozole [Arimidex] 1 mg PO DAILY 04/18/18 10/16/22 History Omeprazole 20 mg PO DAILY 04/18/18 10/16/22 History Apixaban [Eliquis] 5 mg PO BID 01/02/22 10/16/22 History Cholecalciferol [Vitamin D3 (25 50 mcg PO DAILY 01/02/22 10/16/22 History Mcg = 1000 Iu)] DULoxetine HCL [Cymbalta] 60 mg PO DAILY 01/02/22 10/16/22 History Fluticasone Nasal [place] [Flonase 1 spr EA NOSTRIL DAILY PRN 01/02/22 10/16/22 History Nasal [place]] Latanoprost/Pf [Latanoprost 0.005% 1 drop RIGHT EYE HS 01/02/22 10/16/22 History Eye Drop] Furosemide [Lasix] 40 mg PO DAILY PRN 04/09/22 10/16/22 History Flecainide [Tambocor] 50 mg PO Q12HR #60 tab 04/11/22 10/16/22 Rx Insulin Detemir (Levemir) [Levemir] 21 unit SQ HS 07/14/22 10/16/22 History Diclofenac Sodium Gel [Voltaren 1 applic TOPICAL BID PRN 09/06/22 10/16/22 History Gel] Allergies Allergy/AdvReac Type Severity Reaction Status Date / Time morphine AdvReac Hypotension Verified 10/16/22 10:00 Physical Exam Vitals: Vital Signs Temp Pulse Pulse Pulse Pulse Resp BP 10/19/22 08:00 94 90 73 10/19/22 07:24 98.2 F 115 H 17 10/19/22 06:11 120 H 16 10/19/22 05:50 97.6 F 134 H 126 H 16 10/19/22 01:26 98 F 113 H 17 118/64 10/18/22 20:00 17 10/18/22 19:40 98.1 F 93 17 102/74 10/18/22 15:14 98.3 F 76 18 BP BP BP BP Pulse Ox 10/19/22 08:00 104/71 82/52 89/50 10/19/22 07:24 118/81 98 10/19/22 06:11 95 10/19/22 05:50 105/72 10/19/22 01:26 96 10/18/22 20:00 10/18/22 19:40 97 10/18/22 15:14 114/58 96 Intake and Output 10/18/22 10/19/22 10/19/22 22:59 06:59 14:59 Other: Voiding Method Toilet # Voids 3 2 Results 10/17/22 06:37 10/17/22 06:37 Current Medications Generic Name Dose Route Start Last Admin Trade Name Freq PRN Reason Stop Dose Admin Acetaminophen 650 mg 10/16/22 12:19 10/16/22 21:45 Acetaminophen Tab 325 Mg Tab PO 650 mg Q6HR PRN Administration Mild Pain or Fever > 100.5 Hydrocodone Bitart/Acetaminophen 1 each 10/16/22 13:22 Hydrocodone/Apap 10-325mg 1 Each Tab PO Q6H PRN Pain Alprazolam 0.5 mg 10/16/22 13:21 Alprazolam 0.5 Mg Tab PO BID PRN Anxiety Anastrozole 1 mg 10/17/22 09:00 10/18/22 08:41 Anastrozole 1 Mg Tab PO 1 mg DAILY [facility] Administration Apixaban 5 mg 10/16/22 21:00 10/18/22 21:00 Apixaban 5 Mg Tab PO 5 mg BID [place] Administration Protocol Atorvastatin Calcium 20 mg 10/16/22 21:00 10/18/22 21:01 Atorvastatin 20 Mg Tab PO 20 mg HS [facility] Administration Cholecalciferol 50 mcg 10/17/22 09:00 10/18/22 08:41 Cholecalciferol 25 Mcg (1000 Iu) Tablet PO 50 mcg DAILY [facility] Administration Diclofenac Sodium 2 gm 10/16/22 13:21 Diclofenac Sodium Gel 100 Gm Tube TOPICAL BID PRN Pain Protocol Diltiazem HCl 30 mg 10/18/22 12:00 10/19/22 06:34 Diltiazem Oral 30 Mg Tab PO 30 mg TID [facility] Administration Duloxetine HCl 60 mg 10/17/22 09:00 10/18/22 08:40 Duloxetine Hcl 60 Mg Capsule.Dr PO 60 mg DAILY [facility] Administration Flecainide Acetate 100 mg 10/19/22 21:00 Flecainide 50 Mg Tab PO Q12HR [facility] Furosemide 40 mg 10/16/22 13:22 Furosemide 40 Mg Tab PO DAILY PRN Edema Ceftriaxone Sodium 2 gm/ 50 mls @ 100 mls/hr 10/17/22 09:00 10/19/22 09:30 Sodium Chloride IVPB 10/20/22 09:29 100 mls/hr Q24HR [facility] Administration Protocol Sodium Chloride 1,000 mls @ 20 mls/hr 10/16/22 12:30 10/18/22 22:12 Saline 0.9% IV Not Given .Q24H [facility] Insulin Detemir 21 unit 10/16/22 21:00 10/18/22 21:01 Insulin Detemir (Levemir) 100 Unit/Ml Syr SQ 21 unit HS [facility] Administration Latanoprost 1 drops 10/16/22 21:00 10/18/22 21:01 Latanoprost 0.005% Ophth Drops 2.5 Ml Btl RIGHT EYE 1 drops HS [facility] Administration Lisinopril 10 mg 10/19/22 21:00 Lisinopril 10 Mg Tab PO HS [facility] Lorazepam 1 mg 10/19/22 11:00 Lorazepam 2 Mg/Ml Inj IV ONCE PRN Anxiety Metoprolol Tartrate 50 mg 10/16/22 21:00 10/19/22 06:34 Metoprolol Tartrate 50 Mg Tab PO 50 mg BID [place] Administration Miscellaneous Information 1 each 10/16/22 12:16 Pneumonia Protocol Utilized 1 Each Misc PO ONCE PRN Per Protocol Naloxone HCl 0.2 mg 10/16/22 12:19 Naloxone 0.4 Mg/Ml 1 Ml Vial IV Q2M PRN Opioid Reversal Pantoprazole Sodium 40 mg 10/17/22 09:00 10/18/22 08:40 Pantoprazole 40 Mg Tablet PO 40 mg DAILY [facility] Administration Intake and Output 10/18/22 10/19/22 10/19/22 22:59 06:59 14:59 Other: Voiding Method Toilet # Voids 3 2 10/17/22 06:37 10/17/22 06:37
[2022-10-19] MEDS: APIXABAN 5 MG TAB PO SCH ×2 (12:10→21:22)
[2022-10-19] MEDS: ANASTROZOLE 1 MG TAB PO SCH (12:10)
[2022-10-19] MEDS: DULoxetine HCL 60 MG CAPSULE.DR PO SCH (12:10)
[2022-10-19] MEDS: CHOLECALCIFEROL 25 MCG (1000 IU) TABLET PO SCH (12:10)
[2022-10-19] MEDS: PANTOPRAZOLE 40 MG TABLET PO SCH (12:10)
[2022-10-19] MEDS: FLUDROCORTISONE 0.1 MG TAB PO SCH (12:28)
--- NOTE | 2022-10-19 12:52 | CA ---
Transthoracic Echo Report Name: Suzi Mora Age: 67 Gender: F : 1955 Exam Date: 10/18/2022 13:47 Exam Location: [place] Echo Ht (in): 72 Wt (lb): 290 Ordering Physician: Jose Guzman MD Attending/Referring Phys: Senior Data Architect Ingris Urban RDCS Procedure CPT: Indications: AF Cardiac Hx: Technical Quality: Good Contrast 1: Total Dose (mL): Contrast 2: Total Dose (mL): MEASUREMENTS (Male / Female) Normal Values 2D ECHO LV Diastolic Diameter PLAX 6.2 cm 4.2 - 5.9 / 3.9 - 5.3 cm LV Systolic Diameter PLAX 3.8 cm IVS Diastolic Thickness 1.0 cm 0.6 - 1.0 / 0.6 - 0.9 cm LVPW Diastolic Thickness 1.1 cm 0.6 - 1.0 / 0.6 - 0.9 cm LV Relative Wall Thickness 0.3 RV Internal Dim ED PLAX 3.3 cm LA Systolic Diameter LX 4.2 cm 3.0 - 4.0 / 2.7 - 3.8 cm LV Diastolic Volume MOD BP 73.1 cm??? 67 - 155 / 56 - 104 cm??? LV Systolic Volume MOD BP 45.6 cm??? 22 - 58 / 19 - 49 cm??? LV Ejection Fraction MOD BP 37.6 % >= 55 % LV Cardiac Index MOD BP 1030.2 cm???/min???m??? LV Diastolic Volume MOD 4C 81.1 cm??? LV Systolic Volume MOD 4C 41.0 cm??? LV Ejection Fraction MOD 4C 49.4 % LV Cardiac Index MOD 4C 1505.1 cm???/min???m??? LV Diastolic Length 4C 6.5 cm LV Systolic Length 4C 5.4 cm LV Diastolic Volume MOD 2C 58.7 cm??? LV Systolic Volume MOD 2C 32.6 cm??? LV Ejection Fraction MOD 2C 44.4 % LV Cardiac Index MOD 2C 977.0 cm???/min???m??? LV Diastolic Length 2C 7.4 cm LV Systolic Length 2C 3.4 cm LA Volume 48.6 cm??? 18 - 58 / 22 - 52 cm??? M-MODE Aortic Root Diameter MM 3.3 cm MV E Point Septal Separation 1.0 cm AV Cusp Separation MM 2.2 cm DOPPLER AV Peak Velocity 136.4 cm/s AV Peak Gradient 7.4 mmHg MV Area PHT 5.2 cm??? MV Deceleration Time 198.7 ms TR Peak Velocity 242.6 cm/s TR Peak Gradient 23.5 mmHg Right Ventricular Systolic Press 27.2 mmHg FINDINGS Left Ventricle Left ventricular ejection fraction is estimated at 40-45 %. Mildly increased posterior wall thickness. Moderately increased left ventricular diastolic diameter. Moderately decreased left ventricular ejection fraction. Right Ventricle Mild right ventricular dilatation. Right ventricular systolic pressure within normal limits. Right Atrium Normal right atrial size. Left Atrium Mildly increased left atrial diameter. Mildly increased left atrial area. Mitral Valve Structurally normal mitral valve. Trace to mild mitral regurgitation. Aortic Valve Trileaflet aortic valve. No aortic valve stenosis or regurgitation. Tricuspid Valve Structurally normal tricuspid valve. Mild tricuspid regurgitation. Pulmonic Valve Structurally normal pulmonic valve. Trace pulmonic regurgitation. Pericardium Normal pericardium. No pericardial effusion. Aorta Normal size aortic root and proximal ascending aorta. CONCLUSIONS Patient tachycardic Reduced LV systolic function with septal wall motion abnormality Dilated left atrium Left ventricle ejection fraction of about 40-45% Previewed by: Dr. Jordan Quintero MD (Electronically Signed) Final Date: 19 October 2022 12:52
--- NOTE | 2022-10-19 14:54 | P.PN ---
Subjective Progress Note Date: 10/19/22 The patient is seen at bedside and she feels her dizziness has been improving. Denies of any new neurological issues. Objective - Vital Signs Vital signs: Vital Signs Temp 98.2 F 10/19/22 07:24 Pulse 73 10/19/22 08:00 Resp 17 10/19/22 07:24 BP 89/50 10/19/22 08:00 Pulse Ox 98 10/19/22 07:24 FiO2 Intake & Output 10/18/22 10/19/22 10/19/22 18:59 06:59 18:59 Weight 131.542 kg Other: Voiding Method Toilet Toilet # Voids 3 2 - Exam GENERAL: The patient is lying in bed and is not in acute distress. NEUROLOGICAL: Higher mental function: The patient is awake, alert, oriented to self, place and time. Patient is following commands. No aphasia and no neglect. Cranial nerves: The pupils are round, equal and reactive to light and accommodat ion. Visual cristina are full to confrontation throughout. Extraocular movement is intact no nystagmus is noted. Facial sensation is normal to touch throughout. The facial strength is normal throughout. Hearing is normal bilaterally to hand rub. Tongue is midline and moved [id number] without any difficulty. No dysarthria is noted. Shoulder shrug is normal bilaterally. Motor: The strength is 5 over 5 throughout. Normal tone and bulk. Cerebellum: Normal finger to nose heel to parsons bilaterally. Sensation: Sensation is normal to touch throughout. Reflexes (right/left):2+ in brachioradialis bilaterally otherwise limited because of her obesity and 1+ thorughout. Plantars are mute bilaterally. Some other workup during his hospital visit consisted of: Orthostatic vitals is supine is 111/73 with a heart rate of 121, sitting is 115/61 with a heart rate of 102 and standing is 82/62 with a heart rate of 142. Orthostatic is positive. Vitamin B12 is 693 Folate is more than 20 TSH is 6.35 and the free T4 is 1.28 Hemoglobin A1c is 7.4. CT of the brain is reported as age-related atrophy and chronic small vessel ischemic change without acute intracranial process seen at this time. I personally reviewed the CT and agreed acute ischemia. There is no bleed. Chest x-ray is reported as infiltrated right upper lobe and basilar region. Correlate for pneumonia. MRI the brain is reported as no evidence of intracranial mass, acute/subacute infarct or abnormal enhancement. Minimal nonspecific white matter changes, likely related to small vessel ischemic disease. I personally reviewed the MRI and agree with report. - Labs CBC & Chem 7: 10/17/22 06:37 10/17/22 06:37 Labs: Abnormal Lab Results - Last 24 Hours (Table) 10/17/22 10/17/22 10/18/22 Range/Units 06:37 06:37 17:19 POC Glucose (mg/dL) 142 H (70-110) mg/dL Hemoglobin A1c 7.4 H (<=6.0) % TSH 6.350 H (0.350-5.500) UIU/ML 10/18/22 10/19/22 10/19/22 Range/Units 20:33 05:58 11:37 POC Glucose (mg/dL) 190 H 192 H 157 H (70-110) mg/dL Hemoglobin A1c (<=6.0) % TSH (0.350-5.500) UIU/ML Microbiology - Last 24 Hours (Table) 10/16/22 13:32 Blood Culture - Preliminary Blood 10/16/22 13:05 Blood Culture - Preliminary Blood Assessment and Plan Assessment: Acute vertigo with position at with generalized weakness due to orthostatic hypotension. On examination no focal weakness. MRI the brain with and without is negative Positive orthostatic hypotension. Possible acute pneumonia History of GBS Atrial fibrillation on eliquis History of coronary artery disease Diabetes mellitus nex Hypertension Hyperlipidemia Sleep apnea Opiates to the Plan: MRI of the brain with and without is negative for any stroke or any mass. Regarding the positive orthostatic vitals: cardiac medication was modified by the primary team. Patient had a repeat orthostatic vital. Recommend comp ression stocking and if fails consider midodrine versus Florinef. We'll defer the management to the primary team. Cardiology team is consulted for atrial fibrillation by the primary team PT and OT for the gait training We'll defer the rest of management to the primary The plan was discussed with the patient. Otherwise no additional neurological workup is needed. Please notify neurology team if any further concerns. Time with Patient: Less than 30
[2022-10-19] MEDS: SODIUM CHLORIDE 0.9% 1,000 ML IV SCH (16:53)
[2022-10-19 16:56] LABS: Glucose,Whole Blood 180 mg/dL (70-110)
--- NOTE | 2022-10-19 20:26 | P.PN ---
Progress Note - Text Progress Note Date: 10/19/22 Chief Complaint: Multiple neurological symptoms This is a pleasant 67-year-old patient who follows with Dr. Jean Uriarte. 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 Waist down. Does normally walk slowly without any walking aids. About 10 days ago suddenly patient became dizzy. Slight decreased hearing. [place] she was getting a slightly confused. Increasing leg weakness. No change in bowel or urine patent. Also felt both him to be weak. Notice gradual weakening. Decided to come in. Patient has noticed getting a bit more short of breath with activity. No fever no chills. No diarrhea. No back pain. October 17: On IV ceftriaxone for pneumonia. Did tolerate some diet. Seen by neurology. MRI ordered. Patient was tachycardic with standing up. Home dose of Lopressor was resumed. Some orthostasis. We'll order LELA stockings. Also Florinef. October 18: Patient feels a bit better. Atrial fibrillation uncontrolled overnight. Cardizem 30 mg by mouth 3 times a day added. Cardiology consulted. Oral intake better. MRI brain pending. October 19: Remains in atrial fibrillation. Heart rate over 150 and standing up. Remains on Lopressor Cardizem. Flecainide. Zestril added by cartilage E. Blood pressure in the lower side. Remains on IV ceftriaxone. MRI brain showing chronic changes. Active Medications Acetaminophen (Acetaminophen Tab 325 Mg Tab) 650 mg PO Q6HR PRN PRN Reason: Mild Pain or Fever > 100.5 Last Admin: 10/16/22 21:45 Dose: 650 mg Hydrocodone Bitart/Acetaminophen (Hydrocodone/Apap 10-325mg 1 Each Tab) 1 each PO Q6H PRN PRN Reason: Pain Alprazolam (Alprazolam 0.5 Mg Tab) 0.5 mg PO BID PRN PRN Reason: Anxiety Anastrozole (Anastrozole 1 Mg Tab) 1 mg PO DAILY [facility] Last Admin: 10/19/22 12:10 Dose: 1 mg Apixaban (Apixaban 5 Mg Tab) 5 mg PO BID [facility]; Protocol Last Admin: 10/19/22 12:10 Dose: 5 mg Atorvastatin Calcium (Atorvastatin 20 Mg Tab) 20 mg PO [facility] Last Admin: 10/18/22 21:01 Dose: 20 mg Cholecalciferol (Cholecalciferol 25 Mcg (1000 Iu) Tablet) 50 mcg PO DAILY [facility] Last Admin: 10/19/22 12:10 Dose: 50 mcg Diclofenac Sodium (Diclofenac Sodium Gel 100 Gm Tube) 2 gm TOPICAL BID PRN; Protocol PRN Reason: Pain Diltiazem HCl (Diltiazem Oral 30 Mg Tab) 30 mg PO TID [facility] Last Admin: 10/19/22 16:51 Dose: 30 mg Duloxetine HCl (Duloxetine Hcl 60 Mg Capsule.Dr) 60 mg PO DAILY [facility] Last Admin: 10/19/22 12:10 Dose: 60 mg Flecainide Acetate (Flecainide 50 Mg Tab) 100 mg PO Q12HR [facility] Furosemide (Furosemide 40 Mg Tab) 40 mg PO DAILY PRN PRN Reason: Edema Ceftriaxone Sodium 2 gm/ (Sodium Chloride) 50 mls @ 100 mls/hr IVPB Q24HR [facility]; Protocol Stop: 10/20/22 09:29 Last Admin: 10/19/22 09:30 Dose: 100 mls/hr Sodium Chloride (Saline 0.9%) 1,000 mls @ 20 mls/hr IV .Q24H [facility] Last Admin: 10/19/22 16:53 Dose: Not Given Insulin Detemir (Insulin Detemir (Levemir) 100 Unit/Ml Syr) 21 unit SQ HS [facility] Last Admin: 10/18/22 21:01 Dose: 21 unit Latanoprost (Latanoprost 0.005% Ophth Drops 2.5 Ml Btl) 1 drops RIGHT EYE HS [facility] Last Admin: 10/18/22 21:01 Dose: 1 drops Lisinopril (Lisinopril 10 Mg Tab) 10 mg PO HS [facility] Lorazepam (Lorazepam 2 Mg/Ml Inj) 1 mg IV ONCE PRN PRN Reason: Anxiety Metoprolol Tartrate (Metoprolol Tartrate 50 Mg ) 50 mg PO BID [facility] Last Admin: 10/19/22 06:34 Dose: 50 mg Miscellaneous Information (Pneumonia Protocol Utilized 1 Each Misc) 1 each PO ONCE PRN PRN Reason: Per Protocol Naloxone HCl (Naloxone 0.4 Mg/Ml 1 Ml Vial) 0.2 mg IV Q2M PRN PRN Reason: Opioid Reversal Pantoprazole Sodium (Pantoprazole 40 Mg Tablet) 40 mg PO DAILY [facility] Last Admin: 10/19/22 12:10 Dose: 40 mg Past medical history to include: Atrial fibrillation, diabetes mellitus, GERD, hard of hearing, hypertension, hyperlipidemia, osteoarthritis, obstructive sleep apnea, GB syndrome, breast cancer treated, kidney stones, anxiety depression Social history: Lives alone. Smoked for 35 years. Stopped in 2007. 2 packs a day. No alcohol Physical examination: VITAL SIGNS: 98.1, 95, 17, 90/58, 98% room air GENERAL: BMI 39.3, laying in bed comfortable EYES: Pupils equal. Conjunctiva normal. HEENT: External appearance of nose and ears normal, oral cavity grossly normal. NECK: JVD not raised; masses not palpable. HEART: Heart sounds irregular; no edema. LUNGS: Respiratory rate normal; decreased breath sounds. ABDOMEN: Soft, nontender, liver spleen not palpable, no masses palpable. PSYCH: Alert and oriented x3; mood and affect normal. MUSCULOSKELETAL:No Clubbing/cyanosis;muscles-grossly intact NEUROLOGICAL: [Cranial nerves grossly intact; no facial asymmetry, straight leg raising right leg about 20. Left leg about 60. Power in both the arms about 4/5. Decreased developmental psychologist strength INVESTIGATIONS, reviewed in the clinical context: 2-D echocardiogram: EF 40 every 45%. MRI brain: Chronic changes Cortisol 28 October 4: White count 6.8 hemoglobin 14.9 platelets 226 potassium 4.1 creatinine 1.0 procalcitonin 0.15 White count 7.1 hemoglobin 12.6 platelets 186 sodium 133 potassium 3.9 creatinine 0.9 ProBNP 2530 troponin I less than 0.012 Influenza type A, diabetes, RSV, COVID-19: Not detected Chest x-ray film personally reviewed by me-some infiltrates CT brain: Age-related chronic changes. EKG tracing personally reviewed by me-normal sinus rhythm. Assessment and plan: -Patient presents in 1 week of increased weakness in the upper extremity and lower extremity. No neck pain. Accompanied by some episodes of confusion. Dizziness. 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 Able to walk slowly. No fever no chills. Neurology following. MRI brain unremarkable -Probable pneumonia. IV ceftriaxone -Chronic congestive heart failure from systolic dysfunction EF 40-45%. Lopressor. -Paroxysmal atrial fibrillation with rapid ventricular rate.: Uncontrolled Lopressor 50 mg twice a day, flecainide 50 mg every 12, eliquis. Cardizem 30 mg 3 times a day . Cardiology following -Orthostatic, symptomatic Bilateral below-knee LELA stockings. -Obesity BMI 39.3 Weight loss measures -Hyperlipidemia Zocor 40 mg daily at bedtime -GERD Omeprazole 20 mg daily -Essential hypertension Lopressor 50 mg twice a day. Vasotec -Diabetes mellitus type 2, chronically on insulin Follow Accu-Cheks -Depression and anxiety Serax, Cymbalta -Full code Continue current medication treatment plan. Discussed with patient. Heart rate still can't control.
[2022-10-19 20:57] LABS: Glucose,Whole Blood 182 mg/dL (70-110)
[2022-10-19] MEDS ORDERED: lisinopriL 10 MG TAB PO SCH (21:00)
[2022-10-19] MEDS: INSULIN DETEMIR (LEVEMIR) 100 UNIT/ML SYR SQ SCH (21:22)
[2022-10-19] MEDS: ATORVASTATIN 20 MG TAB PO SCH (21:22)
[2022-10-19] MEDS: LATANOPROST 0.005% OPHTH DROPS 2.5 ML BTL RIGHT EYE SCH (21:23)
[2022-10-20 06:17] LABS: Glucose,Whole Blood 175 mg/dL (70-110)
[2022-10-20] MEDS: DULoxetine HCL 60 MG CAPSULE.DR PO SCH (09:19)
[2022-10-20] MEDS: METOPROLOL TARTRATE 50 MG TAB PO SCH (09:19)
[2022-10-20] MEDS: DILTIAZEM ORAL 30 MG TAB PO SCH (09:19)
[2022-10-20] MEDS: PANTOPRAZOLE 40 MG TABLET PO SCH (09:21)
[2022-10-20] MEDS: APIXABAN 5 MG TAB PO SCH (09:21)
[2022-10-20] MEDS: FLECAINIDE 50 MG TAB PO SCH (09:21)
[2022-10-20] MEDS: CHOLECALCIFEROL 25 MCG (1000 IU) TABLET PO SCH (09:22)
[2022-10-20] MEDS: ANASTROZOLE 1 MG TAB PO SCH (09:22)
[2022-10-20 11:13] LABS: Glucose,Whole Blood 149 mg/dL (70-110)
--- NOTE | 2022-10-20 13:13 | P.PN ---
Subjective HISTORY OF PRESENT ILLNESS: This is a 67-year-old female with a past medical history significant for coronary artery disease, paroxysmal atrial fibrillation, hypertension, hyperlipidemia, left-sided breast cancer with previous surgery, and morbid obesity. Patient follows in the office with Dr. Ly. We have been asked to see the patient in consultation for atrial flutter. Patient examined at the bedside. Patient presented to the hospital with a chief complaint of weakness. The patient's initial EKG revealed sinus mechanism. However repeat EKG reveals atrial fibrillation with uncontrolled rates. Patient was started on oral Cardizem per internal medicine. She has also been hypotensive in the hospital and she was started on Florinef. Patient remains in atrial fibrillation with controlled ventricular rates this morning. She denies chest pain or pressure. She denies shortness of breath. * EKG reveals atrial fibrillation with RVR * Chest xray right upper lobe and bibasilar infiltrates. Correlate for pneumon ia. * Laboratory data: WBC 6.8. Hemoglobin 14.9. Platelet count 226. Sodium 140. Potassium 4.1. BUN 18. Creatinine 1.0. TSH 6.350. Free T4 1.28. Cortisol 15. * Current home cardiac medications include Imdur 30 mg daily, Lasix 40 mg daily as needed, Flecainide 50 mg every 12 hours, enalapril 10 mg at night, Eliquis 5mg BID * Most recent echocardiogram obtained in March 2022 10/20/2022 Patient examined this morning at the bedside. Patient denies chest pain or pressure. She denies shortness of breath. Patient converted to sinus mechanism overnight and is maintaining sinus mechanism this morning. Vital signs are stable. Blood pressure has improved. PHYSICAL EXAM: VITAL SIGNS: Reviewed. GENERAL: Well-developed in no acute distress. HEENT: Head is normocephalic. Pupils are equal, round. Sclerae anicteric. Mucous membranes of the mouth are moist. Neck supple. No JVD or thyromegaly LUNGS: Respirations even and unlabored. Lungs essentially clear to auscultation bilaterally. HEART: Irregular rate and rhythm. S1 and S2 heard. ABDOMEN: Soft. Nondistended. Nontender. EXTREMITIES: Normal range of motion. No clubbing or cyanosis. Peripheral pulses intact. No lower extremity edema NEUROLOGIC: Awake and alert. Oriented x 3. ASSESSMENT: Generalized weakness Possible pneumonia Paroxysmal atrial fibrillation with RVR, currently maintaining sinus mechanism Hypotension History of hypertension Nonobstructive coronary artery disease Hyperlipidemia PLAN: Discontinue Cardizem Continue additional cardiac medications Patient is stable for discharge from a cardiac standpoint We'll sign off. Please reconsult if needed. Nurse practitioner note has been reviewed by physician. Signing provider agrees with the documented findings, assessment, and plan of care. Objective - Vital Signs Vital signs: Vital Signs Temp 98.2 F 10/20/22 07:00 Pulse 67 10/20/22 09:20 Resp 18 10/20/22 09:20 BP 108/70 10/20/22 07:00 Pulse Ox 96 10/20/22 07:00 FiO2 Intake & Output 10/19/22 10/20/22 10/20/22 18:59 06:59 18:59 Output Total 300 Balance -300 Output: Urine 300 Other: Voiding Method Toilet # Voids 4 1 - Labs CBC & Chem 7: 10/17/22 06:37 10/17/22 06:37 Labs: Abnormal Lab Results - Last 24 Hours (Table) 10/19/22 10/19/22 10/20/22 Range/Units 16:54 20:55 06:15 POC Glucose (mg/dL) 180 H 182 H 175 H (70-110) mg/dL 10/20/22 Range/Units 11:12 POC Glucose (mg/dL) 149 H (70-110) mg/dL Microbiology - Last 24 Hours (Table) 10/16/22 13:32 Blood Culture - Preliminary Blood 10/16/22 13:05 Blood Culture - Preliminary Blood
[2022-10-20 14:17] VITALS: BP 104/66; PULSE 68; RESP 16; TEMP 98
[2022-10-20 16:21] LABS: Glucose,Whole Blood 135 mg/dL (70-110)
--- NOTE | 2022-10-20 17:14 | P.DS ---
Providers Date of admission: 10/16/22 12:20 Expected date of discharge: 10/20/22 Attending physician: Jose Guzman Consults: 10/16/22 21:24 Consult Physician Routine Consulting Provider: Jorge Pham Consult Reason/Comments: arm /leg weakness progressive Do you want consulting provider notified?: Yes Primary care physician[facility] Course: Chief Complaint: Multiple neurological symptoms This is a pleasant 67-year-old patient who follows with Dr. Jean Uriarte. 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 Has neuropathy with we akness of lower extremity chronically. Waist down. Does normally walk slowly without any walking aids. About 10 days ago suddenly patient became dizzy. Slight decreased hearing. [place] she was getting a slightly confused. Increasing leg weakness. No change in bowel or urine patent. Also felt both him to be weak. Notice gradual weakening. Decided to come in. Patient has noticed getting a bit more short of breath with activity. No fever no chills. No diarrhea. No back pain. October 17: On IV ceftriaxone for pneumonia. Did tolerate some diet. Seen by neurology. MRI ordered. Patient was tachycardic with standing up. Home dose of Lopressor was resumed. Some orthostasis. We'll order LELA stockings. Also Florinef. October 18: Patient feels a bit better. Atrial fibrillation uncontrolled overnight. Cardizem 30 mg by mouth 3 times a day added. Cardiology consulted. Oral intake better. MRI brain pending. October 19: Remains in atrial fibrillation. Heart rate over 150 and standing up. Remains on Lopressor Cardizem. Flecainide. Zestril added by cardiology Blood pressure in the lower side. Remains on IV ceftriaxone. MRI brain showing chronic changes. October 20: Patient did much better. Able to ambulate without getting short of breath. Slight cough. Sputum greatly improved. Patient is in sinus rhythm. Cleared by neurology. Cleared by cardiology. Patient's 2 sons at the bedside. Questions answered. Cardizem discontinued Discussion and discharge planning more than 35 minutes Past medical history to include: Atrial fibrillation, diabetes mellitus, GERD, hard of hearing, hypertension, hyperlipidemia, osteoarthritis, obstructive sleep apnea, GB syndrome, breast cancer treated, kidney stones, anxiety depression Social history: Lives alone. Smoked for 35 years. Stopped in 2007. 2 packs a day. No alcohol Physical examination: VITAL SIGNS: 98, 68, 16, 104/66, 95% room air GENERAL: Sitting up comfortable EYES: Pupils equal. Conjunctiva normal. HEENT: External appearance of nose and ears normal, oral cavity grossly normal. NECK: JVD not raised; masses not palpable. HEART: Second sounds normal; no edema. LUNGS: Respiratory rate normal; improved air entry ABDOMEN: Soft, nontender, liver spleen not palpable, no masses palpable. PSYCH: Alert and oriented x3; mood and affect normal. MUSCULOSKELETAL:No Clubbing/cyanosis;muscles-grossly intact NEUROLOGICAL: [Cranial nerves grossly intact; no facial asymmetry, power sensation grossly intact INVESTIGATIONS, reviewed in the clinical context: 2-D echocardiogram: EF 40 - 45%. MRI brain: Chronic changes Cortisol 28 October 4: White count 6.8 hemoglobin 14.9 platelets 226 potassium 4.1 creatinine 1.0 procalcitonin 0.15 White count 7.1 hemoglobin 12.6 platelets 186 sodium 133 potassium 3.9 creatini ne 0.9 ProBNP 2530 troponin I less than 0.012 Influenza type A, diabetes, RSV, COVID-19: Not detected Chest x-ray film personally reviewed by me-some infiltrates CT brain: Age-related chronic changes. EKG tracing personally reviewed by me-normal sinus rhythm. Assessment and plan: -Acute asthenia due to pneumonia, uncontrolled A. fib: Better - pneumonia. , Suspect gram-negative organism. IV ceftriaxone. DC Ceftin for 2 more days -Chronic congestive heart failure from systolic dysfunction EF 40-45%. Lopressor. Enalapril -Paroxysmal atrial fibrillation with rapid ventricular rate.: Back in sinus rhythm Lopressor 50 mg twice a day, increase flecainide 100 mg every 12, eliquis. Follow outpatient with cardiology -Orthostatic, symptomatic Bilateral below-knee LELA stockings. -Obesity BMI 39.3 Weight loss measures -Hyperlipidemia Lipitor -GERD Omeprazole 20 mg daily -Essential hypertension Lopressor 50 mg twice a day. Vasotec -Diabetes mellitus type 2, chronically on insulin Follow Accu-Cheks -Depression and anxiety Serax, Cymbalta -Full code Disposition: Home Patient Condition at Discharge: Fair Plan - Discharge Summary Discharge Rx Participant: No New Discharge Prescriptions: New Atorvastatin [Lipitor] 20 mg PO HS #30 tab cefUROXime axetiL [Ceftin] 500 mg PO BID #4 tab Continue Hydrocodone/Acetaminophen [[place] 10-325] 1 tab PO Q6H PRN PRN Reason: Pain Enalapril Maleate [Vasotec] 10 mg PO HS Metoprolol Tartrate [Lopressor] 50 mg PO BID ALPRAZolam [Xanax] 0.5 mg PO BID PRN PRN Reason: Anxiety Anastrozole [Arimidex] 1 mg PO DAILY Omeprazole 20 mg PO DAILY Cholecalciferol [Vitamin D3 (25 Mcg = 1000 Iu)] 50 mcg PO DAILY DULoxetine HCL [Cymbalta] 60 mg PO DAILY Furosemide [Lasix] 40 mg PO DAILY PRN PRN Reason: Edema Latanoprost/Pf [Latanoprost 0.005% Eye Drop] 1 drop RIGHT EYE HS Fluticasone Nasal [place] [Flonase Nasal [place]] 1 spr EA NOSTRIL DAILY PRN PRN Reason: Congestion Apixaban [Eliquis] 5 mg PO BID Insulin Detemir (Levemir) [Levemir] 21 unit SQ HS Diclofenac Sodium Gel [Voltaren Gel] 1 applic TOPICAL BID PRN PRN Reason: Pain Changed Flecainide [Tambocor] 100 mg PO Q12HR #60 tab Discontinued Isosorbide Mononitrate ER [Imdur] 30 mg PO DAILY Simvastatin [Zocor] 40 mg PO HS Discharge Medication List Enalapril Maleate [Vasotec] 10 mg PO HS 03/31/15 [History] Hydrocodone/Acetaminophen [[place] 10-325] 1 tab PO Q6H PRN 03/31/15 [History] Metoprolol Tartrate [Lopressor] 50 mg PO BID 03/31/15 [History] ALPRAZolam [Xanax] 0.5 mg PO BID PRN 06/22/17 [History] Anastrozole [Arimidex] 1 mg PO DAILY 04/18/18 [History] Omeprazole 20 mg PO DAILY 04/18/18 [History] Apixaban [Eliquis] 5 mg PO BID 01/02/22 [History] Cholecalciferol [Vitamin D3 (25 Mcg = 1000 Iu)] 50 mcg PO DAILY 01/02/22 [History] DULoxetine HCL [Cymbalta] 60 mg PO DAILY 01/02/22 [History] Fluticasone Nasal [place] [Flonase Nasal [place]] 1 spr EA NOSTRIL DAILY PRN 01/02/22 [History] Latanoprost/Pf [Latanoprost 0.005% Eye Drop] 1 drop RIGHT EYE HS 01/02/22 [History] Furosemide [Lasix] 40 mg PO DAILY PRN 04/09/22 [History] Insulin Detemir (Levemir) [Levemir] 21 unit SQ HS 07/14/22 [History] Diclofenac Sodium Gel [Voltaren Gel] 1 applic TOPICAL BID PRN 09/06/22 [History] Atorvastatin [Lipitor] 20 mg PO HS #30 tab 10/20/22 [Rx] Flecainide [Tambocor] 100 mg PO Q12HR #60 tab 10/20/22 [Rx] cefUROXime axetiL [Ceftin] 500 mg PO BID #4 tab 10/20/22 [Rx] Follow up Appointment(s)/Referral(s): Ashwini Ly MD [STAFF PHYSICIAN] - 1 Week (Office closed at time of discharge. Please call for appointment.) Jean Uriarte MD [Primary Care Provider] - 1-2 days (Office closed at time of discharge. Please call for appointment.)
== END 2022-10-20 18:42 | disposition home or self-care (01) | DRG 178 ==
LOC: EC 09:58 → 4SSUR 12:20
PROVIDERS: ADMIT Hospitalist; ATTEND Hospitalist
DX: J15.6 Pneumonia due to other Gram-negative bacteria (principal); I50.32 Chronic diastolic (congestive) heart failure; J44.0 Chronic obstructive pulmonary disease with (acute) lower respiratory infection; G65.0 Sequelae of Guillain-Barre syndrome; C50.912 Malignant neoplasm of unspecified site of left female breast; E11.9 Type 2 diabetes mellitus without complications; I48.0 Paroxysmal atrial fibrillation; G62.9 Polyneuropathy, unspecified; I11.0 Hypertensive heart disease with heart failure; E66.01 Morbid (severe) obesity due to excess calories; Z79.4 Long term (current) use of insulin; Z20.822 Contact with and (suspected) exposure to COVID-19; Z28.310 Unvaccinated for COVID-19; Z68.39 Body mass index [BMI] 39.0-39.9, adult; I95.1 Orthostatic hypotension; I25.10 Atherosclerotic heart disease of native coronary artery without angina pectoris; E78.5 Hyperlipidemia, unspecified; K21.9 Gastro-esophageal reflux disease without esophagitis; G47.33 Obstructive sleep apnea (adult) (pediatric); M54.50 Low back pain, unspecified; M19.90 Unspecified osteoarthritis, unspecified site; H91.90 Unspecified hearing loss, unspecified ear; F32.A Depression, unspecified; F41.9 Anxiety disorder, unspecified; Z79.01 Long term (current) use of anticoagulants; Z79.811 Long term (current) use of aromatase inhibitors; Z79.899 Other long term (current) drug therapy; Z87.891 Personal history of nicotine dependence; Z87.442 Personal history of urinary calculi; Z86.19 Personal history of other infectious and parasitic diseases; Z71.3 Dietary counseling and surveillance; Z88.5 Allergy status to narcotic agent
CPT/HCPCS: 36415; 70450; 70553; 71046; 80048; 80053; 81001; 82533; 82607; 82746; 83036; 83880; 84145; 84439; 84443; 84484; 85025; 85610; 85730; 87040; 87070; 87449; 87636; 93005; 93306; 94760; 96365; 96367; 99285

== ENCOUNTER 2022-11-29 16:48 | Emergency (ER) | payer MEDICARE, OTHER ==
[2022-11-29 17:32] VITALS: BP 142/78; TEMP 100.4
[2022-11-29] MEDS ORDERED: ONDANSETRON 4 MG/2 ML VIAL IVP STA (18:36)
[2022-11-29] MEDS ORDERED: SODIUM CHLORIDE 0.9% 1,000 ML IV STA (18:36)
[2022-11-29] MEDS ORDERED: PANTOPRAZOLE 40 MG/10 ML VIAL IVP STA (18:36)
[2022-11-29] MEDS ORDERED: KETOROLAC 15 MG/ML 1 ML VIAL IVP STA (18:37)
[2022-11-29] MEDS ORDERED: ACETAMINOPHEN TAB 500 MG TAB PO STA (18:37)
[2022-11-29 19:35] LABS: Basophils % (A) 0 %; Eosinophils % (A) 0 %; HCT 35.4 % (34.0-46.0); HGB 11.8 gm/dL (11.4-16.0); Lymphocytes # (A) 0.7 k/uL (1.0-4.8); Lymphocytes % (A) 6 %; MCH 27.1 pg (25.0-35.0); MCHC 33.2 g/dL (31.0-37.0); MCV 81.5 fL (80.0-100.0); Mean Platelet Volume 7.3; Monocytes # (A) 0.5 k/uL (0-1.0); Monocytes % (A) 4 %; Neutrophils # (A) 10.6 k/uL (1.3-7.7); Neutrophils % (A) 88 %; Platelet Count 174 k/uL (150-450); RBC 4.34 m/uL (3.80-5.40); RDW 15.2 % (11.5-15.5)
--- NOTE | 2022-11-29 19:35 | XR ---
EXAMINATION TYPE: XR chest 2V DATE OF EXAM: 11/29/2022 COMPARISON: 10/17/2022 INDICATION: Cough, fever TECHNIQUE: Frontal and lateral views of the chest are obtained. FINDINGS: The heart size is normal. The pulmonary vasculature is normal. No suspicious consolidations evident. Some mild right middle lobe increased lung markings may be pres ent present previously. Atelectasis, pneumonia, or scarring could be considered. IMPRESSION: 1. Mild increased nonspecific lung markings right heart border. Findings are nonspecific. Consider sc arring, atelectasis, pneumonia.
[2022-11-29 19:37] LABS: VBG PH 7.42 (7.31-7.41)
[2022-11-29 19:41] LABS: Partial Thromboplastin Time 24.9 sec (22.0-30.0); Prothrombin Time 10.8 sec (9.0-12.0)
[2022-11-29 19:57] LABS: ALT 23 U/L (4-34); AST 28 U/L (14-36); African American GFR (CKD) >90 (>60 ml/min/1.73 sqM); Albumin 3.8 g/dL (3.5-5.0); Alkaline Phosphatase 88 U/L (38-126); Amylase 54 U/L (30-110); Anion Gap 11 mmol/L; Blood Urea Nitrogen 16 mg/dL (7-17); Calcium 8.9 mg/dL (8.4-10.2); Carbon Dioxide 24 mmol/L (22-30); Chloride 97 mmol/L (98-107); Glucose 174 mg/dL (74-99); Lipase 144 U/L (23-300); Non-African American GFR(CKD) >90 (>60 ml/min/1.73 sqM); Potassium 3.5 mmol/L (3.5-5.1); Sodium 132 mmol/L (137-145); Total Bilirubin 1.6 mg/dL (0.2-1.3); Total Protein 7.3 g/dL (6.3-8.2)
--- NOTE | 2022-11-29 20:07 | ED ---
General Adult HPI - General Chief complaint: Dizziness Stated complaint: vomiting,dizziness Time Seen by Provider: 11/29/22 18:26 Source: patient, RN notes reviewed, old records reviewed Mode of arrival: wheelchair Limitations: no limitations - History of Present Illness Initial comments: Patient is a 67-year-old female presents with Department complaining of 3 months on again off again lightheadedness dizziness as well as nausea and vomiting. States that today she decided to come in because she had the chills and was sick of this occurring to her. Found to have a fever upon arrival. Has a history of A. fib, cancer status post left mastectomy, diabetes, hypertension. States her sugars have been adequate. Denies any chest pain or shortness of breath. Endorses nonproductive cough. Versus some redness of the left arm. Also endorses some nonspecific lower abdominal discomfort and pain. Endorses some mild dysuria. Denies any diarrhea or constipation. Denies any current nausea. States that her emesis is nonbilious nonbloody. Presents for further evaluation at this time. Denies headache or blurry vision. - Related Data Home Medications Medication Instructions Recorded Confirmed Enalapril Maleate [Vasotec] 10 mg PO HS 03/31/15 11/29/22 Hydrocodone/Acetaminophen [Paton 1 tab PO Q6H PRN 03/31/15 11/29/22 10-325] Metoprolol Tartrate [Lopressor] 50 mg PO BID 03/31/15 11/29/22 ALPRAZolam [Xanax] 0.5 mg PO BID PRN 06/22/17 11/29/22 Anastrozole [Arimidex] 1 mg PO DAILY 04/18/18 11/29/22 Omeprazole 20 mg PO DAILY 04/18/18 11/29/22 Apixaban [Eliquis] 5 mg PO BID 01/02/22 11/29/22 Cholecalciferol [Vitamin D3 (25 50 mcg PO DAILY 01/02/22 11/29/22 Mcg = 1000 Iu)] DULoxetine HCL [Cymbalta] 60 mg PO DAILY 01/02/22 11/29/22 Fluticasone Nasal [place] [Flonase 1 spr EA NOSTRIL DAILY PRN 01/02/22 11/29/22 Nasal [place]] Latanoprost/Pf [Latanoprost 0.005% 1 drop RIGHT EYE HS 01/02/22 11/29/22 Eye Drop] Furosemide [Lasix] 40 mg PO DAILY PRN 04/09/22 11/29/22 Insulin Detemir (Levemir) [Levemir] 21 unit SQ HS 07/14/22 11/29/22 Diclofenac Sodium Gel [Voltaren 1 applic TOPICAL BID PRN 09/06/22 11/29/22 Gel] Albuterol Inhaler [Ventolin Hfa 1 - 2 puff INHALATION RT-Q6H PRN 11/29/22 11/29/22 Inhaler] Ondansetron Odt [Zofran Odt] 4 mg PO TID PRN 11/29/22 11/29/22 Previous Rx's Medication Instructions Recorded Atorvastatin [Lipitor] 20 mg PO HS #30 tab 10/20/22 Flecainide [Tambocor] 100 mg PO Q12HR #60 tab 10/20/22 Sulfamethox-Tmp 800-160Mg [Bactrim 1 tab PO Q12HR 7 Days #14 tab 11/29/22 DS 800-160 mg] Allergies Allergy/AdvReac Type Severity Reaction Status Date / Time morphine AdvReac Hypotension Verified 11/29/22 20:53 Review of Systems ROS Statement: Those systems with pertinent positive or pertinent negative responses have been documented in the HPI. Review of Systems: CONST: Denies fever EYES: Denies blurry vision ENT: Denies nasal congestion C/V: Denies Chest pain RESP: Denies shortness of breath GI: Endorses abdominal pain : Denies dysuria SKIN: Denies rash. MSK: Denies joint pain. NEURO: Endorses lightheadedness ROS Other: All systems not noted in ROS Statement are negative. Past Medical History Past Medical History: Atrial Fibrillation, Coronary Artery Disease (CAD), Cancer, Diabetes Mellitus, GERD/Reflux, Hearing Disorder / Deafness, Hyperlipidemia, Hypertension, Osteoarthritis (OA), Pneumonia, Sleep Apnea/CPAP /BIPAP Additional Past Medical History / Comment(s): [facility]; Breast Cancer, hx migraines, no cpap used, "fx back- SEPTEMBER 2021. Lower back pain, HARD OF HEARING, kidney stones History of Any Multi-Drug Resistant Organisms: ESBL Date of last positivie culture/infection: 09/16/21 ESBL E.coli MDRO Source:: Urine Past Surgical History: Breast Surgery, Section, Cholecystectomy, Heart Catheterization Additional Past Surgical History / Comment(s): left breast Lumpectomy, four heart catheterizations- no stents . left mastectomy. kidney surgery for blocked ureter. thien cataracts, PAIN CLINIC PROCEDURES Past Anesthesia/Blood Transfusion Reactions: No Reported Reaction Past Psychological History: Anxiety, Depression Smoking Status: Former smoker Past Alcohol Use History: None Reported Past Drug Use History: None Reported - Past Family History Mother Family Medical History: Cancer Father Family Medical History: Diabetes Mellitus General Exam - General Exam Comments Initial Comments: General: Appears in no acute distress. Febrile. HEAD: Normal with no signs of head trauma. EYES: PERRLA, EOMI, conjunctiva normal, no discharge. ENT: Hearing grossly intact, normal oropharynx. RESPIRATORY: Clear breath sounds bilaterally. No wheezes, rales, or rhonchi. C/V: regular rate and rhythm. S1 and S2 auscultated, no edema, peripheral pulses 2+ and intact throughout ABD: Abdomen is soft, nondistended. Mild tightness to palpation in the bila teral lower quadrants as well as suprapubically. No guarding. No rebound tenderness. No peritoneal signs. EXT: Normal range of motion, no obvious deformity SKIN: No rashes or lesions observed on exposed skin. NEURO: Alert and oriented 4. Limitations: no limitations Course Vital Signs 11/29/22 17:29 Temperature 100.4 F H Pulse Rate 91 Respiratory 20 Rate Blood Pressure 142/78 O2 Sat by Pulse 95 Oximetry Medical Decision Making - Medical Decision Making Was pt. sent in by a medical professional or institution (, PA, EVENT ATTENDANT, urgent care, hospital, or jail...) When possible be specific @ -No Did you speak to anyone other than the patient for history (EMS, parent, family, police, friend...)? What history was obtained from this source @ -No Did you review nursing and triage notes (agree or disagree)? Why? @ -I reviewed and agree with nursing and triage notes Were old charts reviewed (outside hosp., previous admission, EMS record, old EKG, old radiological studies, urgent care reports/EKG's, jail records)? Report findings @ -No old charts were reviewed Differential Diagnosis (chest pain, altered mental status, abdominal pain women, abdominal pain men, vaginal bleeding, weakness, fever, dyspnea, syncope, headache, dizziness, GI bleed, back pain, seizure, CVA, palpatations, mental health, musculoskeletal)? @ -Differential Abdominal Pain Women: Appendicitis, Cholecystitis, diverticulosis, ischemic bowel, pancreatitis, hepatitis, UTI, gastroenteritis, AAA, incarcerated hernia, bowel obstruction, constipation, inflammatory bowel, hepatitis, peptic ulcer disease, splenic infarction, perforated viscus, vulvitis, ovarian torsion, PID, kidney stone, placenta abruption, this is not meant to be an all-inclusive list EKG interpreted by me (3pts min.). @ -As above X-rays interpreted by me (1pt min.). @ -Chest x-ray reveals no acute process or infection. CT interpreted by me (1pt min.). @ -Patient's CT abdomen and pelvis revealed no obvious acute intra-abdominal process U/S interpreted by me (1pt. min.). @ -None done What testing was considered but not performed or refused? (CT, X-rays, U/S, labs)? Why? @ -None What meds were considered but not given or refused? Why? @ -None Did you discuss the management of the patient with other professionals (professionals i.e. , PA, EVENT ATTENDANT, lab, RT, psych nurse, social science research assistant, manager strategic marketing, teacher, hospital chief executive officer, case manager specialist)? Give summary @ -No Was smoking cessation discussed for >3mins.? @ -No Was critical care preformed (if so, how long)? @ -No Were there social determinants of health that impacted care today? How? (H omelessness, low income, unemployed, alcoholism, drug addiction, transportation, low edu. Level, literacy, decrease access to med. care, long term, rehab)? @ -No Was there de-escalation of care discussed even if they declined (Discuss DNR or withdrawal of care, Hospice)? DNR status @ -No What co-morbidities impacted this encounter? (DM, HTN, Smoking, COPD, CAD, Cancer, CVA, ARF, Chemo, Hep., AIDS, mental health diagnosis, sleep apnea, morbid obesity)? @ -None Was patient admitted / discharged? Hospital course, mention meds given and route, prescriptions, significant lab abnormalities, going to OR and other pertinent info. @ -Based on patient's presentation and physical exam, presents with nausea and vomiting as well as low-grade fever. Patient's left arm has some mild erythema on it with no obvious fluctuance or induration. Also has lower abdominal discomfort. Vital signs otherwise within acceptable limits. We will send currently treated with IV fluids and obtain broad workup as well as CT of the pelvis and chest x-ray. Infectious also be obtained. Patient was in agreement this plan. She'll be symptomatically treated with IV fluids, Toradol, acet aminophen, Zofran. Patient was in agreement with this plan. EKG showed no signs of acute ischemia 2.Patient's imaging is negative. Patient's labs are remarkable for mild leukocytosis of 12. She also has a UTI. Remainder of the labs within normal limits. No obvious signs of significant dehydration and DKA. Urine cultures were sent for the patient. We discussed her results. She is feeling better. Fevers resolved as well. Discussed antipyretic therapy, as well as antibiotics. She'll be placed on Bactrim, in the slight chance that she does have a mild cellulitis in the left arm but mostly to also treat her UTI. She was in agreement this plan. Strict return precautions discussed. I will provide the patient with a prescription for Bactrim. I instructed the patient to follow up with their PCP in the next 1-3 days. I explained that the patient should return to the emergency department if they experience any worsening symptoms. Strict return precautions were discussed with the patient. The patient expressed understanding of these instructions. I answered all questions that the patient had. The patient was discharged home in good condition with their prescriptions and follow up information. Undiagnosed new problem with uncertain prognosis? @ -No Drug Therapy requiring intensive monitoring for toxicity (Heparin, Nitro, Insulin, Cardizem)? @ -No Were any procedures done? @ -No Diagnosis/symptom? @ -UTI, nausea and vomiting Acute, or Chronic, or Acute on Chronic? @ -Acute Uncomplicated (without systemic symptoms) or Complicated (systemic symptoms)? @ -Complicated Side effects of treatment? @ -none Exacerbation, Progression, or Severe Exacerbation] @ -no Poses a threat to life or bodily function? @ -If untreated, yes - Lab Data Result diagrams: 11/29/22 19:02 11/29/22 19:02 Lab Results 11/29/22 11/29/22 11/29/22 Range/Units 19:02 19:02 19:02 WBC 12.0 H (3.8-10.6) k/uL RBC 4.34 (3.80-5.40) m/uL Hgb 11.8 (11.4-16.0) gm/dL Hct 35.4 (34.0-46.0) % MCV 81.5 (80.0-100.0) fL MCH 27.1 (25.0-35.0) pg MCHC 33.2 (31.0-37.0) g/dL RDW 15.2 (11.5-15.5) % Plt Count 174 (150-450) k/uL MPV 7.3 Neutrophils % 88 % Lymphocytes % 6 % Monocytes % 4 % Eosinophils % 0 % Basophils % 0 % Neutrophils # 10.6 H (1.3-7.7) k/uL Lymphocytes # 0.7 L (1.0-4.8) k/uL Monocytes # 0.5 (0-1.0) k/uL Eosinophils # 0.0 (0-0.7) k/uL Basophils # 0.0 (0-0.2) k/uL PT 10.8 (9.0-12.0) sec INR 1.0 (<1.2) APTT 24.9 (22.0-30.0) sec VBG pH (7.31-7.41) VBG pCO2 (37-51) mmHg VBG HCO3 (24-28) mmol/L Sodium (137-145) mmol/L Potassium (3.5-5.1) mmol/L Chloride (98-107) mmol/L Carbon Dioxide (22-30) mmol/L Anion Gap mmol/L BUN (7-17) mg/dL Creatinine (0.52-1.04) mg/dL Est GFR (CKD-EPI)AfAm (>60 ml/min/1.73 sqM) Est GFR (CKD-EPI)NonAf (>60 ml/min/1.73 sqM) Glucose (74-99) mg/dL Plasma Lactic Acid [place] (0.7-2.0) mmol/L Calcium (8.4-10.2) mg/dL Total Bilirubin (0.2-1.3) mg/dL AST (14-36) U/L ALT (4-34) U/L Alkaline Phosphatase (38-126) U/L Total Protein (6.3-8.2) g/dL Albumin (3.5-5.0) g/dL Amylase (30-110) U/L Lipase (23-300) U/L Urine Color Yellow Urine Appearance Cloudy H (Clear) Urine pH 6.5 (5.0-8.0) Ur Specific [place] 1.019 (1.001-1.035) Urine Protein 1+ H (Negative) Urine Glucose (UA) Trace H (Negative) Urine Ketones Negative (Negative) Urine Blood Negative (Negative) Urine Nitrite Negative (Negative) Urine Bilirubin Negative (Negative) Urine Urobilinogen <2.0 (<2.0) mg/dL Ur Leukocyte Esterase Large H (Negative) Urine RBC 35 H (0-5) /hpf Urine WBC 22 H (0-5) /hpf Ur Squamous Epith Cells <1 (0-4) /hpf Urine Bacteria Many H (None) /hpf Urine Mucus Rare H (None) /hpf Acetone, Qual (Negative) Influenza Type A (PCR) (Not Detectd) Influenza Type B (PCR) (Not Detectd) RSV (PCR) (Not Detectd) SARS-CoV-2 (PCR) (Not Detectd) 11/29/22 11/29/22 11/29/22 Range/Units 19:02 19:02 19:02 WBC (3.8-10.6) k/uL RBC (3.80-5.40) m/uL Hgb (11.4-16.0) gm/dL Hct (34.0-46.0) % MCV (80.0-100.0) fL MCH (25.0-35.0) pg MCHC (31.0-37.0) g/dL RDW (11.5-15.5) % Plt Count (150-450) k/uL MPV Neutrophils % % Lymphocytes % % Monocytes % % Eosinophils % % Basophils % % Neutrophils # (1.3-7.7) k/uL Lymphocytes # (1.0-4.8) k/uL Monocytes # (0-1.0) k/uL Eosinophils # (0-0.7) k/uL Basophils # (0-0.2) k/uL PT (9.0-12.0) sec INR (<1.2) APTT (22.0-30.0) sec VBG pH (7.31-7.41) VBG pCO2 (37-51) mmHg VBG HCO3 (24-28) mmol/L Sodium 132 L (137-145) mmol/L Potassium 3.5 (3.5-5.1) mmol/L Chloride 97 L (98-107) mmol/L Carbon Dioxide 24 (22-30) mmol/L Anion Gap 11 mmol/L BUN 16 (7-17) mg/dL Creatinine 0.67 (0.52-1.04) mg/dL Est GFR (CKD-EPI)AfAm >90 (>60 ml/min/1.73 sqM) Est GFR (CKD-EPI)NonAf >90 (>60 ml/min/1.73 sqM) Glucose 174 H (74-99) mg/dL Plasma Lactic Acid [place] 1.3 (0.7-2.0) mmol/L Calcium 8.9 (8.4-10.2) mg/dL Total Bilirubin 1.6 H (0.2-1.3) mg/dL AST 28 (14-36) U/L ALT 23 (4-34) U/L Alkaline Phosphatase 88 (38-126) U/L Total Protein 7.3 (6.3-8.2) g/dL Albumin 3.8 (3.5-5.0) g/dL Amylase 54 (30-110) U/L Lipase 144 (23-300) U/L Urine Color Urine Appearance (Clear) Urine pH (5.0-8.0) Ur Specific [place] (1.001-1.035) Urine Protein (Negative) Urine Glucose (UA) (Negative) Urine Ketones (Negative) Urine Blood (Negative) Urine Nitrite (Negative) Urine Bilirubin (Negative) Urine Urobilinogen (<2.0) mg/dL Ur Leukocyte Esterase (Negative) Urine RBC (0-5) /hpf Urine WBC (0-5) /hpf Ur Squamous Epith Cells (0-4) /hpf Urine Bacteria (None) /hpf Urine Mucus (None) /hpf Acetone, Qual Negative (Negative) Influenza Type A (PCR) Not Detected (Not Detectd) Influenza Type B (PCR) Not Detected (Not Detectd) RSV (PCR) Not Detected (Not Detectd) SARS-CoV-2 (PCR) Not Detected (Not Detectd) 11/29/22 Range/Units 19:02 WBC (3.8-10.6) k/uL RBC (3.80-5.40) m/uL Hgb (11.4-16.0) gm/dL Hct (34.0-46.0) % MCV (80.0-100.0) fL MCH (25.0-35.0) pg MCHC (31.0-37.0) g/dL RDW (11.5-15.5) % Plt Count (150-450) k/uL MPV Neutrophils % % Lymphocytes % % Monocytes % % Eosinophils % % Basophils % % Neutrophils # (1.3-7.7) k/uL Lymphocytes # (1.0-4.8) k/uL Monocytes # (0-1.0) k/uL Eosinophils # (0-0.7) k/uL Basophils # (0-0.2) k/uL PT (9.0-12.0) sec INR (<1.2) APTT (22.0-30.0) sec VBG pH 7.42 H (7.31-7.41) VBG pCO2 41 (37-51) mmHg VBG HCO3 27 (24-28) mmol/L Sodium (137-145) mmol/L Potassium (3.5-5.1) mmol/L Chloride (98-107) mmol/L Carbon Dioxide (22-30) mmol/L Anion Gap mmol/L BUN (7-17) mg/dL Creatinine (0.52-1.04) mg/dL Est GFR (CKD-EPI)AfAm (>60 ml/min/1.73 sqM) Est GFR (CKD-EPI)NonAf (>60 ml/min/1.73 sqM) Glucose (74-99) mg/dL Plasma Lactic Acid [place] (0.7-2.0) mmol/L Calcium (8.4-10.2) mg/dL Total Bilirubin (0.2-1.3) mg/dL AST (14-36) U/L ALT (4-34) U/L Alkaline Phosphatase (38-126) U/L Total Protein (6.3-8.2) g/dL Albumin (3.5-5.0) g/dL Amylase (30-110) U/L Lipase (23-300) U/L Urine Color Urine Appearance (Clear) Urine pH (5.0-8.0) Ur Specific [place] (1.001-1.035) Urine Protein (Negative) Urine Glucose (UA) (Negative) Urine Ketones (Negative) Urine Blood (Negative) Urine Nitrite (Negative) Urine Bilirubin (Negative) Urine Urobilinogen (<2.0) mg/dL Ur Leukocyte Esterase (Negative) Urine RBC (0-5) /hpf Urine WBC (0-5) /hpf Ur Squamous Epith Cells (0-4) /hpf Urine Bacteria (None) /hpf Urine Mucus (None) /hpf Acetone, Qual (Negative) Influenza Type A (PCR) (Not Detectd) Influenza Type B (PCR) (Not Detectd) RSV (PCR) (Not Detectd) SARS-CoV-2 (PCR) (Not Detectd) - EKG Data -: EKG Interpreted by Me EKG Comments: 12-lead Electrocardiogram Interpretation Note EKG was reviewed and interpreted by myself. 12-lead ECG performed at 1737 is interpreted by me as revealing normal sinus rhythm at a rate of 91 beats per minute. Kinder is normal. MA interval is 180 ms, QRS durations 106 seconds, QTC is [address] changes seen similar to prior EKGs from October 2022. There were no acute ST or T wave abnormalities to suggest myocardial ischemia or injury. R wave progression across the precordium was satisfactory. By my interpretation this EKG is non-diagnostic for acute ischemia. Repeat EKG was obtained. 12-lead Electrocardiogram Interpretation Note EKG was reviewed and interpreted by myself. 12-lead ECG performed at 1847 is interpreted by me as revealing normal sinus rhythm at a rate of 86 beats per minute. Kinder is normal. MA interval is 174 ms, QRS durations 106 ms, QTc is 436 ms.. There were no ST or T wave abnormalities to suggest myocardial ischemia or injury. R wave progression across the precordium was satisfactory. By my interpretation this EKG is non-diagnostic for acute ischemia. No dynamic changes present. Disposition Clinical Impression: UTI (urinary tract infection), Nausea and vomiting Disposition: HOME SELF-CARE Condition: Good Instructions (If sedation given, give patient instructions): Urinary Tract Infection in Women (DC) Prescriptions: Sulfamethox-Tmp 800-160Mg [Bactrim DS 800-160 mg] 1 tab PO Q12HR 7 Days #14 tab Is patient prescribed a controlled substance at d/c from ED?: No Referrals: Jean Uriarte MD [Primary Care Provider] - 1-2 days Time of Disposition: 21:09
[2022-11-29 20:24] LABS: Appearance,Urine Cloudy (Clear); Bacteria,Urine Many /hpf; Bilirubin,Urine Negative (Negative); Blood,Urine Negative (Negative); Color,Urine Yellow; Glucose,Urine (UA) Trace (Negative); Ketones,Urine Negative (Negative); Leukocyte Esterase,Urine Large (Negative); Mucus,Urine Rare /hpf; Nitrite,Urine Negative (Negative); PH, Urine 6.5 (5.0-8.0); Protein,Urine 1+ (Negative); RBC,Urine 35 /hpf (0-5); Specific Gravity,Urine 1.019 (1.001-1.035); Squamous Epithelial Cell,Urine <1 /hpf (0-4); Urobilinogen,Urine <2.0 mg/dL (<2.0); WBC,Urine 22 /hpf (0-5)
--- NOTE | 2022-11-29 20:34 | CT ---
EXAMINATION TYPE: CT abdomen pelvis w con DATE OF EXAM: 11/29/2022 COMPARISON: 11/21/2021 INDICATION: Lower abdominal pain, N/V dizziness. DLP: 2483.1 mGycm, Automated exposure control for dose reduction was used. CONTRAST: 100 ml mL of Isovue 300. Study performed without Oral Contrast TECHNIQUE: Axial images were obtained from above the diaphragm to the pubic rami in the axial plane a t 5 mm thick sections. Reconstructed images are reviewed on the computer in the coronal plane. FINDINGS: Limited CT sections are obtained the lung bases. The lung bases are clear. There are prior left mas tectomy. Coronary artery calcification is present. CT ABDOMEN: Liver: There is a 1.8 cm cyst superior right lobe liver, present previously. Liver otherwise appears unremarkable. Spleen: Normal Pancreas: Normal Adrenal glands: The adrenal glands are normal. Gallbladder: Surgically absent Kidneys: No masses are evident. No hydronephrosis is present. There is a right extrarenal pelvis pres ent. No hydroureter is evident. No cysts are present. No renal stones are evident. Aorta: Vascular calcification is within the aorta. Inferior vena cava: Normal. CT PELVIS: Loops of bowel within the abdomen and pelvis are normal. Study is lateral contrast limits bowel e valuation. Appendix: There appears to be the appendix is normal. No dilated tubular structure or inflammatory ch anges evident. Urinary bladder: Normal. Genitourinary structures: Uterus is unremarkable. Adnexa are normal. No free fluid is within the pelv is. Osseous structures: No suspicious lytic or sclerotic lesions. IMPRESSIONS: 1. No acute abnormality to account for patient's symptoms.
[2022-11-29] MEDS ORDERED: SULFAMETHOX-TMP 800-160MG 1 EACH TAB PO STA (21:19)
[2022-11-29] MEDS ORDERED: cefTRIAXone IN SWFI 1,000 MG/10 ML SYRINGE IVP STA (21:19)
[2022-11-29] MEDS ORDERED: ONDANSETRON 4 MG ODT STARTER PACK 2 TAB BTL PO STA (21:19)
[2022-11-29 22:04] VITALS: PULSE 87; RESP 18
== END 2022-11-29 22:04 | disposition home or self-care (01) ==
LOC: EC 16:48
DX: N39.0 Urinary tract infection, site not specified (principal); D72.829 Elevated white blood cell count, unspecified; B96.4 Proteus (mirabilis) (morganii) as the cause of diseases classified elsewhere; B95.4 Other streptococcus as the cause of diseases classified elsewhere; E11.36 Type 2 diabetes mellitus with diabetic cataract; I10 Essential (primary) hypertension; I48.91 Unspecified atrial fibrillation; I25.10 Atherosclerotic heart disease of native coronary artery without angina pectoris; K21.9 Gastro-esophageal reflux disease without esophagitis; F41.9 Anxiety disorder, unspecified; F32.A Depression, unspecified; Z20.822 Contact with and (suspected) exposure to COVID-19; Z79.4 Long term (current) use of insulin; Z79.01 Long term (current) use of anticoagulants; Z79.51 Long term (current) use of inhaled steroids; Z79.899 Other long term (current) drug therapy; Z88.5 Allergy status to narcotic agent; Z90.49 Acquired absence of other specified parts of digestive tract; Z87.891 Personal history of nicotine dependence; Z85.3 Personal history of malignant neoplasm of breast
CPT/HCPCS: 99285; 96374; 96375 ×3; 96361; 36415; 93005; 80053; 82150; 82803; 82009; 83605; 83690; 85025; 85610; 85730; 81001; 87040; 87086; 87077; 87186; 87636; 71046; 74177; J2405; J0696; J1885; S0119; C9113; Q9967